=== PATIENT | male | born 1950 | race Caucasian/White ===

== ENCOUNTER 2020-01-09 09:39 | Outpatient (CLI) | payer MEDICARE, SELFPAY ==
[2020-01-09 10:59] LABS: Basophils Absolute Auto 0.1 K/mm3 (0.0-0.1); Basophils Percent Auto 0.9 % (0.2-1.2); Eosinophils Absolute Auto 0.3 K/mm3 (0-0.3); Eosinophils Percent Auto 3.8 % (0-4.4); Hematocrit 38.9 % (42.0-52.0); Hemoglobin 12.8 g/dL (14.0-18.0); Immature Granulocyte Absolute 0.03 K/mm3 (0.00-0.031); Immature Granulocyte Percent A 0.4 % (0-0.5); Lymphocytes Percent Auto 34.1 % (18.3-44.2); Mean Corpuscular HGB Conc 32.9 g/dl (32-36); Mean Corpuscular Hemoglobin 27.1 pg (26-34); Mean Corpuscular Volume 82.4 fl (80-100); Mean Platelet Volume 11.4 fl (7.4-10.4); Monocytes Absolute Auto 0.7 K/mm3 (0.1-0.6); Monocytes Percent Auto 7.9 % (2.6-8.5); Neutrophils Absolute Auto 4.4 K/mm3 (1.3-6.7); Neutrophils Percent Auto 52.9 % (45.5-73.1); Platelet Count Result 256 k/mm3 (150-375); Red Blood Count 4.72 M/mm3 (4.6-6.20); Red Cell Distribution Width 15.6 % (11.5-14.5); White Blood Count 8.2 K/mm3 (4.5-10.0)
[2020-01-09 11:16] LABS: Alanine Aminotransferase 24 U/L (4-50); Albumin Level 4.3 g/dL (3.5-5.1); Alkaline Phosphatase 106 U/L (38-126); Aspartate Amino Transferase 31 U/L (17-59); Bilirubin,Total 0.7 mg/dL (0.2-1.3); Blood Urea Nitrogen 24 mg/dL (9-20); Calcium 9.3 mg/dL (8.4-10.2); Carbon Dioxide 28 mmol/L (22-30); Chloride 98 mmol/L (98-107); Estimated Glomerular Filt Rate > 60; Glucose 194 mg/dL (75-110); Potassium 3.4 mmol/L (3.4-5.0); Sodium 138 mmol/L (137-145)
== END 2020-01-09 09:40 | disposition home or self-care (01) ==
LOC: ANHLAB 09:41
PROVIDERS: PCP Family Medicine; Visit Provider Family Medicine
DX: D64.9 Anemia, unspecified (principal); I10 Essential (primary) hypertension
CPT/HCPCS: 36415; 80053; 85025; 85027

== ENCOUNTER 2020-05-08 21:15 | Inpatient (IN) | payer MEDICARE, SELFPAY ==
[2020-05-08] VITALS (22 sets, daily range): BP systolic 100–129; BP diastolic 60–82; PULSE 83–119; RESP 15–45; TEMP 37.1; O2SAT 73–99
--- NOTE | ~2020-05-08 | XR_ITS ---
XR chest 1V portable 05/31/2020 11:38 Indication: Respiratory distress Procedure: AP portable chest Comparison: Comparison to multiple prior studies sequentially, with oldest reviewed study dated 07/2019. Findings: Diffuse bilateral airspace disease. Tracheostomy tube present. Heart size normal. No signif icant pleural effusion or pneumothorax. PICC line tip in the SVC. Impression: 1: Diffuse bilateral airspace disease which may represent pneumonia or edema. Reviewed, dictated and finalized at location B. BER'S HELPER Impression: 1: Diffuse bilateral airspace disease which may represent pneumonia or edema.
--- NOTE | ~2020-05-08 | XR_ITS ---
EXAMINATION: XR chest 1V portable INDICATION: : Pneumonia TECHNIQUE: Portable AP chest at 0823 hours COMPARISON: 05/10/2020 FINDINGS: Diffuse interstitial and airspace opacities persist with slight improvement. There is no pl eural effusion or pneumothorax. The cardiomediastinal silhouette is stable. IMPRESSION: 1. Diffuse lung disease with interval improvement, consistent with pneumonia and/or pulmonary edema a nd/or acute respiratory distress syndrome (ARDS). Reviewed, dictated and finalized at location A. ER OPERATOR IMPRESSION: 1. Diffuse lung disease with interval improvement, consistent with pneumonia an d/or pulmonary edema and/or acute respiratory distress syndrome (ARDS).
--- NOTE | ~2020-05-08 | XR_ITS ---
EXAMINATION: XR chest 1V portable DATE: 06/03/2020 05:42 INDICATION: Acute respiratory failure TECHNIQUE: frontal view of the chest was obtained. COMPARISON: Chest radiograph dated 06/02/2020 FINDINGS: Tracheostomy tube in expected position at the thoracic inlet. Left upper extremity peripherally inser domenico central venous catheter (PICC) tip at the cephalad superior vena cava. Diffuse bilateral increased indistinct interstitial and patchy airspace opacities throughout both gina gs. No pneumothorax or definitive pleural effusion. Heart size is normal. IMPRESSION: 1. No significant change in diffuse bilateral interstitial and airspace opacities which could represe nt moderate pulmonary edema, pneumonia, ARDS or some combination thereof. Reviewed, dictated and finalized at location A. RS IMPRESSION: 1. No significant change in diffuse bilateral interstitial and airspace opaciti es which could represent moderate pulmonary edema, pneumonia, ARDS or some comb ination thereof.
--- NOTE | ~2020-05-08 | XR_ITS ---
EXAMINATION: XR chest ET placement INDICATION: Respiratory failure, endotracheal tube insertion TECHNIQUE: Portable AP chest at 0852 hours COMPARISON: 0459 hours FINDINGS: An endotracheal tube has been inserted which ends 5.8 cm above the chely. The nasogastric tube is followed as far as the stomach. Its tip is beyond the inferior margin of the radiograph. Diff use interstitial and airspace opacities persist with slight worsening in the left lung base. There is no pleural effusion or pneumothorax. The cardiomediastinal silhouette is normal. IMPRESSION: 1. Endotracheal tube inserted and ending approximately 5.8 cm above the chely. 2. Nasogastric tube insertion. 3. Diffuse lung disease with interval worsening in the left lung base, consistent with pneumonia and/ or pulmonary edema and/or acute respiratory distress syndrome (ARDS). Reviewed, dictated and finalized at location A. HER EXAMINER IMPRESSION: 1. Endotracheal tube inserted and ending approximately 5.8 cm above the chely. 2. Nasogastric tube insertion. 3. Diffuse lung disease with interval worsening in the left lung base, consiste nt with pneumonia and/or pulmonary edema and/or acute respiratory distress synd davian (ARDS).
--- NOTE | ~2020-05-08 | XR_ITS ---
XR chest 1V portable DATE: 05/25/2020 06:18 INDICATION: Covid pneumonia TECHNIQUE: Portable AP chest views on 05/25/2020 at 0525 and 0526 hours COMPARISON: 05/24/2020 portable AP chest at 0527 hours FINDINGS: ET tube is approximately 6.5 cm above chely; ideal range is 2-5 cm. NG tube is noted in the stomach. Left upper extremity PIC catheter tip overlies superior vena cava. Normal heart size. Aortic arch calcification. There are extensive interstitial infiltrates of both lungs involving primarily the mid and lower lung zones, stable since 05/24/2020 IMPRESSION: Persistent relatively stable bilateral pulmonary infiltrates since 05/24/2020 Reviewed, dictated and finalized at location A. NOLOGY SUPPORT ANALYST
--- NOTE | ~2020-05-08 | US_ITS ---
EXAMINATION: US venous doppler UE DATE: 05/21/2020 11:02 INDICATION: Bilateral arm swelling TECHNIQUE: Schwarz scale images with and without compression and Doppler images of the right and left up per extremity veins were obtained. COMPARISON: None. FINDINGS: There is superficial venous thrombosis of the right basilic and cephalic veins in the left basilic ve in. Remainder of the upper extremity veins are patent. IMPRESSION: 1. Bilateral upper extremity superficial venous thrombosis. Dr. Juares discussed with the patient's nurse Radha, at 05/21/2020 11:21 GEOSPATIAL TECHNICIAN. Reviewed, dictated and finalized at location A. PATIAL TECHNICIAN
--- NOTE | ~2020-05-08 | XR_ITS ---
XR chest 1V portable 05/20/2020 06:15 Indication: CovidPneumonia Procedure: AP portable chest Comparison: Comparison to multiple prior studies sequentially, with oldest reviewed study dated 04/28. Findings: Endotracheal tube tip 7.3 cm above the chely. Extensive bilateral airspace disease. No pne umothorax. No acute osseous abnormality. NG tube in the stomach. Central line tip in the SVC. No acut e osseous abnormality. Impression: 1: Stable bilateral airspace disease, consistent with pneumonia. Reviewed, dictated and finalized at location A. M SERVICE REPRESENTATIVE Impression: 1: Stable bilateral airspace disease, consistent with pneumonia.
--- NOTE | ~2020-05-08 | US_ITS ---
EXAMINATION: US venous doppler [facility] DATE: 05/16/2020 12:41 INDICATION: Fever. TECHNIQUE: Grayscale ultrasound images without and with compression and Doppler ultrasound images of the bilateral lower extremity veins were obtained. COMPARISON: None. FINDINGS: The visualized portions of right common femoral vein, profunda (deep) femoral vein, femoral vein, pop liteal vein, peroneal veins, posterior tibial veins, and greater saphenous vein outflow are patent. The visualized portions of left common femoral vein, profunda femoral vein, femoral vein, popliteal v ein, peroneal veins, posterior tibial veins, and greater saphenous vein outflow are patent. IMPRESSION: 1. No deep venous thrombosis. Reviewed, dictated and finalized at location A. HALMIC TECHNOLOGIST
--- NOTE | ~2020-05-08 | XR_ITS ---
XR chest 1V portable 06/02/2020 06:10 Indication: Acute respiratory failure Procedure: AP portable chest Comparison: Comparison to multiple prior studies sequentially, with oldest reviewed study dated 08/2019. Findings: Tracheostomy tube present. PICC line tip in the SVC. Stable diffuse bilateral airspace dise ase. No significant pleural effusion or pneumothorax. No acute osseous abnormality. Impression: 1: Stable diffuse bilateral airspace disease which may represent pneumonia and/or edema. Reviewed, dictated and finalized at location A. R STRIPPER Impression: 1: Stable diffuse bilateral airspace disease which may represent pneumonia and/ or edema.
--- NOTE | ~2020-05-08 | XR_ITS ---
XR chest 1V portable DATE: 05/08/2020 22:12 INDICATION: Shortness of breath. Covid-positive. History of hypertension. TECHNIQUE: Portable AP chest on 05/08/2020 at 2209 hours COMPARISON: 11/24/2012 PA and lateral chest FINDINGS: Normal heart size. There is aortic calcification and unfolding. No hilar or mediastinal enl argement. There are patchy infiltrates in the mid and lower lung zones, left greater than right. No pleural effusion or pulmonary vascular congestion or pneumothorax. IMPRESSION: Patchy bilateral mid and lower lung infiltrates, left greater than right Reviewed, dictated and finalized at location A. ICULTURAL SPECIALTY GROWER FIELD
--- NOTE | ~2020-05-08 | XR_ITS ---
EXAMINATION: XR chest 1V portable EXAM DATE: 05/29/2020 05:47 INDICATION: COVID-19 pneumonia. Respiratory failure. TECHNIQUE: Portable AP frontal chest x-ray was obtained. Comparison is made to prior examination from 05/28. FINDINGS: Endotracheal tube tip is 7 centimeters above the chely. This could be safely advanced 2 c m. There is a nasogastric tube seen with tip collimated off the study, but below the left hemidiaphra gm. There is a left-sided PICC line with tip projecting over the SVC. There is extensive bilateral ill-defined acute airspace disease. There are no sizable pleural effusi ons. There is no pneumothorax suspected. Cardiomediastinal silhouette is normal. The bones and s oft tissues are unremarkable. Difficult appreciate any significant interval change compared to yesterday. IMPRESSION: 1. Endotracheal tube could be safely advanced 2 cm. 2. Rather extensive edema or infection unchanged. Reviewed, dictated and finalized at location A. E MAKER
--- NOTE | ~2020-05-08 | XR_ITS ---
EXAMINATION: XR chest PICC line INDICATION: PICC insertion TECHNIQUE: Portable AP chest at 1251 hours COMPARISON: 0852 hours FINDINGS: A left upper extremity PICC has been inserted which ends with its tip in the distal superio r vena cava. An endotracheal tube ends 5.5 cm above the chely. The nasogastric tube is followed as f ar as the stomach. Its tip is beyond the inferior margin of the radiograph. The lateral margin of the left hemithorax is excluded from the examination. No pleural effusion or pneumothorax is identified. Diffuse interstitial and airspace opacities persist without significant change. IMPRESSION: 1. Left upper extremity PICC ending with its tip in the distal superior vena cava. 2. Stable diffuse lung disease, consistent with pneumonia and/or pulmonary edema and/or acute respira tory distress syndrome (ARDS). Reviewed, dictated and finalized at location A. SIERE CUP MOLD CUTTER IMPRESSION: 1. Left upper extremity PICC ending with its tip in the distal superior vena ca va. 2. Stable diffuse lung disease, consistent with pneumonia and/or pulmonary ju a and/or acute respiratory distress syndrome (ARDS).
--- NOTE | ~2020-05-08 | XR_ITS ---
EXAMINATION: XR chest 1V portable DATE: 05/14/2020 05:37 INDICATION: COVID-19 pneumonia. Respiratory failure. TECHNIQUE: A single frontal view of the chest was obtained. COMPARISON: Chest single view 05/13/2020 FINDINGS: The patient is rotated to his right. There are interstitial and airspace opacities througho ut the lungs bilaterally. No pleural effusion or pneumothorax. The heart size is normal. The endotrac heal tube tip is 6.8 cm above the chely. A left upper extremity peripherally inserted central venous catheter (PICC) is seen with tip in the superior vena cava. The nasogastric tube tip is in the stoma ch. IMPRESSION: 1. Stable diffuse lung disease, consistent with pneumonia versus pulmonary edema versus acute respira tory distress syndrome (ARDS). Reviewed, dictated and finalized at location A. HOME CARE IMPRESSION: 1. Stable diffuse lung disease, consistent with pneumonia versus pulmonary ju a versus acute respiratory distress syndrome (ARDS).
--- NOTE | ~2020-05-08 | XR_ITS ---
EXAMINATION: XR chest 1V portable INDICATION: Shortness of breath, COVID 19 TECHNIQUE: Portable AP chest at 0459 hours COMPARISON: 05/11/2020 FINDINGS: Diffuse interstitial and airspace opacities persist without significant change. There is no pleural effusion or pneumothorax. The cardiomediastinal silhouette is normal. IMPRESSION: 1. Stable diffuse lung disease, consistent with pneumonia and/or pulmonary edema and/or acute respira tory distress syndrome (ARDS). Reviewed, dictated and finalized at location A. ID FERTILIZER SERVICER IMPRESSION: 1. Stable diffuse lung disease, consistent with pneumonia and/or pulmonary ju a and/or acute respiratory distress syndrome (ARDS).
--- NOTE | ~2020-05-08 | XR_ITS ---
EXAMINATION: XR chest 1V portable EXAM DATE: 05/31/2020 06:17 INDICATION: COVID-19 pneumonia. Respiratory failure. TECHNIQUE: Portable AP frontal chest x-ray was obtained. Comparison is made to prior examination from 05/30. FINDINGS: Tracheostomy tube is in position. There is a left-sided PICC line with tip projecting over the SVC. There is extensive bilateral ill-defined acute airspace disease. There are no sizable pleural effusi ons. There is no pneumothorax suspected. Cardiomediastinal silhouette is normal. The bones and s oft tissues are unremarkable. There is no significant interval change. IMPRESSION: 1. Tracheostomy, left PICC line in position. 2. Extensive edema or infection unchanged. Reviewed, dictated and finalized at location A. ATE PILOT
--- NOTE | ~2020-05-08 | XR_ITS ---
EXAMINATION: XR chest 1V portable DATE: 05/16/2020 06:08 INDICATION: COVID-19 pneumonia. Respiratory failure. TECHNIQUE: A single frontal view of the chest was obtained. COMPARISON: Chest single view 05/15/2020 FINDINGS: There are interstitial opacities and hazy airspace opacities in the mid and lower lung zone s. No pleural effusion or pneumothorax. The heart size is normal. The endotracheal tube tip is 6.5 cm above the chely. The nasogastric tube tip is beyond the inferior margin of the radiograph, but at l east to the stomach. A left upper extremity peripherally inserted central venous catheter (PICC) is s een with tip in the superior vena cava. IMPRESSION: 1. Stable interstitial and airspace opacities in the mid and lower lung zones, consistent with pneumo emery versus pulmonary edema versus acute respiratory distress syndrome (ARDS). Reviewed, dictated and finalized at location A. AGE WORKER IMPRESSION: 1. Stable interstitial and airspace opacities in the mid and lower lung zones, consistent with pneumonia versus pulmonary edema versus acute respiratory distr ess syndrome (ARDS).
--- NOTE | ~2020-05-08 | XR_ITS ---
EXAMINATION: XR chest 1V portable DATE: 05/17/2020 06:14 INDICATION: COVID-19 pneumonia. Respiratory failure. TECHNIQUE: A single frontal view of the chest was obtained. COMPARISON: Chest single view 05/16/2020 FINDINGS: There is a diffuse interstitial pattern in the lungs. There are hazy airspace opacities in the mid and lower lung zones. No pleural effusion or pneumothorax. The heart size is normal. The endo tracheal tube tip is 5.9 cm above the chely. A left upper extremity peripherally inserted central ve nous catheter (PICC) is seen with tip in the superior vena cava. The nasogastric tube tip is beyond t he inferior margin of the radiograph, but at least to the stomach. IMPRESSION: 1. Stable diffuse lung disease, consistent with pneumonia versus pulmonary edema versus acute respira tory distress syndrome (ARDS). Reviewed, dictated and finalized at location A. EGE HIRE IMPRESSION: 1. Stable diffuse lung disease, consistent with pneumonia versus pulmonary ju a versus acute respiratory distress syndrome (ARDS).
--- NOTE | ~2020-05-08 | XR_ITS ---
EXAMINATION: XR abdomen NG/feed tube insert INDICATION: OG placement TECHNIQUE: Portable AP KUB-NG at 0853 hours COMPARISON: None available FINDINGS: The nasogastric tube ends in the stomach. Surgical clips in the right upper quadrant are li shona from prior cholecystectomy. There are diffuse opacities of the visualized lung bases. IMPRESSION: 1. Nasogastric tube in the stomach. Reviewed, dictated and finalized at location A. R POOL DRIVER
--- NOTE | ~2020-05-08 | XR_ITS ---
XR chest 1V portable DATE: 05/23/2020 06:50 INDICATION: Covid 19 pneumonia TECHNIQUE: Portable AP chest on 05/23/2020 at 0611 hours COMPARISON: 05/22/2020 portable AP chest at 0535 hours FINDINGS: ET tube tip approximately 6.5 cm above chely. Kelliher range is 2-5 cm. NG tube is noted passing into stomach, distal tip not definitively localized. Left upper extremity PIC catheter tip overlies the superior vena cava. There are bilateral primarily central and to a greater extent lower lung zone infiltrates, which may be due to pneumonia, atelectasis and/or pulmonary edema. There is mild prominence of the minor fissur e suggesting subpleural edema. Heart size appears within normal limits. Is aortic calcification. IMPRESSION: Bilateral primarily central and to a greater extent lower lung zone infiltrates, mildly i ncreased since 05/22/2020; differential diagnosis includes pneumonia, pulmonary edema and/or atelecta sis. ET tube 6.5 cm above chely; ideal range is 2-5 cm Reviewed, dictated and finalized at location A. MARKETING SERVICES AND SKIN IMPRESSION: Bilateral primarily central and to a greater extent lower lung zone infiltrates, mildly increased since 05/22/2020; differential diagnosis include s pneumonia, pulmonary edema and/or atelectasis. ET tube 6.5 cm above chely; ideal range is 2-5 cm
--- NOTE | ~2020-05-08 | XR_ITS ---
XR chest 1V portable 05/21/2020 06:04 Indication: CovidPneumonia Procedure: AP portable chest Comparison: Comparison to multiple prior studies sequentially, with oldest reviewed study dated 04/29. Findings: Stable diffuse bilateral airspace disease without significant change. Endotracheal tube tip 7 cm above the chely. NG tube in the stomach. No significant pleural effusion or pneumothorax. Impression: 1: Stable diffuse bilateral airspace disease, consistent with pneumonia. Reviewed, dictated and finalized at location A. ATORY GAME BIRD BIOLOGIST Impression: 1: Stable diffuse bilateral airspace disease, consistent with pneumonia.
--- NOTE | ~2020-05-08 | XR_ITS ---
EXAMINATION: XR chest 1V portable EXAM DATE: 05/30/2020 06:14 INDICATION: COVID-19 pneumonia. Respiratory failure. TECHNIQUE: Portable AP frontal chest x-ray was obtained. Comparison is made to prior examination from 05/29, 05/28. FINDINGS: Endotracheal tube tip is 7 centimeters above the chely. This could be safely advanced 2 c m. There is a left-sided PICC line with tip projecting over the SVC. There is extensive bilateral ill-defined acute airspace disease. There are no sizable pleural effusi ons. There is no pneumothorax suspected. Cardiomediastinal silhouette is normal. The bones and s oft tissues are unremarkable. Feeding tube is no longer identified. The airspace disease appears unchanged compared to yesterday. IMPRESSION: 1. Endotracheal tube could be safely advanced 2 cm. 2. Rather extensive edema or infection unchanged. Reviewed, dictated and finalized at location A. ESSING CLERK
--- NOTE | ~2020-05-08 | XR_ITS ---
EXAMINATION: XR chest 1V portable EXAM DATE: 05/19/2020 06:31 INDICATION: COVID-19 pneumonia . TECHNIQUE: Portable AP frontal chest x-ray was obtained. Comparison is made to prior examination fro 05/18, 05/17/2020. FINDINGS: Endotracheal tube tip is 5 centimeters above the chely. There is a nasogastric tube seen w ith tip collimated off the study, but below the left hemidiaphragm. There is a left-sided PICC line w ith tip projecting over the cavoatrial junction. Moderate amount of bilateral ill-defined acute airspace disease, could be COVID-19 pneumonia. Edema f rom other etiology has similar appearance. There are no sizable pleural effusions. There is no pne umothorax suspected. Cardiomediastinal silhouette is normal. The bones and soft tissues are unrema rkable. There is no significant interval change compared to prior exam. IMPRESSION: 1. Line(s) and tube(s) in position. 2. Stable airspace disease and other findings as above. Reviewed, dictated and finalized at location A. HANDLE ASSEMBLER
--- NOTE | ~2020-05-08 | XR_ITS ---
XR chest 1V portable 05/22/2020 06:06 Indication: CovidPneumonia Procedure: AP portable chest Comparison: Comparison to multiple prior studies sequentially, with oldest reviewed study dated 04/29. Findings: Persistent diffuse bilateral airspace disease. No significant pleural effusion or pneumotho rax. Endotracheal tube tip 9.6 cm above the chely. NG tube passes into the stomach. No pleural effus ion or pneumothorax. Impression: 1: Persistent diffuse bilateral airspace disease, consistent with pneumonia. Reviewed, dictated and finalized at location A. ITUDINAL FLOAT OPERATOR Impression: 1: Persistent diffuse bilateral airspace disease, consistent with pneumonia.
--- NOTE | ~2020-05-08 | CT_ITS ---
EXAMINATION: CT brain wo con EXAM DATE: 05/19/2020 11:48 INDICATION: Encephalopathy. COVID-19. TECHNIQUE: Spiral CT of the head was performed without contrast. Axial, coronal and sagittal images were reviewed. The dose-length product (DLP) for this examination was 681.00 mGy-cm. The exposure w as tailored according to patient size, and iterative reconstruction (ASIR) was used as additional dos e reduction technique. There is no prior study for comparison. FINDINGS: There is no acute intraparenchymal hemorrhage. No evidence of intraparenchymal brain mass lesion. No evidence of acute infarction. There is no mass effect or midline shift. The ventricles are normal in size. There are no extra-axial collections. There are no acute calvarial fractures. T he orbits are unremarkable. Soft tissue is unremarkable. The visualized sinuses and mastoid air fortino ls are well aerated. IMPRESSION: 1. No acute intracranial findings. Reviewed, dictated and finalized at location A. MANAGEMENT PROFESSOR
--- NOTE | ~2020-05-08 | XR_ITS ---
XR chest 1V portable DATE: 05/26/2020 06:01 INDICATION: Covid pneumonia TECHNIQUE: Portable AP chest on 05/26/2020 at 0530 hours COMPARISON: 05/25/2020 portable AP chest at 0525 hours FINDINGS: ET tube approximately 7 cm above chely; ideal range is 2-5 cm. NG tube in stomach. Left upper extremity PIC catheter tip overlies superior vena cava. Heart size appears normal. Is aortic calcification. There are diffuse bilateral pulmonary interstitial infiltrates with some patchy consolidation in the mid and particularly lower lung zones, mildly increased since 05/25/2020. No pleural effusion or pneumothorax. IMPRESSION: Mildly increased bilateral infiltrates since 05/25/2020 Reviewed, dictated and finalized at location A. WASHER
--- NOTE | ~2020-05-08 | XR_ITS ---
EXAMINATION: XR chest 1V portable EXAM DATE: 05/18/2020 05:59 INDICATION: COVID-19 pneumonia . TECHNIQUE: Portable AP frontal chest x-ray was obtained. Comparison is made to prior examination from 05/17/2020. FINDINGS: Endotracheal tube tip is 5 centimeters above the chely (ideal range is between 2 to 5 cm). There is a nasogastric tube seen with tip collimated off the study, but below the left hemidiaphrag m. There is a left-sided PICC line with tip projecting over the cavoatrial junction. Moderate amount of bilateral ill-defined acute airspace disease, could be COVID-19 pneumonia. Edema f rom other etiology has similar appearance. There are no sizable pleural effusions. There is no pne umothorax suspected. Cardiomediastinal silhouette is normal. The bones and soft tissues are unrema rkable. There is no significant interval change compared to prior exam. IMPRESSION: 1. Line(s) and tube(s) in position. 2. Stable airspace disease and other findings as above. Reviewed, dictated and finalized at location A. EEPER
--- NOTE | ~2020-05-08 | XR_ITS ---
EXAMINATION: XR chest 1V portable EXAM DATE: 05/28/2020 06:16 INDICATION: COVID-19 pneumonia. Respiratory failure. TECHNIQUE: Portable AP frontal chest x-ray was obtained. Comparison is made to prior examination from 05/27. FINDINGS: Endotracheal tube tip is 7 centimeters above the chely. This could be safely advanced 2 c m. There is a nasogastric tube seen with tip collimated off the study, but below the left hemidiaphra gm. There is a left-sided PICC line with tip projecting over the SVC. There is extensive bilateral ill-defined acute airspace disease. There are no sizable pleural effusi ons. There is no pneumothorax suspected. Cardiomediastinal silhouette is normal. The bones and s oft tissues are unremarkable. Difficult appreciate any significant interval change compared to yesterday. IMPRESSION: 1. Endotracheal tube could be safely advanced 2 cm. 2. Rather extensive edema or infection. Reviewed, dictated and finalized at location A. EL CREW MEMBER
--- NOTE | ~2020-05-08 | XR_ITS ---
EXAMINATION: XR chest 1V portable DATE: 05/15/2020 06:08 INDICATION: Respiratory failure. COVID-19 pneumonia. TECHNIQUE: A single frontal view of the chest was obtained. COMPARISON: Chest single view 05/14/2020 FINDINGS: There are interstitial opacities and hazy airspace opacities throughout the lungs bilateral ly. No pleural effusion or pneumothorax. The heart size is normal. The endotracheal tube tip is 7.3 c m above the chely. A left upper extremity peripherally inserted central venous catheter (PICC) is se en with tip in the superior vena cava. The nasogastric tube tip is beyond the inferior margin of the radiograph, but at least to the stomach. IMPRESSION: 1. Stable diffuse lung disease, consistent with pneumonia versus pulmonary edema versus acute respira tory distress syndrome (ARDS). Reviewed, dictated and finalized at location A. RVISOR DOG LICENSE OFFICER IMPRESSION: 1. Stable diffuse lung disease, consistent with pneumonia versus pulmonary ju a versus acute respiratory distress syndrome (ARDS).
--- NOTE | ~2020-05-08 | XR_ITS ---
EXAMINATION: XR chest 1V portable DATE: 05/13/2020 05:47 INDICATION: Respiratory failure. COVID-19 pneumonia. TECHNIQUE: A single frontal view of the chest was obtained. COMPARISON: Chest single view 05/12/2020, CT abdomen and pelvis 11/23/2012 FINDINGS: There are airspace and interstitial opacities in all lung zones bilaterally with relative s paring of the periphery. A calcified right lung nodule is consistent with old granulomatous disease. No pleural effusion or pneumothorax. The heart size is normal. The endotracheal tube tip is 6.8 cm ab ove the chely. The nasogastric tube tip is in the stomach. A left upper extremity peripherally inser domenico central venous catheter (PICC) is seen with tip at the superior cavoatrial junction. IMPRESSION: 1. Stable diffuse lung disease, consistent with pneumonia versus pulmonary edema versus acute respira tory distress syndrome (ARDS). Reviewed, dictated and finalized at location A. OW GRAPH WEIGHT OPERATOR IMPRESSION: 1. Stable diffuse lung disease, consistent with pneumonia versus pulmonary ju a versus acute respiratory distress syndrome (ARDS).
--- NOTE | ~2020-05-08 | XR_ITS ---
XR chest 1V portable 06/01/2020 05:45 Indication: Acute respiratory failure Procedure: AP portable chest Comparison: Comparison to multiple prior studies sequentially, with oldest reviewed study dated 08/2019. Findings: Tracheostomy tube present. Unchanged diffuse bilateral airspace disease. PICC line tip in t he SVC. No pneumothorax. Impression: 1: Unchanged diffuse bilateral airspace disease which may represent edema and/or pneumonia. Reviewed, dictated and finalized at location A. HMAKER Impression: 1: Unchanged diffuse bilateral airspace disease which may represent edema and/o r pneumonia.
--- NOTE | ~2020-05-08 | XR_ITS ---
EXAMINATION: XR chest 1V portable EXAM DATE: 05/10/2020 06:35 INDICATION: COVID-19. Respiratory distress. Hypertension. TECHNIQUE: Portable AP frontal chest x-ray was obtained. Comparison is made to prior examination from 05/08/2020. FINDINGS: There is moderate amount of ill-defined bilateral airspace disease likely edema or pneumonia. There are no sizable pleural effusions. There is no pneumothorax suspected. The cardiomediastinal silho uette is prominent but magnified on this AP technique. The bones and soft tissues are unremarkable. Suspect interval progression in the airspace disease. IMPRESSION: 1. Progression of ill-defined acute airspace disease. Reviewed, dictated and finalized at location A. HOUSE WORKER
--- NOTE | ~2020-05-08 | US_ITS ---
EXAMINATION: US venous doppler [facility] DATE: 06/03/2020 14:28 INDICATION: Lower limb swelling TECHNIQUE: Grayscale ultrasound images without and with compression and Doppler ultrasound images of the bilateral lower extremity veins were obtained. COMPARISON: None. FINDINGS: The visualized portions of right common femoral vein, profunda (deep) femoral vein, femoral vein, pop liteal vein, posterior tibial veins, peroneal veins, gastrocnemius vein and greater saphenous vein ou tflow are patent. The visualized portions of left common femoral vein, profunda femoral vein, femoral vein, popliteal v ein, posterior tibial veins, peroneal veins, gastrocnemius vein and greater saphenous vein outflow ar e patent. IMPRESSION: 1. No deep venous thrombosis in either lower limb. Reviewed, dictated and finalized at location A. BALL TRIMMER
--- NOTE | ~2020-05-08 | XR_ITS ---
EXAMINATION: XR chest 1V portable EXAM DATE: 05/27/2020 05:39 INDICATION: COVID-19 pneumonia. TECHNIQUE: Portable AP frontal chest x-ray was obtained. Comparison is made to prior examination from 05/26, 05/25. FINDINGS: Endotracheal tube tip is 8 centimeters above the chely. This could be safely advanced 2-3 cm. There is a nasogastric tube seen with tip collimated off the study, but below the left hemidiaph ragm. There is a left-sided PICC line with tip projecting over the SVC. There is extensive bilateral ill-defined acute airspace disease. There are no sizable pleural effusi ons. There is no pneumothorax suspected. Cardiomediastinal silhouette is normal. The bones and s oft tissues are unremarkable. Slight interval progression in the airspace disease compared to the 05/24 film. IMPRESSION: 1. Endotracheal tube could be safely advanced 2-3 cm. 2. Rather extensive edema or infection. Reviewed, dictated and finalized at location A. ITAL MANAGER
--- NOTE | ~2020-05-08 | XR_ITS ---
XR chest 1V portable DATE: 05/24/2020 05:48 INDICATION: Covid 19 pneumonia TECHNIQUE: Portable AP chest on 05/24/2020 at 0526 hours COMPARISON: 05/23/2020 portable AP chest at 0611 hours FINDINGS: ET tube tip is approximately 7.5 cm above chely; ideal range is 205 cm. NG tube is noted passing toward the stomach. Left upper extremity PIC catheter tip overlies the cepha lad aspect of the superior vena cava. Normal heart size. Is aortic arch calcification. There are bilateral interstitial reticular infiltrates involving primarily the mid and particularly l ower lung zones, some patchy atelectasis and/or consolidation at the lung bases. No pleural effusion or pneumothorax is evident. IMPRESSION: ET tube tip 7.5 cm above chely; ideal range is 205 cm Persistent bilateral pulmonary infiltrates and/atelectasis, relatively stable since 05/23/2020 Reviewed, dictated and finalized at location A. MATION SPECIALIST IMPRESSION: ET tube tip 7.5 cm above chely; ideal range is 205 cm Persistent bilateral pulmonary infiltrates and/atelectasis, relatively stable s roxanna 05/23/2020
--- NOTE | ~2020-05-08 | XR_ITS ---
EXAMINATION: XR chest 1V portable DATE: 05/30/2020 18:57 INDICATION: Increased oxygen needs post tracheostomy TECHNIQUE: frontal view of the chest was obtained. COMPARISON: Chest radiograph dated 05/30/2020 at 5:26 AM FINDINGS: Interval tracheostomy tube placement which is in expected position at the thoracic inlet. Left upper extremity peripherally inserted central venous catheter (PICC) tip at the cephalad superior vena cav a. Minimal change in extensive bilateral groundglass and patchy airspace opacities throughout both lungs with lower lung predominance. No pneumothorax or definitive pleural effusion. The cardiomediastinal silhouette is normal. IMPRESSION: 1. No significant interval change in extensive bilateral lung disease which could represent pneumonia , pulmonary edema, ARDS or some combination thereof. 2. Tracheostomy tube in expected position at the thoracic inlet. Reviewed, dictated and finalized at location A. SS SPEC IMPRESSION: 1. No significant interval change in extensive bilateral lung disease which cou ld represent pneumonia, pulmonary edema, ARDS or some combination thereof. 2. Tracheostomy tube in expected position at the thoracic inlet.
[2020-05-08 21:53] LABS: Alveolar/Arterial O2 Gradient 624.5 mmHg; Base Excess ABG -0.5 mEq/l (+/-2.0); Carboxyhemoglobin 0.8 % THb (0-2.0); Fractional Inspired Oxygen 100 %; HCO3 ABG 20.7 mEq/l (22.0-26.0); Methemoglobin ABG 0.2 %THb (0-1.5); Oxygen Content ABG 18.2 %vol (16.0-22.0); Oxygen Saturation ABG 94.7 % (95.0-100.0); Oxyhemoglobin 91.9 % THb (90.0-100.0); PCO2 ABG 25.4 mmHg (35.0-45.0); PO2 ABG 63.1 mmHg (80.0-100.0); PO2 FiO2 Ratio Arterial Blood 0.63 %; Reduced Hemoglobin 7.1 %THb (0-5.0); Total Hemoglobin 14.1 g/dL (12.0-18.0)
[2020-05-08 21:54] LABS: Device NON-INVASIVE VENT; Modified Allen's Test Pass; Non-Invasive Expiratory Pressure 8 CMH2O; Non-Invasive Inspiratory Pressure 14 CMH2O; Non-Invasive Vent Rate 14 /MIN; Site Drawn RIGHT RADIAL; pH ABG 7.528 (7.350-7.450)
[2020-05-08] MEDS: DEXAMETHASONE SOD PHOS INJ 4 MG/ML VIAL 6 MG IV PUSH (22:05)
[2020-05-08 22:09] LABS: Basophils Percent Auto 0.2 % (0.2-1.2); Hematocrit 41.2 % (42.0-52.0); Immature Granulocyte Absolute 0.05 K/mm3 (0.00-0.031); Immature Granulocyte Percent A 0.6 % (0-0.5); Lymphocytes Absolute Auto 1.08 K/mm3 (0.9-3.2); Lymphocytes Percent Auto 12.3 % (18.3-44.2); Mean Corpuscular Hemoglobin 27.7 pg (26-34); Mean Corpuscular Volume 81.6 fl (80-100); Mean Platelet Volume 10.6 fl (7.4-10.4); Monocytes Absolute Auto 0.6 K/mm3 (0.1-0.6); Monocytes Percent Auto 6.7 % (2.6-8.5); Neutrophils Percent Auto 80.2 % (45.5-73.1); Platelet Count Result 264 k/mm3 (150-375); Red Blood Count 5.05 M/mm3 (4.6-6.20); Red Cell Distribution Width 15.9 % (11.5-14.5); White Blood Count 8.8 K/mm3 (4.5-10.0)
[2020-05-08 22:19] LABS: Lactic Acid Reflex 3.2 mmol/L (0.7-2.1); Partial Thromboplastin Time 26.3 SECONDS (22.3-36.8); Prothrombin Time 14.1 Seconds (11.1-14.7)
--- NOTE | 2020-05-08 22:22 | ECG_ITS ---
Measurements Intervals Duncan Rate: 107 P: 22 GA: 150 QRS: -46 QRSD: 135 T: 50 QT: 357 QTc: 477 Interpretive Statements SINUS TACHYCARDIA RIGHT BUNDLE BRANCH BLOCK LEFT ANTERIOR FASCICULAR BLOCK LEFT VENTRICULAR HYPERTROPHY AND ST-T CHANGE BASELINE ARTIFACT- I, II, III, AVR, AVL, AVF, V3 ABNORMAL ECG Electronically Signed On 05-09-2020 8:07:32 BATTERY PLATE ASSEMBLER by Rivera Butt D.O.
[2020-05-08 22:23] LABS: Alanine Aminotransferase 60 U/L (4-50); Albumin Level 3.7 g/dL (3.5-5.1); Alkaline Phosphatase 85 U/L (38-126); Anion Gap 10 mmol/L (8-16); Aspartate Amino Transferase 118 U/L (17-59); Bilirubin,Total 1.1 mg/dL (0.2-1.3); Blood Urea Nitrogen 40 mg/dL (9-20); CRP 4.3 mg/dL (<1.0); Calcium 8.7 mg/dL (8.4-10.2); Carbon Dioxide 29 mmol/L (22-30); Chloride 95 mmol/L (98-107); Estimated Glomerular Filt Rate 46; Glucose 292 mg/dL (75-110); Potassium 3.2 mmol/L (3.4-5.0); Sodium 134 mmol/L (137-145)
--- NOTE | 2020-05-08 22:47 | ED.SOB ---
HPI - SOB/Dyspnea General Chief Complaint: Shortness of Breath/Dyspnea Stated Complaint: SOB Time Seen by Provider: 05/08/20 21:34 History of Present Illness HPI Narrative: Patient is a 70-year-old male who presents the ER with shortness of breath. Patient began displaying symptoms of COVID-19 1 week ago and was tested on 05/02/2020. Since being diagnoses developed increased shortness of breath with each passing day. Patient has been using albuterol and benzonatate. His main symptom onset of shortness of breath is cough. No chest pain or chest pressure. Not having abdominal issues. Patient found to be hypoxic for EMS who placed him on nonrebreather. Related Data Allergies Allergy/AdvReac Type Severity Reaction Status Date / Time No Known Allergies Allergy Verified 01/09/20 09:10 Review of Systems Review of Systems: All systems reviewed & are unremarkable except as noted in HPI and below Constitutional: Constitutional: Denies chills, Reports fever(s) and Reports weakness ENT: Denies nasal congestion and Denies sore throat Cardiovascular: Cardiovascular: Denies chest pain and Denies radiating jaw, neck or arm pain Respiratory: Respiratory: Reports cough, Reports dyspnea and Denies wheezing PMFSH Past Medical History Medical History (Updated 05/09/20 @ 05:04 by Tito Zhneg MD) Chronic GERD Diverticulosis GERD (gastroesophageal reflux disease) Gout HTN (hypertension), benign Surgical History Surgical History (Updated 05/08/20 @ 23:49 by Lianna Camarillo NP) H/O eye surgery Bilateral keratotomy H/O rectal polypectomy History of bilateral knee replacement Patient had bilateral knees replaced and then had both of them redone each knee was done twice History of cholecystectomy 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 He retired from [employer]. He has 2 daughters. 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 He desires to be a full code. He denies any alcohol or illicit drugs. Lifelong nonsmoker. Smoking status: Never smoker Second hand tobacco smoke exposure: No Alcohol intake: never Substance use: never Substance use type: does not use Gender identity (if verbalized by the patient): Male Spiritual care concerns: No Exam Narrative: Exam Narrative: GENERAL: ill-appearing, well-nourished, and in moderate distress. HEAD: Normocephalic, atraumatic. ENT: Mucous membranes moist. CHEST: Diffuse crackles. Tachypnea. HEART: Tachycardic and regular. Normal peripheral pulses. ABDOMEN: Soft, nontender, nondistended. EXTREMITIES: Normal range of motion. Normal strength. SKIN: Warm, dry, no rash. NEURO: Alert and oriented x3. PSYCH: Normal mood and affect. Course Course Emergency Course: Admit to hospitalist service. Patient tolerating BiPAP very well. Received Decadron IV antibiotics. Vital Signs Vital signs: Vital Signs Temperature 98.7 F 05/08/20 21:17 Pulse Rate 118 H 05/08/20 21:17 Respiratory Rate 21 H 05/08/20 21:17 Blood Pressure 129/69 05/08/20 21:17 Pulse Oximetry 87 L 05/08/20 21:17 Temperature 98.5 F 05/09/20 02:15 Pulse Rate 85 05/09/20 02:15 Respiratory Rate 20 05/09/20 02:15 Blood Pressure 115/62 05/09/20 02:15 Pulse Oximetry 92 05/09/20 02:15 MDM - SOB/Dyspnea Lab Data Result diagrams: 05/08/20 22:00 05/08/20 22:00 Labs: Lab Results 05/08/20 05/08/20 05/08/20 Range/Units 21:50 22:00 22:00 WBC 8.8 (4.5-10.0) K/mm3 RBC 5.05 (4.6-6.20) M/mm3 Hgb 14.0 (14.0-18.0) g/dL Hct 41.2 L (42.0-52.0) % MCV 8
[2020-05-08] MEDS: SODIUM CHLORIDE 0.9% 999 ML IV CONT ×2 (22:50→22:51)
--- NOTE | 2020-05-08 22:53 | PC.NURSE ---
Per ERP hang 2L NS for pt. Fluid bolus at this time.
--- NOTE | 2020-05-08 23:38 | PM.IMHP ---
H&P: HPI History of Present Illness Date/Time: 05/08/20 23:38 Chief complaint: acute respiratory failure, COVID +, pneumonia Narrative: Odell Rod is a 70 year old male who was found to be COVID positive this past Wednesday he had his results. The patient stated he has been sick for approximately 1 week. His was found to be COVID positive prior to him and it was suggested that he get tested as well. The patient has been having a cough and shortness of breath. The patient has been taking albuterol and benzonatate from his primary care doctor. The patient stated that he has not been able to sleep very well the last couple nights because he has been coughing. He has had a sleep with his head up he has been short of breath. The patient's O2 saturations were in the 70s when he 1st arrived. Were 33 did 27 his heart rate was in the lower 100s. 05/04/2020 was his positive results in the computer blood gas 7.528. CO2 25.4 patient was placed on BiPAP 06/02. He was given Decadron IV fluids and Rocephin patient's chest x-ray was read as patchy bilateral mid and lower lung infiltrates left greater than right. Patient is afebrile. Blood pressure is on the low side 119/68. Patient fits sepsis criteria. Patient is being admitted to inpatient on the date of service 05/08/2020. Review of Systems Review of Systems: All systems reviewed & are unremarkable except as noted in HPI and below Constitutional: Constitutional: Reports as per HPI and Reports no additional constitutional complaints Eyes: Eyes: Reports as per HPI and Reports no additional eye complaints ENT: Reports system reviewed and no additional complaints, except as documented and Reports Normal hearing present Cardiovascular: Cardiovascular: Reports no additional cardiovascular complaints Respiratory: Respiratory: Reports no additional respiratory complaints and Reports no additional respiratory complaints Gastrointestinal: Gastrointestinal: Reports as per HPI and Reports no additional gastrointestinal complaints Musculoskeletal: Musculoskeletal: Reports no additional musculoskeletal complaints Integumentary/Breasts: Skin/Breast: Reports system reviewed and no additional complaints, except as docu and Reports as per HPI Neurologic: Reports system reviewed and no additional complaints, except as documented, Reports as per HPI and Reports Normal hearing present Psychiatric: Psychiatric: Reports no additional psychiatric complaints and Reports as per HPI Endocrine: Endocrine: Reports no additional endocrine complaints Hematologic/Lymphatic: Hematologic/Lymphatic: Reports no additional hematologic/lymphatic complaints Allergic/Immunologic: Allergic/Immunologic: Reports no additional allergic/immunologic complaints [facility] Past Medical History Medical History (Updated 05/09/20 @ 00:04 by Lianna Camarillo NP) Chronic GERD Diverticulosis GERD (gastroesophageal reflux disease) Gout HTN (hypertension), benign Surgical History Surgical History (Updated 05/08/20 @ 23:49 by Lianna Camarillo NP) H/O eye surgery Bilateral keratotomy H/O rectal polypectomy History of bilateral knee replacement Patient had bilateral knees replaced and then had both of them redone each knee was done twice History of cholecystectomy 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 He retired from [employer]. He has 2 daughters. 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 He desires to be a full code. He denies any alcohol or illicit drugs. Lifelong nonsmoker. Smoking status: Never smoker Second hand tobacco smoke exposure: N
[2020-05-09] VITALS (23 sets, daily range): BP systolic 98–138; BP diastolic 48–74; PULSE 73–93; RESP 15–42; TEMP 36.4–37; O2SAT 90–98; BMI 35.9
--- NOTE | 2020-05-09 00:18 | PC.NURSE ---
Pt. gave verbal consent for RN to communicate w/ pt. about his care.
[2020-05-09] MEDS: REMDESIVIR 200 MG/NS 250 ML 200 MG/250 ML BAG 250 MG IVPB (00:34)
[2020-05-09] MEDS: POTASSIUM CHLORIDE 20 MEQ PACKET (FOR LIQUID) PO (00:34)
[2020-05-09 01:06] LABS: Reflex Lactic Acid Yes or No Add Lactic
--- NOTE | 2020-05-09 02:22 | ADMGEN ---
This patient, Odell Rod, was admitted to IMU Room 209-01. Patient/family oriented to hospital policies and general routines including ID bracelet, bed and alarms, visiting hours, pain management, procedures, bathroom and other care routines, personal items, smoking policy, room service/diet, and visiting hours. Information on how to activate the Rapid Response Team has been discussed. Patient/Family are encouraged to report perceived risks to care and to ask questions if they do not understand what they are told or what they should do. REPORT FROM ARACLEI MEYER APPROX [id number]
[2020-05-09 04:20] LABS: Hemoglobin A1C 8.6 % (<5.7)
[2020-05-09 04:24] LABS: Lactic Acid 1.6 mmol/L (0.7-2.1)
[2020-05-09 04:26] LABS: Alanine Aminotransferase 52 U/L (4-50)
[2020-05-09] MEDS: PANTOPRAZOLE SODIUM IV 40 MG VIAL IV PUSH ×2 (07:55→22:06)
[2020-05-09] MEDS: ENOXAPARIN 40 MG/0.4 ML SYRINGE SUB-Q ×2 (07:55→22:06)
[2020-05-09] MEDS: INSULIN ASPART (*BKC) 100 UNITS/ML SUB-Q ×3 (07:55→18:54)
[2020-05-09 08:59] LABS: Glucose Point of Care 353 (65-105)
[2020-05-09] MEDS: ALBUTEROL SULFATE (*SP) INHALER 1 PUFF (10:12)
--- NOTE | 2020-05-09 12:10 | PM.IMPN ---
Progress Note: A&P Assessment and Plan (1) Acute respiratory failure: Code(s): J96.00 - Acute respiratory failure, unspecified whether with hypoxia or hypercapnia Status: Acute Assessment and Plan: ABG on admisison showing 7.53/ on BiPAP. ABG repeated showing 4.58/. He is on 95% FiO2. Continue Albuterol inhalers. Continue Remdesivir and Dexamethasone. He has been started on Rocephin as well for possible bacterial PNA but no cough, fever or elevated WBC. (2) Pneumonia due to COVID-19 virus: Code(s): U07.1 - COVID-19; J12.89 - Other viral pneumonia Status: Acute Assessment and Plan: Patient COVID Positive on 05/04. He was started on Decadron Day 2 and Remdesivir Day 2. He is currently on BiPAP. CRP is 4.3. Repeat CXR in the morning. Follow inflammatory markers. (3) HTN (hypertension), benign: Code(s): I10 - Essential (primary) hypertension Status: Chronic Assessment and Plan: Patient's blood pressure was reviewed on 05/09 Blood pressure remains well controlled even soft at times. Continue to hold his amlodipine, enalapril and hydrochlorothiazide. (4) Acute renal failure: Code(s): N17.9 - Acute kidney failure, unspecified Status: Acute Assessment and Plan: Patient's creatinine is 1.5. Yoni inhibitors and diuretics on hold. Repeat labs in the morning. (5) Elevated blood sugar: Code(s): R73.9 - Hyperglycemia, unspecified Status: Acute Assessment and Plan: A1c 8.6 consistent with new diagnosis of DM. Glucose reviewed on 05/09 Glucose poorly controlled related to steroids and uncontrolled prior to admission. Continue AccuCheks covering with sliding scale. Hypoglycemia protocol available as needed. Continue current medications. Add Levemir (6) Chronic GERD: Code(s): K21.9 - Gastro-esophageal reflux disease without esophagitis Status: Chronic Assessment and Plan: Stable. Continue IV Protonix (7) Gout: Code(s): M10.9 - Gout, unspecified Status: Chronic Assessment and Plan: Patient is on a BiPAP at this time of his medicines are held. Allopurinol is on hold. (8) DVT prophylaxis: Code(s): Z29.9 - Encounter for prophylactic measures, unspecified Status: Acute Assessment and Plan: Lovenox Subjective Date/time seen: 05/09/20 12:10 Interval history: Date of service 05/09 70yo male known to have COVID here for SOB and found to be in acute respiratory failure. Patient denies CP. Feeling SOB. no cough. has not been eating for a few days prior to admission due to lack of appetitie. He denies n/v/d. not sure if he has dysgeusia or anosmia. Exam Narrative: Exam Narrative: AF 97.5 123/66 85 30 91% Gen - BiPAP in place, tachypneic but appears comfortable Chest - bibasilar inspiratory rhonchi CV - RRR S1/S2; Tele showing no significant dysrhythmias Abd - Soft, NT/ND, Positive BS Ext - No pedal edema, 2+ DP bilatera Psych - Nml mood and affect Skin - feet and hands are cool to touch Objective Data Vital Signs Vital Signs: Vital Signs - 24 hr 05/08/20 21:17 05/08/20 21:19 05/08/20 21:24 Temperature 98.7 F Pulse Rate 118 H 116 H 119 H Respiratory Rate 21 H 45 H 25 H Blood Pressure 129/69 129/69 Pulse Oximetry 87 L 73 L 05/08/20 21:33 05/08/20 21:40 05/08/20 21:46 Temperature Pulse Rate 114 H 113 H 115 H Respiratory Rate 44 H 34 H 31 H Blood Pressure 100/66 Pulse Oximetry 79 L 94 96 05/08/20 21:47 05/08/20 22:00 05/08/20 22:06 Temperature Pulse Rate 113 H 108 H 108 H Respiratory Rate 36 H 36 H Blood Pressure Pulse Oximetry 95 97 95 05/08/20 22:15 05/08/20 22:16 05/08/20 22:30 Temperature Pulse Rate 109 H 108 H 109 H Respiratory Rate 36 H 30 H 33 H Blood Pressure 108/60 Pulse Oximetry 94 94 97 05/08/20 22:31 05/08/20 22:46 05/08/20 22:48 Temperature Pulse Rate
[2020-05-09] MEDS: ALBUTEROL SULFATE (*SP) AEROSOL 1 PUFF 2 PUFF INHALATION ×3 (13:10→20:20)
[2020-05-09 13:13] LABS: Alveolar/Arterial O2 Gradient 573.4 mmHg; Base Excess ABG -1.2 mEq/l (+/-2.0); Fractional Inspired Oxygen 95 %; Modified Allen's Test Pass; Oxygen Content ABG 26.7 %vol (16.0-22.0); Oxygen Saturation ABG 95.6 % (95.0-100.0); Oxyhemoglobin 94.1 % THb (90.0-100.0); PCO2 ABG 30.3 mmHg (35.0-45.0); PO2 ABG 73.3 mmHg (80.0-100.0); PO2 FiO2 Ratio Arterial Blood 0.77 %; Site Drawn RIGHT RADIAL; Total Hemoglobin 20.2 g/dL (12.0-18.0); pH ABG 7.458 (7.350-7.450)
[2020-05-09 13:14] LABS: Device NON-INVASIVE VENT; Non-Invasive Expiratory Pressure 8 CMH2O; Non-Invasive Inspiratory Pressure 12 CMH2O; Non-Invasive Vent Rate 4 /MIN
[2020-05-09 13:33] LABS: Glucose Point of Care 314 (65-105)
[2020-05-09] MEDS: DEXAMETHASONE SOD PHOS INJ 4 MG/ML VIAL 6 MG IV PUSH (16:10)
[2020-05-09 16:18] LABS: Glucose Point of Care 320 (65-105)
[2020-05-09 20:03] LABS: Anion Gap 7 mmol/L (8-16); Blood Urea Nitrogen 37 mg/dL (9-20); Calcium 8.1 mg/dL (8.4-10.2); Carbon Dioxide 27 mmol/L (22-30); Chloride 104 mmol/L (98-107); Estimated CRCL calculation 92 ml/min; Estimated Glomerular Filt Rate > 60; Glucose 328 mg/dL (75-110); Potassium 3.8 mmol/L (3.4-5.0); Sodium 138 mmol/L (137-145)
[2020-05-09 21:53] LABS: Glucose Point of Care 322 (65-105)
[2020-05-09] MEDS: REMDESIVIR 100 MG/NS 250 ML 100 MG/250 ML BAG 250 MG IVPB (22:06)
[2020-05-09] MEDS: INSULIN DETEMIR 100 UNITS/ML 10 UNITS SUB-Q (22:06)
[2020-05-10] VITALS (15 sets, daily range): BP systolic 117–135; BP diastolic 60–78; PULSE 60–99; RESP 20–26; TEMP 36.1–36.9; O2SAT 91–96
[2020-05-10 05:13] LABS: Base Excess ABG -0.5 mEq/l (+/-2.0); Fractional Inspired Oxygen 95 %; HCO3 ABG 22.2 mEq/l (22.0-26.0); Oxygen Content ABG 18.1 %vol (16.0-22.0); Oxygen Saturation ABG 94.7 % (95.0-100.0); Oxyhemoglobin 93.2 % THb (90.0-100.0); PCO2 ABG 30.8 mmHg (35.0-45.0); PO2 ABG 67.2 mmHg (80.0-100.0); PO2 FiO2 Ratio Arterial Blood 0.71 %; Total Hemoglobin 13.8 g/dL (12.0-18.0); pH ABG 7.475 (7.350-7.450)
[2020-05-10 05:14] LABS: Device NON-INVASIVE VENT; Modified Allen's Test Pass; Site Drawn RIGHT RADIAL
[2020-05-10 05:15] LABS: Non-Invasive Expiratory Pressure 8 CMH2O; Non-Invasive Inspiratory Pressure 12 CMH2O; Non-Invasive Vent Rate 12 /MIN
[2020-05-10 05:54] LABS: Basophils Percent Auto 0.2 % (0.2-1.2); Hematocrit 41.4 % (42.0-52.0); Hemoglobin 13.6 g/dL (14.0-18.0); Immature Granulocyte Absolute 0.09 K/mm3 (0.00-0.031); Lymphocytes Absolute Auto 0.89 K/mm3 (0.9-3.2); Lymphocytes Percent Auto 10.1 % (18.3-44.2); Mean Corpuscular HGB Conc 32.9 g/dl (32-36); Mean Corpuscular Hemoglobin 26.8 pg (26-34); Mean Corpuscular Volume 81.7 fl (80-100); Mean Platelet Volume 10.8 fl (7.4-10.4); Monocytes Absolute Auto 0.4 K/mm3 (0.1-0.6); Monocytes Percent Auto 4.2 % (2.6-8.5); Neutrophils Absolute Auto 7.5 K/mm3 (1.3-6.7); Neutrophils Percent Auto 84.5 % (45.5-73.1); Platelet Count Result 249 k/mm3 (150-375); Red Blood Count 5.07 M/mm3 (4.6-6.20); Red Cell Distribution Width 15.9 % (11.5-14.5); White Blood Count 8.8 K/mm3 (4.5-10.0)
[2020-05-10 07:12] LABS: Alanine Aminotransferase 52 U/L (4-50); Albumin Level 3.4 g/dL (3.5-5.1); Alkaline Phosphatase 79 U/L (38-126); Anion Gap 9 mmol/L (8-16); Aspartate Amino Transferase 79 U/L (17-59); Bilirubin,Total 0.7 mg/dL (0.2-1.3); Blood Urea Nitrogen 40 mg/dL (9-20); CRP 5.4 mg/dL (<1.0); Calcium 8.1 mg/dL (8.4-10.2); Carbon Dioxide 29 mmol/L (22-30); Chloride 104 mmol/L (98-107); Estimated CRCL calculation 102 ml/min; Estimated Glomerular Filt Rate > 60; Glucose 319 mg/dL (75-110); Lactate Dehydrogenase 1537 U/L (313-618); Magnesium 2.7 mg/dL (1.6-2.3); Potassium 3.4 mmol/L (3.4-5.0); Sodium 142 mmol/L (137-145)
[2020-05-10] MEDS: DEXAMETHASONE SOD PHOS INJ 4 MG/ML VIAL 6 MG IV PUSH (08:58)
[2020-05-10] MEDS: PANTOPRAZOLE SODIUM IV 40 MG VIAL IV PUSH ×2 (08:58→21:33)
[2020-05-10] MEDS: INSULIN DETEMIR 100 UNITS/ML 10 UNITS SUB-Q (09:25)
[2020-05-10] MEDS: ENOXAPARIN 40 MG/0.4 ML SYRINGE SUB-Q ×2 (09:25→21:33)
[2020-05-10] MEDS: INSULIN ASPART (*BKC) 100 UNITS/ML SUB-Q ×3 (09:25→18:13)
[2020-05-10] MEDS: ALBUTEROL SULFATE (*SP) AEROSOL 1 PUFF 2 PUFF INHALATION ×2 (09:30→14:39)
[2020-05-10] MEDS: POTASSIUM CHLORIDE 20 MEQ TABLET PO (09:38)
[2020-05-10 09:41] LABS: Glucose Point of Care 287 (65-105)
--- NOTE | 2020-05-10 10:03 | PM.IMPN ---
Progress Note: A&P Assessment and Plan (1) Acute respiratory failure: Code(s): J96.00 - Acute respiratory failure, unspecified whether with hypoxia or hypercapnia Status: Acute Assessment and Plan: ABG on admisison showing 7.53/ on BiPAP. Wore the BiPAP overnight and toelrated it well. ABG repeated this morning showing 4.47/. He is on 95% FiO2. Continue Albuterol inhalers. Continue Remdesivir and Dexamethasone. He has been started on Rocephin as well for possible bacterial PNA but no cough, fever or elevated WBC. Discussed with respiratory. plan to change to HFNC. Start diet. Wean FiO2 as he toelrtes. (2) Pneumonia due to COVID-19 virus: Code(s): U07.1 - COVID-19; J12.89 - Other viral pneumonia Status: Acute Assessment and Plan: Patient COVID Positive on 05/04. He was started on Decadron Day 3 and Remdesivir Day 3. He is currently on BiPAP. CRP is up to 5.4, LDH 1537. Repeat CXR this morning showing progression. Follow inflammatory markers. (3) HTN (hypertension), benign: Code(s): I10 - Essential (primary) hypertension Status: Chronic Assessment and Plan: Patient's blood pressure was reviewed on 05/10 Blood pressure remains well controlled. Continue to hold his amlodipine, enalapril and hydrochlorothiazide. (4) Acute renal failure: Code(s): N17.9 - Acute kidney failure, unspecified Status: Acute Assessment and Plan: Patient's creatinine is 1.5. Yoni inhibitors and diuretics on hold. Creatine normal now. Continue to monitor. (5) Elevated blood sugar: Code(s): R73.9 - Hyperglycemia, unspecified Status: Acute Assessment and Plan: A1c 8.6 consistent with new diagnosis of DM. Glucose reviewed on 05/10 Glucose poorly controlled related to steroids and uncontrolled prior to admission. Continue AccuCheks covering with sliding scale. Hypoglycemia protocol available as needed. Continue current medications. Advance Levemir (6) Chronic GERD: Code(s): K21.9 - Gastro-esophageal reflux disease without esophagitis Status: Chronic Assessment and Plan: Stable. Continue IV Protonix. (7) Gout: Code(s): M10.9 - Gout, unspecified Status: Chronic Assessment and Plan: Stable. Allopurinol remains on hold. (8) DVT prophylaxis: Code(s): Z29.9 - Encounter for prophylactic measures, unspecified Status: Acute Assessment and Plan: Lovenox Q12h Subjective Date/time seen: 05/10/20 10:03 Interval history: Date of service 05/10 70yo male known to have COVID here for SOB and found to be in acute respiratory failure. No CP. SOB better. Complains of dry mouth. Hungry. Exam Narrative: Exam Narrative: AF 97.8 119/64 95 26 96% HFNC Gen - BiPAP in place currently and appears comfortable (changed to HFNC after my visit) Chest - diffuse inspiratory dry crackles, nml RR CV - RRR S1/S2; Tele showing no significant dysrhythmias Abd - Soft, NT/ND, Positive BS Ext - No pedal edema Psych - Nml mood and affect Skin - feet are cool to touch Objective Data Vital Signs Vital Signs: Vital Signs - 24 hr 05/09/20 11:45 05/09/20 12:00 05/09/20 14:00 Temperature 97.5 F L Pulse Rate 82 84 80 Respiratory Rate 33 H 30 H Blood Pressure 123/66 Pulse Oximetry 93 95 05/09/20 14:25 05/09/20 16:00 05/09/20 16:10 Temperature 97.6 F Pulse Rate 80 84 83 Respiratory Rate 31 H 28 H 31 H Blood Pressure 120/65 Pulse Oximetry 93 95 93 05/09/20 18:00 05/09/20 20:00 05/09/20 20:22 Temperature 98.1 F Pulse Rate 78 73 77 Respiratory Rate 22 H 32 H Blood Pressure 130/74 Pulse Oximetry 95 93 05/09/20 22:00 05/10/20 00:00 05/10/20 02:00 Temperature 97.9 F Pulse Rate 80 89 81 Respiratory Rate 22 H Blood Pressure 124/78 Pulse Oximetry 95 05/10/20 04:00 05/10/20 06:00 05/10/20 08:00 Temperature 98.1 F 97.8 F
[2020-05-10 12:43] LABS: Glucose Point of Care 351 (65-105)
--- NOTE | 2020-05-10 14:39 | PCRCNOTE ---
Window of time for administration has passed. See next scheduled administration.
[2020-05-10 17:02] LABS: Glucose Point of Care 258 (65-105)
[2020-05-10 21:10] LABS: Glucose Point of Care 348 (65-105)
[2020-05-10] MEDS: REMDESIVIR 100 MG/NS 250 ML 100 MG/250 ML BAG 250 MG IVPB (22:24)
[2020-05-10] MEDS: INSULIN DETEMIR 100 UNITS/ML 16 UNITS SUB-Q (22:36)
[2020-05-11] VITALS (16 sets, daily range): BP systolic 138–154; BP diastolic 68–81; PULSE 20–107; RESP 17–105; TEMP 36.1–37.1; O2SAT 89–100
[2020-05-11 05:54] LABS: Hematocrit 41.5 % (42.0-52.0); Hemoglobin 13.7 g/dL (14.0-18.0); Mean Corpuscular Hemoglobin 26.9 pg (26-34); Mean Corpuscular Volume 81.5 fl (80-100); Mean Platelet Volume 10.3 fl (7.4-10.4); Platelet Count Result 318 k/mm3 (150-375); Red Blood Count 5.09 M/mm3 (4.6-6.20); Red Cell Distribution Width 15.9 % (11.5-14.5); White Blood Count 11.5 K/mm3 (4.5-10.0)
[2020-05-11 06:11] LABS: Alanine Aminotransferase 51 U/L (4-50); Albumin Level 3.2 g/dL (3.5-5.1); Alkaline Phosphatase 83 U/L (38-126); Anion Gap 7 mmol/L (8-16); Aspartate Amino Transferase 71 U/L (17-59); Bilirubin,Total 0.8 mg/dL (0.2-1.3); Blood Urea Nitrogen 37 mg/dL (9-20); CRP 2.8 mg/dL (<1.0); Calcium 8.5 mg/dL (8.4-10.2); Carbon Dioxide 30 mmol/L (22-30); Chloride 108 mmol/L (98-107); Estimated CRCL calculation 100 ml/min; Estimated Glomerular Filt Rate > 60; Glucose 207 mg/dL (75-110); Lactate Dehydrogenase 1489 U/L (313-618); Potassium 3.4 mmol/L (3.4-5.0); Sodium 145 mmol/L (137-145)
[2020-05-11 08:39] LABS: Glucose Point of Care 190 (65-105)
[2020-05-11] MEDS: ALBUTEROL SULFATE (*SP) AEROSOL 1 PUFF 2 PUFF INHALATION ×4 (09:19→21:21)
[2020-05-11] MEDS: DEXAMETHASONE SOD PHOS INJ 4 MG/ML VIAL 6 MG IV PUSH (10:18)
[2020-05-11] MEDS: PANTOPRAZOLE SODIUM IV 40 MG VIAL IV PUSH ×2 (10:18→21:35)
[2020-05-11] MEDS: INSULIN DETEMIR 100 UNITS/ML 16 UNITS SUB-Q (10:18)
[2020-05-11] MEDS: ENOXAPARIN 40 MG/0.4 ML SYRINGE SUB-Q ×2 (10:19→21:34)
[2020-05-11] MEDS: INSULIN ASPART (*BKC) 100 UNITS/ML SUB-Q ×2 (12:32→16:49)
[2020-05-11 12:37] LABS: Glucose Point of Care 257 (65-105)
--- NOTE | 2020-05-11 12:43 | PM.IMPN ---
Progress Note: A&P Assessment and Plan (1) Acute respiratory failure: Code(s): J96.00 - Acute respiratory failure, unspecified whether with hypoxia or hypercapnia Status: Acute Assessment and Plan: ABG on admisison showing 7.53 on BiPAP. Wore the BiPAP overnight and toelrated it well. ABG repeated yesterday morning showing 4.47/. He was moved to HFNC and NRB. ABG pending today. CXR looks better. Will have the patient up as he toelrates. Continue Albuterol inhalers. Continue Remdesivir and Dexamethasone. He has been started on Rocephin as well for possible bacterial PNA but no cough, fever or elevated WBC. BCx negative. Will stop abx. (2) Pneumonia due to COVID-19 virus: Code(s): U07.1 - COVID-19; J12.89 - Other viral pneumonia Status: Acute Assessment and Plan: Patient COVID positive on 05/04/20. He was admitted on 05/08/20 and started on Decadron Day 4 and Remdesivir Day 4. CRP better at 2.8 and LDH sown to 1489. Repeat CXR 05/11 reviewed and shows improvement. Currently on NRB and HFNC. Wean FiO2 to keep sats>92%. Follow inflammatory markers. (3) HTN (hypertension), benign: Code(s): I10 - Essential (primary) hypertension Status: Chronic Assessment and Plan: Patient's blood pressure was reviewed on 05/11 Blood pressure slightly elevated but overall remains well controlled. Continue to hold his amlodipine, enalapril and hydrochlorothiazide. (4) Acute renal failure: Code(s): N17.9 - Acute kidney failure, unspecified Status: Acute Assessment and Plan: Patient's creatinine is 1.5 on admission. Yoni inhibitors and diuretics on hold. Creatine normal now. Continue to monitor. (5) Diabetes mellitus: Code(s): E11.9 - Type 2 diabetes mellitus without complications Status: Acute Assessment and Plan: A1c 8.6 consistent with new diagnosis of DM. Glucose reviewed on 05/11 Glucose still poorly controlled related to steroids and uncontrolled prior to admission. Continue AccuCheks covering with sliding scale. Hypoglycemia protocol available as needed. Continue current medications. Advance Levemir agaundrea (6) Chronic GERD: Code(s): K21.9 - Gastro-esophageal reflux disease without esophagitis Status: Chronic Assessment and Plan: Stable. Continue IV Protonix. (7) Gout: Code(s): M10.9 - Gout, unspecified Status: Chronic Assessment and Plan: Stable. Allopurinol remains on hold. (8) DVT prophylaxis: Code(s): Z29.9 - Encounter for prophylactic measures, unspecified Status: Acute Assessment and Plan: Lovenox Q12h Subjective Date/time seen: 05/11/20 12:43 Interval history: Date of service 05/11 70yo male known to have COVID here for SOB and found to be in acute respiratory failure. SOB better. Wants to try to get up. No CP. Toelrating oral intake. RN states overnight patient was up to 100% FiO2 but able to stabilize. +flatus but no BMs Exam Narrative: Exam Narrative: AF 98.3 144/71 106 20 100% HFNC Gen - NARD with HFNC and NRB in place Chest - mid and lower lung field inspiratory crackles, nml RR CV - RRR S1/S2; Tele showing no significant dysrhythmias Abd - Soft, NT/ND, hypoactive BS Ext - No pedal edema Psych - Nml mood and affect Skin - warm and dry Objective Data Vital Signs Vital Signs: Vital Signs - 24 hr 05/10/20 14:00 05/10/20 14:36 05/10/20 16:00 Temperature 98.4 F Pulse Rate 85 89 89 Respiratory Rate 22 H Blood Pressure 132/72 Pulse Oximetry 96 92 05/10/20 18:00 05/10/20 20:00 05/10/20 21:14 Temperature 97 F L Pulse Rate 87 89 Respiratory Rate 22 H Blood Pressure 124/69 Pulse Oximetry 92 92 05/10/20 23:07 05/11/20 00:00 05/11/20 03:26 Temperature 97.3 F L Pulse Rate 79 Respiratory Rate 22 H Blood Pressure 148/72 H Pulse Oximetry 92 93 98 05/11/20 03:39
[2020-05-11 13:37] LABS: Alveolar/Arterial O2 Gradient 612.9 mmHg; Base Excess ABG 0.9 mEq/l (+/-2.0); Fractional Inspired Oxygen 100 %; HCO3 ABG 22.4 mEq/l (22.0-26.0); Oxygen Content ABG 19.8 %vol (16.0-22.0); Oxygen Saturation ABG 96.1 % (95.0-100.0); PCO2 ABG 28.1 mmHg (35.0-45.0); PO2 FiO2 Ratio Arterial Blood 0.72 %
[2020-05-11 13:39] LABS: Modified Allen's Test Pass; Site Drawn LEFT RADIAL
[2020-05-11 13:41] LABS: Device HIGH FLOW THERAPY
[2020-05-11] MEDS: POTASSIUM CHLORIDE 20 MEQ TABLET 40 MEQ PO (16:48)
[2020-05-11 17:00] LABS: Glucose Point of Care 229 (65-105)
[2020-05-11 20:45] LABS: Glucose Point of Care 216 (65-105)
[2020-05-11] MEDS: INSULIN DETEMIR 100 UNITS/ML 20 UNITS SUB-Q (21:35)
[2020-05-11] MEDS: REMDESIVIR 100 MG/NS 250 ML 100 MG/250 ML BAG 250 MG IVPB (23:10)
[2020-05-12] VITALS (44 sets, daily range): BP systolic 86–180; BP diastolic 56–108; PULSE 76–138; RESP 16–30; TEMP 36.1–38.8; O2SAT 91–100
[2020-05-12 04:42] LABS: Alveolar/Arterial O2 Gradient 631.9 mmHg; Base Excess ABG 2.5 mEq/l (+/-2.0); Fractional Inspired Oxygen 100 %; HCO3 ABG 24.3 mEq/l (22.0-26.0); Oxygen Saturation ABG 90.5 % (95.0-100.0); Oxyhemoglobin 88.1 % THb (90.0-100.0); PCO2 ABG 29.8 mmHg (35.0-45.0); PO2 ABG 51.3 mmHg (80.0-100.0); PO2 FiO2 Ratio Arterial Blood 0.51 %; Total Hemoglobin 14.6 g/dL (12.0-18.0)
[2020-05-12 04:44] LABS: Site Drawn RIGHT BRACHIAL; pH ABG 7.529 (7.350-7.450)
[2020-05-12 04:45] LABS: Device HIGH FLOW THERAPY
[2020-05-12 05:28] LABS: Basophils Percent Auto 0.2 % (0.2-1.2); Hematocrit 41.8 % (42.0-52.0); Hemoglobin 13.7 g/dL (14.0-18.0); Immature Granulocyte Percent A 0.9 % (0-0.5); Lymphocytes Absolute Auto 1.13 K/mm3 (0.9-3.2); Lymphocytes Percent Auto 9.9 % (18.3-44.2); Mean Corpuscular HGB Conc 32.8 g/dl (32-36); Mean Corpuscular Hemoglobin 27.1 pg (26-34); Mean Corpuscular Volume 82.8 fl (80-100); Mean Platelet Volume 10.4 fl (7.4-10.4); Monocytes Absolute Auto 0.5 K/mm3 (0.1-0.6); Neutrophils Absolute Auto 9.7 K/mm3 (1.3-6.7); Platelet Count Result 339 k/mm3 (150-375); Red Blood Count 5.05 M/mm3 (4.6-6.20); Red Cell Distribution Width 16.3 % (11.5-14.5); White Blood Count 11.4 K/mm3 (4.5-10.0)
[2020-05-12 05:52] LABS: Alanine Aminotransferase 58 U/L (4-50); Albumin Level 3.3 g/dL (3.5-5.1); Alkaline Phosphatase 92 U/L (38-126); Anion Gap 5 mmol/L (8-16); Aspartate Amino Transferase 92 U/L (17-59); Bilirubin,Total 1.1 mg/dL (0.2-1.3); Blood Urea Nitrogen 31 mg/dL (9-20); CRP 4.5 mg/dL (<1.0); Calcium 8.6 mg/dL (8.4-10.2); Carbon Dioxide 31 mmol/L (22-30); Chloride 114 mmol/L (98-107); Estimated CRCL calculation 100 ml/min; Estimated Glomerular Filt Rate > 60; Glucose 174 mg/dL (75-110); Lactate Dehydrogenase 1780 U/L (313-618); Potassium 3.9 mmol/L (3.4-5.0); Sodium 150 mmol/L (137-145)
[2020-05-12] MEDS: LORazepam INJ (*CRX) 2 MG/ML VIAL 1 MG IV PUSH (07:13)
[2020-05-12 07:27] LABS: Ovalocytes 1+ (NORMAL); Platelet Estimate Adequate (Adequate)
--- NOTE | 2020-05-12 07:43 | PM.IMPN ---
Progress Note: A&P Assessment and Plan (1) Acute respiratory failure: Code(s): J96.00 - Acute respiratory failure, unspecified whether with hypoxia or hypercapnia Status: Acute Assessment and Plan: ABG on admisison showing 7. on BiPAP. Wore the BiPAP overnight 05/09- and did well. He was changed to HFNC and NRB 05/10 but still was requiring 100% FiO2 with A-a grad in the 600's. Able to be weaned to 80% FiO2 yesterday but worsened overnight requiring BiPAP. CXR unchanged today. ABG . on 100% FiO2 with A-a 632. H is now obtunded and most likely will need intubation. BiPAP settings adjusted. Move to ICU. Monitor closely but he is pending resp collapse. Having fevers now since stopping the abx but may be unrelated. CHF felt less likely but will add BNP and check Echo. Critical care time spent 40 minutes (2) Pneumonia due to COVID-19 virus: Code(s): U07.1 - COVID-19; J12.89 - Other viral pneumonia Status: Acute Assessment and Plan: Patient COVID positive on 05/04/20. He was admitted on 05/08/20 and started on Decadron Day 5 and Remdesivir Day 5. CRP worse at 4.5 and LDH higher at 1780. AST/ALT up and down felt related to COVID +/- Remdesivir. Repeat CXR 05/12 reviewed and showing no change. Currently on BiPAP. Follow inflammatory markers and LFTs. As above. (3) HTN (hypertension), benign: Code(s): I10 - Essential (primary) hypertension Status: Chronic Assessment and Plan: Patient's blood pressure was reviewed on 05/12 Blood pressure more elevated past 24 hours felt related to the pending respiratory collapse. Will continue to hold his amlodipine, enalapril and hydrochlorothiazide. Add IV hydralazine prn. (4) Acute renal failure: Code(s): N17.9 - Acute kidney failure, unspecified Status: Acute Assessment and Plan: Patient's creatinine is 1.5 on admission. Yoni inhibitors and diuretics on hold. Creatine normal now. Continue to monitor. (5) Hyponatremia: Code(s): E87.1 - Hypo-osmolality and hyponatremia Status: Acute Assessment and Plan: Na 150 today felt related to fluid loss from insensible losses. IV fluids on hold due to COVID. Cautious if Lasix given. (6) Diabetes mellitus: Code(s): E11.9 - Type 2 diabetes mellitus without complications Status: Acute Assessment and Plan: A1c 8.6 consistent with new diagnosis of DM. Glucose reviewed on 05/12 Glucose has been poorly controlled related to steroids and uncontrolled prior to admission but improved today. GLucose 174 this morning. Continue AccuCheks covering with sliding scale. Hypoglycemia protocol available as needed. Continue current medications with Levemir (7) Chronic GERD: Code(s): K21.9 - Gastro-esophageal reflux disease without esophagitis Status: Chronic Assessment and Plan: Stable. Continue IV Protonix. (8) Gout: Code(s): M10.9 - Gout, unspecified Status: Chronic Assessment and Plan: Stable. Allopurinol remains on hold. (9) DVT prophylaxis: Code(s): Z29.9 - Encounter for prophylactic measures, unspecified Status: Acute Assessment and Plan: Lovenox Q12h Subjective Date/time seen: 05/12/20 07:43 Interval history: Date of service 05/12 70yo male known to have COVID here for SOB and found to be in acute respiratory failure. SOB worsened overnight so BiPAP resumed. He is more obtunded today. Discussed with referral nurse and BiPAP setting adjusted. Plan to move to ICU for potential intubation. Patietn unable to provide hx. Patient febrile currrently. Review of Systems Review of Systems: ROS unobtainable: Yes unobtainable due to mental status Exam Narrative: Exam Narrative: Tc 102 151/74 97 26 93% BiPAP Gen - tachypneic, mildly agitated Chest - mild coarse BS anteriroly with crackles appreciated in the right>left
[2020-05-12] MEDS: SODIUM CHLORIDE 0.9% IV 1,000 ML 999 ML IV CONT (08:00)
[2020-05-12 08:32] LABS: NT Pro B Type Natriuretic Pept 480 PG/ML (5-100)
[2020-05-12] MEDS: PROPOFOL IV EMULSION 100 ML 2.51 MG IV CONT (08:50)
[2020-05-12] MEDS: FENTANYL 2,500MCG/NS250ML(*CRX 2,500 MCG/250 ML BAG IV CONT (08:50)
[2020-05-12] MEDS: MORPHINE SULFATE INJ (*CRX) 10 MG/ML AMP (08:56)
[2020-05-12] MEDS: RAPID SEQUENCE INTUBATION KIT 1 EACH (09:05)
--- NOTE | 2020-05-12 09:07 | WPDPROCEDUR ---
Procedures Intubation Intubation Date: 05/12/20 Intubation Time: 08:34 Consent: Yes. Patient was awake And alert. He was on BiPAP. He was hypoxic but not confused. He was asked about whether he would want himself to be intubated and he did say yes to it. A pre-procedural Time-Out was completed immediately before starting the procedure and confirmed: Patient Identification, Site, Procedure, Patient Position and the Availability of Requisite Equipment: Yes Sedative: etomidate Mg given: 20 Paralytic: rocuronium Mg given: 50 Laryngoscope: fiber optic video scope ET tube size: 7.5 Tube secured depth (cm): 25 Tube secured location: lips Tube placement confirmation: visualized tube passing through cords, equal breath sounds bilaterally, no breath sounds over epigastrium and confirmation by capnometry Patient tolerated procedure: well Intubation complications: none Additional comments: He was very hypoxic before intubation. He was provided ventilation with ambo bag for a 15-20 minutes but his saturation was not improving above 75%. He was very agitated and trying to take the mask of. He was very restless. It was decided to proceed with intubation though his pre oxygenation level was not optimum. He had hypoxia develop during intubation process But it quickly improved after tube was placed and he was provided ventilation through bag through
[2020-05-12] MEDS: FAMOTIDINE 20 MG/2 ML VIAL IV PUSH (09:12)
[2020-05-12] MEDS: DEXAMETHASONE SOD PHOS INJ 4 MG/ML VIAL 6 MG IV PUSH (09:15)
[2020-05-12] MEDS: ENOXAPARIN 40 MG/0.4 ML SYRINGE SUB-Q ×2 (09:15→20:04)
[2020-05-12] MEDS: INSULIN DETEMIR 100 UNITS/ML 10 UNITS SUB-Q ×2 (09:17→23:46)
[2020-05-12] MEDS: hydrALAZINE HCL 20 MG/ML VIAL 10 MG IV PUSH (09:20)
--- NOTE | 2020-05-12 10:39 | PC.NURSE ---
05/12/20-699: Pt pulling off BIPAP and attempting to remove gown and heart monitor. O2 sats decreased to the 50's. BIPAP placed back on patient with O2 sats increasing into the 70's. 0713-Ativan prn given as ordered. Ann-Marie Benjamin RN at bedside taking over care for this patient. RN updated on Pt's condition and Dr. Sage notified of Pt's condition. Dr. Sage to come to bedside to assess patient. Pt continues to pull off BIPAP mask with O2 sats decreasing into the 50-70's. Orders obtained to TX patient to ICU pending intubation. Ann-Marie Benjamin RN updated Pt's family on Pt's condition and orders received. Family is agreeable to plan and intubation.
--- NOTE | 2020-05-12 10:49 | PC.NURSE ---
This patient, Odell Rod, was transferred to ICU-7 on 05/12/20 at 0825 pending intubation. Personal belongings sent with patient. Report given to Minoo Salazar RN per Ann-Marie Benjamin RN. Appropriate documentation sent with patient.
--- NOTE | 2020-05-12 10:57 | PC.NURSE ---
Patient was extremely anxious this morning and continuously was pulling off his BiPap mask. His oxygenation saturation would drop down to 26% within 60-90 seconds of his mask being off. Once BIPAP was back on his o2 Saturation would still fluctuate between 76-83%. notified of patient's change in condition. Received orders to transfer patient to ICU-7 for intubation.
[2020-05-12 11:30] LABS: Alveolar/Arterial O2 Gradient 602.4 mmHg; Base Excess ABG -2.4 mEq/l (+/-2.0); Carboxyhemoglobin 0.3 % THb (0-2.0); Fractional Inspired Oxygen 100 %; HCO3 ABG 22.8 mEq/l (22.0-26.0); Methemoglobin ABG 0.4 %THb (0-1.5); Oxygen Content ABG 17.6 %vol (16.0-22.0); Oxygen Saturation ABG 93.6 % (95.0-100.0); Oxyhemoglobin 91.5 % THb (90.0-100.0); PCO2 ABG 40.7 mmHg (35.0-45.0); PO2 ABG 69.9 mmHg (80.0-100.0); Reduced Hemoglobin 7.8 %THb (0-5.0); Total Hemoglobin 13.7 g/dL (12.0-18.0); pH ABG 7.366 (7.350-7.450)
[2020-05-12 11:31] LABS: Device VENTILATOR; Modified Allen's Test Pass; Site Drawn LEFT RADIAL
[2020-05-12 11:32] LABS: Arterial Blood Gas PEEP 12 cmH2O; Arterial Blood Gas Tidal Volume 450 ml; Arterial Blood Gas Vent Mode CMV; Arterial Blood Gas Ventilator rate 16 /MIN
--- NOTE | 2020-05-12 12:34 | WPDCNINT ---
Assessment and Plan Assessment and plan (1) Acute respiratory failure with hypoxemia: Code(s): J96.01 - Acute respiratory failure with hypoxia Status: Acute Assessment and Plan: .He was on BiPAP alternating with high-flow oxygen since 05/08. He was intubated today 05/12 for worsening hypoxia and respiratory distress and impending respiratory failure. Continue mechanical ventilation with current settings. Low tidal volume strategies. Wean FiO2 and PEEP if tolerated. Continue to monitor ABG and chest x-ray. Usual bedside nursing care for mechanical ventilated patient. Sedated with fentanyl and propofol. Maintain RASS score of -1. Daily sedation vacation trial. (2) Pneumonia due to COVID-19 virus: Code(s): U07.1 - COVID-19; J12.89 - Other viral pneumonia Status: Acute Assessment and Plan: He is currently on dexamethasone for 10 days. He will complete IV remdisivir today after 5 day course. Infectious disease service will be consulted. Considering time frame of symptom onset with a week of symptoms before coming into the hospital, he is not a candidate for convalescent plasma. Continue to follow chest x-ray. I will check procalcitonin level. Continue to monitor inflammatory markers. CRP in LDH has increased a little bit today. (3) GERD (gastroesophageal reflux disease): Code(s): K21.9 - Gastro-esophageal reflux disease without esophagitis Status: Acute Assessment and Plan: Continue IV pantoprazole once a day. (4) HTN (hypertension), benign: Code(s): I10 - Essential (primary) hypertension Status: Chronic Assessment and Plan: Continue to hold amlodipine, hydrochlorothiazide and enalapril. Continue to monitor hemodynamics closely. Hydralazine on p.r.n. basis if blood pressure is elevated. (5) Elevated blood sugar: Code(s): R73.9 - Hyperglycemia, unspecified Status: Acute Assessment and Plan: He seems to have a new diagnosis of diabetes mellitus. Hemoglobin A1c was 8.6. continue insulin sliding scale. (6) Acute renal failure: Code(s): N17.9 - Acute kidney failure, unspecified Status: Acute Assessment and Plan: Acute kidney injury at the time of presentation with creatinine of 1.5. It has resolved now with some IV fluids. (7) Hypernatremia: Code(s): E87.0 - Hyperosmolality and hypernatremia Status: Acute Assessment and Plan: Continue to monitor. If he continued to get worse he can be started on some free water flushes through OG tube. Additional Plan DVT prophylaxis with subcu Lovenox GI prophylaxis with IV pantoprazole full code critical care time spent for more than 45 minute Due to a high probability of clinically significant, life threatening deterioration, the patient required my highest level of preparedness to intervene emergently and I personally spent this critical care time directly and personally managing the patient. This critical care time included obtaining a history; examining the patient; pulse oximetry; ordering and review of studies; arranging urgent treatment with development of a management plan; evaluation of patient's response to treatment; frequent reassessment; and discussions with other providers. It was exclusive of separately billable procedures and treating other patients and teaching time. Please see Assessment and Plan section and the rest of the note for further information on patient assessment and treatment. 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 He was not feeling well for about a week before coming into the hospital. His was diagnosed to hav
[2020-05-12 12:57] LABS: Glucose Point of Care 332 (65-105)
[2020-05-12] MEDS: PROPOFOL IV EMULSION 100 ML 22.55 MG IV CONT (13:34)
[2020-05-12] MEDS: INSULIN ASPART (*BKC) 100 UNITS/ML SUB-Q ×2 (13:43→18:10)
[2020-05-12] MEDS: CENTRAL LINE FLUSH 10 ML IV PUSH ×2 (13:46→20:05)
[2020-05-12] MEDS: PROPOFOL IV EMULSION 100 ML 25.05 MG IV CONT (16:45)
[2020-05-12 18:47] LABS: Glucose Point of Care 288 (65-105)
[2020-05-12] MEDS: ALBUTEROL SULFATE NEB 2.5 MG/0.5 ML INH INHALATION (19:46)
[2020-05-12] MEDS: FENTANYL 2,500MCG/NS250ML(*CRX 2,500 MCG/250 ML BAG 17.5 MCG IV CONT (22:20)
[2020-05-12] MEDS: PROPOFOL IV EMULSION 100 ML 10.02 MG IV CONT (22:20)
[2020-05-13] VITALS (35 sets, daily range): BP systolic 94–122; BP diastolic 55–88; PULSE 79–101; RESP 16–22; TEMP 36.9–38.1; O2SAT 92–100; BMI 35.2
--- NOTE | 2020-05-13 | ECHO_ITS ---
Patient Info Name: Odell Rod Age: 70 years : 1950 Gender: Male Ht: 69 in Wt: 184 lbs BSA: 2.03 m2 HR: 95 bpm BP: 96 / 55 mmHg Heart Rhythm: Sinus Rhythm Technical Quality: Good Exam Date: 05/13/2020 10:13 AM Exam Location: [facility] Pulmonary Patient Status: Inpatient Admit Date: 05/08/2020 Staff Ordering Physician: Montana Sage MD Reproduction Production Manager: Ray Wahl, [place], RT Attending Provider: Montana Sage MD Exam Type: CA echo doppler color flow Study Info Indications R06.02 - Shortness of breath Complete two-dimensional, color flow and Doppler transthoracic echocardiogram is performed. Summary 1. Complete two-dimensional, color flow and Doppler transthoracic echocardiogram is performed. 2. Left ventricular systolic function is normal, estimated at 60-65%. 3. Left ventricular chamber dimension is normal. 4. Right ventricular chamber dimension is normal. 5. There is mild aortic valve sclerosis. Left Ventricle Left ventricular chamber dimension is normal. Left ventricular systolic function is normal, estimated at 60-65%. The left ventricular diastolic function is grade I diastolic dysfunction. Right Ventricle Right ventricular chamber dimension is normal. Left Atria Left atrial chamber dimension is normal. Right Atria Right atrial chamber dimension is normal. Aortic Valve The aortic valve is trileaflet. There is mild aortic valve sclerosis. Pulmonic Valve The pulmonic valve is not well visualized. Mitral Valve The mitral valve has normal leaflets. Tricuspid Valve The tricuspid valve leaflets are normal. Pericardium/Pleural The pericardium appears normal. Aorta The aortic root size at the sinus of Valsalva is normal. Left Ventricular Outflow Tract Name Value Normal LVOT 2D LVOT Diameter 2.0 cm LVOT Doppler LVOT Peak Gradient 4 mmHg LVOT Mean Gradient 2 mmHg LVOT VTI 17 cm LVOT VTI/AV VTI Ratio 0.7 LVOT Stroke Volume 50 ml LVOT CO 4.9 l/min LVOT CI 2.4 l/min/m2 Mitral Valve Name Value Normal MV Doppler MV Decel [place] 388 cm/s2 MV PHT 46 ms MV Area (PHT) 4.7 cm2 4.0-5.0 MV Diastolic Function MV E Peak Velocity 62 cm/s MV A Peak Velocity 81 cm/s MV E/A 0.8 MV Decel Time 160 ms MV Annular TDI MV E/e' (Septal)
[2020-05-13] MEDS: REMDESIVIR 100 MG/NS 250 ML 100 MG/250 ML BAG 250 MG IVPB (00:07)
[2020-05-13 00:26] LABS: Glucose Point of Care 208 (65-105)
[2020-05-13] MEDS: INSULIN ASPART (*BKC) 100 UNITS/ML SUB-Q ×2 (00:49→18:23)
[2020-05-13] MEDS: ALBUTEROL SULFATE NEB 2.5 MG/0.5 ML INH INHALATION ×4 (02:15→21:45)
[2020-05-13 03:25] LABS: Alveolar/Arterial O2 Gradient 413.8 mmHg; Base Excess ABG -0.2 mEq/l (+/-2.0); Carboxyhemoglobin 0.1 % THb (0-2.0); Fractional Inspired Oxygen 70 %; Methemoglobin ABG 0.1 %THb (0-1.5); Oxygen Content ABG 16.8 %vol (16.0-22.0); Oxygen Saturation ABG 87.6 % (95.0-100.0); Oxyhemoglobin 85.9 % THb (90.0-100.0); PCO2 ABG 33.1 mmHg (35.0-45.0); PO2 FiO2 Ratio Arterial Blood 0.71 %; Reduced Hemoglobin 13.9 %THb (0-5.0); Total Hemoglobin 13.9 g/dL (12.0-18.0); pH ABG 7.459 (7.350-7.450)
[2020-05-13 03:27] LABS: Device VENTILATOR; Modified Allen's Test Pass; PO2 ABG 49.7 mmHg (80.0-100.0); Site Drawn RIGHT RADIAL
[2020-05-13 03:28] LABS: Arterial Blood Gas PEEP 12 cmH2O; Arterial Blood Gas Tidal Volume 450 ml; Arterial Blood Gas Vent Mode CMV; Arterial Blood Gas Ventilator rate 16 /MIN
[2020-05-13 04:17] LABS: Hematocrit 37.2 % (42.0-52.0); Hemoglobin 12.1 g/dL (14.0-18.0); Mean Corpuscular HGB Conc 32.5 g/dl (32-36); Mean Corpuscular Hemoglobin 27.9 pg (26-34); Mean Corpuscular Volume 85.7 fl (80-100); Mean Platelet Volume 10.1 fl (7.4-10.4); Platelet Count Result 261 k/mm3 (150-375); Red Blood Count 4.34 M/mm3 (4.6-6.20); Red Cell Distribution Width 16.9 % (11.5-14.5); White Blood Count 8.7 K/mm3 (4.5-10.0)
[2020-05-13 04:29] LABS: Alanine Aminotransferase 49 U/L (4-50); Albumin Level 2.8 g/dL (3.5-5.1); Alkaline Phosphatase 73 U/L (38-126); Anion Gap 5 mmol/L (8-16); Aspartate Amino Transferase 59 U/L (17-59); Bilirubin,Total 0.6 mg/dL (0.2-1.3); Blood Urea Nitrogen 35 mg/dL (9-20); Calcium 7.9 mg/dL (8.4-10.2); Carbon Dioxide 29 mmol/L (22-30); Chloride 119 mmol/L (98-107); Estimated CRCL calculation 66 ml/min; Estimated Glomerular Filt Rate > 60; Glucose 124 mg/dL (75-110); Magnesium 2.8 mg/dL (1.6-2.3); Phosphorus 2.3 mg/dL (2.5-4.5); Potassium 3.6 mmol/L (3.4-5.0); Sodium 153 mmol/L (137-145)
[2020-05-13] MEDS: CENTRAL LINE FLUSH 10 ML IV PUSH ×3 (05:07→20:34)
[2020-05-13 05:39] LABS: Glucose Point of Care 120 (65-105)
--- NOTE | 2020-05-13 05:45 | PM.EVENT ---
Event Note Event Note Event Note: Called by nursing as the patient appeared to be having a prolonged seizure this morning. On my arrival to bedside the patient has stopped seizing. Nursing told me that when the patient was positioned after having his morning CXR he started to seize. His blood glucose was normal this morning. On review of the chart his electrolytes are WNL other than an elevated serum sodium. His morning ABG demonstrates significant hypoxemia which may be the cause of his seizure. We will load the patient with IV keppra as his renal function is normal and increase his FiO2. Obtain a repeat ABG. Consider CT brain when the patient is more stable. Neurology consultation today.
[2020-05-13] MEDS: levETIRAcetam 1000MG/NACL100ML 1,000 MG/100 ML BAG 400 MG IVPB (06:43)
[2020-05-13] MEDS: PROPOFOL IV EMULSION 100 ML 10.02 MG IV CONT ×3 (06:44→16:44)
[2020-05-13 07:47] LABS: Alveolar/Arterial O2 Gradient 598.9 mmHg; Base Excess ABG -0.3 mEq/l (+/-2.0); Fractional Inspired Oxygen 100 %; HCO3 ABG 23.3 mEq/l (22.0-26.0); Oxygen Content ABG 17.7 %vol (16.0-22.0); Oxygen Saturation ABG 96.2 % (95.0-100.0); Oxyhemoglobin 94.4 % THb (90.0-100.0); PO2 ABG 79.1 mmHg (80.0-100.0); PO2 FiO2 Ratio Arterial Blood 0.79 %; Total Hemoglobin 13.3 g/dL (12.0-18.0); pH ABG 7.441 (7.350-7.450)
[2020-05-13 07:48] LABS: Arterial Blood Gas Ventilator rate 16 /MIN; Device VENTILATOR; Modified Allen's Test Pass; Site Drawn LEFT RADIAL
[2020-05-13 07:49] LABS: Arterial Blood Gas PEEP 12 cmH2O; Arterial Blood Gas Tidal Volume 450 ml; Arterial Blood Gas Vent Mode CMV
[2020-05-13] MEDS: ENOXAPARIN 40 MG/0.4 ML SYRINGE SUB-Q ×2 (09:38→20:34)
[2020-05-13] MEDS: DEXAMETHASONE SOD PHOS INJ 4 MG/ML VIAL 6 MG IV PUSH (09:38)
[2020-05-13] MEDS: PANTOPRAZOLE SODIUM IV 40 MG VIAL IV PUSH (09:39)
[2020-05-13] MEDS: INSULIN DETEMIR 100 UNITS/ML 10 UNITS SUB-Q ×2 (09:49→20:33)
--- NOTE | 2020-05-13 10:00 | WPDNEURCNPN ---
Consult date: 05/13/20 Time Seen: 10:10 HPI: Odell Rod is a 70 year old male Admitted to the hospital with the diagnosis of COVID and pneumonia cause of the acute respiratory failure. As per the information available he was found to be COVID positive on the Wednesday before admission though he was sick for almost a week his was also found to be COVID positive patient has ongoing cough and shortness of breath for which she was taking the respiratory care including albuterol and benzonatate from his primary care physician he was having difficulties in falling asleep his saturations were dropping down to 70s when he 1st arrived and heart rate was in lower 100s he was placed on BiPAP given Decadron IV fluids and Rocephin with positive chest x-ray for the patchy bilateral mid and lower lung . He has ongoing history of bilateral carotid artery me bilateral knee replacement cholecystectomy infiltrations left greater than the right he has ongoing history of bilateral knee replacement bilateral catatonic to me and cholecystectomy. He is not a smoker or drinker. 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 He retired from [employer]. He has 2 daughters. 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 He desires to be a full code. He denies any alcohol or illicit drugs. Lifelong nonsmoker. Smoking status: Never smoker Second hand tobacco smoke exposure: No Alcohol intake: never Substance use: never Substance use type: does not use Gender identity (if verbalized by the patient): Male Spiritual care concerns: No Meds Home Medications and Allergies Home Medications Medication Instructions Recorded Confirmed Type allopurinol 300 mg tablet 300 mg PO DAILY #90 tablet 02/12/20 05/09/20 Rx amlodipine 10 mg tablet 10 mg PO DAILY #90 tablet 02/12/20 05/09/20 Rx enalapril maleate 20 mg tablet 20 mg PO DAILY #90 tablet 02/12/20 05/09/20 Rx hydrochlorothiazide 50 mg tablet 50 mg PO DAILY #90 tablet 02/12/20 05/09/20 Rx pantoprazole 40 mg tablet,delayed 40 mg PO QAM #90 tablet 02/12/20 05/09/20 Rx release benzonatate 100 mg capsule 100 mg PO TID PRN #30 cap 05/06/20 05/09/20 Rx Allergies Allergy/AdvReac Type Severity Reaction Status Date / Time No Known Allergies Allergy Verified 01/09/20 09:10 Vital Signs Vital Signs - 24 hr 05/12/20 10:26 05/12/20 10:27 05/12/20 10:40 Temperature Pulse Rate 121 H 122 H 123 H Respiratory Rate 24 H 24 H 30 H Blood Pressure Pulse Oximetry 05/12/20 10:41 05/12/20 10:45 05/12/20 11:00 Temperature Pulse Rate 120 H 120 H 118 H Respiratory Rate 26 H 26 H 25 H Blood Pressure Pulse Oximetry 97 05/12/20 11:34 05/12/20 12:00 05/12/20 13:34 Temperature Pulse Rate 101 H 104 H Respiratory Rate 22 H 29 H Blood Pressure 104/60 Pulse Oximetry 97 92 05/12/20 13:41 05/12/20 13:53 05/12/20 14:00 Temperature 36.2 C L Pulse Rate 100 96 90 Respiratory Rate 23 H 18 16 Blood Pressure 86/60 L Pulse Oximetry 100 05/12/20 16:00 05/12/20 16:45 05/12/20 16:47 Temperature 36.
--- NOTE | 2020-05-13 10:10 | WPDNEURCNPN ---
Assessment and Plan Assessment and plan (1) Acute respiratory failure with hypoxemia: Code(s): J96.01 - Acute respiratory failure with hypoxia Status: Acute (2) Diabetes mellitus: Code(s): E11.9 - Type 2 diabetes mellitus without complications Status: Acute (3) GERD (gastroesophageal reflux disease): Code(s): K21.9 - Gastro-esophageal reflux disease without esophagitis Status: Acute (4) Seizure: Code(s): R56.9 - Unspecified convulsions Status: Acute Additional Plan generalized seizure with underlying multiple medical problems including the COVID I will continue the treatment as such and if the renal status is stable and if necessary we going to restart him on Keppra Consult date: 05/13/20 Time Seen: 10:10 HPI: Odell Rod is a 70 year old maleAdmitted to the hospital with the diagnosis of COVID pneumonia and respiratory failure. As per the information available he was found to be COVID positive on the Wednesday before admission so he was sick for almost a week and his was also found to be COVID positive. Patient has ongoing history of cough and shortness of breath for which he was taking the respiratory care including albuterol and benzonatate from his primary care physician. He was having difficulties in falling asleep his saturations were dropping down to 70s when he 1st arrived and heart rate was in lower 100s. He was placed on BiPAP, given Decadron intravenously along with the Rocephin his chest x-ray was positive for the patchy bilateral mid and lower lung infiltration versus edema in the past she had history of bilateral knee replacement, cholecystectomy and he is not a smoker or drinker last evening he was noted to have prolonged seizure when the hospitalist saw the patient and loaded him with the Keppra as his renal status was stable Review of Systems Review of Systems: All systems reviewed & are unremarkable except as noted in HPI and below PMFSH Past Medical History Medical History Chronic GERD Diabetes mellitus Diverticulosis GERD (gastroesophageal reflux disease) Gout HTN (hypertension), benign Surgical History Surgical History H/O eye surgery Bilateral keratotomy H/O rectal polypectomy History of bilateral knee replacement Patient had bilateral knees replaced and then had both of them redone each knee was done twice History of cholecystectomy 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 He retired from [employer]. He has 2 daughters. 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 He desires to be a full code. He denies any alcohol or illicit drugs. Lifelong nonsmoker. Smoking status: Never smoker Second hand tobacco smoke exposure: No Alcohol intake: never Substance use: never Substance use type: does not use Gender identity (if verbalized by the patient): Male Spiritual care concerns: No Meds Home Medications and Allergies Home Medications Medication Instructions Recorded Confirmed Type allopurinol 300 mg tablet 300 mg PO DAILY #90 tablet 02/12/20 05/09/20 Rx amlodipine 10 mg tablet 10 mg PO DAILY #90 tablet 02/12/20 05/09/20 Rx enalapril maleate 20 mg tablet 20 mg PO DAILY #90 tablet 02/12/20 05/09/20 Rx hydrochlorothiazide 50 mg tablet 50 mg PO DAILY #90 tablet 02/12/20 05/09/20 Rx pantoprazole 40 mg tablet,delayed 40 mg PO QAM #90 tablet 02/12/20 05/09/20 Rx release benzonatate 100 mg capsule 100 mg PO TID PRN #30 cap 05/06/20 05/09/20 Rx Allergies Allergy/A
[2020-05-13] MEDS: FENTANYL 2,500MCG/NS250ML(*CRX 2,500 MCG/250 ML BAG 17.5 MCG IV CONT (12:06)
[2020-05-13 12:42] LABS: Glucose Point of Care 158 (65-105)
--- NOTE | 2020-05-13 13:05 | WPDINFPN2 ---
Progress Note: A&P Assessment and Plan (1) Pneumonia due to COVID-19 virus: Code(s): U07.1 - COVID-19; J12.89 - Other viral pneumonia Status: Acute Assessment and Plan: Viral pneumonia due to CoVid 19 REC Dexamethasone # 6 / 10. Unfortunately no other proven nor promising therapies at this point. Subjective Date/time seen: 05/13/20 13:05 Objective Data Vital Signs Vital Signs: Vital Signs - 24 hr 05/12/20 13:34 05/12/20 13:41 05/12/20 13:53 Temperature Pulse Rate 104 H 100 96 Respiratory Rate 29 H 23 H 18 Blood Pressure Pulse Oximetry 05/12/20 14:00 05/12/20 16:00 05/12/20 16:45 Temperature 36.2 C L 36.1 C L Pulse Rate 90 84 84 Respiratory Rate 16 22 H 17 Blood Pressure 86/60 L 114/66 Pulse Oximetry 100 100 05/12/20 16:47 05/12/20 16:51 05/12/20 16:54 Temperature Pulse Rate 96 87 87 Respiratory Rate 26 H 17 18 Blood Pressure Pulse Oximetry 05/12/20 17:01 05/12/20 17:10 05/12/20 17:21 Temperature Pulse Rate 81 84 85 Respiratory Rate 17 19 Blood Pressure Pulse Oximetry 100 05/12/20 18:00 05/12/20 18:04 05/12/20 18:16 Temperature 36.2 C L Pulse Rate 83 86 84 Respiratory Rate 19 17 18 Blood Pressure 97/56 L Pulse Oximetry 100 05/12/20 19:46 05/12/20 19:51 05/12/20 20:00 Temperature 36.3 C L Pulse Rate 76 88 89 Respiratory Rate 20 Blood Pressure 99/58 L Pulse Oximetry 100 100 05/12/20 22:00 05/12/20 22:20 05/12/20 23:31 Temperature Pulse Rate 87 86 87 Respiratory Rate 22 H 16 Blood Pressure 96/59 L Pulse Oximetry 100 100 05/13/20 00:00 05/13/20 02:00 05/13/20 02:17 Temperature 36.9 C Pulse Rate 89 95 93 Respiratory Rate 22 H 22 H Blood Pressure 94/57 L 96/55 L Pulse Oximetry 100 95 92 05/13/20 02:19 05/13/20 04:00 05/13/20 05:15 Temperature 37.7 C H Pulse Rate 90 95 95 Respiratory Rate 22 H Blood Pressure 97/55 L Pulse Oximetry 94 93 05/13/20 05:30 05/13/20 06:00 05/13/20 06:44 Temperature 37.7 C H 37.9 C H Pulse Rate 101 H 101 H Respiratory Rate 22 H 19 Blood Pressure 105/59 L Pulse Oximetry 95 05/13/20 07:50 05/13/20 08:00 05/13/20 09:20 Temperature 38.0 C H Pulse Rate 93 94 90 Respiratory Rate 18 16 Blood Pressure 106/61 Pulse Oximetry 93 92 94 05/13/20 09:30 05/13/20 10:00 05/13/20 11:18 Temperature 38.1 C H Pulse Rate 90 92 92 Respiratory Rate 16 18 18 Blood Pressure 107/67 Pulse Oximetry 97 05/13/20 11:19 05/13/20 12:06 05/13/20 12:52 Temperature Pulse Rate 92 94 96 Respiratory Rate 18 18 Blood Pressure Pulse Oximetry 93 Intake/Output Intake/Output: Intake & Output 05/10/20 05/11/20 05/12/20 05/13/20 23:59 23:59 23:59 23:59 Intake Total 810 1190 1344 450 Output Total 775 1425 2140 450 Balance 35 -807 -796 0 Meds/Results Medications: Active Medications Generic Name Dose Route Start Last Admin Trade Name Freq PRN Reason Stop Dose Admin Albuterol 2.5 mg 05/12/20 14:00 05/13/20 09:30 Albuterol Sulfate Neb 2.5 Mg/0.5 Ml Inh INHALATION 2.5 mg Q6HRT JENNA Administration Dexamethasone Sodium Phosphate 6 mg 05/09/20 12:00 05/13/20 09:38 Dexamethasone Sod Phos Inj 4 Mg/Ml Vial IV PUSH 05/17/20 09:01 6 mg DAILY JENNA Administration Dextrose 12.5 gm 05/09/20 00:00 Dextrose 50% 25 Gm/50 Ml Syringe IV PUSH PRN PRN Hypoglycemia Protocol Enoxaparin Sodium 40 mg 05/09/20 21:00 05/13/20 09:38 Enoxaparin 40 Mg/0.4 Ml Syringe SUB-Q 40 mg Q12HR JENNA Administration Glucagon 1 mg 05/09/20 00:00 Glucagon For Inj 1 Mg Vial IM PRN PRN Hypoglycemia Protocol Glucose 15 gm 05/09/20 00:00 Glucose Oral Gel 15 Gm Of Glucse In 37.5 Gm Tube PO PRN PRN Hypoglycemia Protocol Guaifenesin/Dextromethorphan 10 ml 05/09/20 00:02 Guaifenesin/Dextromethorphan 10 Ml Udc PO Q4H PRN Cough Hydralazine HCl 10 mg 05/12/20 07:5
--- NOTE | 2020-05-13 13:06 | PCDIET ---
ICU Rounding Note: Patient now intubated and NPO. Recommend Glucerna 1.2 at goal of 65mL/hr x 22 hours/day with Pro-Stat flush BID for 1916kcal and 115g protein. Last recorded weight is 131kg which is decreased from last review. -I/O. Bowel Motility: No documented BM as of yet. Bowel sounds hypoactive. Labs Reviewed: Hgb (12.1), Hct (37.2), Glu (124), BUN (35), Na (153), Alb (2.8), Pavel Ca (8.86) Meds Noted: Albuterol, Decadron, Fentanyl, Novolog, Levemir, Versed, Protonix, Remdesivir, Propofol (rate of 10.02mL/hr provides 264kcal per day) Additional Notes: No documented skin breakdown. Following daily in ICU rounds. Assessing/reassessing every 5 days.
--- NOTE | 2020-05-13 15:33 | WPDINTPN ---
Progress Note: A&P Assessment and Plan (1) Acute respiratory failure with hypoxemia: Code(s): J96.01 - Acute respiratory failure with hypoxia Status: Acute Assessment and Plan: Acute respiratory failure hypoxemia secondary to COVID-19 pneumonia - patient has been alternating with BiPAP and high-flow therapy since 05/08/2020. - on 05/12/2020 patient had worsening hypoxia, respiratory distress and impending failure, was INTUBATED - continue CMV mode of ventilation, low tidal volume strategy, peep of 12. Wean FiO2 as tolerated did O2 sats greater than 92% - chest X and ABGs reviewed - Sedated with fentanyl and propofol. Maintain RASS score of -1. Daily sedation vacation trial. (2) Pneumonia due to COVID-19 virus: Code(s): U07.1 - COVID-19; J12.89 - Other viral pneumonia Status: Acute Assessment and Plan: continue dexamethasone for 10 days, IV Remdesivir for 5 days - Infectious disease service will be consulted. Considering time frame of symptom onset with a week of symptoms before coming into the hospital, he is not a candidate for convalescent plasma. - continue droplet, airborne, contact isolation /precautions - continue monitor inflammatory markers (3) GERD (gastroesophageal reflux disease): Code(s): K21.9 - Gastro-esophageal reflux disease without esophagitis Status: Acute Assessment and Plan: Continue IV pantoprazole once a day. (4) HTN (hypertension), benign: Code(s): I10 - Essential (primary) hypertension Status: Chronic Assessment and Plan: Continue to hold amlodipine, hydrochlorothiazide and enalapril. Continue to monitor hemodynamics closely. Hydralazine on p.r.n. basis if blood pressure is elevated. (5) Elevated blood sugar: Code(s): R73.9 - Hyperglycemia, unspecified Status: Acute Assessment and Plan: He seems to have a new diagnosis of diabetes mellitus. Hemoglobin A1c was 8.6. continue insulin sliding scale. (6) Acute renal failure: Code(s): N17.9 - Acute kidney failure, unspecified Status: Acute Assessment and Plan: Acute kidney injury at the time of presentation with creatinine of 1.5. It has resolved now with some IV fluids. (7) Hypernatremia: Code(s): E87.0 - Hyperosmolality and hypernatremia Status: Acute Assessment and Plan: will increase tube feedings flushes 200 mL q.6 hours - monitor sodium levels closely (8) Seizure: Code(s): R56.9 - Unspecified convulsions Status: Acute Assessment and Plan: patient with seizure activity on 05/12/2020, patient was loaded with Keppra - neurology evaluated the patient - continue Keppra 500 mg Q 12 hour (9) Dietary counseling and surveillance: Code(s): Z71.3 - Dietary counseling and surveillance Status: Acute Assessment and Plan: will start tube feeds, Glucerna stress ulcer prophylaxis: Protonix IV (10) DVT prophylaxis: Code(s): Z29.9 - Encounter for prophylactic measures, unspecified Status: Acute Assessment and Plan: Lovenox 40 mg subcu q.12 hours Additional Plan will discuss with family full code critical care time spent: 36 minutes Due to a high probability of clinically significant, life threatening deterioration, the patient required my highest level of preparedness to intervene emergently and I personally spent this critical care time directly and personally managing the patient. This critical care time included obtaining a history; examining the patient; pulse oximetry; ordering and review of studies; arranging urgent treatment with development of a management plan; evaluation of patient's response to treatment; frequent reassessment; and discussions with other providers. It was exclusive of separately billable procedures and treating other patients and teaching time. Please see Assessment and Plan section and the re
[2020-05-13 18:20] LABS: Glucose Point of Care 230 (65-105)
[2020-05-13] MEDS: levETIRAcetam 500MG/NACL 100ML 500 MG/100 ML BAG 400 MG IVPB (20:33)
[2020-05-14] VITALS (47 sets, daily range): BP systolic 94–138; BP diastolic 53–74; PULSE 99–143; RESP 1–33; TEMP 37.3–38.5; O2SAT 90–100
[2020-05-14] MEDS: REMDESIVIR 100 MG/NS 250 ML 100 MG/250 ML BAG 250 MG IVPB (00:28)
[2020-05-14] MEDS: FENTANYL 2,500MCG/NS250ML(*CRX 2,500 MCG/250 ML BAG 17.5 MCG IV CONT ×2 (00:40→14:56)
[2020-05-14 01:42] LABS: Glucose Point of Care 158 (65-105)
[2020-05-14] MEDS: ALBUTEROL SULFATE NEB 2.5 MG/0.5 ML INH INHALATION ×4 (03:00→22:19)
[2020-05-14] MEDS: PROPOFOL IV EMULSION 100 ML 15.03 MG IV CONT ×2 (03:39→08:58)
[2020-05-14 05:15] LABS: Hematocrit 39.5 % (42.0-52.0); Hemoglobin 12.5 g/dL (14.0-18.0); Mean Corpuscular HGB Conc 31.6 g/dl (32-36); Mean Corpuscular Hemoglobin 27.6 pg (26-34); Mean Corpuscular Volume 87.2 fl (80-100); Mean Platelet Volume 10.6 fl (7.4-10.4); Platelet Count Result 254 k/mm3 (150-375); Red Blood Count 4.53 M/mm3 (4.6-6.20); Red Cell Distribution Width 17.2 % (11.5-14.5); White Blood Count 9.1 K/mm3 (4.5-10.0)
[2020-05-14 05:34] LABS: Alanine Aminotransferase 41 U/L (4-50); Albumin Level 2.7 g/dL (3.5-5.1); Alkaline Phosphatase 80 U/L (38-126); Anion Gap 6 mmol/L (8-16); Aspartate Amino Transferase 43 U/L (17-59); Bilirubin,Total 0.6 mg/dL (0.2-1.3); Blood Urea Nitrogen 38 mg/dL (9-20); Calcium 7.9 mg/dL (8.4-10.2); Carbon Dioxide 28 mmol/L (22-30); Chloride 118 mmol/L (98-107); Estimated CRCL calculation 83 ml/min; Estimated Glomerular Filt Rate > 60; Glucose 183 mg/dL (75-110); Magnesium 2.7 mg/dL (1.6-2.3); Potassium 3.7 mmol/L (3.4-5.0); Sodium 152 mmol/L (137-145)
[2020-05-14] MEDS: CENTRAL LINE FLUSH 10 ML IV PUSH ×3 (05:52→19:59)
[2020-05-14 06:00] LABS: Alveolar/Arterial O2 Gradient 327.3 mmHg; Fractional Inspired Oxygen 60 %; Methemoglobin ABG 0.3 %THb (0-1.5); Oxygen Content ABG 17.4 %vol (16.0-22.0); Oxygen Saturation ABG 88.6 % (95.0-100.0); Oxyhemoglobin 87.5 % THb (90.0-100.0); PCO2 ABG 40.3 mmHg (35.0-45.0); PO2 ABG 56.2 mmHg (80.0-100.0); PO2 FiO2 Ratio Arterial Blood 0.94 %; Reduced Hemoglobin 12.2 %THb (0-5.0); Total Hemoglobin 14.2 g/dL (12.0-18.0); pH ABG 7.374 (7.350-7.450)
[2020-05-14 06:02] LABS: Glucose Point of Care 196 (65-105)
[2020-05-14 06:03] LABS: Modified Allen's Test Pass; Site Drawn RIGHT RADIAL
[2020-05-14 06:04] LABS: Arterial Blood Gas PEEP 12 cmH2O; Arterial Blood Gas Vent Mode CMV; Arterial Blood Gas Ventilator rate 16 /MIN; Device VENTILATOR
[2020-05-14 06:05] LABS: Arterial Blood Gas Tidal Volume 450 ml
--- NOTE | 2020-05-14 06:11 | CONS_ITS ---
DATE OF CONSULTATION: 05/13/2020 REASON FOR CONSULTATION: Coronavirus infection. HISTORY OF PRESENT ILLNESS: The patient is a 70-year-old male, who cannot provide any history to me due to intubated and sedated status. He was admitted through the emergency room on May 08, 4 days after being tested positive for coronavirus. He had been ill for about 5 days at that point with shortness of breath, cough and dyspnea on exertion. He was given a single dose of ceftriaxone for unknown reasons and is now on dexamethasone, day 6. No other directed therapies. He remains on the ventilator, having been intubated initially. He is on no immunosuppressants prior to admission. He had been exposed to his , who is positive. ALLERGIES: NONE KNOWN. PRESENT MEDICATIONS: No other immunosuppressants. HABITS: No tobacco. No alcohol to excess. PAST MEDICAL HISTORY: Bilateral knee replacements, cholecystectomy, rectal polyp removal, hypertension, gout, GERD, diverticulosis. REVIEW OF SYSTEMS: 14-point review not obtainable from the patient due to intubated status, attempted. FAMILY HISTORY: Not pertinent to his present illness. SOCIAL HISTORY: He is retired. Lives locally. Two daughters. No family at the bedside. PHYSICAL EXAMINATION: GENERAL: This is a fairly male, who appears actual age, sedated. VITAL SIGNS: Temperature 38.1, T-max on hospital day #4 was 38.8, 96, 93%, 122/78. Good urine output. SKIN: No rashes, warm and dry. No ulcerations. NODES: No axillary or cervical adenopathy. EENT: Conjunctivae are normal. Pupils are equal, round, and reactive. Oral exam is compromised by nasogastric tube and ET tube, but inspection otherwise normal. NECK: No meningismus. No masses. No abnormal contour. LUNGS: Clear to auscultation and percussion. CHEST: Equal expansion. Normal AP diameter. No crepitus. CARDIAC: Regular rate and rhythm. No murmur, gallop, or rub. Pulses are 2+ equal. ABDOMEN: Nondistended. No masses, organomegaly, tenderness. : Greenberg catheter draining clear yellow urine. He has no femoral lines. EXTREMITIES: No clubbing, cyanosis, or edema. Well perfused. LABORATORY DATA: On 05/04, PCR was positive. Chemistries with a BUN of 35, creatinine 1.1. Accu-Cheks variable 120 up to 332. Transaminases normal. Albumin 2.8, sodium 153, chloride 119, blood gases 7.44, 35, 79, 23, 96% on the noted ventilator settings at 100% FiO2. White count 8.7 down from 11.5, 2 days ago was normal on admission. Blood cultures, no growth after 5 days incubation. I personally reviewed his chest x-ray. He has diffuse interstitial infiltrates, more prominent at both bases. I also reviewed the radiologist's readings. ASSESSMENT: 1. Fever, hypoxemia, leukocytosis all due to acute viral pneumonia from coronavirus. Other causes of his pneumonia are unlikely. Other causes of his fever are unlikely. 2. Gout. 3. Respiratory failure. 4. Seizure disorder, new onset. RECOMMENDATIONS: 1. Continue Decadron. I do not think it is responsible for his seizure. 2. No other beneficial therapies directed against the coronavirus are possible at this time. 3. No antibacterials. 4. Guarded prognosis. Thank you very much for asking me to see him. JOSE JEFFRIES M.D. CARD HANGER CARD HANGER D I MT: [place]
[2020-05-14] MEDS: INSULIN DETEMIR 100 UNITS/ML 10 UNITS SUB-Q ×2 (08:42→20:32)
[2020-05-14] MEDS: ENOXAPARIN 40 MG/0.4 ML SYRINGE SUB-Q ×2 (08:43→19:59)
[2020-05-14] MEDS: DEXAMETHASONE SOD PHOS INJ 4 MG/ML VIAL 6 MG IV PUSH (08:44)
[2020-05-14] MEDS: PANTOPRAZOLE SODIUM IV 40 MG VIAL IV PUSH (08:44)
[2020-05-14] MEDS: levETIRAcetam 500MG/NACL 100ML 500 MG/100 ML BAG 400 MG IVPB (08:54)
[2020-05-14] MEDS: DORNASE ALFA INH SOLN 1 MG/ML 2.5 ML AMP 2.5 MG INHALATION ×2 (09:40→22:19)
[2020-05-14] MEDS: PROPOFOL IV EMULSION 100 ML 25.05 MG IV CONT ×4 (11:37→20:00)
--- NOTE | 2020-05-14 12:10 | PCDIET ---
Nutrition Follow-Up Complete: Nutrition Diagnosis: Altered laboratory values related to steroid use as evidenced by A1c of 8.6%. Nutrition Goal: Intake of 50% or greater on an appropriate diet. Goal not applicable due to mechanical ventilation. New goal - patient to meet estimated needs. Patient tolerating Glucerna 1.2 at goal of 50mL/hr goal rate, per nursing. Clarified order for Pro-Stat flush BID. MD ordered 100mL water flush every 4 hours with slight improvement in sodium level since initiated. I/O noted. Last recorded weight is 130.3 kg which is decreased from last review. Bowel Motility: Last documented BM on 05/10/20 x 2. MD ordered Miralax today. Labs Reviewed: Hgb (12.5), Hct (39.5), Glu (183), BUN (38), Na (152), Cl (118), Alb (2.7) Meds Noted: Albuterol, Decadron, Fentanyl, Hydralazine, Levemir, Versed, Protonix, Miralax, Propofol (rate of 15.03mL/hr provides 396kcal per 24 hour period) Additional Notes: No documented skin breakdown. Nutrition Monitoring and Evaluation: Follow up every Wednesday/Wednesday. Follow daily in ICU rounds.
[2020-05-14] MEDS: INSULIN ASPART (*BKC) 100 UNITS/ML SUB-Q ×2 (12:21→18:14)
--- NOTE | 2020-05-14 12:52 | WPDINFPN2 ---
Progress Note: A&P Assessment and Plan (1) Pneumonia due to COVID-19 virus: Code(s): U07.1 - COVID-19; J12.89 - Other viral pneumonia Status: Acute Assessment and Plan: 1. Viral pneumonia due to CoVid 19 2. Respiratory failure, with modest improvement in gas exchange. REC Dexamethasone # 7 / 10, continue. The temperature curve with low grade fever is due to the viral pneumonia, and he does not need antibacterials empirically. Subjective Date/time seen: 05/14/20 12:52 Interval history: no pressors, on vent Exam Narrative: Exam Narrative: t max 38.5 core Const: General: no acute distress Resp: Effort & Inspection: normal respiratory effort Auscultation: clear to auscultation bilaterally Cardio: Rate: regular rate Rhythm: regular rhythm Heart sounds: no murmurs GI: Inspection: non-distended GI Palp: Yes Soft to palpation, No Tenderness to palpation present (GI) and No Guarding due to palpation present (GI) Urinary Catheter: Urinary Catheter: patent and draining and urine clear Skin: General skin exam: no rashes or lesions noted Objective Data Vital Signs Vital Signs: Vital Signs - 24 hr 05/13/20 14:00 05/13/20 15:00 05/13/20 15:10 Temperature Pulse Rate 89 88 93 Respiratory Rate 16 16 16 Blood Pressure 113/74 Pulse Oximetry 100 05/13/20 16:00 05/13/20 16:17 05/13/20 16:44 Temperature 37.6 C Pulse Rate 86 79 79 Respiratory Rate 17 20 20 Blood Pressure 102/66 Pulse Oximetry 100 05/13/20 16:45 05/13/20 17:30 05/13/20 18:00 Temperature 37.4 C Pulse Rate 79 88 84 Respiratory Rate 20 17 Blood Pressure 108/70 Pulse Oximetry 100 100 05/13/20 20:00 05/13/20 20:30 05/13/20 21:45 Temperature 37.3 C Pulse Rate 92 95 90 Respiratory Rate 22 H 18 Blood Pressure 110/68 Pulse Oximetry 100 100 05/13/20 21:53 05/13/20 22:00 05/13/20 23:46 Temperature Pulse Rate 98 100 99 Respiratory Rate 17 22 H Blood Pressure 120/88 Pulse Oximetry 99 100 05/14/20 00:00 05/14/20 00:40 05/14/20 02:00 Temperature 37.8 C H Pulse Rate 101 H 113 H 101 H Respiratory Rate 24 H 30 H 24 H Blood Pressure 121/73 111/73 Pulse Oximetry 99 100 05/14/20 02:40 05/14/20 02:43 05/14/20 02:47 Temperature Pulse Rate 107 H 115 H 110 H Respiratory Rate 33 H 30 H Blood Pressure Pulse Oximetry 100 05/14/20 03:00 05/14/20 03:07 05/14/20 03:12 Temperature 38.3 C H Pulse Rate 105 H 107 H Respiratory Rate 19 18 Blood Pressure Pulse Oximetry 05/14/20 03:39 05/14/20 03:40 05/14/20 04:00 Temperature 38.3 C H 38.2 C H Pulse Rate 115 H 101 H Respiratory Rate 33 H 30 H Blood Pressure 119/70 Pulse Oximetry 98 05/14/20 05:10 05/14/20 06:00 05/14/20 08:00 Temperature 37.8 C H 38.5 C H Pulse Rate 143 H 141 H 134 H Respiratory Rate 28 H 19 Blood Pressure 131/66 120/64 Pulse Oximetry 94 90 95 05/14/20 08:40 05/14/20 08:41 05/14/20 08:58 Temperature Pulse Rate 132 H 133 H 131 H Respiratory Rate 20 20 18 Blood Pressure Pulse Oximetry 05/14/20 09:12 05/14/20 09:22 05/14/20 09:32 Temperature Pulse Rate 118 H 129 H 112 H Respiratory Rate 24 H 18 23 H Blood Pressure Pulse Oximetry 98 05/14/20 10:00 05/14/20 10:29 05/14/20 10:31 Temperature 38.3 C H 38.3 C H Pulse Rate 119 H 121 H Respiratory Rate 1 L 16 Blood Pressure 95/53 L Pulse Oximetry 97 05/14/20 10:36 05/14/20 10:37 05/14/20 11:53 Temperature Pulse Rate 120 H 121 H 113 H Respiratory Rate 16 16 Blood Pressure Pulse Oximetry 99 05/14/20 12:26 Temperature 38.0 C H Pulse Rate Respiratory Rate Blood Pressure Pulse Oximetry Intake/Output Intake/Output: Intake & Output 05/11/20 05/12/20 05/13/20 05/14/20 23:59 23:59 23:59 23:59 Intake Total 1190 1344 1087 1680 Output Total 1384 4059 812 342 Balance -815 -624 654 1300 Meds/Results Medications: Active Medications Generic Name Dose Rou
[2020-05-14 13:38] LABS: Glucose Point of Care 333 (65-105)
--- NOTE | 2020-05-14 13:58 | WPDINTPN ---
Progress Note: A&P Assessment and Plan (1) Acute respiratory failure with hypoxemia: Code(s): J96.01 - Acute respiratory failure with hypoxia Status: Acute Assessment and Plan: Acute respiratory failure hypoxemia secondary to COVID-19 pneumonia - patient has been alternating with BiPAP and high-flow therapy since 05/08/2020. - on 05/12/2020 patient had worsening hypoxia, respiratory distress and impending failure, was INTUBATED - continue CMV mode of ventilation, low tidal volume strategy, peep of 12. Wean FiO2 as tolerated did O2 sats greater than 92% - chest X and ABGs reviewed - Sedated with fentanyl and propofol. Maintain RASS score of -1. Daily sedation vacation trial. (2) Pneumonia due to COVID-19 virus: Code(s): U07.1 - COVID-19; J12.89 - Other viral pneumonia Status: Acute Assessment and Plan: continue dexamethasone for 10 days, - status post 5 days of Remdesivir - appreciate infectious disease evaluation recommendation. he is not a candidate for convalescent plasma. - continue droplet, airborne, contact isolation /precautions - continue monitor inflammatory markers (3) GERD (gastroesophageal reflux disease): Code(s): K21.9 - Gastro-esophageal reflux disease without esophagitis Status: Acute Assessment and Plan: Continue IV pantoprazole once a day. (4) HTN (hypertension), benign: Code(s): I10 - Essential (primary) hypertension Status: Chronic Assessment and Plan: Continue to hold amlodipine, hydrochlorothiazide and enalapril. Continue to monitor hemodynamics closely. Hydralazine on p.r.n. basis if blood pressure is elevated. (5) Elevated blood sugar: Code(s): R73.9 - Hyperglycemia, unspecified Status: Acute Assessment and Plan: He seems to have a new diagnosis of diabetes mellitus. Hemoglobin A1c was 8.6. continue insulin sliding scale. - Continue Levemir (6) Acute renal failure: Code(s): N17.9 - Acute kidney failure, unspecified Status: Acute Assessment and Plan: Acute kidney injury with creatinine of 1.5 on admission, It has resolved now with some IV fluids. (7) Hypernatremia: Code(s): E87.0 - Hyperosmolality and hypernatremia Status: Acute Assessment and Plan: continue tube flushes at 100 mL q.6 hours - monitor sodium levels closely (8) Seizure: Code(s): R56.9 - Unspecified convulsions Status: Acute Assessment and Plan: patient with seizure activity on 05/12/2020, patient was loaded with Keppra - neurology evaluated the patient - will hold Keppra since patient has not had any seizure activityr (9) Dietary counseling and surveillance: Code(s): Z71.3 - Dietary counseling and surveillance Status: Acute Assessment and Plan: tolerating tube feeds, Glucerna stress ulcer prophylaxis: Protonix IV (10) DVT prophylaxis: Code(s): Z29.9 - Encounter for prophylactic measures, unspecified Status: Acute Assessment and Plan: Lovenox 40 mg subcu q.12 hours (11) Rash: Code(s): R21 - Rash and other nonspecific skin eruption Status: Acute Assessment and Plan: new rash on the face and upper chest, blanchable. Questionable medication related. The only new medication that was started was Keppra which has been held. Will continue to monitor Additional Plan will discuss with family condition: Guarded/critical EL code status: full code critical care time spent: 32 minutes Due to a high probability of clinically significant, life threatening deterioration, the patient required my highest level of preparedness to intervene emergently and I personally spent this critical care time directly and personally managing the patient. This critical care time included obtaining a history; examining the patient; pulse oximetry; ordering and review of studies; xiang
--- NOTE | 2020-05-14 15:47 | PM.IMPN ---
Progress Note: A&P Assessment and Plan (1) Acute respiratory failure: Code(s): J96.00 - Acute respiratory failure, unspecified whether with hypoxia or hypercapnia Status: Acute Assessment and Plan: ABG on admisison showing 7.53 on BiPAP. Wore the BiPAP overnight 05/09- and did well. He was changed to HFNC and NRB 05/10 but still was requiring 100% FiO2 with A-a grad in the 600's. Moved to ICU and intubated 05/12. Still low grade fevers. Echo normal EF with grade 1 DD. (2) Pneumonia due to COVID-19 virus: Code(s): U07.1 - COVID-19; J12.89 - Other viral pneumonia Status: Acute Assessment and Plan: Patient COVID positive on 05/04/20. He was admitted on 05/08/20 and still on Decadron Day 6 and finished Remdesivir . AST/ALT up and down felt related to COVID +/- Remdesivir. Repeat CXR 05/12 reviewed and showing no change. Currently on BiPAP. Follow inflammatory markers and LFTs. As above. (3) HTN (hypertension), benign: Code(s): I10 - Essential (primary) hypertension Status: Chronic Assessment and Plan: Patient's blood pressure was reviewed on 04/28 Will continue to hold his amlodipine, enalapril and hydrochlorothiazide. Add IV hydralazine prn. (4) Acute renal failure: Code(s): N17.9 - Acute kidney failure, unspecified Status: Acute Assessment and Plan: Patient's creatinine is 1.5 on admission. Yoni inhibitors and diuretics on hold. Creatine normal now.1.1 Continue to monitor. (5) Hyponatremia: Code(s): E87.1 - Hypo-osmolality and hyponatremia Status: Acute Assessment and Plan: Na 152 today felt related to fluid loss from insensible losses. IV fluids on hold due to COVID. Cautious if Lasix given. (6) Diabetes mellitus: Code(s): E11.9 - Type 2 diabetes mellitus without complications Status: Acute Assessment and Plan: A1c 8.6 consistent with new diagnosis of DM. Glucose reviewed on 05/14 Glucose has been poorly controlled related to steroids and uncontrolled prior to admission but improved today. GLucose 183 this morning. Continue AccuCheks covering with sliding scale. Hypoglycemia protocol available as needed. Continue current medications with Levemir 10 q12H (7) Chronic GERD: Code(s): K21.9 - Gastro-esophageal reflux disease without esophagitis Status: Chronic Assessment and Plan: Stable. Continue IV Protonix. (8) Gout: Code(s): M10.9 - Gout, unspecified Status: Chronic Assessment and Plan: Stable. Allopurinol remains on hold. (9) DVT prophylaxis: Code(s): Z29.9 - Encounter for prophylactic measures, unspecified Status: Acute Assessment and Plan: Lovenox Q12h Subjective Date/time seen: 05/14/20 15:47 Interval history: Date of service 05/14 70yo male known to have COVID here for SOB and found to be in acute respiratory failure. Respiratory status continued to worsen until had to be intubated and mechanically ventilated 05/12. Exam Narrative: Exam Narrative: Tc 38 106/64 110 26 90% FIO2 80 10 peep Gen - tachypneic, Lungs with crackles appreciated in the right>left flank; inc RR CV - tachycardic, regular with distant S1/S2; Tele showing no dysrhythmias Abd - Soft, ND Ext - No pitting pedal edema Neuro - obtunded, confused. Skin - flushed in the face and chest, warm to touch Objective Data Vital Signs Vital Signs: Vital Signs - 24 hr 05/13/20 16:00 05/13/20 16:17 05/13/20 16:44 Temperature 37.6 C Pulse Rate 86 79 79 Respiratory Rate 17 20 20 Blood Pressure 102/66 Pulse Oximetry 100 05/13/20 16:45 05/13/20 17:30 05/13/20 18:00 Temperature 37.4 C Pulse Rate 79 88 84 Respiratory Rate 20 17 Blood Pressure 108/70 Pulse Oximetry 100 100 05/13/20 20:00 05/13/20 20:30 05/13/20 21:45 Temperature 37.3 C Pulse Rate 92 95 90 Respiratory Rate
[2020-05-14 23:17] LABS: Glucose Point of Care 340 (65-105)
[2020-05-15] VITALS (42 sets, daily range): BP systolic 104–127; BP diastolic 54–82; PULSE 100–121; RESP 14–27; TEMP 37.6–38.8; O2SAT 88–100
[2020-05-15] MEDS: PROPOFOL IV EMULSION 100 ML 25.05 MG IV CONT ×3 (00:15→05:53)
[2020-05-15 00:49] LABS: Glucose Point of Care 234 (65-105)
[2020-05-15] MEDS: INSULIN ASPART (*BKC) 100 UNITS/ML SUB-Q ×4 (00:50→18:17)
[2020-05-15] MEDS: FENTANYL 2,500MCG/NS250ML(*CRX 2,500 MCG/250 ML BAG 17.5 MCG IV CONT ×2 (01:01→17:24)
[2020-05-15] MEDS: ALBUTEROL SULFATE NEB 2.5 MG/0.5 ML INH INHALATION ×4 (02:01→21:40)
[2020-05-15 04:37] LABS: Hematocrit 40.6 % (42.0-52.0); Hemoglobin 12.4 g/dL (14.0-18.0); Mean Corpuscular HGB Conc 30.5 g/dl (32-36); Mean Corpuscular Hemoglobin 27.7 pg (26-34); Mean Corpuscular Volume 90.8 fl (80-100); Mean Platelet Volume 10.6 fl (7.4-10.4); Platelet Count Result 217 k/mm3 (150-375); Red Blood Count 4.47 M/mm3 (4.6-6.20); Red Cell Distribution Width 17.4 % (11.5-14.5); White Blood Count 8.8 K/mm3 (4.5-10.0)
[2020-05-15] MEDS: CENTRAL LINE FLUSH 10 ML IV PUSH ×3 (04:37→21:45)
[2020-05-15 04:56] LABS: D Dimer 3.54 ug/mL (<0.48)
[2020-05-15 04:59] LABS: Alanine Aminotransferase 42 U/L (4-50); Albumin Level 2.6 g/dL (3.5-5.1); Alkaline Phosphatase 87 U/L (38-126); Anion Gap 2 mmol/L (8-16); Aspartate Amino Transferase 51 U/L (17-59); Bilirubin,Total 0.6 mg/dL (0.2-1.3); Blood Urea Nitrogen 40 mg/dL (9-20); Calcium 8.3 mg/dL (8.4-10.2); Carbon Dioxide 35 mmol/L (22-30); Chloride 115 mmol/L (98-107); Estimated CRCL calculation 90 ml/min; Estimated Glomerular Filt Rate > 60; Glucose 218 mg/dL (75-110); Lactate Dehydrogenase 952 U/L (313-618); Magnesium 3.1 mg/dL (1.6-2.3); Phosphorus 3.9 mg/dL (2.5-4.5); Potassium 4.5 mmol/L (3.4-5.0); Sodium 152 mmol/L (137-145)
[2020-05-15 05:11] LABS: CRP 12.8 mg/dL (<1.0)
[2020-05-15 05:30] LABS: Glucose Point of Care 202 (65-105)
[2020-05-15 08:05] LABS: Alveolar/Arterial O2 Gradient 397.5 mmHg; Base Excess ABG -2.7 mEq/l (+/-2.0); Carboxyhemoglobin 0.3 % THb (0-2.0); Fractional Inspired Oxygen 80 %; HCO3 ABG 27.2 mEq/l (22.0-26.0); Methemoglobin ABG 0.5 %THb (0-1.5); Oxygen Content ABG 19.6 %vol (16.0-22.0); Oxygen Saturation ABG 95.7 % (95.0-100.0); Oxyhemoglobin 95.7 % THb (90.0-100.0); PO2 FiO2 Ratio Arterial Blood 1.23 %; Reduced Hemoglobin 3.5 %THb (0-5.0); Total Hemoglobin 14.5 g/dL (12.0-18.0)
[2020-05-15 08:06] LABS: Device VENTILATOR; Modified Allen's Test Pass; PCO2 ABG 71.3 mmHg (35.0-45.0); Site Drawn RIGHT RADIAL; pH ABG 7.199 (7.350-7.450)
[2020-05-15 08:07] LABS: Arterial Blood Gas PEEP 12 cmH2O; Arterial Blood Gas Tidal Volume 450 ml; Arterial Blood Gas Vent Mode CMV; Arterial Blood Gas Ventilator rate 16 /MIN
[2020-05-15] MEDS: DEXAMETHASONE SOD PHOS INJ 4 MG/ML VIAL 6 MG IV PUSH (08:38)
[2020-05-15] MEDS: TOLNAFTATE 1% POWDER 45 GM BTL 1 APPLIC TOPICAL ×2 (08:39→21:17)
[2020-05-15] MEDS: ENOXAPARIN 40 MG/0.4 ML SYRINGE SUB-Q ×2 (08:39→21:16)
[2020-05-15] MEDS: PANTOPRAZOLE SODIUM IV 40 MG VIAL IV PUSH (08:39)
[2020-05-15] MEDS: INSULIN DETEMIR 100 UNITS/ML 10 UNITS SUB-Q (08:40)
[2020-05-15] MEDS: ACETAMINOPHEN ELIXIR 325 MG/10.15 ML UDC 650 MG PO ×2 (08:43→18:17)
[2020-05-15] MEDS: PROPOFOL IV EMULSION 100 ML 20.04 MG IV CONT (08:46)
[2020-05-15] MEDS: DORNASE ALFA INH SOLN 1 MG/ML 2.5 ML AMP 2.5 MG INHALATION ×2 (10:26→21:40)
--- NOTE | 2020-05-15 11:37 | PCDIET ---
ICU Rounding Note: Patient tolerating Glucerna 1.2 at 50mL/hr goal rate with Pro-Stat flush BID. Water flush increased to 200mL every 4 hours. Last recorded weight is 129kg which is decreased from last review, despite +I/O. Will monitor. Bowel Motility: No documented BM. Miralax started on 05/14/20. Labs Reviewed: Glu (218), BUN (40), Na (152), Alb (2.6), Cl (115) Meds Noted: Albuterol, Decadron, Fentanyl, Miralax, Novolog, Levemir, Versed, Protonix, Propofol (rate of 20.04mL/hr provides 529kcal per day) Additional Notes: No documented skin breakdown. Following daily in ICU rounds. Assessing/reassessing every Wednesday/Wednesday.
[2020-05-15 11:57] LABS: Glucose Point of Care 303 (65-105)
[2020-05-15] MEDS: PROPOFOL IV EMULSION 100 ML 15.03 MG IV CONT ×3 (12:05→21:15)
[2020-05-15 12:19] LABS: Procalcitonin 0.28 ng/mL (<0.10)
--- NOTE | 2020-05-15 14:01 | WPDINFPN2 ---
Progress Note: A&P Assessment and Plan (1) Pneumonia due to COVID-19 virus: Code(s): U07.1 - COVID-19; J12.89 - Other viral pneumonia Status: Acute Assessment and Plan: 1. Viral pneumonia due to CoVid 19, stable 2. Respiratory failure, with respiratory acidosis and hypoxia requiring 80% FiO2. 3. Hypernatremia, being corrected. REC Dexamethasone # 8 / 10, continue. The temperature curve with low grade fever is due to the viral pneumonia, and he does not need antibacterials empirically. Subjective Date/time seen: 05/15/20 14:01 Interval history: no pressors. OG and ETT. No femoral lines. Exam Narrative: Exam Narrative: t max 38.6 core. Const: General: no acute distress HENMT: Mouth: Yes dry mucous membranes Resp: Effort & Inspection: normal respiratory effort Auscultation: clear to auscultation bilaterally and diminished lung sounds Cardio: Rate: regular rate Rhythm: regular rhythm Heart sounds: no murmurs GI: Inspection: non-distended GI Palp: Yes Soft to palpation and No Tenderness to palpation present (GI) Urinary Catheter: Urinary Catheter: patent and draining and urine clear Skin: General skin exam: normal color and no rashes or lesions noted Objective Data Vital Signs Vital Signs: Vital Signs - 24 hr 05/14/20 14:45 05/14/20 14:46 05/14/20 14:54 Temperature Pulse Rate 112 H 111 H 112 H Respiratory Rate 19 20 Blood Pressure Pulse Oximetry 100 05/14/20 14:56 05/14/20 14:58 05/14/20 16:00 Temperature 37.3 C Pulse Rate 111 H 110 H 103 H Respiratory Rate 18 20 14 Blood Pressure Pulse Oximetry 100 05/14/20 16:23 05/14/20 16:24 05/14/20 17:18 Temperature Pulse Rate 103 H 103 H 103 H Respiratory Rate 18 16 Blood Pressure Pulse Oximetry 100 05/14/20 17:40 05/14/20 17:41 05/14/20 18:00 Temperature 37.7 C H Pulse Rate 107 H 103 H 104 H Respiratory Rate 16 16 16 Blood Pressure 101/64 Pulse Oximetry 100 05/14/20 19:23 05/14/20 19:24 05/14/20 20:00 Temperature 37.5 C Pulse Rate 101 H 101 H 100 Respiratory Rate 16 16 24 H Blood Pressure 126/66 Pulse Oximetry 100 05/14/20 22:00 05/14/20 22:26 05/15/20 00:00 Temperature 37.6 C Pulse Rate 101 H 99 103 H Respiratory Rate 20 17 22 H Blood Pressure 138/74 118/72 Pulse Oximetry 100 99 100 05/15/20 00:15 05/15/20 00:16 05/15/20 00:46 Temperature 38.2 C H 37.6 C Pulse Rate 103 H Respiratory Rate 18 Blood Pressure Pulse Oximetry 05/15/20 00:58 05/15/20 01:01 05/15/20 02:00 Temperature Pulse Rate 101 H 101 H 100 Respiratory Rate 16 16 20 Blood Pressure 118/70 Pulse Oximetry 100 05/15/20 02:01 05/15/20 02:08 05/15/20 04:00 Temperature 37.8 C H Pulse Rate 103 H 105 H 100 Respiratory Rate 16 17 24 H Blood Pressure 114/65 Pulse Oximetry 99 98 05/15/20 04:15 05/15/20 04:43 05/15/20 05:53 Temperature Pulse Rate 112 H 112 H 115 H Respiratory Rate 18 18 17 Blood Pressure Pulse Oximetry 05/15/20 06:00 05/15/20 08:00 05/15/20 08:43 Temperature 38.6 C H 38.6 C H Pulse Rate 117 H 120 H Respiratory Rate 20 18 Blood Pressure 113/82 107/67 Pulse Oximetry 99 100 05/15/20 08:46 05/15/20 10:00 05/15/20 10:16 Temperature 38.3 C H 38.3 C H Pulse Rate 120 H 115 H Respiratory Rate 24 H 24 H Blood Pressure 115/69 Pulse Oximetry 96 05/15/20 10:25 05/15/20 10:26 05/15/20 10:42 Temperature Pulse Rate 114 H 115 H 114 H Respiratory Rate 24 H 25 H Blood Pressure Pulse Oximetry 98 05/15/20 12:00 05/15/20 12:05 Temperature 38.1 C H Pulse Rate 111 H 109 H Respiratory Rate 24 H 24 H Blood Pressure 107/54 L Pulse Oximetry 93 Intake/Output Intake/Output: Intake & Output 05/12/20 05/13/20 05/14/20 05/15/20 23:59 23:59 23:59 23:59 Intake Total 1344 1087 2952 1680 Output Total 2140 850 1600 1100 Balance -022 781 5147 580 Meds/Results Medications: Active Medications Generi
--- NOTE | 2020-05-15 14:25 | WPDINTPN ---
Progress Note: A&P Assessment and Plan (1) Acute respiratory failure with hypoxemia: Code(s): J96.01 - Acute respiratory failure with hypoxia Status: Acute Assessment and Plan: Acute respiratory failure hypoxemia secondary to COVID-19 pneumonia - patient has been alternating with BiPAP and high-flow therapy since 05/08/2020. - on 05/12/2020 patient had worsening hypoxia, respiratory distress and impending failure, was INTUBATED - continue CMV mode of ventilation, low tidal volume strategy, peep of 12. Wean FiO2 as tolerated did O2 sats greater than 92% currently on 60% - respiratory rate increased to 24 - repeat ABG - chest X and ABGs reviewed - Sedated with fentanyl and propofol. Maintain RASS score of -1. Daily sedation vacation trial. (2) Pneumonia due to COVID-19 virus: Code(s): U07.1 - COVID-19; J12.89 - Other viral pneumonia Status: Acute Assessment and Plan: continue dexamethasone for 10 days, - status post 5 days of Remdesivir - appreciate infectious disease evaluation recommendation. he is not a candidate for convalescent plasma. - continue droplet, airborne, contact isolation /precautions - continue monitor inflammatory markers (3) GERD (gastroesophageal reflux disease): Code(s): K21.9 - Gastro-esophageal reflux disease without esophagitis Status: Acute Assessment and Plan: Continue IV pantoprazole once a day. (4) HTN (hypertension), benign: Code(s): I10 - Essential (primary) hypertension Status: Chronic Assessment and Plan: Continue to hold amlodipine, hydrochlorothiazide and enalapril. Continue to monitor hemodynamics closely. Hydralazine on p.r.n. basis if blood pressure is elevated. (5) Elevated blood sugar: Code(s): R73.9 - Hyperglycemia, unspecified Status: Acute Assessment and Plan: He seems to have a new diagnosis of diabetes mellitus. Hemoglobin A1c was 8.6. continue insulin sliding scale. - Continue Levemir (6) Acute renal failure: Code(s): N17.9 - Acute kidney failure, unspecified Status: Acute Assessment and Plan: Acute kidney injury with creatinine of 1.5 on admission, It has resolved now with some IV fluids. (7) Hypernatremia: Code(s): E87.0 - Hyperosmolality and hypernatremia Status: Acute Assessment and Plan: increase tube flushes at 200 mL q.6 hours - monitor sodium levels (8) Seizure: Code(s): R56.9 - Unspecified convulsions Status: Acute Assessment and Plan: patient with seizure activity on 05/12/2020, patient was loaded with Keppra - neurology evaluated the patient - will hold Keppra since patient has not had any seizure activity - currently sedated with propofol and Versed (9) Dietary counseling and surveillance: Code(s): Z71.3 - Dietary counseling and surveillance Status: Acute Assessment and Plan: tolerating tube feeds, Glucerna stress ulcer prophylaxis: Protonix IV (10) DVT prophylaxis: Code(s): Z29.9 - Encounter for prophylactic measures, unspecified Status: Acute Assessment and Plan: Lovenox 40 mg subcu q.12 hours (11) Rash: Code(s): R21 - Rash and other nonspecific skin eruption Status: Acute Assessment and Plan: new rash on the face and upper chest, blanchable. Questionable medication related. The only new medication that was started was Keppra which has been held. Will continue to monitor Additional Plan condition: Guarded/critical EL code status: full code critical care time spent: 33 minutes Due to a high probability of clinically significant, life threatening deterioration, the patient required my highest level of preparedness to intervene emergently and I personally spent this critical care time directly and personally managing the patient. This critical care time included obtaining a histor
--- NOTE | 2020-05-15 15:02 | PM.IMPN ---
Progress Note: A&P Assessment and Plan (1) Acute respiratory failure: Code(s): J96.00 - Acute respiratory failure, unspecified whether with hypoxia or hypercapnia Status: Acute Assessment and Plan: ABG on admisison showing 7.53 on BiPAP. Wore the BiPAP overnight 05/09- and did well. He was changed to HFNC and NRB 05/10 but still was requiring 100% FiO2 with A-a grad in the 600's. Moved to ICU and intubated 05/12. Still low grade fevers. Echo normal EF with grade 1 DD. (2) Pneumonia due to COVID-19 virus: Code(s): U07.1 - COVID-19; J12.89 - Other viral pneumonia Status: Acute Assessment and Plan: Patient COVID positive on 05/04/20. He was admitted on 05/08/20 and still on Decadron Day 7 and finished Remdesivir . AST/ALT up and down felt related to COVID +/- Remdesivir. Repeat CXR 05/12 reviewed and showing no change. Currently on BiPAP. Follow inflammatory markers and LFTs. As above. (3) HTN (hypertension), benign: Code(s): I10 - Essential (primary) hypertension Status: Chronic Assessment and Plan: Patient's blood pressure was reviewed on 04/28 Will continue to hold his amlodipine, enalapril and hydrochlorothiazide. Add IV hydralazine prn. (4) Acute renal failure: Code(s): N17.9 - Acute kidney failure, unspecified Status: Acute Assessment and Plan: Patient's creatinine is 1.5 on admission. Yoni inhibitors and diuretics on hold. Creatine normal now.1.1 Continue to monitor. (5) Hyponatremia: Code(s): E87.1 - Hypo-osmolality and hyponatremia Status: Acute Assessment and Plan: Na 152 today felt related to fluid loss from insensible losses. IV fluids on hold due to COVID. Cautious if Lasix given. (6) Diabetes mellitus: Code(s): E11.9 - Type 2 diabetes mellitus without complications Status: Acute Assessment and Plan: A1c 8.6 consistent with new diagnosis of DM. Glucose reviewed on 05/15 Glucose has been poorly controlled related to steroids and uncontrolled prior to admission but improved today. GLucose 183 this morning. Continue AccuCheks covering with sliding scale. Hypoglycemia protocol available as needed. Continue current medications with Levemir 10 q12H (7) Chronic GERD: Code(s): K21.9 - Gastro-esophageal reflux disease without esophagitis Status: Chronic Assessment and Plan: Stable. Continue IV Protonix. (8) Gout: Code(s): M10.9 - Gout, unspecified Status: Chronic Assessment and Plan: Stable. Allopurinol remains on hold. (9) DVT prophylaxis: Code(s): Z29.9 - Encounter for prophylactic measures, unspecified Status: Acute Assessment and Plan: Lovenox Q12h Subjective Date/time seen: 05/15/20 15:02 Interval history: Date of service 05/15 70yo male known to have COVID here for SOB and found to be in acute respiratory failure. Respiratory status continued to worsen until had to be intubated and mechanically ventilated 05/12. Exam Narrative: Exam Narrative: Tc 38 106/64 110 26 90% FIO2 80 10 peep Gen - tachypneic, Lungs with crackles appreciated in the right>left flank; inc RR CV - tachycardic, regular with distant S1/S2; Tele showing no dysrhythmias Abd - Soft, ND Ext - No pitting pedal edema Neuro - obtunded, confused. Skin - flushed in the face and chest, warm to touch Objective Data Vital Signs Vital Signs: Vital Signs - 24 hr 05/14/20 16:00 05/14/20 16:23 05/14/20 16:24 Temperature 37.3 C Pulse Rate 103 H 103 H 103 H Respiratory Rate 14 18 16 Blood Pressure Pulse Oximetry 100 05/14/20 17:18 05/14/20 17:40 05/14/20 17:41 Temperature Pulse Rate 103 H 107 H 103 H Respiratory Rate 16 16 Blood Pressure Pulse Oximetry 100 05/14/20 18:00 05/14/20 19:23 05/14/20 19:24 Temperature 37.7 C H Pulse Rate 104 H 101 H 101 H Respirat
[2020-05-15 18:44] LABS: Alveolar/Arterial O2 Gradient 312.8 mmHg; Base Excess ABG 0.3 mEq/l (+/-2.0); Carboxyhemoglobin 0.3 % THb (0-2.0); Fractional Inspired Oxygen 60 %; HCO3 ABG 26.8 mEq/l (22.0-26.0); Methemoglobin ABG 0.4 %THb (0-1.5); Oxygen Content ABG 16.1 %vol (16.0-22.0); Oxygen Saturation ABG 88.4 % (95.0-100.0); Oxyhemoglobin 89.7 % THb (90.0-100.0); PCO2 ABG 51.3 mmHg (35.0-45.0); PO2 ABG 58.6 mmHg (80.0-100.0); PO2 FiO2 Ratio Arterial Blood 0.98 %; Reduced Hemoglobin 9.6 %THb (0-5.0); Total Hemoglobin 12.8 g/dL (12.0-18.0); pH ABG 7.336 (7.350-7.450)
[2020-05-15 18:45] LABS: Device VENTILATOR; Modified Allen's Test Pass; Site Drawn LEFT RADIAL
[2020-05-15 18:46] LABS: Arterial Blood Gas PEEP 12 cmH2O; Arterial Blood Gas Pressure Support 0 cmH2O; Arterial Blood Gas Tidal Volume 450 ml; Arterial Blood Gas Vent Mode CMV; Arterial Blood Gas Ventilator rate 24 /MIN
[2020-05-15 19:00] LABS: Glucose Point of Care 304 (65-105)
[2020-05-15] MEDS: INSULIN DETEMIR 100 UNITS/ML 30 UNITS SUB-Q (21:17)
[2020-05-16] VITALS (37 sets, daily range): BP systolic 107–166; BP diastolic 62–101; PULSE 106–120; RESP 19–29; TEMP 37.6–38.6; O2SAT 89–95
[2020-05-16] MEDS: INSULIN ASPART (*BKC) 100 UNITS/ML SUB-Q ×4 (00:23→18:07)
[2020-05-16 00:50] LABS: Glucose Point of Care 244 (65-105)
[2020-05-16] MEDS: PROPOFOL IV EMULSION 100 ML 15.03 MG IV CONT ×2 (02:29→07:03)
[2020-05-16] MEDS: ALBUTEROL SULFATE NEB 2.5 MG/0.5 ML INH INHALATION ×4 (02:40→21:02)
[2020-05-16 03:59] LABS: Hematocrit 38.3 % (42.0-52.0); Hemoglobin 11.7 g/dL (14.0-18.0); Mean Corpuscular HGB Conc 30.5 g/dl (32-36); Mean Corpuscular Hemoglobin 27.3 pg (26-34); Mean Corpuscular Volume 89.5 fl (80-100); Mean Platelet Volume 11.4 fl (7.4-10.4); Platelet Count Result 182 k/mm3 (150-375); Red Blood Count 4.28 M/mm3 (4.6-6.20); Red Cell Distribution Width 17.1 % (11.5-14.5); White Blood Count 7.8 K/mm3 (4.5-10.0)
[2020-05-16 04:16] LABS: Alanine Aminotransferase 42 U/L (4-50); Albumin Level 2.5 g/dL (3.5-5.1); Alkaline Phosphatase 87 U/L (38-126); Anion Gap 2 mmol/L (8-16); Aspartate Amino Transferase 49 U/L (17-59); Bilirubin,Total 0.5 mg/dL (0.2-1.3); Blood Urea Nitrogen 42 mg/dL (9-20); Calcium 8.6 mg/dL (8.4-10.2); Carbon Dioxide 34 mmol/L (22-30); Chloride 113 mmol/L (98-107); Estimated CRCL calculation 70 ml/min; Estimated Glomerular Filt Rate 55; Glucose 251 mg/dL (75-110); Magnesium 3.1 mg/dL (1.6-2.3); Phosphorus 2.7 mg/dL (2.5-4.5); Potassium 4.8 mmol/L (3.4-5.0); Sodium 149 mmol/L (137-145)
[2020-05-16] MEDS: ACETAMINOPHEN ELIXIR 325 MG/10.15 ML UDC 650 MG PO ×2 (05:32→11:56)
[2020-05-16] MEDS: CENTRAL LINE FLUSH 10 ML IV PUSH ×3 (05:36→22:10)
[2020-05-16 06:41] LABS: Alveolar/Arterial O2 Gradient 372.5 mmHg; Carboxyhemoglobin 0.3 % THb (0-2.0); Fractional Inspired Oxygen 70 %; HCO3 ABG 28.5 mEq/l (22.0-26.0); Methemoglobin ABG 0.4 %THb (0-1.5); Oxygen Content ABG 16.9 %vol (16.0-22.0); Oxygen Saturation ABG 89.9 % (95.0-100.0); Oxyhemoglobin 90.8 % THb (90.0-100.0); PCO2 ABG 58.4 mmHg (35.0-45.0); PO2 ABG 63.8 mmHg (80.0-100.0); PO2 FiO2 Ratio Arterial Blood 0.91 %; Reduced Hemoglobin 8.5 %THb (0-5.0); Total Hemoglobin 13.2 g/dL (12.0-18.0); pH ABG 7.306 (7.350-7.450)
[2020-05-16 06:42] LABS: Arterial Blood Gas PEEP 12 cmH2O; Arterial Blood Gas Tidal Volume 450 ml; Arterial Blood Gas Vent Mode CMV; Arterial Blood Gas Ventilator rate 24 /MIN; Device VENTILATOR; Modified Allen's Test Pass; Site Drawn RIGHT RADIAL
[2020-05-16] MEDS: FENTANYL 2,500MCG/NS250ML(*CRX 2,500 MCG/250 ML BAG 17.5 MCG IV CONT (07:27)
[2020-05-16] MEDS: PANTOPRAZOLE SODIUM IV 40 MG VIAL IV PUSH (08:36)
[2020-05-16] MEDS: DEXAMETHASONE SOD PHOS INJ 4 MG/ML VIAL 6 MG IV PUSH (08:36)
[2020-05-16] MEDS: TOLNAFTATE 1% POWDER 45 GM BTL 1 APPLIC TOPICAL ×2 (08:36→20:02)
[2020-05-16] MEDS: ENOXAPARIN 40 MG/0.4 ML SYRINGE SUB-Q ×2 (08:36→20:01)
[2020-05-16] MEDS: DORNASE ALFA INH SOLN 1 MG/ML 2.5 ML AMP 2.5 MG INHALATION ×2 (08:50→21:02)
--- NOTE | 2020-05-16 11:32 | WPDINTPN ---
Progress Note: A&P Assessment and Plan (1) Acute respiratory failure with hypoxemia: Code(s): J96.01 - Acute respiratory failure with hypoxia Status: Acute Assessment and Plan: Acute respiratory failure hypoxemia secondary to COVID-19 pneumonia - patient has been alternating with BiPAP and high-flow therapy since 05/08/2020. - on 05/12/2020 patient had worsening hypoxia, respiratory distress and impending failure, was INTUBATED - continue CMV mode of ventilation, low tidal volume strategy, peep of 12 in FiO2 60% Wean FiO2 as tolerated did O2 sats greater than 92% currently on 60% - respiratory rate increased to 24 - repeat ABG - chest X and ABGs reviewed - Sedated with fentanyl and propofol. Maintain RASS score of -1. Daily sedation vacation trial. (2) Pneumonia due to COVID-19 virus: Code(s): U07.1 - COVID-19; J12.89 - Other viral pneumonia Status: Acute Assessment and Plan: continue dexamethasone for 10 days, - status post 5 days of Remdesivir - appreciate infectious disease evaluation recommendation. he is not a candidate for convalescent plasma. - continue droplet, airborne, contact isolation /precautions - continue monitor inflammatory markers (3) Fever: Code(s): R50.9 - Fever, unspecified Status: Acute Assessment and Plan: patient febrile overnight and this could be secondary to COVID-19 pneumonia. his WBC count is normal will resend blood cultures and sputum cultures check lower extremity Dopplers hold antibiotics (4) GERD (gastroesophageal reflux disease): Code(s): K21.9 - Gastro-esophageal reflux disease without esophagitis Status: Acute Assessment and Plan: Continue IV pantoprazole once a day. (5) HTN (hypertension), benign: Code(s): I10 - Essential (primary) hypertension Status: Chronic Assessment and Plan: Continue to hold amlodipine, hydrochlorothiazide and enalapril. Continue to monitor hemodynamics closely. Hydralazine on p.r.n. basis if blood pressure is elevated. (6) Elevated blood sugar: Code(s): R73.9 - Hyperglycemia, unspecified Status: Acute Assessment and Plan: He seems to have a new diagnosis of diabetes mellitus. Hemoglobin A1c was 8.6. continue insulin sliding scale. - Continue Levemir and I will increase the dose (7) Acute renal failure: Code(s): N17.9 - Acute kidney failure, unspecified Status: Acute Assessment and Plan: Acute kidney injury with creatinine of 1.5 on admission, It has resolved now with some IV fluids. (8) Hypernatremia: Code(s): E87.0 - Hyperosmolality and hypernatremia Status: Acute Assessment and Plan: continue tube flushes at 200 mL q.6 hours - monitor sodium levels which are improving (9) Seizure: Code(s): R56.9 - Unspecified convulsions Status: Acute Assessment and Plan: patient with seizure activity on 05/12/2020, patient was loaded with Keppra - neurology evaluated the patient - will hold Keppra since patient has not had any seizure activity - currently sedated with propofol and Versed (10) Dietary counseling and surveillance: Code(s): Z71.3 - Dietary counseling and surveillance Status: Acute Assessment and Plan: tolerating tube feeds, Glucerna added Dulcolax a and MiraLax stress ulcer prophylaxis: Protonix IV (11) DVT prophylaxis: Code(s): Z29.9 - Encounter for prophylactic measures, unspecified Status: Acute Assessment and Plan: Lovenox 40 mg subcu q.12 hours (12) Rash: Code(s): R21 - Rash and other nonspecific skin eruption Status: Acute Assessment and Plan: new rash on the face and upper chest, blanchable. Questionable medication related. The only new medication that was started was Keppra which has been held. Will continue to monitor improved Additional Plan con
--- NOTE | 2020-05-16 12:07 | PCDIET ---
ICU Rounding Note: Patient has been tolerating Glucerna 1.2 at 50mL/hr with Pro-Stat BID and 200mL water flush every 4 hours. Residuals 200mL and below. Last recorded weight is 131.4kg which is increased from last review. +I/O. Bowel Motility: No documented BM. MD adding Miralax and Dulcolax. Labs Reviewed: Hgb (11.7), Hct (38.3), Glu (251), BUN (42), Na (149), Alb (2.5) Meds Noted: Albuterol, Fentanyl, Novolog, Versed, Decadron, Hydralazine, Propofol (rate of 15.03mL/hr provides 396kcal per day), Novolog, Levemir, Protonix Additional Notes: No documented skin breakdown. Following daily in ICU rounds. Assessing/reassessing every Wednesday/Wednesday.
[2020-05-16 12:08] LABS: Glucose Point of Care 290 (65-105)
[2020-05-16] MEDS: BISACODYL 10 MG SUPPOSITORY RECTAL (13:01)
--- NOTE | 2020-05-16 17:10 | PM.IMPN ---
Progress Note: A&P Assessment and Plan (1) Acute respiratory failure: Code(s): J96.00 - Acute respiratory failure, unspecified whether with hypoxia or hypercapnia Status: Acute Assessment and Plan: ABG on admisison showing 7.53 on BiPAP. Wore the BiPAP overnight 05/09- and did well. He was changed to HFNC and NRB 05/10 but still was requiring 100% FiO2 with A-a grad in the 600's. Moved to ICU and intubated 05/12. Still low grade fevers. Echo normal EF with grade 1 DD. (2) Pneumonia due to COVID-19 virus: Code(s): U07.1 - COVID-19; J12.89 - Other viral pneumonia Status: Acute Assessment and Plan: Patient COVID positive on 05/04/20. He was admitted on 05/08/20 and still on Decadron Day 8 and finished Remdesivir . AST/ALT up and down felt related to COVID +/- Remdesivir. Repeat CXR 05/12 reviewed and showing no change. Currently on BiPAP. Follow inflammatory markers and LFTs. As above. (3) HTN (hypertension), benign: Code(s): I10 - Essential (primary) hypertension Status: Chronic Assessment and Plan: Patient's blood pressure was reviewed on 04/28 Will continue to hold his amlodipine, enalapril and hydrochlorothiazide. Add IV hydralazine prn. (4) Acute renal failure: Code(s): N17.9 - Acute kidney failure, unspecified Status: Acute Assessment and Plan: Patient's creatinine is 1.5 on admission. Yoni inhibitors and diuretics on hold. Creatine now.1.3 Continue to monitor. (5) Hyponatremia: Code(s): E87.1 - Hypo-osmolality and hyponatremia Status: Acute Assessment and Plan: Na 149 today felt related to fluid loss from insensible losses. IV fluids on hold due to COVID. Cautious if Lasix given. (6) Diabetes mellitus: Code(s): E11.9 - Type 2 diabetes mellitus without complications Status: Acute Assessment and Plan: A1c 8.6 consistent with new diagnosis of DM. Glucose reviewed on 05/15 Glucose has been poorly controlled related to steroids and uncontrolled prior to admission but improved today. GLucose >200 this morning. Continue AccuCheks covering with sliding scale. Hypoglycemia protocol available as needed. Continue current medications and increase Levemir 40 hs (7) Chronic GERD: Code(s): K21.9 - Gastro-esophageal reflux disease without esophagitis Status: Chronic Assessment and Plan: Stable. Continue IV Protonix. (8) Gout: Code(s): M10.9 - Gout, unspecified Status: Chronic Assessment and Plan: Stable. Allopurinol remains on hold. (9) DVT prophylaxis: Code(s): Z29.9 - Encounter for prophylactic measures, unspecified Status: Acute Assessment and Plan: Lovenox Q12h Subjective Date/time seen: 05/16/20 17:10 Interval history: Date of service 05/16 70yo male known to have COVID here for SOB and found to be in acute respiratory failure. Respiratory status continued to worsen until had to be intubated and mechanically ventilated 05/12. Exam Narrative: Exam Narrative: Tc 37.6 with Tmax 38.6 158/90 110 24 90% FIO2 80 10 peep Gen - tachypneic, Lungs with crackles appreciated in the right>left flank; inc RR CV - tachycardic, regular with distant S1/S2; Abd - Soft, ND Ext - No pitting pedal edema Neuro - obtunded, confused. Skin - flushed in the face and chest, warm to touch Objective Data Vital Signs Vital Signs: Vital Signs - 24 hr 05/15/20 17:19 05/15/20 17:24 05/15/20 17:25 Temperature Pulse Rate 114 H 114 H 117 H Respiratory Rate 24 H 24 H Blood Pressure Pulse Oximetry 91 05/15/20 18:00 05/15/20 18:17 05/15/20 19:53 Temperature 38.8 C H 38.8 C H 38.8 C H Pulse Rate 112 H Respiratory Rate 24 H Blood Pressure 111/65 Pulse Oximetry 92 05/15/20 20:00 05/15/20 20:45 05/15/20 21:15 Temperature 38.6 C H Pulse Rate 111 H 113 H 115 H Res
[2020-05-16 18:19] LABS: Glucose Point of Care 301 (65-105)
[2020-05-16] MEDS: INSULIN DETEMIR 100 UNITS/ML 40 UNITS SUB-Q (20:02)
[2020-05-17] VITALS (36 sets, daily range): BP systolic 127–179; BP diastolic 57–104; PULSE 111–123; RESP 22–27; TEMP 37.6–38.4; O2SAT 91–95
[2020-05-17] MEDS: INSULIN ASPART (*BKC) 100 UNITS/ML SUB-Q ×5 (00:13→23:52)
[2020-05-17 00:49] LABS: Glucose Point of Care 256 (65-105)
[2020-05-17] MEDS: ALBUTEROL SULFATE NEB 2.5 MG/0.5 ML INH INHALATION ×4 (02:00→20:53)
[2020-05-17 04:40] LABS: Hemoglobin 12.6 g/dL (14.0-18.0); Mean Corpuscular HGB Conc 31.5 g/dl (32-36); Mean Corpuscular Hemoglobin 27.4 pg (26-34); Platelet Count Result 228 k/mm3 (150-375); White Blood Count 12.5 K/mm3 (4.5-10.0)
[2020-05-17 04:54] LABS: D Dimer 3.26 ug/mL (<0.48)
[2020-05-17 05:03] LABS: Alanine Aminotransferase 39 U/L (4-50); Albumin Level 2.6 g/dL (3.5-5.1); Alkaline Phosphatase 105 U/L (38-126); Anion Gap 4 mmol/L (8-16); Aspartate Amino Transferase 46 U/L (17-59); Bilirubin,Total 0.8 mg/dL (0.2-1.3); Blood Urea Nitrogen 43 mg/dL (9-20); Calcium 8.8 mg/dL (8.4-10.2); Carbon Dioxide 35 mmol/L (22-30); Chloride 112 mmol/L (98-107); Estimated CRCL calculation 83 ml/min; Estimated Glomerular Filt Rate > 60; Glucose 284 mg/dL (75-110); Lactate Dehydrogenase 739 U/L (313-618); Magnesium 2.8 mg/dL (1.6-2.3); Phosphorus 3.4 mg/dL (2.5-4.5); Potassium 5.1 mmol/L (3.4-5.0); Sodium 151 mmol/L (137-145)
[2020-05-17 05:12] LABS: CRP 21.3 mg/dL (<1.0)
[2020-05-17] MEDS: CENTRAL LINE FLUSH 10 ML IV PUSH ×3 (05:33→20:42)
[2020-05-17 05:43] LABS: Base Excess ABG 2.1 mEq/l (+/-2.0); HCO3 ABG 29.1 mEq/l (22.0-26.0); Oxygen Saturation ABG 93.8 % (95.0-100.0); PCO2 ABG 55.1 mmHg (35.0-45.0); PO2 ABG 73.9 mmHg (80.0-100.0); Total Hemoglobin 13.7 g/dL (12.0-18.0)
[2020-05-17 05:44] LABS: Alveolar/Arterial O2 Gradient 438.7 mmHg; Carboxyhemoglobin 0.3 % THb (0-2.0); Device VENTILATOR; Fractional Inspired Oxygen 80 %; Methemoglobin ABG 0.3 %THb (0-1.5); Modified Allen's Test Unable to perform; Oxygen Content ABG 17.9 %vol (16.0-22.0); Oxyhemoglobin 92.7 % THb (90.0-100.0); PO2 FiO2 Ratio Arterial Blood 0.92 %; Reduced Hemoglobin 6.7 %THb (0-5.0); Site Drawn RIGHT RADIAL
[2020-05-17 05:45] LABS: Arterial Blood Gas PEEP 12 cmH2O; Arterial Blood Gas Tidal Volume 450 ml; Arterial Blood Gas Vent Mode CMV; Arterial Blood Gas Ventilator rate 24 /MIN
[2020-05-17] MEDS: SODIUM POLYSTYRENE SULFONONATE 15 GM/60 ML BTL FEED TUBE (08:45)
[2020-05-17] MEDS: DEXAMETHASONE SOD PHOS INJ 4 MG/ML VIAL 6 MG IV PUSH (08:45)
[2020-05-17] MEDS: DEXTROSE 50% 25 GM/50 ML SYRINGE IV PUSH (08:45)
[2020-05-17] MEDS: ENOXAPARIN 40 MG/0.4 ML SYRINGE SUB-Q ×2 (08:46→20:41)
[2020-05-17] MEDS: PANTOPRAZOLE SODIUM IV 40 MG VIAL IV PUSH (08:46)
[2020-05-17] MEDS: polyethylene glycoL 3350 17 GM POWD.PACK PO (08:47)
[2020-05-17] MEDS: TOLNAFTATE 1% POWDER 45 GM BTL 1 APPLIC TOPICAL ×2 (08:47→20:23)
[2020-05-17] MEDS: INSULIN DETEMIR 100 UNITS/ML 30 UNITS SUB-Q ×2 (08:47→20:21)
[2020-05-17] MEDS: INSULIN HUMAN REGULAR (*BKC) 100 UNITS/ML 10 UNITS IV PUSH (08:48)
[2020-05-17] MEDS: ALBUTEROL SULFATE NEB 2.5 MG/0.5 ML INH 15 MG INHALATION (08:53)
[2020-05-17] MEDS: DORNASE ALFA INH SOLN 1 MG/ML 2.5 ML AMP 2.5 MG INHALATION (08:53)
--- NOTE | 2020-05-17 12:03 | PCDIET ---
Nutrition Follow-Up Complete: Nutrition Diagnosis: Altered laboratory values related to steroid use as evidenced by A1c of 8.6 Nutrition Goal: Patient to meet estimated nutritional needs. Goal met. Patient tolerating Glucerna 1.2 at 50mL/hr goal rate with Pro-Stat BID and 200mL water flush every 4 hours. Last recorded weight is 125.2 kg which is decreased from last review, despite +I/O. Will monitor. Bowel Motility: BM x 2 overnight, per RN. Labs Reviewed: Hgb (12.6), Hct (40.0), Glu (284), K (5.1), Na (151), Alb (2.6) Meds Noted: Albuterol, Dulcolax, Fentanyl, Novolog, Levemir, Versed, Protonix, Miralax, SPS Additional Notes: Left head scab. No documented pressure sores. Will continue to monitor with same goal. Nutrition Monitoring and Evaluation: Follow up every Wednesday/Wednesday.
[2020-05-17 12:13] LABS: Glucose Point of Care 286 (65-105)
--- NOTE | 2020-05-17 12:20 | PM.IMPN ---
Progress Note: A&P Assessment and Plan (1) Acute respiratory failure: Code(s): J96.00 - Acute respiratory failure, unspecified whether with hypoxia or hypercapnia Status: Acute Assessment and Plan: ABG on admisison showing 7.53 on BiPAP. Wore the BiPAP overnight 05/09- and did well. He was changed to HFNC and NRB 05/10 but still was requiring 100% FiO2 with A-a grad in the 600's. Moved to ICU and intubated 05/12. Still low grade fevers. Echo normal EF with grade 1 DD. (2) Pneumonia due to COVID-19 virus: Code(s): U07.1 - COVID-19; J12.89 - Other viral pneumonia Status: Acute Assessment and Plan: Patient COVID positive on 05/04/20. He was admitted on 05/08/20 and still on Decadron Day 9 and finished Remdesivir . AST/ALT up and down felt related to COVID +/- Remdesivir. Repeat CXR 05/17 reviewed and showing no change. . Follow inflammatory markers and LFTs. As above. (3) HTN (hypertension), benign: Code(s): I10 - Essential (primary) hypertension Status: Chronic Assessment and Plan: Patient's blood pressure was reviewed on 05/17 Will continue to hold his amlodipine, enalapril and hydrochlorothiazide. Add IV hydralazine prn. (4) Acute renal failure: Code(s): N17.9 - Acute kidney failure, unspecified Status: Acute Assessment and Plan: Patient's creatinine is 1.5 on admission. Yoni inhibitors and diuretics on hold. Creatine now.1.1 Continue to monitor. (5) Hyponatremia: Code(s): E87.1 - Hypo-osmolality and hyponatremia Status: Acute Assessment and Plan: Na 151 today felt related to fluid loss from insensible losses. IV fluids on hold due to COVID. Cautious if Lasix given. (6) Diabetes mellitus: Code(s): E11.9 - Type 2 diabetes mellitus without complications Status: Acute Assessment and Plan: A1c 8.6 consistent with new diagnosis of DM. Glucose reviewed on 05/17 Glucose has been poorly controlled related to steroids and uncontrolled prior to admission but improved today. GLucose >200 this morning. Continue AccuCheks covering with sliding scale. Hypoglycemia protocol available as needed. Continue current medications and increase Levemir to 30 U q 12H (7) Chronic GERD: Code(s): K21.9 - Gastro-esophageal reflux disease without esophagitis Status: Chronic Assessment and Plan: Stable. Continue IV Protonix. (8) Gout: Code(s): M10.9 - Gout, unspecified Status: Chronic Assessment and Plan: Stable. Allopurinol remains on hold. (9) DVT prophylaxis: Code(s): Z29.9 - Encounter for prophylactic measures, unspecified Status: Acute Assessment and Plan: Lovenox Q12h Subjective Date/time seen: 05/17/20 12:20 Interval history: Date of service 05/17 70yo male known to have COVID here for SOB and found to be in acute respiratory failure. Respiratory status continued to worsen until had to be intubated and mechanically ventilated 05/12. Exam Narrative: Exam Narrative: Tc 37.6 with Tmax 38.6 138/70 116 24 92% MV FIO2 80 10 peep Gen - tachypneic, Lungs with crackles appreciated in the right>left flank; inc RR CV - tachycardic, regular with distant S1/S2; Abd - Soft, ND Ext - No pitting pedal edema Neuro - obtunded, confused. Objective Data Vital Signs Vital Signs: Vital Signs - 24 hr 05/16/20 13:00 05/16/20 14:00 05/16/20 14:50 Temperature 38.2 C H 37.6 C H Pulse Rate 117 H 108 H Respiratory Rate 24 H 29 H Blood Pressure 158/90 H Pulse Oximetry 94 91 05/16/20 15:00 05/16/20 16:00 05/16/20 17:01 Temperature 37.6 C H Pulse Rate 106 H 117 H 115 H Respiratory Rate 29 H 24 H Blood Pressure 158/90 H Pulse Oximetry 94 94 05/16/20 18:00 05/16/20 19:46 05/16/20 20:00 Temperature 37.6 C H 37.8 C H Pulse Rate 112 H 116 H Respiratory Rate 28 H 27 H Bloo
[2020-05-17] MEDS: ACETAMINOPHEN ELIXIR 325 MG/10.15 ML UDC 650 MG PO ×2 (13:39→20:22)
--- NOTE | 2020-05-17 14:12 | WPDINTPN ---
Progress Note: A&P Assessment and Plan (1) Acute respiratory failure with hypoxemia: Code(s): J96.01 - Acute respiratory failure with hypoxia Status: Acute Assessment and Plan: Acute respiratory failure hypoxemia secondary to COVID-19 pneumonia - patient has been alternating with BiPAP and high-flow therapy since 05/08/2020. - on 05/12/2020 patient had worsening hypoxia, respiratory distress and impending failure, was INTUBATED - continue CMV mode of ventilation, low tidal volume strategy, peep of 12 in FiO2 80% Wean FiO2 as tolerated did O2 sats greater than 92% currently on 60% - respiratory rate increased to 24 - repeat ABG - chest X and ABGs reviewed - Sedated with fentanyl and propofol. Maintain RASS score of -1. Daily sedation vacation trial. (2) Pneumonia due to COVID-19 virus: Code(s): U07.1 - COVID-19; J12.89 - Other viral pneumonia Status: Acute Assessment and Plan: continue dexamethasone for 10 days, - status post 5 days of Remdesivir - appreciate infectious disease evaluation recommendation. he is not a candidate for convalescent plasma. - continue droplet, airborne, contact isolation /precautions - continue monitor inflammatory markers (3) Fever: Code(s): R50.9 - Fever, unspecified Status: Acute Assessment and Plan: patient febrile overnight and this could be secondary to COVID-19 pneumonia. his WBC count is normal Venous Dopplers 05/16/2020: No DVT bilateral lower extremity blood cultures pending from 05/16/2020 (4) GERD (gastroesophageal reflux disease): Code(s): K21.9 - Gastro-esophageal reflux disease without esophagitis Status: Acute Assessment and Plan: Continue IV pantoprazole once a day. (5) HTN (hypertension), benign: Code(s): I10 - Essential (primary) hypertension Status: Chronic Assessment and Plan: Continue to hold amlodipine, hydrochlorothiazide and enalapril. Continue to monitor hemodynamics closely. Hydralazine on p.r.n. basis if blood pressure is elevated. (6) Elevated blood sugar: Code(s): R73.9 - Hyperglycemia, unspecified Status: Acute Assessment and Plan: He seems to have a new diagnosis of diabetes mellitus. Hemoglobin A1c was 8.6. continue insulin sliding scale. - increase Levemir (7) Acute renal failure: Code(s): N17.9 - Acute kidney failure, unspecified Status: Acute Assessment and Plan: Acute kidney injury with creatinine of 1.5 on admission, It has resolved now with some IV fluids. (8) Hypernatremia: Code(s): E87.0 - Hyperosmolality and hypernatremia Status: Acute Assessment and Plan: continue tube flushes at 200 mL q.6 hours - monitor sodium levels which are improving (9) Seizure: Code(s): R56.9 - Unspecified convulsions Status: Acute Assessment and Plan: patient with seizure activity on 05/12/2020, patient was loaded with Keppra - neurology evaluated the patient - will hold Keppra since patient has not had any seizure activity - currently sedated with propofol and Versed (10) Dietary counseling and surveillance: Code(s): Z71.3 - Dietary counseling and surveillance Status: Acute Assessment and Plan: tolerating tube feeds, Glucerna, - continue MiraLax stress ulcer prophylaxis: Protonix IV (11) DVT prophylaxis: Code(s): Z29.9 - Encounter for prophylactic measures, unspecified Status: Acute Assessment and Plan: Lovenox 40 mg subcu q.12 hours (12) Rash: Code(s): R21 - Rash and other nonspecific skin eruption Status: Acute Assessment and Plan: new rash on the face and upper chest, blanchable. Questionable medication related. The only new medication that was started was Keppra which has been held. - improved, continue monitor Additional Plan condition: Guarded/critical
[2020-05-17] MEDS: FENTANYL 2,500MCG/NS250ML(*CRX 2,500 MCG/250 ML BAG 17.5 MCG IV CONT (14:37)
[2020-05-17 18:40] LABS: Glucose Point of Care 323 (65-105)
--- NOTE | 2020-05-17 19:20 | PHAR ---
Patient's Midazolam drip found to be running at 6 mg/hr.
[2020-05-18] VITALS (44 sets, daily range): BP systolic 124–158; BP diastolic 68–89; PULSE 110–122; RESP 18–25; TEMP 37.7–38.6; O2SAT 92–96
[2020-05-18 00:08] LABS: Glucose Point of Care 232 (65-105)
[2020-05-18] MEDS: ALBUTEROL SULFATE NEB 2.5 MG/0.5 ML INH INHALATION ×3 (02:34→20:31)
[2020-05-18 04:18] LABS: Hematocrit 40.5 % (42.0-52.0); Hemoglobin 12.2 g/dL (14.0-18.0); Mean Corpuscular HGB Conc 30.1 g/dl (32-36); Mean Corpuscular Hemoglobin 27.2 pg (26-34); Mean Corpuscular Volume 90.4 fl (80-100); Mean Platelet Volume 11.1 fl (7.4-10.4); Platelet Count Result 203 k/mm3 (150-375); Red Blood Count 4.48 M/mm3 (4.6-6.20); Red Cell Distribution Width 16.9 % (11.5-14.5); White Blood Count 13.7 K/mm3 (4.5-10.0)
[2020-05-18 04:37] LABS: Alanine Aminotransferase 32 U/L (4-50); Albumin Level 2.7 g/dL (3.5-5.1); Alkaline Phosphatase 101 U/L (38-126); Anion Gap 1 mmol/L (8-16); Aspartate Amino Transferase 33 U/L (17-59); Bilirubin,Total 0.4 mg/dL (0.2-1.3); Blood Urea Nitrogen 48 mg/dL (9-20); Calcium 8.8 mg/dL (8.4-10.2); Carbon Dioxide 39 mmol/L (22-30); Chloride 112 mmol/L (98-107); Estimated CRCL calculation 69 ml/min; Estimated Glomerular Filt Rate 55; Glucose 176 mg/dL (75-110); Magnesium 2.9 mg/dL (1.6-2.3); Sodium 152 mmol/L (137-145)
[2020-05-18 05:01] LABS: Potassium 5.4 mmol/L (3.4-5.0)
[2020-05-18 05:33] LABS: Alveolar/Arterial O2 Gradient 420.4 mmHg; Base Excess ABG 3.4 mEq/l (+/-2.0); Carboxyhemoglobin 0.8 % THb (0-2.0); Fractional Inspired Oxygen 80 %; HCO3 ABG 30.2 mEq/l (22.0-26.0); Methemoglobin ABG 0.3 %THb (0-1.5); Oxygen Content ABG 17.6 %vol (16.0-22.0); Oxygen Saturation ABG 96.5 % (95.0-100.0); Oxyhemoglobin 95.2 % THb (90.0-100.0); PCO2 ABG 55.6 mmHg (35.0-45.0); PO2 ABG 91.6 mmHg (80.0-100.0); PO2 FiO2 Ratio Arterial Blood 1.14 %; Reduced Hemoglobin 3.7 %THb (0-5.0); Total Hemoglobin 13.1 g/dL (12.0-18.0); pH ABG 7.353 (7.350-7.450)
[2020-05-18 05:35] LABS: Arterial Blood Gas Vent Mode CMV; Arterial Blood Gas Ventilator rate 22 /MIN; Device VENTILATOR; Modified Allen's Test Pass; Site Drawn RIGHT RADIAL
[2020-05-18 05:36] LABS: Arterial Blood Gas PEEP 12 cmH2O; Arterial Blood Gas Tidal Volume 450 ml
[2020-05-18] MEDS: FENTANYL 2,500MCG/NS250ML(*CRX 2,500 MCG/250 ML BAG 17.5 MCG IV CONT (06:27)
[2020-05-18] MEDS: CENTRAL LINE FLUSH 10 ML IV PUSH ×3 (06:30→21:41)
[2020-05-18] MEDS: INSULIN DETEMIR 100 UNITS/ML 30 UNITS SUB-Q ×2 (09:11→21:39)
[2020-05-18] MEDS: PANTOPRAZOLE SODIUM IV 40 MG VIAL IV PUSH (09:12)
[2020-05-18] MEDS: ENOXAPARIN 40 MG/0.4 ML SYRINGE SUB-Q ×2 (09:12→21:39)
[2020-05-18] MEDS: TOLNAFTATE 1% POWDER 45 GM BTL 1 APPLIC TOPICAL ×2 (09:12→21:46)
[2020-05-18] MEDS: SODIUM POLYSTYRENE SULFONONATE 15 GM/60 ML BTL PO (11:08)
[2020-05-18] MEDS: SODIUM BICARBONATE 8.4% 50 MEQ/50 ML VIAL IV PUSH (11:08)
[2020-05-18] MEDS: INSULIN HUMAN REGULAR (*BKC) 100 UNITS/ML 10 UNITS IV PUSH (11:11)
[2020-05-18] MEDS: DEXTROSE 50% 25 GM/50 ML SYRINGE IV PUSH (11:11)
[2020-05-18] MEDS: ALBUTEROL SULFATE NEB 2.5 MG/0.5 ML INH 15 MG INHALATION (11:12)
[2020-05-18 12:33] LABS: Glucose Point of Care 180 (65-105)
--- NOTE | 2020-05-18 12:38 | PM.IMPN ---
Progress Note: A&P Assessment and Plan (1) Acute respiratory failure: Code(s): J96.00 - Acute respiratory failure, unspecified whether with hypoxia or hypercapnia Status: Acute Assessment and Plan: ABG on admisison showing 7.53 on BiPAP. Wore the BiPAP overnight 05/09- and did well. He was changed to HFNC and NRB 05/10 but still was requiring 100% FiO2 with A-a grad in the 600's. Moved to ICU and intubated 05/12. Still low grade fevers. Echo normal EF with grade 1 DD. (2) Pneumonia due to COVID-19 virus: Code(s): U07.1 - COVID-19; J12.89 - Other viral pneumonia Status: Acute Assessment and Plan: Patient COVID positive on 05/04/20. He was admitted on 05/08/20 and still on Decadron Day 10 and finished Remdesivir . AST/ALT up and down felt related to COVID +/- Remdesivir. Repeat CXR 05/18 reviewed and showing no change. . Follow inflammatory markers and LFTs. As above. (3) HTN (hypertension), benign: Code(s): I10 - Essential (primary) hypertension Status: Chronic Assessment and Plan: Patient's blood pressure was reviewed on 05/18 Will continue to hold his amlodipine, enalapril and hydrochlorothiazide. Add IV hydralazine prn. (4) Acute renal failure: Code(s): N17.9 - Acute kidney failure, unspecified Status: Acute Assessment and Plan: Patient's creatinine is 1.5 on admission. Yoni inhibitors and diuretics on hold. Creatine now.1.3 Continue to monitor. (5) Hyponatremia: Code(s): E87.1 - Hypo-osmolality and hyponatremia Status: Acute Assessment and Plan: Na 151 today felt related to fluid loss from insensible losses. IV fluids on hold due to COVID. Cautious if Lasix given. (6) Diabetes mellitus: Code(s): E11.9 - Type 2 diabetes mellitus without complications Status: Acute Assessment and Plan: A1c 8.6 consistent with new diagnosis of DM. Glucose reviewed on 05/17 Glucose has been poorly controlled related to steroids and uncontrolled prior to admission but improved today. GLucose 176 this am Continue AccuCheks covering with sliding scale. Continue current medications and increased Levemir to 30 U q 12H 05/17 (7) Chronic GERD: Code(s): K21.9 - Gastro-esophageal reflux disease without esophagitis Status: Chronic Assessment and Plan: Stable. Continue IV Protonix. (8) Gout: Code(s): M10.9 - Gout, unspecified Status: Chronic Assessment and Plan: Stable. Allopurinol remains on hold. (9) DVT prophylaxis: Code(s): Z29.9 - Encounter for prophylactic measures, unspecified Status: Acute Assessment and Plan: Lovenox Q12h Subjective Date/time seen: 05/18/20 12:38 Interval history: Date of service 05/18 70yo male known to have COVID here for SOB and found to be in acute respiratory failure. Respiratory status continued to worsen until had to be intubated and mechanically ventilated 05/12. Exam Narrative: Exam Narrative: Tc steady at just above 38 134/74 110 24 94% MV FIO2 80 10 peep Gen - tachypneic, Lungs with crackles appreciated in the right>left flank; inc RR CV - tachycardic, regular with distant S1/S2; Abd - Soft, ND Ext - No pitting pedal edema Neuro - sedated now Objective Data Vital Signs Vital Signs: Vital Signs - 24 hr 05/17/20 13:39 05/17/20 14:00 05/17/20 14:10 Temperature 38.4 C H 38.4 C H Pulse Rate 118 H 115 H Respiratory Rate 24 H 27 H Blood Pressure 135/74 Pulse Oximetry 94 94 05/17/20 14:20 05/17/20 14:29 05/17/20 14:37 Temperature Pulse Rate 116 H 114 H 114 H Respiratory Rate 27 H 24 H 24 H Blood Pressure Pulse Oximetry 05/17/20 14:40 05/17/20 14:52 05/17/20 16:00 Temperature 38.3 C H 38.3 C H Pulse Rate 113 H 113 H Respiratory Rate 24 H 22 H Blood Pressure 133/65 Pulse Oximetry 95 05/17/20 17:00
--- NOTE | 2020-05-18 14:09 | WPDINTPN ---
Progress Note: A&P Assessment and Plan (1) Acute respiratory failure with hypoxemia: Code(s): J96.01 - Acute respiratory failure with hypoxia Status: Acute Assessment and Plan: Acute respiratory failure hypoxemia secondary to COVID-19 pneumonia - patient has been alternating with BiPAP and high-flow therapy since 05/08/2020. - on 05/12/2020 patient had worsening hypoxia, respiratory distress and impending failure, was INTUBATED - continue CMV mode of ventilation, patient has been double stacking his breaths likely due to low tidal volumes, will increase tidal volumes to 6 mL/kilogram. Will wean FiO2 to 70%, continue PEEP at 12. -after increasing the tidal volume patient is more synchronous with the ventilator - chest X and ABGs reviewed - Sedated with fentanyl, Versed and propofol. Maintain RASS score of -1. Daily sedation vacation trial. (2) Pneumonia due to COVID-19 virus: Code(s): U07.1 - COVID-19; J12.89 - Other viral pneumonia Status: Acute Assessment and Plan: Completed a course of dexamethasone and Remdesivir. - appreciate infectious disease evaluation recommendation. he is not a candidate for convalescent plasma. - continue droplet, airborne, contact isolation /precautions - continue monitor inflammatory markers (3) Fever: Code(s): R50.9 - Fever, unspecified Status: Acute Assessment and Plan: Patient continues to be febrile and this could be secondary to COVID-19 pneumonia. his WBC count is elevated Venous Dopplers 05/16/2020: No DVT bilateral lower extremity blood cultures from 05/16/2020: Negative x2 -will check sputum cultures (4) GERD (gastroesophageal reflux disease): Code(s): K21.9 - Gastro-esophageal reflux disease without esophagitis Status: Acute Assessment and Plan: Continue IV pantoprazole once a day. (5) HTN (hypertension), benign: Code(s): I10 - Essential (primary) hypertension Status: Chronic Assessment and Plan: Continue to hold amlodipine, hydrochlorothiazide and enalapril. Continue to monitor hemodynamics closely. Hydralazine on p.r.n. basis if blood pressure is elevated. (6) Elevated blood sugar: Code(s): R73.9 - Hyperglycemia, unspecified Status: Acute Assessment and Plan: He seems to have a new diagnosis of diabetes mellitus. Hemoglobin A1c was 8.6. continue insulin sliding scale. -continue Levemir (7) Acute renal failure: Code(s): N17.9 - Acute kidney failure, unspecified Status: Acute Assessment and Plan: Acute kidney injury with creatinine of 1.5 on admission, It has resolved now with some IV fluids. -hyperkalemia, will treat with insulin/D50, bicarb, Kayexalate (8) Hypernatremia: Code(s): E87.0 - Hyperosmolality and hypernatremia Status: Acute Assessment and Plan: continue tube flushes at 200 mL q.6 hours - (9) Seizure: Code(s): R56.9 - Unspecified convulsions Status: Acute Assessment and Plan: patient with seizure activity on 05/12/2020, patient was loaded with Keppra - neurology evaluated the patient - will hold Keppra since patient has not had any seizure activity - currently sedated with propofol and Versed (10) Dietary counseling and surveillance: Code(s): Z71.3 - Dietary counseling and surveillance Status: Acute Assessment and Plan: tolerating tube feeds, Glucerna, - continue MiraLax stress ulcer prophylaxis: Protonix IV (11) DVT prophylaxis: Code(s): Z29.9 - Encounter for prophylactic measures, unspecified Status: Acute Assessment and Plan: Lovenox 40 mg subcu q.12 hours (12) Rash: Code(s): R21 - Rash and other nonspecific skin eruption Status: Acute Assessment and Plan: new rash on the face and upper chest, blanchable. Questionable medication related. The only new medication that w
[2020-05-18] MEDS: INSULIN ASPART (*BKC) 100 UNITS/ML SUB-Q (17:34)
[2020-05-18 18:14] LABS: Glucose Point of Care 211 (65-105)
[2020-05-18] MEDS: DORNASE ALFA INH SOLN 1 MG/ML 2.5 ML AMP 2.5 MG INHALATION (20:31)
[2020-05-18] MEDS: FENTANYL 2,500MCG/NS250ML(*CRX 2,500 MCG/250 ML BAG 12.5 MCG IV CONT (23:44)
[2020-05-18 23:57] LABS: Glucose Point of Care 196 (65-105)
[2020-05-19] VITALS (30 sets, daily range): BP systolic 111–159; BP diastolic 63–92; PULSE 104–119; RESP 22–25; TEMP 37.7–38.3; O2SAT 90–93
[2020-05-19 00:21] LABS: Glucose Point of Care 201 (65-105)
[2020-05-19] MEDS: ALBUTEROL SULFATE NEB 2.5 MG/0.5 ML INH INHALATION ×4 (03:21→22:14)
[2020-05-19 04:38] LABS: Alveolar/Arterial O2 Gradient 354.1 mmHg; Base Excess ABG 8.5 mEq/l (+/-2.0); Carboxyhemoglobin 0.1 % THb (0-2.0); Fractional Inspired Oxygen 70 %; HCO3 ABG 37.1 mEq/l (22.0-26.0); Methemoglobin ABG 0.3 %THb (0-1.5); Oxygen Content ABG 16.3 %vol (16.0-22.0); Oxygen Saturation ABG 90.8 % (95.0-100.0); Oxyhemoglobin 91.4 % THb (90.0-100.0); PO2 ABG 66.3 mmHg (80.0-100.0); PO2 FiO2 Ratio Arterial Blood 0.95 %; Reduced Hemoglobin 8.2 %THb (0-5.0); Total Hemoglobin 12.7 g/dL (12.0-18.0); pH ABG 7.323 (7.350-7.450)
[2020-05-19 04:40] LABS: Device VENTILATOR; Modified Allen's Test Unable to perform; PCO2 ABG 73.2 mmHg (35.0-45.0); Site Drawn RIGHT RADIAL
[2020-05-19 04:41] LABS: Arterial Blood Gas PEEP 12 cmH2O; Arterial Blood Gas Tidal Volume 500 ml; Arterial Blood Gas Vent Mode CMV; Arterial Blood Gas Ventilator rate 22 /MIN
[2020-05-19 06:01] LABS: Glucose Point of Care 187 (65-105)
[2020-05-19 06:12] LABS: Hematocrit 39.7 % (42.0-52.0); Mean Corpuscular HGB Conc 30.2 g/dl (32-36); Mean Corpuscular Hemoglobin 27.2 pg (26-34); Mean Platelet Volume 11.4 fl (7.4-10.4); Platelet Count Result 223 k/mm3 (150-375); Red Blood Count 4.41 M/mm3 (4.6-6.20); Red Cell Distribution Width 16.6 % (11.5-14.5); White Blood Count 16.7 K/mm3 (4.5-10.0)
[2020-05-19 06:22] LABS: D Dimer 3.18 ug/mL (<0.48)
[2020-05-19 06:56] LABS: Alanine Aminotransferase 29 U/L (4-50); Albumin Level 2.6 g/dL (3.5-5.1); Alkaline Phosphatase 113 U/L (38-126); Anion Gap 2.99999 mmol/L (8-16); Aspartate Amino Transferase 34 U/L (17-59); Bilirubin,Total 0.5 mg/dL (0.2-1.3); Blood Urea Nitrogen 50 mg/dL (9-20); CRP > 9.0 mg/dL (<1.0); Calcium 8.7 mg/dL (8.4-10.2); Carbon Dioxide > 40 mmol/L (22-30); Chloride 107 mmol/L (98-107); Estimated CRCL calculation 83 ml/min; Estimated Glomerular Filt Rate > 60; Glucose 190 mg/dL (75-110); Lactate Dehydrogenase 589 U/L (313-618); Magnesium 2.6 mg/dL (1.6-2.3); Potassium 4.6 mmol/L (3.4-5.0); Sodium 150 mmol/L (137-145)
[2020-05-19] MEDS: DORNASE ALFA INH SOLN 1 MG/ML 2.5 ML AMP 2.5 MG INHALATION ×2 (09:11→22:13)
[2020-05-19] MEDS: TOLNAFTATE 1% POWDER 45 GM BTL 1 APPLIC TOPICAL ×2 (09:22→20:36)
[2020-05-19] MEDS: ENOXAPARIN 40 MG/0.4 ML SYRINGE SUB-Q ×2 (09:22→20:35)
[2020-05-19] MEDS: INSULIN DETEMIR 100 UNITS/ML 30 UNITS SUB-Q ×2 (09:22→20:33)
[2020-05-19] MEDS: PANTOPRAZOLE SODIUM IV 40 MG VIAL IV PUSH (09:23)
[2020-05-19] MEDS: acetaZOLAMIDE TAB 250 MG TABLET PO ×2 (09:23→20:35)
[2020-05-19] MEDS: polyethylene glycoL 3350 17 GM POWD.PACK PO (09:46)
[2020-05-19] MEDS: CENTRAL LINE FLUSH 10 ML IV PUSH ×2 (13:01→23:13)
--- NOTE | 2020-05-19 13:07 | WPDINTPN ---
Progress Note: A&P Assessment and Plan (1) Acute respiratory failure with hypoxemia: Code(s): J96.01 - Acute respiratory failure with hypoxia Status: Acute Assessment and Plan: Acute respiratory failure hypoxemia secondary to COVID-19 pneumonia - patient has been alternating with BiPAP and high-flow therapy since 05/08/2020. - intubated on 05/12/2020 - continue CMV mode of ventilation, tidal volumes will be increased to 520 mL which is 6 mL/kilogram. Will increase respiratory rate due to respiratory acidosis on ABGs. - Wean FiO2 and PEEP as tolerated. - chest X ray and ABGs reviewed - Sedated with fentanyl, Versed and propofol. Maintain RASS score of -1. Daily sedation vacation trial. (2) Pneumonia due to COVID-19 virus: Code(s): U07.1 - COVID-19; J12.89 - Other viral pneumonia Status: Acute Assessment and Plan: Completed a course of dexamethasone and Remdesivir. - appreciate infectious disease evaluation recommendation. he is not a candidate for convalescent plasma. - continue droplet, airborne, contact isolation /precautions -LDH and ferritin are normal, D-dimer and CRP are trending down (3) Fever: Code(s): R50.9 - Fever, unspecified Status: Acute Assessment and Plan: Patient continues to be febrile and this could be secondary to COVID-19 pneumonia. his WBC count is elevated Venous Dopplers 05/16/2020: No DVT bilateral lower extremity blood cultures from 05/16/2020: Negative x2 from 05/18/2020 negative x1 -sputum cultures from 05/19 pending (4) GERD (gastroesophageal reflux disease): Code(s): K21.9 - Gastro-esophageal reflux disease without esophagitis Status: Acute Assessment and Plan: Continue IV pantoprazole once a day. (5) HTN (hypertension), benign: Code(s): I10 - Essential (primary) hypertension Status: Chronic Assessment and Plan: Continue to hold amlodipine, hydrochlorothiazide and enalapril. Continue to monitor hemodynamics closely. Hydralazine on p.r.n. basis if blood pressure is elevated. (6) Elevated blood sugar: Code(s): R73.9 - Hyperglycemia, unspecified Status: Acute Assessment and Plan: He seems to have a new diagnosis of diabetes mellitus. Hemoglobin A1c was 8.6. continue insulin sliding scale. -continue Levemir (7) Acute renal failure: Code(s): N17.9 - Acute kidney failure, unspecified Status: Acute Assessment and Plan: Acute kidney injury with creatinine of 1.5 on admission, It has resolved now with some IV fluids. -hyperkalemia, improved (8) Hypernatremia: Code(s): E87.0 - Hyperosmolality and hypernatremia Status: Acute Assessment and Plan: continue tube flushes at 200 mL q.6 hours -sodium levels gradually improving (9) Seizure: Code(s): R56.9 - Unspecified convulsions Status: Acute Assessment and Plan: patient with seizure activity on 05/12/2020, patient was loaded with Keppra - neurology evaluated the patient - will hold Keppra since patient has not had any seizure activity - currently sedated with propofol and Versed (10) Dietary counseling and surveillance: Code(s): Z71.3 - Dietary counseling and surveillance Status: Acute Assessment and Plan: tolerating tube feeds, Glucerna, - continue MiraLax stress ulcer prophylaxis: Protonix IV (11) DVT prophylaxis: Code(s): Z29.9 - Encounter for prophylactic measures, unspecified Status: Acute Assessment and Plan: Lovenox 40 mg subcu q.12 hours (12) Rash: Code(s): R21 - Rash and other nonspecific skin eruption Status: Acute Assessment and Plan: new rash on the face and upper chest, blanchable. Questionable medication related. The only new medication that was started was Keppra which has been held. -RESOLVED continue to monitor (13) Encephalopathy:
[2020-05-19 13:32] LABS: Glucose Point of Care 181 (65-105)
--- NOTE | 2020-05-19 16:52 | PM.IMPN ---
Progress Note: A&P Assessment and Plan (1) Acute respiratory failure: Code(s): J96.00 - Acute respiratory failure, unspecified whether with hypoxia or hypercapnia Status: Acute Assessment and Plan: ABG on admisison showing 7.53 on BiPAP. Wore the BiPAP overnight 05/09- and did well. He was changed to HFNC and NRB 05/10 but still was requiring 100% FiO2 with A-a grad in the 600's. Moved to ICU and intubated 05/12. Still low grade fevers. Echo normal EF with grade 1 DD. (2) Pneumonia due to COVID-19 virus: Code(s): U07.1 - COVID-19; J12.89 - Other viral pneumonia Status: Acute Assessment and Plan: Patient COVID positive on 05/04/20. He was admitted on 05/08/20 finishes 10 d of Decadron and finished Remdesivir . AST/ALT up and down felt related to COVID +/- Remdesivir. Repeat CXR 05/19 reviewed and showing no change. . Follow inflammatory markers and LFTs. As above. Repeat sputum cultures pending with repeat blood cultures negative. Id still feels all secondary to COVID viral pneumonia (3) HTN (hypertension), benign: Code(s): I10 - Essential (primary) hypertension Status: Chronic Assessment and Plan: Patient's blood pressure was reviewed on 05/19 Will continue to hold his amlodipine, enalapril and hydrochlorothiazide. Add IV hydralazine prn. (4) Acute renal failure: Code(s): N17.9 - Acute kidney failure, unspecified Status: Acute Assessment and Plan: Patient's creatinine is 1.5 on admission. Yoni inhibitors and diuretics on hold. Creatine now.1.1 Continue to monitor. (5) Hyponatremia: Code(s): E87.1 - Hypo-osmolality and hyponatremia Status: Acute Assessment and Plan: Na 150 today felt related to fluid loss from insensible losses. . Cautious if Lasix given. (6) Diabetes mellitus: Code(s): E11.9 - Type 2 diabetes mellitus without complications Status: Acute Assessment and Plan: A1c 8.6 consistent with new diagnosis of DM. Glucose reviewed on 05/19 Glucose has been poorly controlled related to steroids and uncontrolled prior to admission but improved today. GLucose 176 this am Continue AccuCheks covering with sliding scale. Continue current medications and increased Levemir to 30 U q 12H 05/17 (7) Chronic GERD: Code(s): K21.9 - Gastro-esophageal reflux disease without esophagitis Status: Chronic Assessment and Plan: Stable. Continue IV Protonix. (8) Gout: Code(s): M10.9 - Gout, unspecified Status: Chronic Assessment and Plan: Stable. Allopurinol remains on hold. (9) DVT prophylaxis: Code(s): Z29.9 - Encounter for prophylactic measures, unspecified Status: Acute Assessment and Plan: Lovenox Q12h (10) Encephalopathy: Code(s): G93.40 - Encephalopathy, unspecified Status: Acute Assessment and Plan: Patient does not open eyes are following simple commands when sedation is off. CT brain no change today. If no improvement possibly proceed with EEG Subjective Date/time seen: 05/19/20 16:52 Interval history: Date of service 05/19 70yo male known to have COVID here for SOB and found to be in acute respiratory failure. Respiratory status continued to worsen until had to be intubated and mechanically ventilated 05/12. Exam Narrative: Exam Narrative: Tc steady at just above 38 110/70 110 24 92% MV FIO2 70 10 peep Gen - tachypneic, Lungs with crackles appreciated in the right>left CV - tachycardic, regular with distant S1/S2; Abd - Soft, ND Ext - No pitting pedal edema Neuro - sedated now Objective Data Vital Signs Vital Signs: Vital Signs - 24 hr 05/18/20 17:33 05/18/20 17:37 05/18/20 20:00 Temperature 38.1 C H Pulse Rate 113 H 117 H 117 H Respiratory Rate 21 H Blood Pressure 132/68 Pulse Oximetry 93 05/18/20 20:33
[2020-05-19 17:43] LABS: Glucose Point of Care 178 (65-105)
[2020-05-19 21:02] LABS: Glucose Point of Care 187 (65-105)
[2020-05-19] MEDS: FENTANYL 2,500MCG/NS250ML(*CRX 2,500 MCG/250 ML BAG 10 MCG IV CONT (23:11)
[2020-05-20] VITALS (30 sets, daily range): BP systolic 132–169; BP diastolic 63–83; PULSE 96–117; RESP 14–25; TEMP 37.4–38.2; O2SAT 90–93
[2020-05-20 01:16] LABS: Glucose Point of Care 162 (65-105)
[2020-05-20] MEDS: ALBUTEROL SULFATE NEB 2.5 MG/0.5 ML INH INHALATION ×4 (02:47→23:02)
[2020-05-20 04:21] LABS: Alveolar/Arterial O2 Gradient 367.1 mmHg; Base Excess ABG 7.8 mEq/l (+/-2.0); Carboxyhemoglobin 0.3 % THb (0-2.0); Fractional Inspired Oxygen 70 %; Methemoglobin ABG 0.3 %THb (0-1.5); Oxygen Content ABG 15.7 %vol (16.0-22.0); Oxygen Saturation ABG 91.6 % (95.0-100.0); Oxyhemoglobin 91.3 % THb (90.0-100.0); PO2 ABG 65.1 mmHg (80.0-100.0); PO2 FiO2 Ratio Arterial Blood 0.93 %; Reduced Hemoglobin 8.1 %THb (0-5.0); Total Hemoglobin 12.2 g/dL (12.0-18.0); pH ABG 7.368 (7.350-7.450)
[2020-05-20 04:24] LABS: Device VENTILATOR; Modified Allen's Test Pass; PCO2 ABG 62.2 mmHg (35.0-45.0); Site Drawn RIGHT RADIAL
[2020-05-20 04:25] LABS: Arterial Blood Gas PEEP 12 cmH2O; Arterial Blood Gas Tidal Volume 520 ml; Arterial Blood Gas Vent Mode CMV; Arterial Blood Gas Ventilator rate 24 /MIN
[2020-05-20 06:14] LABS: Hematocrit 38.2 % (42.0-52.0); Hemoglobin 11.4 g/dL (14.0-18.0); Mean Corpuscular HGB Conc 29.8 g/dl (32-36); Mean Corpuscular Hemoglobin 27.2 pg (26-34); Mean Corpuscular Volume 91.2 fl (80-100); Mean Platelet Volume 12.2 fl (7.4-10.4); Platelet Count Result 200 k/mm3 (150-375); Red Blood Count 4.19 M/mm3 (4.6-6.20); Red Cell Distribution Width 16.5 % (11.5-14.5); White Blood Count 14.4 K/mm3 (4.5-10.0)
[2020-05-20 06:30] LABS: Alanine Aminotransferase 24 U/L (4-50); Albumin Level 2.4 g/dL (3.5-5.1); Alkaline Phosphatase 107 U/L (38-126); Anion Gap 3 mmol/L (8-16); Aspartate Amino Transferase 32 U/L (17-59); Bilirubin,Total 0.5 mg/dL (0.2-1.3); Blood Urea Nitrogen 52 mg/dL (9-20); Calcium 8.7 mg/dL (8.4-10.2); Carbon Dioxide 39 mmol/L (22-30); Chloride 107 mmol/L (98-107); Estimated CRCL calculation 71 ml/min; Estimated Glomerular Filt Rate 55; Glucose 167 mg/dL (75-110); Magnesium 2.7 mg/dL (1.6-2.3); Sodium 149 mmol/L (137-145)
[2020-05-20] MEDS: BISACODYL 10 MG SUPPOSITORY RECTAL (07:47)
[2020-05-20] MEDS: CENTRAL LINE FLUSH 10 ML IV PUSH ×4 (07:47→20:12)
[2020-05-20] MEDS: DORNASE ALFA INH SOLN 1 MG/ML 2.5 ML AMP 2.5 MG INHALATION ×2 (08:09→23:03)
[2020-05-20] MEDS: ENOXAPARIN 40 MG/0.4 ML SYRINGE SUB-Q ×2 (08:41→20:11)
[2020-05-20] MEDS: PANTOPRAZOLE SODIUM IV 40 MG VIAL IV PUSH (08:41)
[2020-05-20] MEDS: TOLNAFTATE 1% POWDER 45 GM BTL 1 APPLIC TOPICAL ×2 (08:41→20:11)
[2020-05-20] MEDS: INSULIN DETEMIR 100 UNITS/ML 30 UNITS SUB-Q ×2 (08:42→20:10)
[2020-05-20] MEDS: polyethylene glycoL 3350 17 GM POWD.PACK PO (08:42)
[2020-05-20 11:59] LABS: Glucose Point of Care 150 (65-105)
--- NOTE | 2020-05-20 13:51 | PCDIET ---
ICU Rounding Note: Patient tolerating Glucerna 1.2 at 50mL/hr with Pro-Stat BID and 200mL water flush every 4 hours. Last recorded weight is 127.4kg which is increased from last review. +I/O. Bowel Motility: Last documented BM on 05/16/20. Dulcolax given today. Labs Reviewed: Hgb (11.4), Hct (38.2), Glu (167), Na (149), Alb (2.4) Meds Noted: Albuterol, Dulcolax, Fentanyl, Hydralazine, Levemir, Versed, Protonix, Zosyn, Vancomycin Additional Notes: Left frontal head abrasion. No other skin issues documented. Following daily in ICU rounds. Assessing/reassessing every Wednesday/Wednesday.
--- NOTE | 2020-05-20 15:26 | PM.IMPN ---
Progress Note: A&P Assessment and Plan (1) Acute respiratory failure: Code(s): J96.00 - Acute respiratory failure, unspecified whether with hypoxia or hypercapnia Status: Acute Assessment and Plan: ABG on admisison showing 7.53 on BiPAP. Wore the BiPAP overnight 05/09- and did well. He was changed to HFNC and NRB 05/10 but still was requiring 100% FiO2 with A-a grad in the 600's. Moved to ICU and intubated 05/12. Still low grade fevers. Echo normal EF with grade 1 DD. (2) Pneumonia due to COVID-19 virus: Code(s): U07.1 - COVID-19; J12.89 - Other viral pneumonia Status: Acute Assessment and Plan: Patient COVID positive on 05/04/20. He was admitted on 05/08/20 finished 10 d of Decadron and finished Remdesivir . AST/ALT up and down felt related to COVID +/- Remdesivir. Repeat CXR 05/20 reviewed and showing no change. . Follow inflammatory markers and LFTs. As above. Repeat sputum cultures growing pseudomonas and staph so zosyn and vanc started today 05/20 (3) HTN (hypertension), benign: Code(s): I10 - Essential (primary) hypertension Status: Chronic Assessment and Plan: Patient's blood pressure was reviewed on 05/20 Will continue to hold his amlodipine, enalapril and hydrochlorothiazide. Add IV hydralazine prn. (4) Acute renal failure: Code(s): N17.9 - Acute kidney failure, unspecified Status: Acute Assessment and Plan: Patient's creatinine is 1.5 on admission. Yoni inhibitors and diuretics on hold. Creatine now.1.1 Continue to monitor. (5) Hyponatremia: Code(s): E87.1 - Hypo-osmolality and hyponatremia Status: Acute Assessment and Plan: Na 149 today felt related to fluid loss from insensible losses. . Cautious if Lasix given. (6) Diabetes mellitus: Code(s): E11.9 - Type 2 diabetes mellitus without complications Status: Acute Assessment and Plan: A1c 8.6 consistent with new diagnosis of DM. Glucose reviewed on 05/20 Glucose has been poorly controlled related to steroids and uncontrolled prior to admission but improved today. GLucose 167 this am Continue AccuCheks covering with sliding scale. Continue current medications and increased Levemir to 30 U q 12H 05/17 (7) Chronic GERD: Code(s): K21.9 - Gastro-esophageal reflux disease without esophagitis Status: Chronic Assessment and Plan: Stable. Continue IV Protonix. (8) Gout: Code(s): M10.9 - Gout, unspecified Status: Chronic Assessment and Plan: Stable. Allopurinol remains on hold. (9) DVT prophylaxis: Code(s): Z29.9 - Encounter for prophylactic measures, unspecified Status: Acute Assessment and Plan: Lovenox Q12h (10) Encephalopathy: Code(s): G93.40 - Encephalopathy, unspecified Status: Acute Assessment and Plan: Patient does not open eyes are following simple commands when sedation is off. CT brain no change 05/19 EEG today 05/20 Subjective Date/time seen: 05/20/20 15:26 Interval history: Date of service 05/20 70yo male known to have COVID here for SOB and found to be in acute respiratory failure. Respiratory status continued to worsen until had to be intubated and mechanically ventilated 05/12. Exam Narrative: Exam Narrative: Tc steady at just above 38 150/70 110 24 92% MV FIO2 65 10 peep Gen - tachypneic, Lungs with crackles appreciated in the right>left CV - tachycardic, regular with distant S1/S2; Abd - Soft, ND Ext - No pitting pedal edema Neuro - sedated now (but no response when sedation off) Objective Data Vital Signs Vital Signs: Vital Signs - 24 hr 05/19/20 16:00 05/19/20 17:30 05/19/20 18:10 Temperature 38.2 C H 38.2 C H 38.2 C H Pulse Rate 112 H 116 H Respiratory Rate 24 H 24 H Blood Pressure 111/71 143/79 H Pulse Oximetry 92 91 05/19/20 18:39 11
--- NOTE | 2020-05-20 15:34 | WPDINTPN ---
Progress Note: A&P Assessment and Plan (1) Acute respiratory failure with hypoxemia: Code(s): J96.01 - Acute respiratory failure with hypoxia Status: Acute Assessment and Plan: Acute respiratory failure hypoxemia secondary to COVID-19 pneumonia - patient has been alternating with BiPAP and high-flow therapy since 05/08/2020. - intubated on 05/12/2020 - continue CMV mode of ventilation, tidal volumes will be increased to 520 mL which is 6 mL/kilogram. Wean FiO2 and PEEP as tolerated - chest X ray and ABGs reviewed - Sedated with fentanyl, Versed and propofol. Maintain RASS score of -1. Daily sedation vacation trial. (2) Pneumonia due to COVID-19 virus: Code(s): U07.1 - COVID-19; J12.89 - Other viral pneumonia Status: Acute Assessment and Plan: Completed a course of dexamethasone and Remdesivir. - appreciate infectious disease evaluation recommendation. he is not a candidate for convalescent plasma. - continue droplet, airborne, contact isolation /precautions -LDH and ferritin are normal, D-dimer and CRP are trending down (3) Fever: Code(s): R50.9 - Fever, unspecified Status: Acute Assessment and Plan: Patient continues to be febrile and this could be secondary to COVID-19 pneumonia. his WBC count is elevated Venous Dopplers 05/16/2020: No DVT bilateral lower extremity blood cultures from 05/16/2020: Negative x2 from 05/18/2020 negative x1 -sputum cultures from 05/19 bring Pseudomonas and Staph aureus, patient with leukocytosis, fevers and infiltrates on chest x-ray. Started patient on vancomycin and Zosyn 4.5 g IV q.6 hours for possible ventilator associated pneumonia (4) GERD (gastroesophageal reflux disease): Code(s): K21.9 - Gastro-esophageal reflux disease without esophagitis Status: Acute Assessment and Plan: Continue IV pantoprazole once a day. (5) HTN (hypertension), benign: Code(s): I10 - Essential (primary) hypertension Status: Chronic Assessment and Plan: Continue to hold amlodipine, hydrochlorothiazide and enalapril. Continue to monitor hemodynamics closely. Hydralazine on p.r.n. basis if blood pressure is elevated. (6) Elevated blood sugar: Code(s): R73.9 - Hyperglycemia, unspecified Status: Acute Assessment and Plan: He seems to have a new diagnosis of diabetes mellitus. Hemoglobin A1c was 8.6. continue insulin sliding scale. -continue Levemir (7) Acute renal failure: Code(s): N17.9 - Acute kidney failure, unspecified Status: Acute Assessment and Plan: Acute kidney injury with creatinine of 1.5 on admission, It has resolved now with some IV fluids. -hyperkalemia, improved (8) Hypernatremia: Code(s): E87.0 - Hyperosmolality and hypernatremia Status: Acute Assessment and Plan: continue tube flushes at 200 mL q.6 hours -sodium levels gradually improving (9) Seizure: Code(s): R56.9 - Unspecified convulsions Status: Acute Assessment and Plan: patient with seizure activity on 05/12/2020, patient was loaded with Keppra - neurology evaluated the patient - will hold Keppra since patient has not had any seizure activity - currently sedated with propofol and Versed (10) Dietary counseling and surveillance: Code(s): Z71.3 - Dietary counseling and surveillance Status: Acute Assessment and Plan: tolerating tube feeds, Glucerna, - continue MiraLax stress ulcer prophylaxis: Protonix IV (11) DVT prophylaxis: Code(s): Z29.9 - Encounter for prophylactic measures, unspecified Status: Acute Assessment and Plan: Lovenox 40 mg subcu q.12 hours (12) Rash: Code(s): R21 - Rash and other nonspecific skin eruption Status: Acute Assessment and Plan: new rash on the face and upper chest, blanchable. Questionable medication related. The only new m
[2020-05-20] MEDS: INSULIN ASPART (*BKC) 100 UNITS/ML SUB-Q ×2 (16:53→23:55)
[2020-05-20] MEDS: ALTEPLASE 2 MG VIAL (CATHFLO) IV PUSH (17:54)
[2020-05-20 19:02] LABS: Glucose Point of Care 217 (65-105)
[2020-05-21] VITALS (34 sets, daily range): BP systolic 127–168; BP diastolic 52–80; PULSE 93–126; RESP 20–25; TEMP 37.5–38.3; O2SAT 89–100
[2020-05-21 00:03] LABS: Glucose Point of Care 266 (65-105)
[2020-05-21] MEDS: ALBUTEROL SULFATE NEB 2.5 MG/0.5 ML INH INHALATION ×4 (03:07→20:42)
[2020-05-21 05:01] LABS: Hematocrit 36.4 % (42.0-52.0); Hemoglobin 11.2 g/dL (14.0-18.0); Mean Corpuscular HGB Conc 30.8 g/dl (32-36); Mean Corpuscular Hemoglobin 27.2 pg (26-34); Mean Corpuscular Volume 88.3 fl (80-100); Mean Platelet Volume 12.1 fl (7.4-10.4); Platelet Count Result 237 k/mm3 (150-375); Red Blood Count 4.12 M/mm3 (4.6-6.20); Red Cell Distribution Width 16.2 % (11.5-14.5); White Blood Count 13.6 K/mm3 (4.5-10.0)
[2020-05-21 05:24] LABS: D Dimer 3.54 ug/mL (<0.48)
[2020-05-21 05:47] LABS: Alanine Aminotransferase 25 U/L (4-50); Albumin Level 2.4 g/dL (3.5-5.1); Alkaline Phosphatase 118 U/L (38-126); Anion Gap 4 mmol/L (8-16); Aspartate Amino Transferase 36 U/L (17-59); Bilirubin,Total 0.6 mg/dL (0.2-1.3); Blood Urea Nitrogen 44 mg/dL (9-20); CRP 17.1 mg/dL (<1.0); Calcium 8.5 mg/dL (8.4-10.2); Carbon Dioxide 38 mmol/L (22-30); Chloride 106 mmol/L (98-107); Estimated CRCL calculation 82 ml/min; Estimated Glomerular Filt Rate > 60; Glucose 174 mg/dL (75-110); Lactate Dehydrogenase 554 U/L (313-618); Magnesium 2.5 mg/dL (1.6-2.3); Potassium 3.6 mmol/L (3.4-5.0); Sodium 148 mmol/L (137-145)
[2020-05-21] MEDS: CENTRAL LINE FLUSH 10 ML IV PUSH ×3 (05:59→20:32)
[2020-05-21] MEDS: FENTANYL 2,500MCG/NS250ML(*CRX 2,500 MCG/250 ML BAG IV CONT (06:44)
[2020-05-21 07:04] LABS: Alveolar/Arterial O2 Gradient 352.3 mmHg; Base Excess ABG 3.5 mEq/l (+/-2.0); Carboxyhemoglobin 0.2 % THb (0-2.0); Fractional Inspired Oxygen 65 %; HCO3 ABG 29.9 mEq/l (22.0-26.0); Methemoglobin ABG 0.2 %THb (0-1.5); Oxygen Content ABG 15.6 %vol (16.0-22.0); Oxyhemoglobin 85.3 % THb (90.0-100.0); PCO2 ABG 52.9 mmHg (35.0-45.0); PO2 ABG 53.6 mmHg (80.0-100.0); PO2 FiO2 Ratio Arterial Blood 0.82 %; Reduced Hemoglobin 14.3 %THb (0-5.0)
[2020-05-21 07:05] LABS: Device VENTILATOR; Modified Allen's Test Pass; Oxygen Saturation ABG 86.4 % (95.0-100.0); Site Drawn RIGHT RADIAL
[2020-05-21 07:06] LABS: Arterial Blood Gas PEEP 12 cmH2O; Arterial Blood Gas Tidal Volume 520 ml; Arterial Blood Gas Vent Mode CMV; Arterial Blood Gas Ventilator rate 24 /MIN
[2020-05-21] MEDS: polyethylene glycoL 3350 17 GM POWD.PACK PO (08:02)
[2020-05-21] MEDS: ENOXAPARIN 40 MG/0.4 ML SYRINGE SUB-Q ×2 (08:02→20:25)
[2020-05-21] MEDS: PANTOPRAZOLE SODIUM IV 40 MG VIAL IV PUSH (08:02)
[2020-05-21] MEDS: INSULIN DETEMIR 100 UNITS/ML 30 UNITS SUB-Q ×2 (08:02→20:32)
[2020-05-21] MEDS: TOLNAFTATE 1% POWDER 45 GM BTL 1 APPLIC TOPICAL ×2 (08:03→20:32)
[2020-05-21 08:20] LABS: Glucose Point of Care 188 (65-105)
[2020-05-21] MEDS: DORNASE ALFA INH SOLN 1 MG/ML 2.5 ML AMP 2.5 MG INHALATION ×2 (09:15→20:42)
[2020-05-21 11:37] LABS: Glucose Point of Care 222 (65-105)
[2020-05-21] MEDS: INSULIN ASPART (*BKC) 100 UNITS/ML SUB-Q ×2 (11:41→23:21)
--- NOTE | 2020-05-21 12:43 | PCDIET ---
Nutrition Follow-Up Complete: Nutrition Diagnosis: Altered laboratory values related to steroid use as evidenced by A1c of 8.6%. Nutrition Goal: Patient to meet estimated nutritional needs. Goal in progress. Recommended increase in tube feeding rate with discontinuation of Propofol. MD ordered Nepro at 50mL/hr for lower sodium content. This will provide 1980kcal and 89g protein over 22 hours/day. Water flush of 200mL every 4 hours continues. Last recorded weight is 129.3 kg which is up from last review. +I/O. Bowel Motility: +BM today. Labs Reviewed: Hgb (11.2), Hct (36.4), Glu (174), BUN (44), Na (148), Alb (2.4) Meds Noted: Albuterol, Dulcolax, Levemir, Vancomycin, Fentanyl, Hydralazine, Zosyn, Versed, Protonix, Miralax Additional Notes: Frontal head abrasion. No documented pressure ulcers. Will continue to monitor with same goal. Nutrition Monitoring and Evaluation: Follow up every Wednesday/Wednesday.
[2020-05-21] MEDS: acetaZOLAMIDE TAB 250 MG TABLET PO ×2 (13:27→20:28)
--- NOTE | 2020-05-21 14:20 | WPDINTPN ---
Progress Note: A&P Assessment and Plan (1) Acute respiratory failure with hypoxemia: Code(s): J96.01 - Acute respiratory failure with hypoxia Status: Acute Assessment and Plan: Acute respiratory failure hypoxemia secondary to COVID-19 pneumonia - patient has been alternating with BiPAP and high-flow therapy since 05/08/2020. - intubated on 05/12/2020 - continue CMV mode of ventilation, tidal volumes will be increased to 520 mL which is 6 mL/kilogram. Wean FiO2 and PEEP as tolerated - chest X ray and ABGs reviewed - Sedated with fentanyl, Versed and propofol. Maintain RASS score of -1. Daily sedation vacation trial. Bilateral upper extremity swelling, venous Dopplers of bilateral upper extremities done on 05/21, showed bilateral upper extremity superficial venous thrombosis (2) Pneumonia due to COVID-19 virus: Code(s): U07.1 - COVID-19; J12.89 - Other viral pneumonia Status: Acute Assessment and Plan: Completed a course of dexamethasone and Remdesivir. - appreciate infectious disease evaluation recommendation. he is not a candidate for convalescent plasma. - continue droplet, airborne, contact isolation /precautions -LDH and ferritin are normal, D-dimer and CRP are trending down (3) Fever: Code(s): R50.9 - Fever, unspecified Status: Acute Assessment and Plan: Patient continues to be febrile and this could be secondary to COVID-19 pneumonia. his WBC count is elevated Venous Dopplers 05/16/2020: No DVT bilateral lower extremity blood cultures from 05/16/2020: Negative x2 from 05/18/2020 negative x1 -sputum cultures from 05/19 bring Pseudomonas and Staph aureus, patient with leukocytosis, fevers and infiltrates on chest x-ray. -continue vancomycin and Zosyn 4.5 g IV q.6 hours for possible ventilator associated pneumonia (antibiotics initiated on 05/20/2020) (4) GERD (gastroesophageal reflux disease): Code(s): K21.9 - Gastro-esophageal reflux disease without esophagitis Status: Acute Assessment and Plan: Continue IV pantoprazole once a day. (5) HTN (hypertension), benign: Code(s): I10 - Essential (primary) hypertension Status: Chronic Assessment and Plan: Continue to hold amlodipine, hydrochlorothiazide and enalapril. Continue to monitor hemodynamics closely. Hydralazine on p.r.n. basis if blood pressure is elevated. (6) Elevated blood sugar: Code(s): R73.9 - Hyperglycemia, unspecified Status: Acute Assessment and Plan: He seems to have a new diagnosis of diabetes mellitus. Hemoglobin A1c was 8.6. continue insulin sliding scale. -continue Levemir (7) Acute renal failure: Code(s): N17.9 - Acute kidney failure, unspecified Status: Acute Assessment and Plan: Acute kidney injury with creatinine of 1.5 on admission, It has resolved now with some IV fluids. -hyperkalemia, improved (8) Hypernatremia: Code(s): E87.0 - Hyperosmolality and hypernatremia Status: Acute Assessment and Plan: continue tube flushes at 200 mL q.6 hours -sodium levels gradually improving (9) Seizure: Code(s): R56.9 - Unspecified convulsions Status: Acute Assessment and Plan: patient with seizure activity on 05/12/2020, patient was loaded with Keppra - neurology evaluated the patient - will hold Keppra since patient has not had any seizure activity - currently sedated with propofol and Versed (10) Dietary counseling and surveillance: Code(s): Z71.3 - Dietary counseling and surveillance Status: Acute Assessment and Plan: tolerating tube feeds, Glucerna, - continue MiraLax stress ulcer prophylaxis: Protonix IV (11) DVT prophylaxis: Code(s): Z29.9 - Encounter for prophylactic measures, unspecified Status: Acute Assessment and Plan: Lovenox 40 mg subcu q.12 hours (12) Rash: Code(s): R21
[2020-05-21 17:51] LABS: Glucose Point of Care 199 (65-105)
[2020-05-21] MEDS: guaiFENesin/DEXTROMETHORPHAN 10 ML UDC PO (20:29)
--- NOTE | 2020-05-21 20:42 | PM.IMPN ---
Progress Note: A&P Assessment and Plan (1) Acute respiratory failure: Code(s): J96.00 - Acute respiratory failure, unspecified whether with hypoxia or hypercapnia Status: Acute Assessment and Plan: ABG on admission showing 7.53 on BiPAP. Wore the BiPAP overnight 05/09- and did well. He was changed to HFNC and NRB 05/10 but still was requiring 100% FiO2 with A-a grad in the 600's. Moved to ICU and intubated 05/12. Still low grade fevers. Echo normal EF with grade 1 DD. Vent management per finishing and shipping supervisor. Appreciate finishing and shipping supervisor input. (2) Pneumonia due to COVID-19 virus: Code(s): U07.1 - COVID-19; J12.89 - Other viral pneumonia Status: Acute Assessment and Plan: Patient COVID positive on 05/04/20. He was admitted on 05/08/20 and finished 10d of Decadron and finished Remdesivir. AST/ALT up and down felt related to COVID +/- Remdesivir. Repeat CXR 05/21 reviewed and showing no change. Follow inflammatory markers and LFTs. As above. Repeat sputum cultures growing pseudomonas and staph so zosyn and vanc started 05/20. (3) HTN (hypertension), benign: Code(s): I10 - Essential (primary) hypertension Status: Chronic Assessment and Plan: Patient's blood pressure was reviewed on 05/21. Will continue to hold his amlodipine, enalapril and hydrochlorothiazide. IV hydralazine prn available. (4) Acute renal failure: Code(s): N17.9 - Acute kidney failure, unspecified Status: Acute Assessment and Plan: Patient's creatinine is 1.5 on admission. Yoni inhibitors and diuretics on hold. Creatine now 1.1 and stable. Continue to monitor. (5) Hyponatremia: Code(s): E87.1 - Hypo-osmolality and hyponatremia Status: Acute Assessment and Plan: Na 148 today felt related to fluid loss from insensible losses. Cautious if Lasix given. (6) Diabetes mellitus: Code(s): E11.9 - Type 2 diabetes mellitus without complications Status: Acute Assessment and Plan: A1c 8.6 consistent with new diagnosis of DM. Glucose reviewed on 11/24 Glucose has been poorly controlled related to steroids and uncontrolled prior to admission but improved today. Continue AccuCheks covering with sliding scale. Continue current medications with Levemir to 30 U q 12H (7) Chronic GERD: Code(s): K21.9 - Gastro-esophageal reflux disease without esophagitis Status: Chronic Assessment and Plan: Stable. Continue IV Protonix. (8) Gout: Code(s): M10.9 - Gout, unspecified Status: Chronic Assessment and Plan: Stable. Allopurinol remains on hold. (9) DVT prophylaxis: Code(s): Z29.9 - Encounter for prophylactic measures, unspecified Status: Acute Assessment and Plan: Lovenox Q12h (10) Encephalopathy: Code(s): G93.40 - Encephalopathy, unspecified Status: Acute Assessment and Plan: Patient remains unresponsive off sedation. CT brain no change 05/19. EEG results pending. (11) Seizure: Code(s): R56.9 - Unspecified convulsions Status: Acute Assessment and Plan: Patient had a seizure on 05/13 possibly related to hypoxia. He was on Keppra but stopped after a few days. CT brain showing no acute process 05/19. EEG pending. Monitor off sedation Subjective Date/time seen: 05/21/20 20:42 Interval history: Date of service 05/21 70yo male known to have COVID here for SOB and found to be in acute respiratory failure. Respiratory status continued to worsen until had to be intubated and mechanically ventilated 05/12. Resuming care. Chart reviewed. Patient intubated sedated. He is off sedation but not waking up yet. Toelrating TF. Exam Narrative: Exam Narrative: Tm 101.0 Tc 100.8 144/75 114 22 95% MV FIO2 65%, 10 peep Gen - sedated, intubated HEENT - ETT and OG tube secured Chest - Clear anteriorly CV - tachy
[2020-05-21 23:20] LABS: Glucose Point of Care 235 (65-105)
[2020-05-22] VITALS (21 sets, daily range): BP systolic 120–154; BP diastolic 61–79; PULSE 95–123; RESP 18–36; TEMP 37.5–38.6; O2SAT 92–98
[2020-05-22 01:10] LABS: Vancomycin Trough 21.1 ug/mL (10.0-20.0)
[2020-05-22] MEDS: ALBUTEROL SULFATE NEB 2.5 MG/0.5 ML INH INHALATION ×3 (02:26→22:20)
[2020-05-22] MEDS: CENTRAL LINE FLUSH 10 ML IV PUSH (05:02)
[2020-05-22 05:17] LABS: Hematocrit 37.1 % (42.0-52.0); Hemoglobin 11.3 g/dL (14.0-18.0); Mean Corpuscular HGB Conc 30.5 g/dl (32-36); Mean Corpuscular Hemoglobin 27.5 pg (26-34); Mean Corpuscular Volume 90.3 fl (80-100); Mean Platelet Volume 11.9 fl (7.4-10.4); Platelet Count Result 290 k/mm3 (150-375); Red Blood Count 4.11 M/mm3 (4.6-6.20); Red Cell Distribution Width 16.3 % (11.5-14.5)
[2020-05-22 05:29] LABS: Alanine Aminotransferase 35 U/L (4-50); Albumin Level 2.5 g/dL (3.5-5.1); Alkaline Phosphatase 145 U/L (38-126); Anion Gap 4 mmol/L (8-16); Aspartate Amino Transferase 45 U/L (17-59); Bilirubin,Total 0.5 mg/dL (0.2-1.3); Blood Urea Nitrogen 45 mg/dL (9-20); Calcium 8.8 mg/dL (8.4-10.2); Carbon Dioxide 38 mmol/L (22-30); Chloride 104 mmol/L (98-107); Estimated CRCL calculation 78 ml/min; Estimated Glomerular Filt Rate 60; Glucose 240 mg/dL (75-110); Magnesium 2.6 mg/dL (1.6-2.3); Potassium 3.4 mmol/L (3.4-5.0); Sodium 146 mmol/L (137-145)
[2020-05-22] MEDS: INSULIN ASPART (*BKC) 100 UNITS/ML SUB-Q ×3 (05:31→17:56)
[2020-05-22 05:37] LABS: Alveolar/Arterial O2 Gradient 391.9 mmHg; Base Excess ABG 5.2 mEq/l (+/-2.0); Carboxyhemoglobin 0.4 % THb (0-2.0); Device VENTILATOR; Fractional Inspired Oxygen 75 %; HCO3 ABG 32.3 mEq/l (22.0-26.0); Methemoglobin ABG 0.2 %THb (0-1.5); Modified Allen's Test Unable to perform; Oxygen Content ABG 16.4 %vol (16.0-22.0); Oxygen Saturation ABG 94.9 % (95.0-100.0); Oxyhemoglobin 94.5 % THb (90.0-100.0); PCO2 ABG 59.6 mmHg (35.0-45.0); PO2 ABG 79.5 mmHg (80.0-100.0); PO2 FiO2 Ratio Arterial Blood 1.06 %; Reduced Hemoglobin 4.9 %THb (0-5.0); Site Drawn RIGHT RADIAL; Total Hemoglobin 12.3 g/dL (12.0-18.0); pH ABG 7.352 (7.350-7.450)
[2020-05-22 05:38] LABS: Arterial Blood Gas PEEP 12 cmH2O; Arterial Blood Gas Tidal Volume 520 ml; Arterial Blood Gas Vent Mode CMV; Arterial Blood Gas Ventilator rate 24 /MIN
[2020-05-22] MEDS: DORNASE ALFA INH SOLN 1 MG/ML 2.5 ML AMP 2.5 MG INHALATION ×2 (08:37→22:21)
[2020-05-22] MEDS: ENOXAPARIN 40 MG/0.4 ML SYRINGE SUB-Q ×2 (09:00→21:22)
[2020-05-22] MEDS: TOLNAFTATE 1% POWDER 45 GM BTL 1 APPLIC TOPICAL ×2 (09:01→21:23)
[2020-05-22] MEDS: PANTOPRAZOLE SODIUM IV 40 MG VIAL IV PUSH (09:01)
[2020-05-22] MEDS: INSULIN DETEMIR 100 UNITS/ML 32 UNITS SUB-Q ×2 (09:01→21:23)
--- NOTE | 2020-05-22 09:29 | P.NEURO_ITS ---
Neurology EEG Report General Information Date of Study: 05/20/20 TEST eeg DIAGNOSIS seizures on admission with encephalopathy CONDITION OF RECORDING at the time of recording patient is comatose with no specific history available EEG NUMBER [id number] CLINICAL HISTORY at the time of admission patient had the seizures at this particular time no other history is available patient is on the vent and comatose. EEG DESCRIPTION Old record consists of low to medium voltage 2 to 3 hertz per 2nd delta activity with no posterior alpha rhythm and no evidence of any paroxysmal discharge. Mental arousal procedure made no significant change in the b ackground rhythm. Hyper ventilation not done. Photic stimulation not done. Non paroxysmal nonfocal. Nonlateralizing. IMPRESSION Abnormal record due to the presence of bihemispheric delta activity and with absence of the normal background rhythm particularly posteriorly. Throughout the tracing there is no evidence of any paroxysmal discharge these abnormalities are suggestive of organic or metabolic encephalopathy or postictal state. Clinical correlation recommended
[2020-05-22] MEDS: guaiFENesin/DEXTROMETHORPHAN 10 ML UDC PO (09:37)
[2020-05-22] MEDS: polyethylene glycoL 3350 17 GM POWD.PACK PO (09:37)
--- NOTE | 2020-05-22 14:27 | WPDINTPN ---
Progress Note: A&P Assessment and Plan (1) Encephalopathy: Code(s): G93.40 - Encephalopathy, unspecified Status: Acute Assessment and Plan: Patient does not open his eyes or follow commands even after sedation is being weaned -CT scan of the brain on 05/19/2020 did not show any acute intracranial abnormalities -neurology evaluated him on admission -EEG from 05/20/2020 or metabolic encephalopathy or postictal state Patient all sedation ends 05/21/2020 (2) Acute respiratory failure with hypoxemia: Code(s): J96.01 - Acute respiratory failure with hypoxia Status: Acute Assessment and Plan: Acute respiratory failure hypoxemia secondary to COVID-19 pneumonia - patient has been alternating with BiPAP and high-flow therapy since 05/08/2020. - intubated on 05/12/2020 - continue CMV mode of ventilation, tidal volumes will be increased to 520 mL which is 6 mL/kilogram. Wean FiO2 and PEEP as tolerated - chest X ray and ABGs reviewed -off all sedation since 05/21/2020 Bilateral upper extremity swelling, venous Dopplers of bilateral upper extremities done on 05/21, showed bilateral upper extremity superficial venous thrombosis (3) Pneumonia due to COVID-19 virus: Code(s): U07.1 - COVID-19; J12.89 - Other viral pneumonia Status: Acute Assessment and Plan: Completed a course of dexamethasone and Remdesivir. - appreciate infectious disease evaluation recommendation. he is not a candidate for convalescent plasma. - continue droplet, airborne, contact isolation /precautions -LDH and ferritin are normal, D-dimer and CRP are trending down (4) Fever: Code(s): R50.9 - Fever, unspecified Status: Acute Assessment and Plan: Patient continues to be febrile and this could be secondary to COVID-19 pneumonia. his WBC count is elevated Venous Dopplers 05/16/2020: No DVT bilateral lower extremity blood cultures from 05/16/2020: Negative x2 from 05/18/2020 negative x1 -sputum cultures from 05/19 bring Pseudomonas and Staph aureus, patient with leukocytosis, fevers and infiltrates on chest x-ray. -continue vancomycin and Zosyn 4.5 g IV q.6 hours for possible ventilator associated pneumonia (antibiotics initiated on 05/20/2020) (5) GERD (gastroesophageal reflux disease): Code(s): K21.9 - Gastro-esophageal reflux disease without esophagitis Status: Acute Assessment and Plan: Continue IV pantoprazole once a day. (6) HTN (hypertension), benign: Code(s): I10 - Essential (primary) hypertension Status: Chronic Assessment and Plan: Continue to hold amlodipine, hydrochlorothiazide and enalapril. Continue to monitor hemodynamics closely. Hydralazine on p.r.n. basis if blood pressure is elevated. (7) Elevated blood sugar: Code(s): R73.9 - Hyperglycemia, unspecified Status: Acute Assessment and Plan: He seems to have a new diagnosis of diabetes mellitus. Hemoglobin A1c was 8.6. continue insulin sliding scale. -continue Levemir (8) Acute renal failure: Code(s): N17.9 - Acute kidney failure, unspecified Status: Acute Assessment and Plan: Acute kidney injury with creatinine of 1.5 on admission, It has resolved now with some IV fluids. -hyperkalemia, improved (9) Hypernatremia: Code(s): E87.0 - Hyperosmolality and hypernatremia Status: Acute Assessment and Plan: continue tube flushes at 200 mL q.6 hours -sodium levels gradually improving (10) Seizure: Code(s): R56.9 - Unspecified convulsions Status: Acute Assessment and Plan: patient with seizure activity on 05/12/2020, patient was loaded with Keppra - neurology evaluated the patient - will hold Keppra since patient has not had any seizure activity - currently sedated with propofol and Versed (11) Dietary counseling and surveillance: Code(s): Z71.3 - Dietary counseling and pritchett
[2020-05-22 15:48] LABS: Glucose Point of Care 240 (65-105)
[2020-05-22 18:23] LABS: Glucose Point of Care 229 (65-105)
--- NOTE | 2020-05-22 20:29 | PM.IMPN ---
Progress Note: A&P Assessment and Plan (1) Acute respiratory failure: Code(s): J96.00 - Acute respiratory failure, unspecified whether with hypoxia or hypercapnia Status: Acute Assessment and Plan: ABG on admission showing 7.53 on BiPAP. Wore the BiPAP overnight 05/09- and did well. He was changed to HFNC and NRB 05/10 but still was requiring 100% FiO2 with A-a grad in the 600's. Moved to ICU and intubated 05/12. Still low grade fevers felt related to the probable VAP. Echo normal EF with grade 1 DD. Vent management per transmission design engineer. Appreciate transmission design engineer input. (2) Pneumonia due to COVID-19 virus: Code(s): U07.1 - COVID-19; J12.89 - Other viral pneumonia Status: Acute Assessment and Plan: Patient COVID positive on 05/04/20. He was admitted on 05/08/20 and finished 10d of Decadron and finished Remdesivir. AST/ALT up and down felt related to COVID +/- Remdesivir. Repeat CXR 05/22 reviewed and showing no change. Follow inflammatory markers and LFTs. As above. Repeat sputum cultures growing pseudomonas and staph so zosyn and vanc started 05/20. (3) Encephalopathy: Code(s): G93.40 - Encephalopathy, unspecified Status: Acute Assessment and Plan: Patient remains unresponsive off sedation. CT brain no change 05/19. EEG results abnormal record due to the presence of bihemispheric delta activity and with absence of the normal background rhythm particularly posteriorly. No evidence of any paroxysmal discharge to suggest organic or metabolic encephalopathy or postictal state. He did have a prolonged seizure on 05/13 and was on Keppra but now off. Follow off sedation (4) Seizure: Code(s): R56.9 - Unspecified convulsions Status: Acute Assessment and Plan: Patient had a seizure on 05/13 possibly related to hypoxia. He was on Keppra but stopped after a few days. CT brain showing no acute process 05/19. EEG as mentioned above. Monitor off sedation (5) HTN (hypertension), benign: Code(s): I10 - Essential (primary) hypertension Status: Chronic Assessment and Plan: Patient's blood pressure was reviewed on 05/22 Will continue to hold his amlodipine, enalapril and hydrochlorothiazide. IV hydralazine prn available. (6) Acute renal failure: Code(s): N17.9 - Acute kidney failure, unspecified Status: Acute Assessment and Plan: Patient's creatinine is 1.5 on admission. Yoni inhibitors and diuretics on hold. Creatine now 1.2 and stable. Continue to monitor. (7) Hyponatremia: Code(s): E87.1 - Hypo-osmolality and hyponatremia Status: Acute Assessment and Plan: Na 146 today felt related to fluid loss from insensible losses. Cautious if Lasix given. (8) Diabetes mellitus: Code(s): E11.9 - Type 2 diabetes mellitus without complications Status: Acute Assessment and Plan: A1c 8.6 consistent with new diagnosis of DM. Glucose reviewed on 05/22 Glucose still poorly controlled. Continue AccuCheks covering with sliding scale. Levemir increased (9) Gout: Code(s): M10.9 - Gout, unspecified Status: Chronic Assessment and Plan: Stable. Allopurinol remains on hold. (10) Chronic GERD: Code(s): K21.9 - Gastro-esophageal reflux disease without esophagitis Status: Chronic Assessment and Plan: Stable. Continue IV Protonix. (11) DVT prophylaxis: Code(s): Z29.9 - Encounter for prophylactic measures, unspecified Status: Acute Assessment and Plan: Lovenox Q12h Subjective Date/time seen: 05/22/20 20:29 Interval history: Date of service 05/22 70yo male known to have COVID here for SOB and found to be in acute respiratory failure. Respiratory status continued to worsen until had to be intubated and mechanically ventilated 05/12. Patient intubated and sedated but off sedation. He is no
[2020-05-23] VITALS (24 sets, daily range): BP systolic 119–149; BP diastolic 60–77; PULSE 76–111; RESP 18–32; TEMP 37.3–38.3; O2SAT 91–99
[2020-05-23 00:10] LABS: Glucose Point of Care 171 (65-105)
[2020-05-23 05:00] LABS: Basophils Absolute Auto 0.1 K/mm3 (0.0-0.1); Basophils Percent Auto 0.6 % (0.2-1.2); Eosinophils Absolute Auto 0.1 K/mm3 (0-0.3); Eosinophils Percent Auto 0.7 % (0-4.4); Hematocrit 34.7 % (42.0-52.0); Hemoglobin 10.5 g/dL (14.0-18.0); Immature Granulocyte Absolute 0.24 K/mm3 (0.00-0.031); Immature Granulocyte Percent A 2.4 % (0-0.5); Lymphocytes Absolute Auto 0.98 K/mm3 (0.9-3.2); Lymphocytes Percent Auto 9.9 % (18.3-44.2); Mean Corpuscular HGB Conc 30.3 g/dl (32-36); Mean Corpuscular Hemoglobin 26.9 pg (26-34); Mean Corpuscular Volume 88.7 fl (80-100); Mean Platelet Volume 11.9 fl (7.4-10.4); Monocytes Absolute Auto 0.6 K/mm3 (0.1-0.6); Monocytes Percent Auto 5.9 % (2.6-8.5); Neutrophils Percent Auto 80.5 % (45.5-73.1); Platelet Count Result 292 k/mm3 (150-375); Red Blood Count 3.91 M/mm3 (4.6-6.20); Red Cell Distribution Width 16.1 % (11.5-14.5); White Blood Count 9.9 K/mm3 (4.5-10.0)
[2020-05-23 05:18] LABS: D Dimer 3.21 ug/mL (<0.48)
[2020-05-23 05:25] LABS: Alanine Aminotransferase 46 U/L (4-50); Albumin Level 2.4 g/dL (3.5-5.1); Alkaline Phosphatase 150 U/L (38-126); Anion Gap 1 mmol/L (8-16); Aspartate Amino Transferase 66 U/L (17-59); Bilirubin,Total 0.6 mg/dL (0.2-1.3); Blood Urea Nitrogen 42 mg/dL (9-20); CRP 6.7 mg/dL (<1.0); Calcium 8.6 mg/dL (8.4-10.2); Carbon Dioxide 39 mmol/L (22-30); Chloride 101 mmol/L (98-107); Estimated CRCL calculation 85 ml/min; Estimated Glomerular Filt Rate > 60; Glucose 237 mg/dL (75-110); Lactate Dehydrogenase 614 U/L (313-618); Magnesium 2.5 mg/dL (1.6-2.3); Phosphorus 3.3 mg/dL (2.5-4.5); Potassium 3.1 mmol/L (3.4-5.0); Sodium 141 mmol/L (137-145)
[2020-05-23 05:27] LABS: Lactic Acid Reflex 2.5 mmol/L (0.7-2.1)
[2020-05-23 05:34] LABS: Alveolar/Arterial O2 Gradient 373.7 mmHg; Base Excess ABG 5.9 mEq/l (+/-2.0); Carboxyhemoglobin 0.1 % THb (0-2.0); Device VENTILATOR; Fractional Inspired Oxygen 70 %; HCO3 ABG 32.1 mEq/l (22.0-26.0); Methemoglobin ABG 0.2 %THb (0-1.5); Modified Allen's Test Unable to perform; Oxygen Content ABG 15.1 %vol (16.0-22.0); Oxygen Saturation ABG 92.8 % (95.0-100.0); Oxyhemoglobin 92.9 % THb (90.0-100.0); PCO2 ABG 54.3 mmHg (35.0-45.0); PO2 FiO2 Ratio Arterial Blood 0.96 %; Reduced Hemoglobin 6.8 %THb (0-5.0); Site Drawn RIGHT RADIAL; Total Hemoglobin 11.5 g/dL (12.0-18.0); pH ABG 7.389 (7.350-7.450)
[2020-05-23 05:35] LABS: Arterial Blood Gas PEEP 10 cmH2O; Arterial Blood Gas Tidal Volume 520 ml; Arterial Blood Gas Vent Mode CMV; Arterial Blood Gas Ventilator rate 24 /MIN
[2020-05-23 07:57] LABS: Reflex Lactic Acid Yes or No Add Lactic
[2020-05-23] MEDS: DORNASE ALFA INH SOLN 1 MG/ML 2.5 ML AMP 2.5 MG INHALATION ×2 (08:30→20:48)
[2020-05-23] MEDS: ALBUTEROL SULFATE NEB 2.5 MG/0.5 ML INH INHALATION ×3 (08:30→20:48)
[2020-05-23] MEDS: FUROSEMIDE INJ 40 MG/4 ML VIAL IV PUSH (09:00)
[2020-05-23] MEDS: POTASSIUM CHLORIDE 20 MEQ PACKET (FOR LIQUID) 40 MEQ FEED TUBE (09:01)
[2020-05-23] MEDS: ENOXAPARIN 40 MG/0.4 ML SYRINGE SUB-Q ×2 (09:01→20:30)
[2020-05-23] MEDS: polyethylene glycoL 3350 17 GM POWD.PACK PO (09:02)
[2020-05-23] MEDS: INSULIN DETEMIR 100 UNITS/ML 32 UNITS SUB-Q ×2 (09:02→20:30)
[2020-05-23] MEDS: PANTOPRAZOLE SODIUM IV 40 MG VIAL IV PUSH (09:02)
[2020-05-23] MEDS: TOLNAFTATE 1% POWDER 45 GM BTL 1 APPLIC TOPICAL ×2 (09:03→20:29)
[2020-05-23 09:23] LABS: Lactic Acid 2.6 mmol/L (0.7-2.1)
--- NOTE | 2020-05-23 11:46 | PM.IMPN ---
Progress Note: A&P Assessment and Plan (1) Acute respiratory failure: Code(s): J96.00 - Acute respiratory failure, unspecified whether with hypoxia or hypercapnia Status: Acute Assessment and Plan: ABG on admission showing 7.53/ on BiPAP. Wore the BiPAP overnight 05/09- and did well. He was changed to HFNC and NRB 05/10 but still was requiring 100% FiO2 with A-a grad in the 600's. Moved to ICU and intubated 05/12. Echo normal EF with grade 1 DD. Still low grade fevers felt related to the probable VAP but consider related to OPERATIONS RESEARCH SCIENTIST pathology. Vent management per body man. Appreciate body man input. (2) Pneumonia due to COVID-19 virus: Code(s): U07.1 - COVID-19; J12.89 - Other viral pneumonia Status: Acute Assessment and Plan: Patient COVID positive on 05/04/20. He was admitted on 05/08/20 and finished 10d of Decadron and finished Remdesivir. AST/ALT up and down felt related to COVID; LFTs better overall. Repeat sputum cultures growing pseudomonas and BREANNA so Zosyn and Vanco started 05/20. Repeat CXR 05/23 reviewed and showing slight worsening of airspace disease. Inflammatory markers better. Contineu to follow inflammatory markers and LFTs. Otherwise as above. (3) Encephalopathy: Code(s): G93.40 - Encephalopathy, unspecified Status: Acute Assessment and Plan: Patient remains unresponsive off sedation. CT brain no change 05/19. EEG results abnormal record due to the presence of bihemispheric delta activity and with absence of the normal background rhythm particularly posteriorly. No evidence of any paroxysmal discharge to suggest organic or metabolic encephalopathy or postictal state. He did have a prolonged seizure on 05/13 and was on Keppra but now off. HIE? Continue to follow off sedation (4) Seizure: Code(s): R56.9 - Unspecified convulsions Status: Acute Assessment and Plan: Patient had a seizure on 05/13 possibly related to hypoxia. He was on Keppra but stopped after a few days. CT brain showing no acute process 05/19. EEG as mentioned above. Monitor off sedation (5) HTN (hypertension), benign: Code(s): I10 - Essential (primary) hypertension Status: Chronic Assessment and Plan: Patient's blood pressure was reviewed on 05/23. BP well controlled. Will continue to hold his amlodipine, enalapril and hydrochlorothiazide. IV hydralazine prn available. (6) Acute renal failure: Code(s): N17.9 - Acute kidney failure, unspecified Status: Acute Assessment and Plan: Patient's creatinine is 1.5 on admission. Yoni inhibitors and diuretics on hold. Creatine now 1.1 and stable. Continue to monitor. (7) Diabetes mellitus: Code(s): E11.9 - Type 2 diabetes mellitus without complications Status: Acute Assessment and Plan: A1c 8.6 consistent with new diagnosis of DM. Glucose reviewed on 05/23 Glucose still poorly controlled. Continue AccuCheks covering with sliding scale. Increase Levemir again (8) Gout: Code(s): M10.9 - Gout, unspecified Status: Chronic Assessment and Plan: Stable. Allopurinol remains on hold. (9) Chronic GERD: Code(s): K21.9 - Gastro-esophageal reflux disease without esophagitis Status: Chronic Assessment and Plan: Stable. Continue IV Protonix. (10) DVT prophylaxis: Code(s): Z29.9 - Encounter for prophylactic measures, unspecified Status: Acute Assessment and Plan: Lovenox Q12h Subjective Date/time seen: 05/23/20 11:46 Interval history: Date of service 05/23 70yo male known to have COVID here for SOB and found to be in acute respiratory failure. Respiratory status continued to worsen until had to be intubated and mechanically ventilated 05/12. Patient intubated and sedated but off sedation. He is not waking up yet. Still having fevers requiring ice packs and
[2020-05-23 12:07] LABS: Glucose Point of Care 181 (65-105)
--- NOTE | 2020-05-23 14:22 | WPDINTPN ---
Progress Note: A&P Assessment and Plan (1) Encephalopathy: Code(s): G93.40 - Encephalopathy, unspecified Status: Acute Assessment and Plan: Bedside RN stated that he open his eyes for her and but does not squeeze her fingers or wiggle his toes. -CT scan of the brain on 05/19/2020 did not show any acute intracranial abnormalities -neurology evaluated him on admission -EEG from 05/20/2020 or metabolic encephalopathy or postictal state Patient off all sedation since 05/20/2020 (2) Acute respiratory failure with hypoxemia: Code(s): J96.01 - Acute respiratory failure with hypoxia Status: Acute Assessment and Plan: Acute respiratory failure hypoxemia secondary to COVID-19 pneumonia - patient has been alternating with BiPAP and high-flow therapy since 05/08/2020. - intubated on 05/12/2020 - continue CMV mode of ventilation, tidal volumes will be increased to 520 mL which is 6 mL/kilogram. Wean FiO2 and PEEP as tolerated - chest X ray and ABGs reviewed -off all sedation since 05/21/2020 Bilateral upper extremity swelling, venous Dopplers of bilateral upper extremities done on 05/21, showed bilateral upper extremity superficial venous thrombosis (3) Pneumonia due to COVID-19 virus: Code(s): U07.1 - COVID-19; J12.89 - Other viral pneumonia Status: Acute Assessment and Plan: Completed a course of dexamethasone and Remdesivir. - appreciate infectious disease evaluation recommendation. he is not a candidate for convalescent plasma. - continue droplet, airborne, contact isolation /precautions -LDH and ferritin are normal, D-dimer and CRP are trending down (4) Fever: Code(s): R50.9 - Fever, unspecified Status: Acute Assessment and Plan: Patient continues to be febrile and this could be secondary to COVID-19 pneumonia. his WBC count is elevated Venous Dopplers 05/16/2020: No DVT bilateral lower extremity blood cultures from 05/16/2020: Negative x2 from 05/18/2020 negative x1 -sputum cultures from 05/19 bring Pseudomonas and Staph aureus, patient with leukocytosis, fevers and infiltrates on chest x-ray. -continue vancomycin and Zosyn 4.5 g IV q.6 hours for possible ventilator associated pneumonia (antibiotics initiated on 05/20/2020) (5) GERD (gastroesophageal reflux disease): Code(s): K21.9 - Gastro-esophageal reflux disease without esophagitis Status: Acute Assessment and Plan: Continue IV pantoprazole once a day. (6) HTN (hypertension), benign: Code(s): I10 - Essential (primary) hypertension Status: Chronic Assessment and Plan: Continue to hold amlodipine, hydrochlorothiazide and enalapril. Continue to monitor hemodynamics closely. Hydralazine on p.r.n.if blood pressure is elevated. (7) Elevated blood sugar: Code(s): R73.9 - Hyperglycemia, unspecified Status: Acute Assessment and Plan: He seems to have a new diagnosis of diabetes mellitus. Hemoglobin A1c was 8.6. continue insulin sliding scale. -continue Levemir (8) Acute renal failure: Code(s): N17.9 - Acute kidney failure, unspecified Status: Acute Assessment and Plan: Acute kidney injury with creatinine of 1.5 on admission, It has resolved now with some IV fluids. -hyperkalemia, improved (9) Hypernatremia: Code(s): E87.0 - Hyperosmolality and hypernatremia Status: Acute Assessment and Plan: continue tube flushes at 200 mL q.6 hours -sodium levels gradually improving (10) Seizure: Code(s): R56.9 - Unspecified convulsions Status: Acute Assessment and Plan: patient with seizure activity on 05/12/2020, patient was loaded with Keppra - neurology evaluated the patient - will hold Keppra since patient has not had any seizure activity - currently sedated with propofol and Versed (11) Dietary counseling and surveillance: Code(s): Z71.3 - Dietary
[2020-05-23] MEDS: ALTEPLASE 2 MG VIAL (CATHFLO) IV PUSH ×2 (15:56→20:28)
[2020-05-23] MEDS: CENTRAL LINE FLUSH 10 ML IV PUSH ×5 (21:32→21:33)
[2020-05-23] MEDS: INSULIN ASPART (*BKC) 100 UNITS/ML SUB-Q (23:55)
[2020-05-24] VITALS (24 sets, daily range): BP systolic 93–160; BP diastolic 51–93; PULSE 74–117; RESP 23–41; TEMP 37.4–37.7; O2SAT 89–99
[2020-05-24 00:05] LABS: Glucose Point of Care 261 (65-105)
[2020-05-24] MEDS: MIDAZOLAM HCL (*CRX) 2 MG/2 ML VIAL 3 MG IV PUSH (00:06)
[2020-05-24] MEDS: ALBUTEROL SULFATE NEB 2.5 MG/0.5 ML INH INHALATION ×3 (02:17→23:43)
[2020-05-24] MEDS: fentaNYL CITRATE INJ (*CRX) 100 MCG/2 ML VIAL 25 MCG IV PUSH (03:05)
[2020-05-24 03:44] LABS: Basophils Absolute Auto 0.1 K/mm3 (0.0-0.1); Basophils Percent Auto 0.5 % (0.2-1.2); Eosinophils Absolute Auto 0.1 K/mm3 (0-0.3); Eosinophils Percent Auto 1.2 % (0-4.4); Hematocrit 34.5 % (42.0-52.0); Hemoglobin 10.7 g/dL (14.0-18.0); Immature Granulocyte Absolute 0.29 K/mm3 (0.00-0.031); Immature Granulocyte Percent A 2.6 % (0-0.5); Lymphocytes Percent Auto 10.7 % (18.3-44.2); Mean Corpuscular Hemoglobin 26.9 pg (26-34); Mean Corpuscular Volume 86.7 fl (80-100); Mean Platelet Volume 11.3 fl (7.4-10.4); Monocytes Absolute Auto 0.6 K/mm3 (0.1-0.6); Monocytes Percent Auto 4.9 % (2.6-8.5); Neutrophils Percent Auto 80.1 % (45.5-73.1); Platelet Count Result 320 k/mm3 (150-375); Red Blood Count 3.98 M/mm3 (4.6-6.20); Red Cell Distribution Width 15.9 % (11.5-14.5); White Blood Count 11.2 K/mm3 (4.5-10.0)
[2020-05-24 04:08] LABS: Alanine Aminotransferase 66 U/L (4-50); Albumin Level 2.4 g/dL (3.5-5.1); Alkaline Phosphatase 157 U/L (38-126); Anion Gap 2 mmol/L (8-16); Aspartate Amino Transferase 83 U/L (17-59); Bilirubin,Total 0.6 mg/dL (0.2-1.3); Blood Urea Nitrogen 40 mg/dL (9-20); Calcium 8.5 mg/dL (8.4-10.2); Carbon Dioxide 38 mmol/L (22-30); Chloride 99 mmol/L (98-107); Estimated CRCL calculation 93 ml/min; Estimated Glomerular Filt Rate > 60; Glucose 186 mg/dL (75-110); Magnesium 2.4 mg/dL (1.6-2.3); Phosphorus 3.1 mg/dL (2.5-4.5); Potassium 2.7 mmol/L (3.4-5.0); Sodium 139 mmol/L (137-145)
[2020-05-24 05:43] LABS: Alveolar/Arterial O2 Gradient 380.5 mmHg; Base Excess ABG 6.2 mEq/l (+/-2.0); Carboxyhemoglobin 0.4 % THb (0-2.0); Fractional Inspired Oxygen 70 %; HCO3 ABG 32.7 mEq/l (22.0-26.0); Methemoglobin ABG 0.1 %THb (0-1.5); Oxygen Content ABG 15.3 %vol (16.0-22.0); Oxygen Saturation ABG 89.2 % (95.0-100.0); Oxyhemoglobin 88.7 % THb (90.0-100.0); PCO2 ABG 56.3 mmHg (35.0-45.0); PO2 ABG 58.1 mmHg (80.0-100.0); PO2 FiO2 Ratio Arterial Blood 0.83 %; Reduced Hemoglobin 10.8 %THb (0-5.0); Total Hemoglobin 12.3 g/dL (12.0-18.0); pH ABG 7.382 (7.350-7.450)
[2020-05-24 05:44] LABS: Device VENTILATOR; Modified Allen's Test Pass; Site Drawn RIGHT RADIAL
[2020-05-24 05:45] LABS: Arterial Blood Gas PEEP 10 cmH2O; Arterial Blood Gas Tidal Volume 520 ml; Arterial Blood Gas Vent Mode CMV; Arterial Blood Gas Ventilator rate 24 /MIN
[2020-05-24] MEDS: CENTRAL LINE FLUSH 10 ML IV PUSH ×3 (06:14→21:14)
[2020-05-24] MEDS: DORNASE ALFA INH SOLN 1 MG/ML 2.5 ML AMP 2.5 MG INHALATION ×2 (08:25→21:45)
[2020-05-24] MEDS: ENOXAPARIN 40 MG/0.4 ML SYRINGE SUB-Q ×2 (08:49→21:09)
[2020-05-24] MEDS: FUROSEMIDE INJ 40 MG/4 ML VIAL IV PUSH ×2 (08:50→21:09)
[2020-05-24] MEDS: POTASSIUM CHLORIDE 20 MEQ PACKET (FOR LIQUID) 40 MEQ PO ×2 (08:51→21:14)
[2020-05-24] MEDS: INSULIN DETEMIR 100 UNITS/ML 32 UNITS SUB-Q ×2 (08:51→21:09)
[2020-05-24] MEDS: PANTOPRAZOLE SODIUM IV 40 MG VIAL IV PUSH (08:52)
[2020-05-24] MEDS: TOLNAFTATE 1% POWDER 45 GM BTL 1 APPLIC TOPICAL ×2 (08:52→21:15)
--- NOTE | 2020-05-24 11:03 | PM.IMPN ---
Progress Note: A&P Assessment and Plan (1) Acute respiratory failure: Code(s): J96.00 - Acute respiratory failure, unspecified whether with hypoxia or hypercapnia Status: Acute Assessment and Plan: ABG on admission showing 7.53 on BiPAP. Wore the BiPAP overnight 05/09- and did well. He was changed to HFNC and NRB 05/10 but still was requiring 100% FiO2 with A-a grad in the 600's. Condition worsened and moved to ICU and intubated 05/12. Echo normal EF with grade 1 DD. Still low grade fevers felt related to the probable VAP; continue IV abx. Vent management per office support. Appreciate office support input. (2) Pneumonia due to COVID-19 virus: Code(s): U07.1 - COVID-19; J12.89 - Other viral pneumonia Status: Acute Assessment and Plan: Patient COVID positive on 05/04/20. He was admitted on 05/08/20 and finished 10d of Decadron and finished Remdesivir. AST/ALT up and down felt related to COVID; LFTs better overall. Repeat sputum cultures growing pseudomonas and BREANNA so Zosyn and Vanco started 05/20. Repeat CXR 05/24 reviewed and showing no change. Continue to follow inflammatory markers and LFTs. Otherwise as above. (3) Encephalopathy: Code(s): G93.40 - Encephalopathy, unspecified Status: Acute Assessment and Plan: Patient has become more responsive now. CT brain no change 05/19. EEG results abnormal record due to the presence of bihemispheric delta activity and with absence of the normal background rhythm particularly posteriorly. No evidence of any paroxysmal discharge to suggest organic or metabolic encephalopathy or postictal state. He did have a prolonged seizure on 05/13 and was on Keppra but now off. Continue to follow off sedation to assess recovery. (4) Seizure: Code(s): R56.9 - Unspecified convulsions Status: Acute Assessment and Plan: Patient had a seizure on 05/13 possibly related to hypoxia. He was on Keppra but stopped after a few days. CT brain showing no acute process 05/19. EEG as mentioned above. Monitor off sedation (5) HTN (hypertension), benign: Code(s): I10 - Essential (primary) hypertension Status: Chronic Assessment and Plan: Patient's blood pressure was reviewed on 05/24. BP well controlled but higher this morning probably related to come off sedation. Will continue to hold his amlodipine, enalapril and hydrochlorothiazide. IV hydralazine prn available. Resume meds if BP persistently high (6) Acute renal failure: Code(s): N17.9 - Acute kidney failure, unspecified Status: Acute Assessment and Plan: Patient's creatinine is 1.5 on admission. Yoni inhibitors and diuretics on hold. Creatine now 1.0 and stable. Continue to monitor. Lasix to be given so monitor closely. (7) Diabetes mellitus: Code(s): E11.9 - Type 2 diabetes mellitus without complications Status: Acute Assessment and Plan: A1c 8.6 consistent with new diagnosis of DM. Glucose reviewed on 05/24 Glucose better controlled. Continue AccuCheks covering with sliding scale. Continue Levemir (8) Gout: Code(s): M10.9 - Gout, unspecified Status: Chronic Assessment and Plan: Stable. Allopurinol remains on hold. (9) Chronic GERD: Code(s): K21.9 - Gastro-esophageal reflux disease without esophagitis Status: Chronic Assessment and Plan: Stable. Continue IV Protonix. (10) DVT prophylaxis: Code(s): Z29.9 - Encounter for prophylactic measures, unspecified Status: Acute Assessment and Plan: Lovenox Q12h Subjective Date/time seen: 05/24/20 11:03 Interval history: Date of service 05/24 70yo male known to have COVID here for SOB and found to be in acute respiratory failure. Respiratory status continued to worsen until had to be intubated and mechanically ventilated 05/12. Patient intubated but off sedation. He
[2020-05-24] MEDS: dexmedeTOMIDine 400 MCG/100 ML 400 MCG/100 ML BAG 6.85 MCG IV CONT ×2 (11:54→21:15)
--- NOTE | 2020-05-24 11:54 | PCDIET ---
Nutrition Follow-Up Complete: Nutrition Diagnosis: Altered laboratory values related to steroid use as evidenced by A1c of 8.6%. Nutrition Goal: Patient to meet estimated nutritional needs. Goal met. Continue goal. Last recorded weight is 136.9kg, up from 129.3 kg +I/O at 525, question accuracy of new wt . Bowel Motility: +BM today, recommend considering Osmolite formula if bowel movements become copious. Plans to d/c miralax Labs Reviewed: Hgb (10.7), Hct (24.5), Glu (186), BUN (44), Mg 2.4 Meds Noted: K+, Vancomycin, Zofran, Precedex, Dulcolax, Lasix, Fentanyl, Insulin Additional Notes: Pt was at goal of 50ml/hr on Nepro. Na now normal, and K+ low so plans to switch back to previous formula at Glucerna 1.2. Will increase to goal of 65ml/hr which will provide 1716 kcals over 22hrs. sedation off. Possible trach and peg in the coming day. No skin issues. Nutrition Monitoring and Evaluation: Follow up every Wednesday/Wednesday.
[2020-05-24] MEDS: INSULIN ASPART (*BKC) 100 UNITS/ML SUB-Q ×3 (12:00→23:24)
[2020-05-24 12:14] LABS: Glucose Point of Care 203 (65-105)
[2020-05-24 12:41] LABS: Vancomycin Trough 13.4 ug/mL (10.0-20.0)
--- NOTE | 2020-05-24 14:10 | WPDINTPN ---
Progress Note: A&P Assessment and Plan (1) Encephalopathy: Code(s): G93.40 - Encephalopathy, unspecified Status: Acute Assessment and Plan: Gradually improving, patient is off sedation since 05/20/2020 -CT scan of the brain on 05/19/2020 did not show any acute intracranial abnormalities -neurology evaluated him on admission -EEG from 05/20/2020 or metabolic encephalopathy or postictal state (2) Acute respiratory failure with hypoxemia: Code(s): J96.01 - Acute respiratory failure with hypoxia Status: Acute Assessment and Plan: Acute respiratory failure hypoxemia secondary to COVID-19 pneumonia - patient has been alternating with BiPAP and high-flow therapy since 05/08/2020. - intubated on 05/12/2020 - continue CMV mode of ventilation, tidal volumes will be increased to 520 mL which is 6 mL/kilogram. Wean FiO2 and PEEP as tolerated - chest X ray and ABGs reviewed -off all sedation since 05/21/2020 Bilateral upper extremity swelling, venous Dopplers of bilateral upper extremities done on 05/21, showed bilateral upper extremity superficial venous thrombosis (3) Pneumonia due to COVID-19 virus: Code(s): U07.1 - COVID-19; J12.89 - Other viral pneumonia Status: Acute Assessment and Plan: Completed a course of dexamethasone and Remdesivir. - appreciate infectious disease evaluation recommendation. he is not a candidate for convalescent plasma. - continue droplet, airborne, contact isolation /precautions -LDH and ferritin are normal, D-dimer and CRP are trending down (4) Fever: Code(s): R50.9 - Fever, unspecified Status: Acute Assessment and Plan: Fever curve improving Venous Dopplers 05/16/2020: No DVT bilateral lower extremity blood cultures from 05/16/2020: Negative x2 from 05/18/2020 negative x1 -sputum cultures from 05/19 bring Pseudomonas and Staph aureus, patient with leukocytosis, fevers and infiltrates on chest x-ray. -continue vancomycin and Zosyn 4.5 g IV q.6 hours for possible ventilator associated pneumonia (antibiotics initiated on 05/20/2020) (5) GERD (gastroesophageal reflux disease): Code(s): K21.9 - Gastro-esophageal reflux disease without esophagitis Status: Acute Assessment and Plan: Continue IV pantoprazole once a day. (6) HTN (hypertension), benign: Code(s): I10 - Essential (primary) hypertension Status: Chronic Assessment and Plan: Continue to hold amlodipine, hydrochlorothiazide and enalapril. Continue to monitor hemodynamics closely. Hydralazine on p.r.n.if blood pressure is elevated. (7) Elevated blood sugar: Code(s): R73.9 - Hyperglycemia, unspecified Status: Acute Assessment and Plan: He seems to have a new diagnosis of diabetes mellitus. Hemoglobin A1c was 8.6. continue insulin sliding scale. -continue Levemir (8) Acute renal failure: Code(s): N17.9 - Acute kidney failure, unspecified Status: Acute Assessment and Plan: Acute kidney injury with creatinine of 1.5 on admission, It has resolved now with some IV fluids. -hyperkalemia, improved (9) Hypernatremia: Code(s): E87.0 - Hyperosmolality and hypernatremia Status: Acute Assessment and Plan: continue tube flushes at 200 mL q.6 hours -sodium levels gradually improving (10) Seizure: Code(s): R56.9 - Unspecified convulsions Status: Acute Assessment and Plan: patient with seizure activity on 05/12/2020, patient was loaded with Keppra - neurology evaluated the patient - will hold Keppra since patient has not had any seizure activity - currently sedated with propofol and Versed (11) Dietary counseling and surveillance: Code(s): Z71.3 - Dietary counseling and surveillance Status: Acute Assessment and Plan: tolerating tube feeds, Glucerna, - continue MiraLax stress ulcer prophylaxis: Jaylan
[2020-05-24 17:38] LABS: Glucose Point of Care 205 (65-105)
[2020-05-24 22:11] LABS: Glucose Point of Care 164 (65-105)
[2020-05-25] VITALS (46 sets, daily range): BP systolic 80–143; BP diastolic 47–76; PULSE 53–112; RESP 22–47; TEMP 37.1–37.6; O2SAT 90–99
[2020-05-25] MEDS: NOREPINEPHRINE 8 MG/D5W 250 ML 8 MG/250 ML BAG 9.38 MG IV CONT (01:25)
[2020-05-25 01:59] LABS: Glucose Point of Care 202 (65-105)
[2020-05-25] MEDS: ALBUTEROL SULFATE NEB 2.5 MG/0.5 ML INH INHALATION ×4 (03:10→20:38)
[2020-05-25] MEDS: dexmedeTOMIDine 400 MCG/100 ML 400 MCG/100 ML BAG 23.96 MCG IV CONT (05:16)
[2020-05-25] MEDS: CENTRAL LINE FLUSH 10 ML IV PUSH ×2 (05:16→21:00)
[2020-05-25 05:18] LABS: Alveolar/Arterial O2 Gradient 446.2 mmHg; Base Excess ABG 4.8 mEq/l (+/-2.0); Carboxyhemoglobin 0.3 % THb (0-2.0); Fractional Inspired Oxygen 80 %; HCO3 ABG 30.2 mEq/l (22.0-26.0); Methemoglobin ABG 0.2 %THb (0-1.5); Oxygen Content ABG 15.4 %vol (16.0-22.0); Oxygen Saturation ABG 94.7 % (95.0-100.0); Oxyhemoglobin 93.1 % THb (90.0-100.0); PCO2 ABG 48.8 mmHg (35.0-45.0); PO2 FiO2 Ratio Arterial Blood 0.91 %; Reduced Hemoglobin 6.4 %THb (0-5.0); Total Hemoglobin 11.7 g/dL (12.0-18.0)
[2020-05-25 05:20] LABS: Modified Allen's Test Pass; Site Drawn RIGHT RADIAL
[2020-05-25 05:21] LABS: Arterial Blood Gas PEEP 10 cmH2O; Arterial Blood Gas Tidal Volume 520 ml; Arterial Blood Gas Vent Mode CMV; Arterial Blood Gas Ventilator rate 24 /MIN; Device VENTILATOR
[2020-05-25 06:10] LABS: Basophils Absolute Auto 0.1 K/mm3 (0.0-0.1); Basophils Percent Auto 0.7 % (0.2-1.2); Eosinophils Absolute Auto 0.2 K/mm3 (0-0.3); Eosinophils Percent Auto 1.7 % (0-4.4); Hematocrit 33.2 % (42.0-52.0); Hemoglobin 10.2 g/dL (14.0-18.0); Immature Granulocyte Percent A 4.5 % (0-0.5); Lymphocytes Absolute Auto 1.95 K/mm3 (0.9-3.2); Lymphocytes Percent Auto 14.6 % (18.3-44.2); Mean Corpuscular HGB Conc 30.7 g/dl (32-36); Mean Corpuscular Hemoglobin 27.1 pg (26-34); Mean Corpuscular Volume 88.1 fl (80-100); Mean Platelet Volume 11.6 fl (7.4-10.4); Monocytes Absolute Auto 0.6 K/mm3 (0.1-0.6); Monocytes Percent Auto 4.4 % (2.6-8.5); Neutrophils Absolute Auto 9.9 K/mm3 (1.3-6.7); Neutrophils Percent Auto 74.1 % (45.5-73.1); Nucleated Red Blood Cells Perc 0.3 % (0.0-0.2); Platelet Count Result 375 k/mm3 (150-375); Red Blood Count 3.77 M/mm3 (4.6-6.20); White Blood Count 13.4 K/mm3 (4.5-10.0)
[2020-05-25 06:22] LABS: D Dimer 3.98 ug/mL (<0.48)
[2020-05-25 06:22] LABS: Glucose Point of Care 177 (65-105)
[2020-05-25 06:28] LABS: Alanine Aminotransferase 57 U/L (4-50); Albumin Level 2.3 g/dL (3.5-5.1); Alkaline Phosphatase 124 U/L (38-126); Anion Gap 2 mmol/L (8-16); Aspartate Amino Transferase 59 U/L (17-59); Bilirubin,Total 0.5 mg/dL (0.2-1.3); Blood Urea Nitrogen 44 mg/dL (9-20); CRP 4.9 mg/dL (<1.0); Calcium 8.3 mg/dL (8.4-10.2); Carbon Dioxide 37 mmol/L (22-30); Chloride 99 mmol/L (98-107); Estimated CRCL calculation 78 ml/min; Estimated Glomerular Filt Rate 60; Glucose 208 mg/dL (75-110); Lactate Dehydrogenase 686 U/L (313-618); Magnesium 2.4 mg/dL (1.6-2.3); Phosphorus 3.3 mg/dL (2.5-4.5); Potassium 3.6 mmol/L (3.4-5.0); Sodium 138 mmol/L (137-145)
[2020-05-25] MEDS: POTASSIUM CHLORIDE 20 MEQ PACKET (FOR LIQUID) 40 MEQ FEED TUBE (09:01)
[2020-05-25] MEDS: ENOXAPARIN 40 MG/0.4 ML SYRINGE SUB-Q ×2 (09:02→20:27)
[2020-05-25] MEDS: INSULIN DETEMIR 100 UNITS/ML 32 UNITS SUB-Q ×2 (09:03→20:24)
[2020-05-25] MEDS: PANTOPRAZOLE SODIUM IV 40 MG VIAL IV PUSH (09:03)
[2020-05-25] MEDS: FUROSEMIDE INJ 40 MG/4 ML VIAL 20 MG IV PUSH (09:03)
[2020-05-25] MEDS: TOLNAFTATE 1% POWDER 45 GM BTL 1 APPLIC TOPICAL ×2 (09:04→20:28)
[2020-05-25] MEDS: DORNASE ALFA INH SOLN 1 MG/ML 2.5 ML AMP 2.5 MG INHALATION (09:09)
--- NOTE | 2020-05-25 10:19 | PM.IMPN ---
Progress Note: A&P Assessment and Plan (1) Shock: Code(s): R57.9 - Shock, unspecified Status: Acute Assessment and Plan: Patient be hypotensive overnight requiring norepinephrine. Blood pressure better controlled. Hypotension could be related to recent Lasix use. Continue to monitor. Wean Levophed as tolerated. (2) Acute respiratory failure: Code(s): J96.00 - Acute respiratory failure, unspecified whether with hypoxia or hypercapnia Status: Acute Assessment and Plan: ABG on admission showing 7.53// on BiPAP. Wore the BiPAP initially and did well. His condition worsened however and moved to ICU and intubated 05/12. Echo normal EF with grade 1 DD. Fevers resolving felt related to the probable bacterial PNA; continue IV abx. Vent management per certified forklift operator. Appreciate certified forklift operator input. (3) Pneumonia due to COVID-19 virus: Code(s): U07.1 - COVID-19; J12.89 - Other viral pneumonia Status: Acute Assessment and Plan: Patient COVID positive on 05/04/20. He was admitted on 05/08/20 and finished 10d of Decadron and finished Remdesivir. AST/ALT up and down felt related to COVID; LFTs better overall. Repeat sputum cultures growing pseudomonas and BREANNA so Zosyn and Vanco started 05/20. Repeat CXR 05/25 reviewed and showing mostly RLL. Continue to follow inflammatory markers and LFTs. Otherwise as above. (4) Pneumonia: Code(s): J18.9 - Pneumonia, unspecified organism Status: Acute Assessment and Plan: Sputum cultures growing pseudomonas and BREANNA and felt patient has superimposed bacterial pneumonia. Treatment as above. (5) Encephalopathy: Code(s): G93.40 - Encephalopathy, unspecified Status: Acute Assessment and Plan: Patient has become more responsive now. CT brain no change 05/19. EEG results abnormal record due to the presence of bihemispheric delta activity and with absence of the normal background rhythm particularly posteriorly. No evidence of any paroxysmal discharge to suggest organic or metabolic encephalopathy or postictal state. He did have a prolonged seizure on 05/13 and was on Keppra but now off. Continue to follow off sedation to assess recovery. (6) Seizure: Code(s): R56.9 - Unspecified convulsions Status: Acute Assessment and Plan: Patient had a seizure on 05/13 possibly related to hypoxia. He was on Keppra but stopped after a few days. CT brain showing no acute process 05/19. EEG as mentioned above. Continue to monitor. (7) HTN (hypertension), benign: Code(s): I10 - Essential (primary) hypertension Status: Chronic Assessment and Plan: Patient's blood pressure was reviewed on 05/25. BP dropped yesterday. Will continue to hold his amlodipine, enalapril and hydrochlorothiazide. IV hydralazine prn available. Resume meds if needed (8) Acute renal failure: Code(s): N17.9 - Acute kidney failure, unspecified Status: Acute Assessment and Plan: Patient's creatinine is 1.5 on admission. Yoni inhibitors and diuretics on hold. Creatine now 1.2 and up slightly from the Lasix. Continue to monitor. (9) Diabetes mellitus: Code(s): E11.9 - Type 2 diabetes mellitus without complications Status: Acute Assessment and Plan: A1c 8.6 consistent with new diagnosis of DM. Glucose reviewed on 05/25 Glucose reasonably well controlled. Continue AccuCheks covering with sliding scale. Continue Levemir. (10) Gout: Code(s): M10.9 - Gout, unspecified Status: Chronic Assessment and Plan: Stable. Allopurinol remains on hold. (11) Chronic GERD: Code(s): K21.9 - Gastro-esophageal reflux disease without esophagitis Status: Chronic Assessment and Plan: Stable. Continue IV Protonix. (12) DVT prophylaxis: Code(s): Z29.9 - Encounter for prophylactic measures, unspecified Stat
[2020-05-25 11:56] LABS: Glucose Point of Care 192 (65-105)
[2020-05-25] MEDS: dexmedeTOMIDine 400 MCG/100 ML 400 MCG/100 ML BAG 51.34 MCG IV CONT ×2 (12:05→16:57)
--- NOTE | 2020-05-25 13:17 | WPDINTPN ---
Progress Note: A&P Assessment and Plan (1) Shock: Code(s): R57.9 - Shock, unspecified Status: Acute Assessment and Plan: Patient hypotensive overnight on 05/24, likely related to diuresis, started on Levophed, will maintain mean arterial pressures > 65 mmHg. -could also be related to pneumonia -will check lactic acid, monitor urine output to evaluate end organ perfusion (2) Acute respiratory failure with hypoxemia: Code(s): J96.01 - Acute respiratory failure with hypoxia Status: Acute Assessment and Plan: Acute respiratory failure hypoxemia secondary to COVID-19 pneumonia - patient has been alternating with BiPAP and high-flow therapy since 05/08/2020. - intubated on 05/12/2020 -chest x-ray shows persistent relative stable bilateral pulmonary infiltrates - continue CMV mode of ventilation, tidal volumes will be increased to 520 mL which is 6 mL/kilogram. Decreased PEEP to 8, and FiO2 70% -patient only on Precedex infusion for vent synchrony -he was on fentanyl and Versed infusion and it took him 4 days to wake up once the infusions were discontinued -responded well to diuresis 05/24, will give a small dose of Lasix today since his blood pressures are borderline -patient on Pulmozyme Bilateral upper extremity swelling, venous Dopplers of bilateral upper extremities done on 05/21, showed bilateral upper extremity superficial venous thrombosis (3) Fever: Code(s): R50.9 - Fever, unspecified Status: Acute Assessment and Plan: Fever curve improving Venous Dopplers 05/16/2020: No DVT bilateral lower extremity blood cultures from 05/16/2020: Negative x2 from 05/18/2020 negative x1 -sputum cultures from 05/19 bring Pseudomonas and Staph aureus (BREANNA), patient with leukocytosis, fevers and infiltrates on chest x-ray. -will discontinue Zosyn and vancomycin and start ciprofloxacin which should cover both Pseudomonas and oxacillin sensitive Staph aureus (4) Pneumonia due to COVID-19 virus: Code(s): U07.1 - COVID-19; J12.89 - Other viral pneumonia Status: Acute Assessment and Plan: Completed a course of dexamethasone and Remdesivir. - appreciate infectious disease evaluation recommendation. he is not a candidate for convalescent plasma. - continue droplet, airborne, contact isolation /precautions -LDH and ferritin are normal, D-dimer and CRP are trending down (5) Encephalopathy: Code(s): G93.40 - Encephalopathy, unspecified Status: Acute Assessment and Plan: Gradually improving, patient is off sedation since 05/20/2020 -CT scan of the brain on 05/19/2020 did not show any acute intracranial abnormalities -neurology evaluated him on admission -EEG from 05/20/2020 or metabolic encephalopathy or postictal state (6) GERD (gastroesophageal reflux disease): Code(s): K21.9 - Gastro-esophageal reflux disease without esophagitis Status: Acute Assessment and Plan: Continue IV pantoprazole once a day. (7) HTN (hypertension), benign: Code(s): I10 - Essential (primary) hypertension Status: Chronic Assessment and Plan: Continue to hold amlodipine, hydrochlorothiazide and enalapril. Continue to monitor hemodynamics closely. Hydralazine on p.r.n.if blood pressure is elevated. (8) Elevated blood sugar: Code(s): R73.9 - Hyperglycemia, unspecified Status: Acute Assessment and Plan: He seems to have a new diagnosis of diabetes mellitus. Hemoglobin A1c was 8.6. continue insulin sliding scale. -continue Levemir (9) Acute renal failure: Code(s): N17.9 - Acute kidney failure, unspecified Status: Acute Assessment and Plan: Acute kidney injury with creatinine of 1.5 on admission, It has resolved now with some IV fluids. -hypokalemia -will replace potassium (10) Hypernatremia: Code(s): E87.0 - Hyperosmolality and hypernatremia Status: Acu
[2020-05-25] MEDS: CIPROFLOXACIN 400 MG/D5W 200ML 200 ML 200 MG IVPB ×2 (15:39→21:00)
[2020-05-25 15:58] LABS: Lactic Acid Reflex 3.2 mmol/L (0.7-2.1)
[2020-05-25 18:45] LABS: Reflex Lactic Acid Yes or No Add Lactic
[2020-05-25] MEDS: dexmedeTOMIDine 400 MCG/100 ML 400 MCG/100 ML BAG 44.49 MCG IV CONT ×3 (18:56→23:09)
[2020-05-25 19:07] LABS: Glucose Point of Care 168 (65-105)
[2020-05-25 21:28] LABS: Lactic Acid 3.2 mmol/L (0.7-2.1)
[2020-05-25 22:12] LABS: Glucose Point of Care 132 (65-105)
[2020-05-26] VITALS (28 sets, daily range): BP systolic 89–170; BP diastolic 46–88; PULSE 63–101; RESP 22–42; TEMP 36.7–37.3; O2SAT 87–100
[2020-05-26] MEDS: dexmedeTOMIDine 400 MCG/100 ML 400 MCG/100 ML BAG 44.49 MCG IV CONT ×3 (01:24→05:41)
[2020-05-26 01:26] LABS: Glucose Point of Care 129 (65-105)
[2020-05-26] MEDS: ALBUTEROL SULFATE NEB 2.5 MG/0.5 ML INH INHALATION ×4 (02:56→20:38)
[2020-05-26] MEDS: CENTRAL LINE FLUSH 10 ML IV PUSH ×2 (05:28→23:34)
[2020-05-26] MEDS: CIPROFLOXACIN 400 MG/D5W 200ML 200 ML 200 MG IVPB ×3 (05:28→23:34)
[2020-05-26 05:31] LABS: Alveolar/Arterial O2 Gradient 421.6 mmHg; Base Excess ABG 3.9 mEq/l (+/-2.0); Carboxyhemoglobin 0.3 % THb (0-2.0); Fractional Inspired Oxygen 80 %; HCO3 ABG 33.2 mEq/l (22.0-26.0); Methemoglobin ABG 0.2 %THb (0-1.5); Oxygen Content ABG 16.2 %vol (16.0-22.0); Oxygen Saturation ABG 90.2 % (95.0-100.0); Oxyhemoglobin 90.7 % THb (90.0-100.0); PO2 ABG 68.7 mmHg (80.0-100.0); PO2 FiO2 Ratio Arterial Blood 0.86 %; Reduced Hemoglobin 8.8 %THb (0-5.0); Total Hemoglobin 12.7 g/dL (12.0-18.0)
[2020-05-26 05:35] LABS: Device VENTILATOR; Modified Allen's Test Unable to perform; PCO2 ABG 76.3 mmHg (35.0-45.0); Site Drawn RIGHT RADIAL; pH ABG 7.257 (7.350-7.450)
[2020-05-26 05:36] LABS: Arterial Blood Gas PEEP 8 cmH2O; Arterial Blood Gas Vent Mode PRESSURE CONTROL; Arterial Blood Gas Ventilator rate 22 /MIN; Peak Inspiratory Pressure 22 cmH2O
[2020-05-26 06:18] LABS: Basophils Absolute Auto 0.1 K/mm3 (0.0-0.1); Basophils Percent Auto 0.9 % (0.2-1.2); Eosinophils Absolute Auto 0.3 K/mm3 (0-0.3); Eosinophils Percent Auto 2.2 % (0-4.4); Immature Granulocyte Absolute 0.65 K/mm3 (0.00-0.031); Immature Granulocyte Percent A 4.8 % (0-0.5); Lymphocytes Absolute Auto 2.19 K/mm3 (0.9-3.2); Lymphocytes Percent Auto 16.3 % (18.3-44.2); Mean Corpuscular HGB Conc 30.3 g/dl (32-36); Mean Corpuscular Hemoglobin 26.9 pg (26-34); Mean Corpuscular Volume 88.7 fl (80-100); Mean Platelet Volume 11.4 fl (7.4-10.4); Monocytes Absolute Auto 0.6 K/mm3 (0.1-0.6); Monocytes Percent Auto 4.4 % (2.6-8.5); Neutrophils Absolute Auto 9.6 K/mm3 (1.3-6.7); Neutrophils Percent Auto 71.4 % (45.5-73.1); Nucleated Red Blood Cells Perc 0.1 % (0.0-0.2); Platelet Count Result 345 k/mm3 (150-375); Red Blood Count 3.72 M/mm3 (4.6-6.20); Red Cell Distribution Width 15.9 % (11.5-14.5); White Blood Count 13.4 K/mm3 (4.5-10.0)
[2020-05-26 06:41] LABS: Alanine Aminotransferase 53 U/L (4-50); Albumin Level 2.4 g/dL (3.5-5.1); Alkaline Phosphatase 123 U/L (38-126); Anion Gap 1 mmol/L (8-16); Aspartate Amino Transferase 51 U/L (17-59); Bilirubin,Total 0.3 mg/dL (0.2-1.3); Blood Urea Nitrogen 42 mg/dL (9-20); Calcium 8.4 mg/dL (8.4-10.2); Carbon Dioxide 38 mmol/L (22-30); Chloride 102 mmol/L (98-107); Estimated CRCL calculation 93 ml/min; Estimated Glomerular Filt Rate > 60; Glucose 111 mg/dL (75-110); Magnesium 2.5 mg/dL (1.6-2.3); Potassium 4.2 mmol/L (3.4-5.0); Sodium 141 mmol/L (137-145)
[2020-05-26 07:29] LABS: Glucose Point of Care 111 (65-105)
[2020-05-26] MEDS: DORNASE ALFA INH SOLN 1 MG/ML 2.5 ML AMP 2.5 MG INHALATION ×2 (08:23→20:38)
--- NOTE | 2020-05-26 10:11 | PM.IMPN ---
Progress Note: A&P Assessment and Plan (1) Shock: Code(s): R57.9 - Shock, unspecified Status: Acute Assessment and Plan: Patient was hypotensive 05/25 requiring norepinephrine but able to come off quickly. Blood pressure better controlled. Hypotension could be related to recent Lasix use. Continue to monitor. (2) Acute respiratory failure: Code(s): J96.00 - Acute respiratory failure, unspecified whether with hypoxia or hypercapnia Status: Acute Assessment and Plan: ABG on admission showing 7.53/25/63 on BiPAP. Wore the BiPAP initially but his condition worsened however and moved to ICU and intubated 05/12. Echo normal EF with grade 1 DD. Fevers resolving felt related to the probable bacterial PNA; continue IV abx. Vent management per seaman. Appreciate seaman input. (3) Pneumonia due to COVID-19 virus: Code(s): U07.1 - COVID-19; J12.89 - Other viral pneumonia Status: Acute Assessment and Plan: Patient COVID positive on 05/04/20. He was admitted on 05/08/20 and finished 10d of Decadron and finished Remdesivir. AST/ALT up and down felt related to COVID; LFTs better overall. Repeat sputum cultures growing pseudomonas and BREANNA so Zosyn and Vanco started 05/20 through 05/25 and now changed to Cipro. Repeat CXR 05/26 reviewed and showing diffuse bilateral infiltrates. BCx 05/25 pending; Sputum Cx 05/26 pending. Continue to follow inflammatory markers and LFTs. Otherwise as above. (4) Pneumonia: Code(s): J18.9 - Pneumonia, unspecified organism Status: Acute Assessment and Plan: Sputum cultures growing pseudomonas and BREANNA and felt patient has superimposed bacterial pneumonia. Treatment as above. (5) Encephalopathy: Code(s): G93.40 - Encephalopathy, unspecified Status: Acute Assessment and Plan: Patient had a a prolonged seizure on 05/13 and was on Keppra but now off. Patient was unresponsive off sedation. CT brain no change 05/19. EEG results abnormal record due to the presence of bihemispheric delta activity and with absence of the normal background rhythm particularly posteriorly. No evidence of any paroxysmal discharge to suggest organic or metabolic encephalopathy or postictal state. He has become more responsive now. Continue to follow off sedation to assess recovery. (6) Seizure: Code(s): R56.9 - Unspecified convulsions Status: Acute Assessment and Plan: Patient had a seizure on 05/13 possibly related to hypoxia. He was on Keppra but stopped after a few days. CT brain showing no acute process 05/19. EEG as mentioned above. Continue to monitor. (7) HTN (hypertension), benign: Code(s): I10 - Essential (primary) hypertension Status: Chronic Assessment and Plan: Patient's blood pressure was reviewed on 05/26. BP dropped yesterday. Will continue to hold his amlodipine, enalapril and hydrochlorothiazide. IV hydralazine prn available. Resume meds if needed (8) Acute renal failure: Code(s): N17.9 - Acute kidney failure, unspecified Status: Acute Assessment and Plan: Patient's creatinine is 1.5 on admission. Yoni inhibitors and diuretics on hold. Creatine now 1.0. Continue to monitor. (9) Diabetes mellitus: Code(s): E11.9 - Type 2 diabetes mellitus without complications Status: Acute Assessment and Plan: A1c 8.6 consistent with new diagnosis of DM. Glucose reviewed on 05/26 Glucose better controlled. Continue AccuCheks covering with sliding scale. Continue Levemir (10) Gout: Code(s): M10.9 - Gout, unspecified Status: Chronic Assessment and Plan: Stable. Allopurinol remains on hold. (11) Chronic GERD: Code(s): K21.9 - Gastro-esophageal reflux disease without esophagitis Status: Chronic Assessment and Plan: Stable. Continue IV Protonix. (12) DVT prophylaxi
[2020-05-26] MEDS: INSULIN DETEMIR 100 UNITS/ML 32 UNITS SUB-Q (11:09)
[2020-05-26] MEDS: PANTOPRAZOLE SODIUM IV 40 MG VIAL IV PUSH (11:09)
[2020-05-26] MEDS: ENOXAPARIN 40 MG/0.4 ML SYRINGE SUB-Q ×2 (11:09→20:11)
[2020-05-26] MEDS: TOLNAFTATE 1% POWDER 45 GM BTL 1 APPLIC TOPICAL ×2 (11:10→20:12)
[2020-05-26 12:25] LABS: Glucose Point of Care 97 (65-105)
--- NOTE | 2020-05-26 13:00 | WPDINTPN ---
Progress Note: A&P Assessment and Plan (1) Shock: Code(s): R57.9 - Shock, unspecified Status: Acute Assessment and Plan: Patient hypotensive overnight on 05/24, likely related to diuresis, -remains on Levophed, will maintain mean arterial pressures > 65 mmHg. -lactic acid 3.2, likely related to pneumonia, will give additional IV fluids and recheck lactic acid (2) Acute respiratory failure with hypoxemia: Code(s): J96.01 - Acute respiratory failure with hypoxia Status: Acute Assessment and Plan: Acute respiratory failure hypoxemia secondary to COVID-19 pneumonia - patient has been alternating with BiPAP and high-flow therapy since 05/08/2020. - intubated on 05/12/2020 -chest x-ray and ABGs reviewed, in switched back to CMV mode of ventilation, wean FiO2 as tolerated -patient on Precedex infusion at 1.3 mcg, patient is uncomfortable and dyssynchronous with the ventilator and tachypneic. Have asked the bedside RN to start propofol and discontinue Precedex -patient was on Versed and fentanyl initially and took him 4 days to wake up after discontinuing Versed and fentanyl. -patient on Pulmozyme Bilateral upper extremity swelling, venous Dopplers of bilateral upper extremities done on 05/21, showed bilateral upper extremity superficial venous thrombosis (3) Fever: Code(s): R50.9 - Fever, unspecified Status: Acute Assessment and Plan: Fever curve improving Venous Dopplers 05/16/2020: No DVT bilateral lower extremity blood cultures from 05/16/2020: Negative x2 from 05/18/2020 negative x1 -sputum cultures from 05/19 bring Pseudomonas and Staph aureus (BREANNA), patient with leukocytosis, fevers and infiltrates on chest x-ray. -continue ciprofloxacin, initiated on 05/25/2020 (4) Pneumonia due to COVID-19 virus: Code(s): U07.1 - COVID-19; J12.89 - Other viral pneumonia Status: Acute Assessment and Plan: Completed a course of dexamethasone and Remdesivir. - appreciate infectious disease evaluation recommendation. he is not a candidate for convalescent plasma. - continue droplet, airborne, contact isolation /precautions -LDH and ferritin are normal, D-dimer and CRP are trending down (5) Encephalopathy: Code(s): G93.40 - Encephalopathy, unspecified Status: Acute Assessment and Plan: Gradually improving, patient is off sedation since 05/20/2020 -CT scan of the brain on 05/19/2020 did not show any acute intracranial abnormalities -neurology evaluated him on admission -EEG from 05/20/2020 or metabolic encephalopathy or postictal state (6) GERD (gastroesophageal reflux disease): Code(s): K21.9 - Gastro-esophageal reflux disease without esophagitis Status: Acute Assessment and Plan: Continue IV pantoprazole once a day. (7) HTN (hypertension), benign: Code(s): I10 - Essential (primary) hypertension Status: Chronic Assessment and Plan: Patient requiring Levophed, continue to hold all antihypertensives (8) Elevated blood sugar: Code(s): R73.9 - Hyperglycemia, unspecified Status: Acute Assessment and Plan: He seems to have a new diagnosis of diabetes mellitus. Hemoglobin A1c was 8.6. continue insulin sliding scale. -continue Levemir (9) Acute renal failure: Code(s): N17.9 - Acute kidney failure, unspecified Status: Acute Assessment and Plan: Acute kidney injury has resolved with creatinine 1.0 this morning -hypokalemia -resolved (10) Hypernatremia: Code(s): E87.0 - Hyperosmolality and hypernatremia Status: Acute Assessment and Plan: RESOLVED (11) Seizure: Code(s): R56.9 - Unspecified convulsions Status: Acute Assessment and Plan: patient with seizure activity on 05/12/2020, patient was loaded with Keppra - neurology evaluated the patient - will hold Keppra since patient has not had any seizure act
[2020-05-26] MEDS: PROPOFOL IV EMULSION 100 ML 41.25 MG IV CONT ×4 (14:21→22:32)
[2020-05-26] MEDS: hetaSTARCH 6%/NACL 500 ML 250 ML IV CONT (14:27)
[2020-05-26 16:03] LABS: Lactic Acid Reflex 2.9 mmol/L (0.7-2.1)
[2020-05-26 17:23] LABS: Glucose Point of Care 90 (65-105)
[2020-05-26] MEDS: DEXTROSE 10% 500 ML 20 ML IV CONT (17:55)
[2020-05-26 18:49] LABS: Reflex Lactic Acid Yes or No Add Lactic
[2020-05-26 21:12] LABS: Glucose Point of Care 82 (65-105)
[2020-05-27] VITALS (26 sets, daily range): BP systolic 113–151; BP diastolic 63–78; PULSE 78–102; RESP 25–34; TEMP 35.9–36.2; O2SAT 91–100
[2020-05-27] MEDS: ALBUTEROL SULFATE NEB 2.5 MG/0.5 ML INH INHALATION ×4 (03:40→20:20)
[2020-05-27 04:16] LABS: Alveolar/Arterial O2 Gradient 578.1 mmHg; Base Excess ABG 8.1 mEq/l (+/-2.0); Carboxyhemoglobin 0.3 % THb (0-2.0); Fractional Inspired Oxygen 100 %; HCO3 ABG 33.8 mEq/l (22.0-26.0); Methemoglobin ABG 0.3 %THb (0-1.5); Oxygen Content ABG 12.8 %vol (16.0-22.0); Oxygen Saturation ABG 95.9 % (95.0-100.0); Oxyhemoglobin 94.9 % THb (90.0-100.0); PCO2 ABG 53.7 mmHg (35.0-45.0); PO2 ABG 81.2 mmHg (80.0-100.0); PO2 FiO2 Ratio Arterial Blood 0.81 %; Reduced Hemoglobin 4.5 %THb (0-5.0); Site Drawn RIGHT BRACHIAL; Total Hemoglobin 9.5 g/dL (12.0-18.0); pH ABG 7.417 (7.350-7.450)
[2020-05-27 04:17] LABS: Device VENTILATOR
[2020-05-27 04:18] LABS: Arterial Blood Gas PEEP 10 cmH2O; Arterial Blood Gas Tidal Volume 520 ml; Arterial Blood Gas Vent Mode CMV; Arterial Blood Gas Ventilator rate 24 /MIN
[2020-05-27] MEDS: PROPOFOL IV EMULSION 100 ML 40.41 MG IV CONT ×3 (05:15→11:34)
[2020-05-27] MEDS: CENTRAL LINE FLUSH 10 ML IV PUSH ×3 (06:20→21:47)
[2020-05-27] MEDS: CIPROFLOXACIN 400 MG/D5W 200ML 200 ML 200 MG IVPB ×3 (06:20→21:53)
[2020-05-27 07:01] LABS: Hematocrit 29.7 % (42.0-52.0); Hemoglobin 9.2 g/dL (14.0-18.0); Mean Corpuscular Hemoglobin 27.1 pg (26-34); Mean Corpuscular Volume 87.6 fl (80-100); Mean Platelet Volume 11.1 fl (7.4-10.4); Platelet Count Result 325 k/mm3 (150-375); Red Blood Count 3.39 M/mm3 (4.6-6.20); Red Cell Distribution Width 16.1 % (11.5-14.5); White Blood Count 12.2 K/mm3 (4.5-10.0)
[2020-05-27 07:05] LABS: Lactic Acid 1.5 mmol/L (0.7-2.1)
[2020-05-27 07:08] LABS: D Dimer 3.39 ug/mL (<0.48)
[2020-05-27 07:26] LABS: Glucose Point of Care 83 (65-105)
[2020-05-27 07:39] LABS: Potassium 3.8 mmol/L (3.4-5.0)
[2020-05-27 07:44] LABS: Band Neutrophils Percent 1 % (0-6); Eosinophils Absolute Manual 0.12 K/mm3 (0.02-0.5); Eosinophils Percent Manual 1 % (0-4); Lymphocytes Absolute Manual 2.44 K/mm3 (1.1-4.5); Monocytes Absolute Manual 0.61 K/mm3 (0.1-0.90); Monocytes Percent Manual 5 % (3-9); Neutrophils Absolute Manual 9.02 K/mm3 (1.3-6.7); Neutrophils Percent Manual 73 % (46-73); Nucleated Red Blood Cells 1 %; Total Cells Counted 100
[2020-05-27 07:45] LABS: Albumin Level 2.1 g/dL (3.5-5.1); Anion Gap -2.00001 mmol/L (8-16); Blood Urea Nitrogen 31 mg/dL (9-20); CRP 5.9 mg/dL (<1.0); Carbon Dioxide > 40 mmol/L (22-30); Chloride 101 mmol/L (98-107); Estimated CRCL calculation 114 ml/min; Estimated Glomerular Filt Rate > 60; Glucose 72 mg/dL (75-110); Lactate Dehydrogenase 621 U/L (313-618); Magnesium 2.4 mg/dL (1.6-2.3); Platelet Estimate Adequate (Adequate); Sodium 139 mmol/L (137-145)
[2020-05-27] MEDS: DORNASE ALFA INH SOLN 1 MG/ML 2.5 ML AMP 2.5 MG INHALATION (08:05)
[2020-05-27] MEDS: ENOXAPARIN 40 MG/0.4 ML SYRINGE SUB-Q ×2 (08:21→20:28)
[2020-05-27] MEDS: TOLNAFTATE 1% POWDER 45 GM BTL 1 APPLIC TOPICAL ×2 (08:22→20:29)
[2020-05-27] MEDS: PANTOPRAZOLE SODIUM IV 40 MG VIAL IV PUSH (08:22)
[2020-05-27 08:37] LABS: Glucose Point of Care 79 (65-105)
--- NOTE | 2020-05-27 10:25 | PM.IMPN ---
Progress Note: A&P Assessment and Plan (1) Shock: Code(s): R57.9 - Shock, unspecified Status: Acute Assessment and Plan: Patient was hypotensive 05/25 requiring norepinephrine but able to come off quickly. Blood pressure better controlled. Hypotension could be related to recent Lasix use or from bacteremia/PNA. Continue to monitor. (2) Acute respiratory failure: Code(s): J96.00 - Acute respiratory failure, unspecified whether with hypoxia or hypercapnia Status: Acute Assessment and Plan: ABG on admission showing 7.53/25/63 on BiPAP. Wore the BiPAP initially but his condition worsened however and moved to ICU and intubated 05/12. Echo normal EF with grade 1 DD. Fevers resolved felt related to COVID and probable bacterial PNA; continue IV abx. Vent management per trauma surgeon. Consider trach given >2 weeks on vent. Appreciate trauma surgeon input. (3) Pneumonia due to COVID-19 virus: Code(s): U07.1 - COVID-19; J12.89 - Other viral pneumonia Status: Acute Assessment and Plan: Patient COVID positive on 05/04/20. He was admitted on 05/08/20 and finished 10d of Decadron and finished Remdesivir. AST/ALT up and down felt related to COVID; LFTs better overall. Repeat sputum cultures growing pseudomonas and BREANNA so Zosyn and Vanco started 05/20 through 05/25 and now changed to Cipro. Repeat CXR 05/27 reviewed and showing no change. BCx 05/25 growing GPC in clusters (2of2); Sputum Cx 05/26 pending. BCx could be contaminate but did have BREANNA in sputum recently. Add Vacno until BCx results known. One BCx growing Coag Negative Staph. (4) Pneumonia: Code(s): J18.9 - Pneumonia, unspecified organism Status: Acute Assessment and Plan: Sputum cultures growing pseudomonas and BREANNA and felt patient has superimposed bacterial pneumonia. Treatment as above. (5) Encephalopathy: Code(s): G93.40 - Encephalopathy, unspecified Status: Acute Assessment and Plan: Patient had a a prolonged seizure on 05/13 and was on Keppra but now off. Patient had been unresponsive off sedation. CT brain no change 05/19. EEG results abnormal record due to the presence of bihemispheric delta activity and with absence of the normal background rhythm particularly posteriorly. No evidence of any paroxysmal discharge to suggest organic or metabolic encephalopathy or postictal state. He had become more responsive but now back on sedation Diprivan. Continue to follow and allow for sedation holiday at times. (6) Seizure: Code(s): R56.9 - Unspecified convulsions Status: Acute Assessment and Plan: Patient had a seizure on 05/13 possibly related to hypoxia. He was on Keppra but stopped after a few days. CT brain showing no acute process 05/19. EEG as mentioned above. Continue to monitor. (7) HTN (hypertension), benign: Code(s): I10 - Essential (primary) hypertension Status: Chronic Assessment and Plan: Patient's blood pressure was reviewed on 05/27. BP stable. Will continue to hold his amlodipine, enalapril and hydrochlorothiazide. IV hydralazine prn available. Resume meds if needed (8) Acute renal failure: Code(s): N17.9 - Acute kidney failure, unspecified Status: Acute Assessment and Plan: Patient's creatinine is 1.5 on admission. Yoni inhibitors and diuretics on hold. Creatine normal now Continue to monitor. (9) Diabetes mellitus: Code(s): E11.9 - Type 2 diabetes mellitus without complications Status: Acute Assessment and Plan: A1c 8.6 consistent with new diagnosis of DM. Glucose reviewed on 05/27 Glucose too well controlled. Continue AccuCheks covering with sliding scale. Decrease Levemir. (10) Gout: Code(s): M10.9 - Gout, unspecified Status: Chronic Assessment and Plan: Stable. Allopurinol remains on hold. (11) Chronic GERD: Co
[2020-05-27 12:35] LABS: Glucose Point of Care 107 (65-105)
--- NOTE | 2020-05-27 13:26 | PCDIET ---
ICU Rounding Note: Tube feedings previously held for proning; order to resume today (Glucerna 1.2 at 65mL/hr). If Propofol continues at high rate, may suggest decreasing tube feeding goal rate to 50mL/hr. Last recorded weight is 134.7kg which is down from last review. +I/O. Bowel Motility: Last documented BM on 05/26/20 x 1. Labs Reviewed: Hgb (9.2), Hct (29.7), Glu (72), BUN (31), Alb (2.1) Meds Noted: Albuterol, Cipro, Pulmozyme, Fentanyl, Hydralazine, Novolog, Levemir, Levophed, Protonix, Vancomycin, Propofol (rate of 40.41mL/hr provides 1066kcal per day) Additional Notes: Right ear abrasion. Frontal head scab. Following daily in ICU rounds. Assessing/reassessing every Wednesday/Wednesday.
--- NOTE | 2020-05-27 13:44 | WPDINFPN2 ---
Progress Note: A&P Assessment and Plan (1) Pneumonia due to COVID-19 virus: Code(s): U07.1 - COVID-19; J12.89 - Other viral pneumonia Status: Acute Assessment and Plan: 1. Viral pneumonia due to CoVid 19, stable 2. Respiratory failure, worsening gas exchange with persistent abn CX. He may have a bacterial superinfection. REC Off dexamethasone. Continue ciprofloxacin and Vanc Subjective Date/time seen: 05/27/20 13:44 Interval history: on vent Exam Narrative: Exam Narrative: afebrile Resp: Effort & Inspection: normal respiratory effort Auscultation: clear to auscultation bilaterally, no crackles, no rales, no rhonchi and no bronchial breath sounds Percussion: percussion normal Cardio: Rate: tachycardic Rhythm: regular rhythm Heart sounds: S1 normal heart sound present and S2 normal heart sound present GI: Inspection: normal to inspection GI Palp: No abdominal tenderness and No Palpable mass present Urinary Catheter: Urinary Catheter: patent and draining and urine clear Objective Data Vital Signs Vital Signs: Vital Signs - 24 hr 05/26/20 14:00 05/26/20 16:00 05/26/20 17:12 Temperature 36.7 C Pulse Rate 91 87 91 Respiratory Rate 22 H 24 H 28 H Blood Pressure 114/88 116/59 L Pulse Oximetry 87 L 96 05/26/20 17:36 05/26/20 18:00 05/26/20 20:00 Temperature 36.8 C Pulse Rate 92 94 93 Respiratory Rate 25 H 25 H Blood Pressure 125/69 170/82 H Pulse Oximetry 96 98 96 05/26/20 20:38 05/26/20 20:48 05/26/20 22:00 Temperature Pulse Rate 95 92 87 Respiratory Rate 25 H 25 H 24 H Blood Pressure 139/68 Pulse Oximetry 99 100 05/26/20 23:40 05/27/20 00:00 05/27/20 02:00 Temperature Pulse Rate 90 87 89 Respiratory Rate 25 H 27 H Blood Pressure 129/68 113/68 Pulse Oximetry 100 100 97 05/27/20 03:40 05/27/20 03:47 05/27/20 04:00 Temperature Pulse Rate 78 81 82 Respiratory Rate 25 H 25 H 26 H Blood Pressure 118/67 Pulse Oximetry 99 99 05/27/20 06:00 05/27/20 07:44 05/27/20 08:00 Temperature 36.2 C L Pulse Rate 87 90 87 Respiratory Rate 30 H 27 H 30 H Blood Pressure 151/75 H 122/71 Pulse Oximetry 96 96 05/27/20 08:07 05/27/20 08:32 05/27/20 10:00 Temperature Pulse Rate 86 90 83 Respiratory Rate 31 H 27 H 27 H Blood Pressure 119/66 Pulse Oximetry 96 97 05/27/20 11:01 05/27/20 11:34 05/27/20 12:00 Temperature 35.9 C L Pulse Rate 90 90 89 Respiratory Rate 27 H 27 H 28 H Blood Pressure 117/63 Pulse Oximetry 93 05/27/20 12:03 Temperature Pulse Rate 88 Respiratory Rate Blood Pressure Pulse Oximetry 91 Intake/Output Intake/Output: Intake & Output 05/24/20 05/25/20 05/26/20 05/27/20 23:59 23:59 23:59 23:59 Intake Total 3422 3904 2692 1200 Output Total 3250 1675 1350 875 Balance 172 2229 1342 325 Meds/Results Medications: Active Medications Generic Name Dose Route Start Last Admin Trade Name Freq PRN Reason Stop Dose Admin Albuterol 2.5 mg 05/12/20 14:00 05/27/20 08:05 Albuterol Sulfate Neb 2.5 Mg/0.5 Ml Inh INHALATION 2.5 mg Q6HRT JENNA Administration Alteplase, Recombinant 2 mg 05/20/20 17:36 05/23/20 15:56 Alteplase 2 Mg Vial (Cathflo) IV PUSH 2 mg ONCE PRN Administration Line Occlusion Bisacodyl 10 mg 05/16/20 10:24 05/20/20 07:47 Bisacodyl 10 Mg Suppository RECTAL 10 mg QAM PRN Administration Constipation Dextrose 12.5 gm 05/09/20 00:00 Dextrose 50% 25 Gm/50 Ml Syringe IV PUSH PRN PRN Hypoglycemia Protocol Dornase Kb 2.5 mg 05/14/20 09:20 05/27/20 08:05 Dornase Kb Inh Soln 1 Mg/Ml 2.5 Ml Amp INHALATION 2.5 mg Q12HRT JENNA Administration Enoxaparin Sodium 40 mg 05/09/20 21:00 05/27/20 08:21 Enoxaparin 40 Mg/0.4 Ml Syringe SUB-Q 40 mg Q12HR JENNA Administration Fentanyl Citrate 25 mcg 05/23/20 23:58 05/24/20 03:05 Fentanyl Citrate Inj (*Crx) 100 Mcg/2 Ml Vial IV PUSH 25 mcg ONCE PRN Administra
--- NOTE | 2020-05-27 17:32 | WPDINTPN ---
Progress Note: A&P Assessment and Plan (1) Acute respiratory failure with hypoxemia: Code(s): J96.01 - Acute respiratory failure with hypoxia Status: Acute Assessment and Plan: Acute respiratory failure hypoxemia secondary to COVID-19 pneumonia - patient has been alternating with BiPAP and high-flow therapy since 05/08/2020. - intubated on 05/12/2020 -chest x-ray and ABGs reviewed, in switched back to CMV mode of ventilation, wean FiO2 as tolerated Started on propofol for sedation Pulmozyme has been discontinued Bilateral upper extremity swelling, venous Dopplers of bilateral upper extremities done on 05/21, showed bilateral upper extremity superficial venous thrombosis (2) Fever: Code(s): R50.9 - Fever, unspecified Status: Acute Assessment and Plan: Fever curve has resolved Venous Dopplers 05/16/2020: No DVT bilateral lower extremity blood cultures from 05/16/2020: Negative x2 from 05/18/2020 negative x1 -sputum cultures from 05/19 bring Pseudomonas and Staph aureus (BREANNA), patient with leukocytosis, fevers and infiltrates on chest x-ray. -continue ciprofloxacin, initiated on 05/25/2020, continue vancomycin -repeat blood cultures 05/25 growing gram-positive cocci in clusters -repeat sputum culture 05/26/2020 growing Pseudomonas and Staph aureus -appreciate infectious disease evaluation recommendation, continue Cipro and vancomycin for now (3) Shock: Code(s): R57.9 - Shock, unspecified Status: Acute Assessment and Plan: Patient hypotensive overnight on 05/24, likely related to diuresis, and or infection Off Levophed, -lactic acid normalized (4) Pneumonia due to COVID-19 virus: Code(s): U07.1 - COVID-19; J12.89 - Other viral pneumonia Status: Acute Assessment and Plan: Completed a course of dexamethasone and Remdesivir. - appreciate infectious disease evaluation recommendation. he is not a candidate for convalescent plasma. - continue droplet, airborne, contact isolation /precautions -LDH and ferritin are normal, D-dimer and CRP are trending down (5) Encephalopathy: Code(s): G93.40 - Encephalopathy, unspecified Status: Acute Assessment and Plan: Gradually improving, patient is off sedation since 05/20/2020 -CT scan of the brain on 05/19/2020 did not show any acute intracranial abnormalities -neurology evaluated him on admission -EEG from 05/20/2020 or metabolic encephalopathy or postictal state (6) GERD (gastroesophageal reflux disease): Code(s): K21.9 - Gastro-esophageal reflux disease without esophagitis Status: Acute Assessment and Plan: Continue IV pantoprazole once a day. (7) HTN (hypertension), benign: Code(s): I10 - Essential (primary) hypertension Status: Chronic Assessment and Plan: Stable blood pressures (8) Elevated blood sugar: Code(s): R73.9 - Hyperglycemia, unspecified Status: Acute Assessment and Plan: He seems to have a new diagnosis of diabetes mellitus. Hemoglobin A1c was 8.6. continue insulin sliding scale. -continue Levemir (9) Acute renal failure: Code(s): N17.9 - Acute kidney failure, unspecified Status: Acute Assessment and Plan: Acute kidney injury has resolved with creatinine 1.0 this morning -hypokalemia -resolved (10) Hypernatremia: Code(s): E87.0 - Hyperosmolality and hypernatremia Status: Acute Assessment and Plan: RESOLVED (11) Seizure: Code(s): R56.9 - Unspecified convulsions Status: Acute Assessment and Plan: patient with seizure activity on 05/12/2020, patient was loaded with Keppra - neurology evaluated the patient - will hold Keppra since patient has not had any seizure activity - currently sedated with propofol and Versed (12) Dietary counseling and surveillance: Code(s): Z71.3 - Dietary counseling and surveillance S
[2020-05-27 18:14] LABS: Glucose Point of Care 143 (65-105)
[2020-05-27] MEDS: FUROSEMIDE INJ 40 MG/4 ML VIAL IV PUSH (20:24)
[2020-05-27] MEDS: PROPOFOL IV EMULSION 100 ML 32.33 MG IV CONT ×2 (20:26→23:32)
[2020-05-27 21:08] LABS: Glucose Point of Care 162 (65-105)
[2020-05-27] MEDS: INSULIN DETEMIR 100 UNITS/ML 25 UNITS SUB-Q (21:47)
[2020-05-28] VITALS (30 sets, daily range): BP systolic 132–153; BP diastolic 63–80; PULSE 94–114; RESP 24–35; TEMP 36–36.6; O2SAT 93–99
[2020-05-28 01:29] LABS: Glucose Point of Care 193 (65-105)
[2020-05-28] MEDS: PROPOFOL IV EMULSION 100 ML 32.33 MG IV CONT ×6 (02:14→17:31)
[2020-05-28] MEDS: ALBUTEROL SULFATE NEB 2.5 MG/0.5 ML INH INHALATION ×4 (03:50→22:51)
[2020-05-28 04:14] LABS: Alveolar/Arterial O2 Gradient 580.5 mmHg; Base Excess ABG 9.6 mEq/l (+/-2.0); Fractional Inspired Oxygen 100 %; Methemoglobin ABG 0.5 %THb (0-1.5); Oxygen Content ABG 14.5 %vol (16.0-22.0); Oxygen Saturation ABG 94.6 % (95.0-100.0); Oxyhemoglobin 93.9 % THb (90.0-100.0); PCO2 ABG 58.5 mmHg (35.0-45.0); PO2 FiO2 Ratio Arterial Blood 0.74 %; Reduced Hemoglobin 5.6 %THb (0-5.0); Total Hemoglobin 10.9 g/dL (12.0-18.0); pH ABG 7.407 (7.350-7.450)
[2020-05-28 04:15] LABS: Device VENTILATOR; Modified Allen's Test Unable to perform; Site Drawn RIGHT RADIAL
[2020-05-28 04:18] LABS: Arterial Blood Gas PEEP 10 cmH2O; Arterial Blood Gas Tidal Volume 520 ml; Arterial Blood Gas Vent Mode CMV; Arterial Blood Gas Ventilator rate 24 /MIN
[2020-05-28] MEDS: CIPROFLOXACIN 400 MG/D5W 200ML 200 ML 200 MG IVPB ×3 (05:24→21:19)
[2020-05-28] MEDS: CENTRAL LINE FLUSH 10 ML IV PUSH ×3 (05:24→21:19)
[2020-05-28 05:59] LABS: Basophils Absolute Auto 0.1 K/mm3 (0.0-0.1); Basophils Percent Auto 0.7 % (0.2-1.2); Eosinophils Absolute Auto 0.3 K/mm3 (0-0.3); Eosinophils Percent Auto 2.6 % (0-4.4); Hematocrit 32.7 % (42.0-52.0); Hemoglobin 9.9 g/dL (14.0-18.0); Immature Granulocyte Absolute 0.82 K/mm3 (0.00-0.031); Immature Granulocyte Percent A 6.8 % (0-0.5); Lymphocytes Absolute Auto 2.08 K/mm3 (0.9-3.2); Lymphocytes Percent Auto 17.2 % (18.3-44.2); Mean Corpuscular HGB Conc 30.3 g/dl (32-36); Mean Corpuscular Volume 89.3 fl (80-100); Mean Platelet Volume 10.8 fl (7.4-10.4); Monocytes Absolute Auto 0.6 K/mm3 (0.1-0.6); Monocytes Percent Auto 4.7 % (2.6-8.5); Neutrophils Absolute Auto 8.3 K/mm3 (1.3-6.7); Nucleated Red Blood Cells Perc 0.2 % (0.0-0.2); Platelet Count Result 358 k/mm3 (150-375); Red Blood Count 3.66 M/mm3 (4.6-6.20); Red Cell Distribution Width 16.9 % (11.5-14.5); White Blood Count 12.1 K/mm3 (4.5-10.0)
[2020-05-28 06:15] LABS: Alanine Aminotransferase 36 U/L (4-50); Albumin Level 2.4 g/dL (3.5-5.1); Alkaline Phosphatase 109 U/L (38-126); Anion Gap 1 mmol/L (8-16); Aspartate Amino Transferase 37 U/L (17-59); Bilirubin,Total 0.4 mg/dL (0.2-1.3); Blood Urea Nitrogen 25 mg/dL (9-20); Calcium 7.9 mg/dL (8.4-10.2); Carbon Dioxide 38 mmol/L (22-30); Chloride 97 mmol/L (98-107); Estimated CRCL calculation 115 ml/min; Estimated Glomerular Filt Rate > 60; Glucose 187 mg/dL (75-110); Magnesium 2.3 mg/dL (1.6-2.3); Phosphorus 3.9 mg/dL (2.5-4.5); Sodium 136 mmol/L (137-145)
[2020-05-28 06:44] LABS: Platelet Estimate Adequate (Adequate); Poikilocytosis 1+ (NORMAL); Polychromasia 1+ (NORMAL)
[2020-05-28] MEDS: ENOXAPARIN 40 MG/0.4 ML SYRINGE SUB-Q ×2 (09:07→21:18)
[2020-05-28] MEDS: PANTOPRAZOLE SODIUM IV 40 MG VIAL IV PUSH (09:08)
[2020-05-28] MEDS: TOLNAFTATE 1% POWDER 45 GM BTL 1 APPLIC TOPICAL ×2 (09:08→21:19)
[2020-05-28 09:25] LABS: Glucose Point of Care 162 (65-105)
--- NOTE | 2020-05-28 12:05 | WPDINFPN2 ---
Progress Note: A&P Assessment and Plan (1) Pneumonia due to COVID-19 virus: Code(s): U07.1 - COVID-19; J12.89 - Other viral pneumonia Status: Acute Assessment and Plan: 1. Viral pneumonia due to CoVid 19, stable 2. Respiratory failure, stable gas exchange with persistent abn CXR. He may have a bacterial superinfection. REC Off dexamethasone. Continue ciprofloxacin and Vanc. Sputum a week ago showed susceptible S aureus, and if same strain is found now then stop vanc Subjective Date/time seen: 05/28/20 12:05 Interval history: no pressors, intubated Exam Narrative: Exam Narrative: afebrile Const: General: no acute distress Eyes: General: appearance normal, both eyes and all related structures Resp: Effort & Inspection: normal respiratory effort Auscultation: clear to auscultation bilaterally and diminished lung sounds Cardio: Rate: regular rate Rhythm: regular rhythm Heart sounds: no murmurs GI: Inspection: non-distended GI Palp: Yes Soft to palpation and No Tenderness to palpation present (GI) Skin: General skin exam: normal color Objective Data Vital Signs Vital Signs: Vital Signs - 24 hr 05/27/20 14:00 05/27/20 14:44 05/27/20 15:35 Temperature Pulse Rate 85 96 100 Respiratory Rate 31 H 32 H 32 H Blood Pressure 126/75 Pulse Oximetry 97 05/27/20 15:36 05/27/20 16:00 05/27/20 17:02 Temperature 36.1 C L Pulse Rate 99 93 93 Respiratory Rate 34 H 32 H Blood Pressure 131/74 Pulse Oximetry 94 96 05/27/20 17:26 05/27/20 18:00 05/27/20 20:00 Temperature 36.1 C L Pulse Rate 96 97 102 H Respiratory Rate 32 H 34 H Blood Pressure 139/78 141/77 H Pulse Oximetry 95 95 94 05/27/20 20:20 05/27/20 22:00 05/28/20 00:00 Temperature Pulse Rate 98 102 H 103 H Respiratory Rate 32 H 32 H 33 H Blood Pressure 146/75 H 137/68 Pulse Oximetry 95 96 98 05/28/20 02:00 05/28/20 03:54 05/28/20 04:00 Temperature 36.2 C L 36.3 C L Pulse Rate 94 101 H 97 Respiratory Rate 33 H 32 H 29 H Blood Pressure 153/77 H 132/63 Pulse Oximetry 98 97 97 05/28/20 06:00 05/28/20 07:48 05/28/20 08:00 Temperature 36.0 C L Pulse Rate 105 H 102 H 102 H Respiratory Rate 33 H 33 H 30 H Blood Pressure 140/70 140/78 Pulse Oximetry 98 98 05/28/20 08:49 05/28/20 10:00 05/28/20 10:53 Temperature Pulse Rate 102 H 106 H 107 H Respiratory Rate 31 H 32 H 30 H Blood Pressure 144/80 H Pulse Oximetry 99 95 Intake/Output Intake/Output: Intake & Output 05/25/20 05/26/20 05/27/20 05/28/20 23:59 23:59 23:59 23:59 Intake Total 3904 2692 3396 1284 Output Total 1675 1350 1775 2050 Balance 2229 1342 1621 -546 Meds/Results Medications: Active Medications Generic Name Dose Route Start Last Admin Trade Name Freq PRN Reason Stop Dose Admin Albuterol 2.5 mg 05/12/20 14:00 05/28/20 08:49 Albuterol Sulfate Neb 2.5 Mg/0.5 Ml Inh INHALATION 2.5 mg Q6HRT JENNA Administration Alteplase, Recombinant 2 mg 05/20/20 17:36 05/23/20 15:56 Alteplase 2 Mg Vial (Cathflo) IV PUSH 2 mg ONCE PRN Administration Line Occlusion Bisacodyl 10 mg 05/16/20 10:24 05/20/20 07:47 Bisacodyl 10 Mg Suppository RECTAL 10 mg QAM PRN Administration Constipation Dextrose 12.5 gm 05/09/20 00:00 Dextrose 50% 25 Gm/50 Ml Syringe IV PUSH PRN PRN Hypoglycemia Protocol Enoxaparin Sodium 40 mg 05/09/20 21:00 05/28/20 09:07 Enoxaparin 40 Mg/0.4 Ml Syringe SUB-Q 40 mg Q12HR JENNA Administration Fentanyl Citrate 25 mcg 05/23/20 23:58 05/24/20 03:05 Fentanyl Citrate Inj (*Crx) 100 Mcg/2 Ml Vial IV PUSH 25 mcg ONCE PRN Administration pain Glucagon 1 mg 05/09/20 00:00 Glucagon For Inj 1 Mg Vial IM PRN PRN Hypoglycemia Protocol Glucose 15 gm 05/09/20 00:00 Glucose Oral Gel 15 Gm Of Glucse In 37.5 Gm Tube PO PRN PRN Hypoglycemia Protocol Guaifenesin/Dextromethorphan 10 ml 05/09
[2020-05-28 12:17] LABS: Glucose Point of Care 199 (65-105)
--- NOTE | 2020-05-28 13:13 | PCDIET ---
Nutrition Follow-Up Complete: Nutrition Diagnosis: Altered laboratory values related to steroid use as evidenced by A1c of 8.6%. Nutrition Goal: Patient to meet estimated nutritional needs. Goal in progress. Glucerna 1.2 advancing toward goal rate of 65mL/hr (currently at 60mL/hr) without reported issues. Plan for tracheostomy and PEG reported. If Propofol is continued, recommend decreasing Glucerna 1.2 to 50mL/hr. Last recorded weight is 136.6 kg which is increased from last review. +I/O. Bowel Motility: Last documented BM on 05/26/20. Discussed during rounds. Labs Reviewed: Hgb (9.9), Hct (32.7), Glu (187), BUN (25), Na (136), Alb (2.4), Pavel Ca (9.18) Meds Noted: Albuterol, Cipro, Fentanyl, Hydralazine, Protonix, Propofol, Vancomycin Additional Notes: Integumentary notes reviewed. Will continue to monitor with same goal. Nutrition Monitoring and Evaluation: Follow up every Wednesday/Wednesday.
--- NOTE | 2020-05-28 13:13 | WPDGICN ---
Assessment and Plan Assessment and plan (1) Encephalopathy: Code(s): G93.40 - Encephalopathy, unspecified Status: Acute (2) Pneumonia: Code(s): J18.9 - Pneumonia, unspecified organism Status: Acute (3) Pneumonia due to COVID-19 virus: Code(s): U07.1 - COVID-19; J12.89 - Other viral pneumonia Status: Acute (4) Acute respiratory failure: Code(s): J96.00 - Acute respiratory failure, unspecified whether with hypoxia or hypercapnia Status: Acute Assessment and Plan: Patient has become ventilator dependent. Unable to eat or swallow while on the ventilator. PEG tube requested to facilitate placement. Will plan this in the morning after preparation today. Anticoagulation should be held in anticipation of this procedure. GI Consult Note Consult date/time: 05/28/20 13:13 HPI: Odell Rod is a 70 year old male I am asked to see at the request of the lotus notes administrator service. Patient admitted the hospital 05/08/2020 with respiratory failure. Ultimately developed COVID pneumonia. Now on the ventilator and unable to be weaned. He has developed encephalopathy unable to respond. At the present time he is felt to be a full code PEG tube for nutrition is requested in order to facilitate placement. 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 He retired from [employer]. He has 2 daughters. His is a durable power contract attorney for healthcare. He desires to be a full code. He denies any alcohol or illicit drugs. Lifelong nonsmoker. Smoking status: Never smoker Second hand tobacco smoke exposure: No Alcohol intake: never Substance use: never Substance use type: does not use Gender identity (if verbalized by the patient): Male Spiritual care concerns: No Meds Home Medications and Allergies Home Medications Medication Instructions Recorded Confirmed Type allopurinol 300 mg tablet 300 mg PO DAILY #90 tablet 02/12/20 05/09/20 Rx amlodipine 10 mg tablet 10 mg PO DAILY #90 tablet 02/12/20 05/09/20 Rx enalapril maleate 20 mg tablet 20 mg PO DAILY #90 tablet 02/12/20 05/09/20 Rx hydrochlorothiazide 50 mg tablet 50 mg PO DAILY #90 tablet 02/12/20 05/09/20 Rx pantoprazole 40 mg tablet,delayed 40 mg PO QAM #90 tablet 02/12/20 05/09/20 Rx release benzonatate 100 mg capsule 100 mg PO TID PRN #30 cap 05/06/20 05/09/20 Rx Allergies Allergy/AdvReac Type Severity Reaction Status Date / Time No Known Allergies Allergy Verified 01/09/20 09:10 Vital Signs Vital Signs - 24 hr 05/27/20 14:00 05/27/20 14:44 05/27/20 15:35 Temperature Pulse Rate 85 96 100 Respiratory Rate 31 H 32 H 32 H Blood Pressure 126/75 Pulse Oximetry 97 05/27/20 15:36 05/27/20 16:00 05/27/20 17:02 Temperature 97 F L Pulse Rate 99 93 93 Respiratory Rate 34 H 32 H Blood Pressure 131/74 Pulse Oximetry 94 96 05/27/20 17:26 05/27/20 18:00 05/27/20 20:00 Temperature 97.0 F L Pulse Rate 96 97 102 H Res
--- NOTE | 2020-05-28 13:29 | WPDINTPN ---
Progress Note: A&P Assessment and Plan (1) Acute respiratory failure with hypoxemia: Code(s): J96.01 - Acute respiratory failure with hypoxia Status: Acute Assessment and Plan: Acute respiratory failure hypoxemia secondary to COVID-19 pneumonia - patient has been alternating with BiPAP and high-flow therapy since 05/08/2020. - intubated on 05/12/2020 -chest x-ray and ABGs reviewed, currently CMV mode of ventilation, 8 of PEEP and 80% FiO2 Continue propofol for sedation -discussed with and daughter, agrees with tracheostomy and PEG tube placement Bilateral upper extremity swelling, venous Dopplers of bilateral upper extremities done on 05/21, showed bilateral upper extremity superficial venous thrombosis (2) Fever: Code(s): R50.9 - Fever, unspecified Status: Acute Assessment and Plan: Fever curve has resolved Venous Dopplers 05/16/2020: No DVT bilateral lower extremity blood cultures from 05/16/2020: Negative x2 from 05/18/2020 negative x1 -sputum cultures from 05/19 bring Pseudomonas and Staph aureus (BREANNA), patient with leukocytosis, fevers and infiltrates on chest x-ray. -continue ciprofloxacin, initiated on 05/25/2020, continue vancomycin -repeat blood cultures 05/25 growing gram-positive cocci in clusters -repeat sputum culture 05/26/2020 growing Pseudomonas and Staph aureus -appreciate infectious disease evaluation recommendation, continue Cipro and vancomycin for now (3) Shock: Code(s): R57.9 - Shock, unspecified Status: Acute Assessment and Plan: Patient hypotensive overnight on 05/24, likely related to diuresis, and or infection Off Levophed, -lactic acid normalized (4) Pneumonia due to COVID-19 virus: Code(s): U07.1 - COVID-19; J12.89 - Other viral pneumonia Status: Acute Assessment and Plan: Completed a course of dexamethasone and Remdesivir. - appreciate infectious disease evaluation recommendation. he is not a candidate for convalescent plasma. - continue droplet, airborne, contact isolation /precautions -LDH and ferritin are normal, D-dimer and CRP are trending down (5) Encephalopathy: Code(s): G93.40 - Encephalopathy, unspecified Status: Acute Assessment and Plan: Gradually improving, patient is off sedation since 05/20/2020 -CT scan of the brain on 05/19/2020 did not show any acute intracranial abnormalities -neurology evaluated him on admission -EEG from 05/20/2020 or metabolic encephalopathy or postictal state (6) GERD (gastroesophageal reflux disease): Code(s): K21.9 - Gastro-esophageal reflux disease without esophagitis Status: Acute Assessment and Plan: Continue IV pantoprazole once a day. (7) HTN (hypertension), benign: Code(s): I10 - Essential (primary) hypertension Status: Chronic Assessment and Plan: Stable blood pressures (8) Elevated blood sugar: Code(s): R73.9 - Hyperglycemia, unspecified Status: Acute Assessment and Plan: He seems to have a new diagnosis of diabetes mellitus. Hemoglobin A1c was 8.6. continue insulin sliding scale. -continue Levemir (9) Acute renal failure: Code(s): N17.9 - Acute kidney failure, unspecified Status: Acute Assessment and Plan: Acute kidney injury has resolved with creatinine 1.0 this morning -hypokalemia -resolved (10) Hypernatremia: Code(s): E87.0 - Hyperosmolality and hypernatremia Status: Acute Assessment and Plan: RESOLVED (11) Seizure: Code(s): R56.9 - Unspecified convulsions Status: Acute Assessment and Plan: patient with seizure activity on 05/12/2020, patient was loaded with Keppra - neurology evaluated the patient - will hold Keppra since patient has not had any seizure activity - currently sedated with propofol and Versed (12) Dietary counseling and surveillance: Code(s): Z71.3 - Dietary
[2020-05-28 14:43] LABS: Basophils Absolute Auto 0.1 K/mm3 (0.0-0.1); Basophils Percent Auto 0.7 % (0.2-1.2); Eosinophils Absolute Auto 0.3 K/mm3 (0-0.3); Eosinophils Percent Auto 2.5 % (0-4.4); Hematocrit 30.1 % (42.0-52.0); Hemoglobin 9.4 g/dL (14.0-18.0); Immature Granulocyte Absolute 0.84 K/mm3 (0.00-0.031); Immature Granulocyte Percent A 6.9 % (0-0.5); Lymphocytes Absolute Auto 2.11 K/mm3 (0.9-3.2); Lymphocytes Percent Auto 17.4 % (18.3-44.2); Mean Corpuscular HGB Conc 31.2 g/dl (32-36); Mean Corpuscular Hemoglobin 27.2 pg (26-34); Monocytes Absolute Auto 0.6 K/mm3 (0.1-0.6); Monocytes Percent Auto 4.9 % (2.6-8.5); Neutrophils Absolute Auto 8.2 K/mm3 (1.3-6.7); Neutrophils Percent Auto 67.6 % (45.5-73.1); Nucleated Red Blood Cells Perc 0.3 % (0.0-0.2); Platelet Count Result 362 k/mm3 (150-375); Red Blood Count 3.46 M/mm3 (4.6-6.20); Red Cell Distribution Width 16.8 % (11.5-14.5); White Blood Count 12.1 K/mm3 (4.5-10.0)
[2020-05-28 14:49] LABS: INR 1.1; Prothrombin Time 14.5 Seconds (11.1-14.7)
[2020-05-28 14:50] LABS: Partial Thromboplastin Time 30.2 SECONDS (22.3-36.8)
[2020-05-28 15:07] LABS: Blood Urea Nitrogen 25 mg/dL (9-20); Calcium 7.9 mg/dL (8.4-10.2); Carbon Dioxide > 40 mmol/L (22-30); Chloride 95 mmol/L (98-107); Estimated CRCL calculation 115 ml/min; Estimated Glomerular Filt Rate > 60; Glucose 211 mg/dL (75-110); Sodium 135 mmol/L (137-145)
[2020-05-28 16:56] LABS: Ovalocytes 1+ (NORMAL); Platelet Estimate Adequate (Adequate)
--- NOTE | 2020-05-28 17:54 | PM.IMPN ---
Progress Note: A&P Assessment and Plan (1) Shock: Code(s): R57.9 - Shock, unspecified Status: Acute Assessment and Plan: Patient was hypotensive 05/25 requiring norepinephrine but able to come off quickly. Blood pressure better controlled. Hypotension could be related to recent Lasix use. Continue to monitor. (2) Acute respiratory failure: Code(s): J96.00 - Acute respiratory failure, unspecified whether with hypoxia or hypercapnia Status: Acute Assessment and Plan: ABG on admission showing 7.53/25/63 on BiPAP. Wore the BiPAP initially but his condition worsened however and moved to ICU and intubated 05/12. Echo normal EF with grade 1 DD. Fevers resolving felt related to the probable bacterial PNA; continue IV abx Vanc and cipro. Vent management per police judge. . (3) Pneumonia due to COVID-19 virus: Code(s): U07.1 - COVID-19; J12.89 - Other viral pneumonia Status: Acute Assessment and Plan: Patient COVID positive on 05/04/20. He was admitted on 05/08/20 and finished 10d of Decadron and finished Remdesivir. AST/ALT up and down felt related to COVID; LFTs better overall. Repeat sputum cultures growing pseudomonas and BREANNA so Zosyn and Vanco started 05/20 through 05/25 and now changed to Cipro. Repeat CXR 05/26 reviewed and showing diffuse bilateral infiltrates. Continue to follow inflammatory markers and LFTs. Otherwise as above. (4) Pneumonia: Code(s): J18.9 - Pneumonia, unspecified organism Status: Acute Assessment and Plan: Sputum cultures growing pseudomonas and BREANNA and felt patient has superimposed bacterial pneumonia. Treatment as above. BC 05/26 staph epi x1 and repeat sputum 05/25 still Psuedomanas and staph aureus (5) Encephalopathy: Code(s): G93.40 - Encephalopathy, unspecified Status: Acute Assessment and Plan: Patient had a a prolonged seizure on 05/13 and was on Keppra but now off. Patient was unresponsive off sedation. CT brain no change 05/19. EEG results abnormal record due to the presence of bihemispheric delta activity and with absence of the normal background rhythm particularly posteriorly. No evidence of any paroxysmal discharge to suggest organic or metabolic encephalopathy or postictal state. He has become more responsive now. Continue to follow off sedation to assess recovery. (6) Seizure: Code(s): R56.9 - Unspecified convulsions Status: Acute Assessment and Plan: Patient had a seizure on 05/13 possibly related to hypoxia. He was on Keppra but stopped after a few days. CT brain showing no acute process 05/19. EEG as mentioned above. Continue to monitor. (7) HTN (hypertension), benign: Code(s): I10 - Essential (primary) hypertension Status: Chronic Assessment and Plan: Patient's blood pressure was reviewed on 05/28. BP dropped yesterday. Will continue to hold his amlodipine, enalapril and hydrochlorothiazide. IV hydralazine prn available. Resume meds if needed (8) Acute renal failure: Code(s): N17.9 - Acute kidney failure, unspecified Status: Acute Assessment and Plan: Patient's creatinine is 1.5 on admission. Yoni inhibitors and diuretics on hold. Creatine now 1.0. Continue to monitor. (9) Diabetes mellitus: Code(s): E11.9 - Type 2 diabetes mellitus without complications Status: Acute Assessment and Plan: A1c 8.6 consistent with new diagnosis of DM. Glucose reviewed on 05/28 Glucose better controlled. Continue AccuCheks covering with sliding scale. Continue Levemir 25 U q12 (10) Gout: Code(s): M10.9 - Gout, unspecified Status: Chronic Assessment and Plan: Stable. Allopurinol remains on hold. (11) Chronic GERD: Code(s): K21.9 - Gastro-esophageal reflux disease without esophagitis Status: Chronic Assessment and Plan: Stable. Continue IV P
[2020-05-28] MEDS: INSULIN ASPART (*BKC) 100 UNITS/ML SUB-Q (18:13)
[2020-05-28 18:28] LABS: Glucose Point of Care 214 (65-105)
[2020-05-28] MEDS: PROPOFOL IV EMULSION 100 ML 40.41 MG IV CONT (21:16)
[2020-05-28] MEDS: INSULIN DETEMIR 100 UNITS/ML 25 UNITS SUB-Q (22:33)
[2020-05-28 23:49] LABS: Vancomycin Trough 16.6 ug/mL (10.0-20.0)
[2020-05-29] VITALS (32 sets, daily range): BP systolic 96–136; BP diastolic 54–68; PULSE 98–118; RESP 24–34; TEMP 36.4–37.2; O2SAT 91–96
[2020-05-29] MEDS: PROPOFOL IV EMULSION 100 ML 40.41 MG IV CONT ×9 (00:20→21:52)
[2020-05-29] MEDS: INSULIN ASPART (*BKC) 100 UNITS/ML SUB-Q (00:25)
[2020-05-29 00:33] LABS: Glucose Point of Care 218 (65-105)
--- NOTE | 2020-05-29 00:36 | PC.NURSE ---
Blood drawn and sent to lab for vancomycin trough at 2030. Lab states it was never received. Redrawn and sent at 2240. Vancomycin started at 0010 after trough of 16.6 received.
--- NOTE | 2020-05-29 04:15 | PCRCNOTE ---
Window of time for administration has passed. See next scheduled administration.
[2020-05-29] MEDS: CIPROFLOXACIN 400 MG/D5W 200ML 200 ML 200 MG IVPB ×3 (05:54→21:53)
[2020-05-29] MEDS: CENTRAL LINE FLUSH 10 ML IV PUSH ×3 (05:55→21:53)
[2020-05-29 06:29] LABS: CRP 5.2 mg/dL (<1.0); Lactate Dehydrogenase 566 U/L (313-618)
[2020-05-29 06:37] LABS: D Dimer 3.29 ug/mL (<0.48)
[2020-05-29 06:46] LABS: Alveolar/Arterial O2 Gradient 532.6 mmHg; Base Excess ABG 4.8 mEq/l (+/-2.0); Fractional Inspired Oxygen 90 %; HCO3 ABG 30.3 mEq/l (22.0-26.0); Oxygen Saturation ABG 90.2 % (95.0-100.0); Oxyhemoglobin 88.6 % THb (90.0-100.0); PCO2 ABG 49.4 mmHg (35.0-45.0); PO2 ABG 58.5 mmHg (80.0-100.0); PO2 FiO2 Ratio Arterial Blood 0.65 %; Total Hemoglobin 10.4 g/dL (12.0-18.0); pH ABG 7.406 (7.350-7.450)
[2020-05-29 06:47] LABS: Device VENTILATOR; Modified Allen's Test Pass; Site Drawn RIGHT RADIAL
[2020-05-29 06:48] LABS: Arterial Blood Gas PEEP 8 cmH2O; Arterial Blood Gas Tidal Volume 520 ml; Arterial Blood Gas Vent Mode CMV; Arterial Blood Gas Ventilator rate 24 /MIN
[2020-05-29 06:59] LABS: Glucose Point of Care 179 (65-105)
--- NOTE | 2020-05-29 07:56 | WPDCNINT ---
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 He retired from [email or web address]. He has 2 daughters. His is a durable power employment law attorney for healthcare. He desires to be a full code. He denies any alcohol or illicit drugs. Lifelong nonsmoker. Smoking status: Never smoker Second hand tobacco smoke exposure: No Alcohol intake: never Substance use: never Substance use type: does not use Gender identity (if verbalized by the patient): Male Spiritual care concerns: No Meds Home Medications and Allergies Home Medications Medication Instructions Recorded Confirmed Type allopurinol 300 mg tablet 300 mg PO DAILY #90 tablet 02/12/20 05/09/20 Rx amlodipine 10 mg tablet 10 mg PO DAILY #90 tablet 02/12/20 05/09/20 Rx enalapril maleate 20 mg tablet 20 mg PO DAILY #90 tablet 02/12/20 05/09/20 Rx hydrochlorothiazide 50 mg tablet 50 mg PO DAILY #90 tablet 02/12/20 05/09/20 Rx pantoprazole 40 mg tablet,delayed 40 mg PO QAM #90 tablet 02/12/20 05/09/20 Rx release benzonatate 100 mg capsule 100 mg PO TID PRN #30 cap 05/06/20 05/09/20 Rx Allergies Allergy/AdvReac Type Severity Reaction Status Date / Time No Known Allergies Allergy Verified 01/09/20 09:10 Vital Signs Vital Signs - 24 hr 05/28/20 08:00 05/28/20 08:49 05/28/20 08:59 Temperature 96.8 F L Pulse Rate 102 H 102 H 105 H Respiratory Rate 30 H 31 H 32 H Blood Pressure 140/78 Pulse Oximetry 98 99 05/28/20 10:00 05/28/20 10:53 05/28/20 11:22 Temperature Pulse Rate 106 H 107 H 107 H Respiratory Rate 32 H 30 H Blood Pressure 144/80 H Pulse Oximetry 95 94 05/28/20 12:00 05/28/20 13:48 05/28/20 14:00 Temperature 96.8 F L Pulse Rate 101 H 102 H 103 H Respiratory Rate 33 H 32 H 33 H Blood Pressure 141/71 H 147/73 H Pulse Oximetry 95 95 05/28/20 14:58 05/28/20 15:08 05/28/20 16:00 Temperature 97 F L Pulse Rate 107 H 108 H 104 H Respiratory Rate 33 H 33 H 30 H Blood Pressure 144/74 H Pulse Oximetry 95 97 05/28/20 16:54 05/28/20 17:04 05/28/20 17:31 Temperature Pulse Rate 103 H 106 H 103 H Respiratory Rate 32 H 32 H Blood Pressure Pulse Oximetry 96 05/28/20 18:00 05/28/20 18:44 05/28/20 20:00 Temperature 97.8 F Pulse Rate 107 H 107 H 108 H Respiratory Rate 24 H 32 H 33 H Blood Pressure 140/72 152/79 H Pulse Oximetry 95 95 05/28/20 20:10 05/28/20 21:16 05/28/20 22:00 Temperature Pulse Rate 107 H 114 H 113 H Respiratory Rate 30 H 35 H Blood Pressure 139/65 Pulse Oximetry 94 93 05/28/20 22:53 05/28/20 22:58 05/28/20 22:59 Temperature Pulse Rate 110 H 110 H 111 H Respiratory Rate 34 H 35 H Blood Pressure Pulse Oximetry 93 05/29/20 00:00 05/29/20 00:20 05/29/20 02:00 Temperature 97.6 F Pulse Rate 113 H 118 H 106 H Respiratory Rate 33 H 32 H 27 H Blood Pressure 117/54 L 118/54 L Pulse Oximetry 91 96 05/29/20 03:13 05/29/20 04:00 05/29/20 05:00 Temperature 99.0 F Pulse Rate 105 H 107 H 102 H R
[2020-05-29] MEDS: ALBUTEROL SULFATE NEB 2.5 MG/0.5 ML INH INHALATION ×3 (09:03→21:05)
[2020-05-29] MEDS: ENOXAPARIN 40 MG/0.4 ML SYRINGE SUB-Q (09:03)
[2020-05-29] MEDS: PANTOPRAZOLE SODIUM IV 40 MG VIAL IV PUSH (09:04)
[2020-05-29] MEDS: TOLNAFTATE 1% POWDER 45 GM BTL 1 APPLIC TOPICAL ×2 (09:04→20:03)
[2020-05-29] MEDS: INSULIN DETEMIR 100 UNITS/ML 25 UNITS SUB-Q ×2 (09:04→20:34)
--- NOTE | 2020-05-29 11:23 | PCDIET ---
ICU Rounding Note: Patient NPO for PEG placement. Previously tolerating tube feedings, per RN. Last recorded weight is 133.6kg which is down from last review. -I/O today. Bowel Motility: Last documented BM on 05/26/20. Labs Reviewed: Glu (179) Meds Noted: Albuterol, Cipro, Hydralazine, Novolog, Levemir, Protonix, Vancomycin, Propofol (rate of 40.41mL/hr provides 1066kcal per day) Additional Notes: Right ear abrasion and left head scab. Left lower arm blister. No pressure ulcers documented. Following daily in ICU rounds. Assessing/reassessing every Wednesday/Wednesday.
--- NOTE | 2020-05-29 11:42 | P.OPB_ITS ---
Procedure Note - Brief Procedure Note - Brief Date of procedure: 05/29/20 Pre-op diagnosis: acute respiratory failure, COVID +, pneumonia Ventilator dependent Nutritional support Procedure performed: EGD with PEG placement Description of procedure: Informed consent is obtained from power of bottom cementer. The risks benefits alternatives indications are discussed agree 2. Risks include but are not limited to adverse reaction to medications including allergies. The risk of bleeding possible need for transfusion. Risk perforation possible need for surgery. The risks for missed pathology. Instrument is the [employer] video endoscope. Fujinon endoscope passed the esophagus. Midesophageal diverticulum noted which is rather small. GE junction located at 40 cm. Stomach his hands entirety including U-turn reveals multiple small fundic gland polyps. Duodenum reveals normal bulb sweep 2nd portion. Area of maximal light in transillumination and finger indentation in the midepigastric area is identified. In this area 1% lidocaine anesthesia is injected. Needle passed through the abdominal wall and visualized within the body of the stomach. Guidewire passed through the needle and withdrawn endoscopically. Over this a 20 [place] gastrostomy tube was placed without difficulty. Surgeon: Deny Mueller MD Findings: 1. Mid esophageal diverticulum. 2. Fundic gland gastric polyps. No clinical consequence. 3. Peg tube placement. Plan is to start tube feedings at a slow rate 3-4 hours. Advance to60cc an hour tomorrow morning. If tolerated.
[2020-05-29 12:18] LABS: Glucose Point of Care 158 (65-105)
--- NOTE | 2020-05-29 12:27 | OP_ITS ---
DATE OF PROCEDURE: 05/29/2020 PROCEDURE: Esophagogastroduodenoscopy and percutaneous endoscopic gastrostomy placement. PREOPERATIVE DIAGNOSIS: Ventilator-dependent nutritional support. POSTOPERATIVE DIAGNOSIS: Midesophageal diverticulum gastric polyps and placement of PEG tube. DESCRIPTION OF PROCEDURE: Informed consent for the procedure is obtained from the power of teradata developer. The risks, benefits, alternatives, and indications are discussed and agreed prior to starting the procedure. The risks include, but are not limited to, adverse reaction to medications including allergies, risk of bleeding and possible need for transfusion, risk of perforation, possible need for surgery. Family voiced clear understanding, agreed to proceed. The patient is already on sedation. No additional sedation given following. FINDINGS: The [employer] video endoscope was passed through the esophagus, in the midesophagus a very small midesophageal diverticulum identified. Stomach is seen in its entirety including U-turn reveals fundic gastric polyps. These were not removed. The duodenum reveals normal bulb and sweep to 2nd portion. After this was accomplished, maximal finger indentation light transillumination is noted in the mid epigastric area of the abdomen. In this area, 1% lidocaine anesthesia is used. Needle was passed through the abdominal wall and visualized within the gastric body. Guidewire was passed through the needle and withdrawn endoscopically. Over this, 20-Azeri gastrostomy tube is placed without difficulty. IMPRESSION: 1. Midesophageal diverticulum. 2. Gastric polyps. 3. Placement of PEG tube. PLAN: Plan is for frequent cleansing of PEG tube site, start tube feedings at a slow rate about 4 hours at about 30 cc in the morning advance to 60 cc an hour in the morning if tolerated. D I MT: Gagan
--- NOTE | 2020-05-29 13:33 | WPDINFPN2 ---
Progress Note: A&P Assessment and Plan (1) Pneumonia due to COVID-19 virus: Code(s): U07.1 - COVID-19; J12.89 - Other viral pneumonia Status: Acute Assessment and Plan: 1. Viral pneumonia due to CoVid 19, stable 2. Respiratory failure, stable gas exchange with persistent abn CXR. He may have a bacterial superinfection. Sputum still in process. 3. CNSS bacteremia, catheter infection source? REC Off dexamethasone. Continue ciprofloxacin and Vanc.c Subjective Date/time seen: 05/29/20 13:33 Interval history: ventilated, PEG placed Exam Narrative: Exam Narrative: afebrile Const: General: no acute distress Resp: Effort & Inspection: normal respiratory effort Auscultation: clear to auscultation bilaterally and diminished lung sounds Cardio: Rate: tachycardic Rhythm: regular rhythm Heart sounds: no murmurs GI: Inspection: distended GI Palp: Yes Soft to palpation and No Tenderness to palpation present (GI) Urinary Catheter: Urinary Catheter: patent and draining and urine clear Objective Data Vital Signs Vital Signs: Vital Signs - 24 hr 05/28/20 13:48 05/28/20 14:00 05/28/20 14:58 Temperature Pulse Rate 102 H 103 H 107 H Respiratory Rate 32 H 33 H 33 H Blood Pressure 147/73 H Pulse Oximetry 95 95 05/28/20 15:08 05/28/20 16:00 05/28/20 16:54 Temperature 36.1 C L Pulse Rate 108 H 104 H 103 H Respiratory Rate 33 H 30 H 32 H Blood Pressure 144/74 H Pulse Oximetry 97 05/28/20 17:04 05/28/20 17:31 05/28/20 18:00 Temperature Pulse Rate 106 H 103 H 107 H Respiratory Rate 32 H 24 H Blood Pressure 140/72 Pulse Oximetry 96 95 05/28/20 18:44 05/28/20 20:00 05/28/20 20:10 Temperature 36.6 C Pulse Rate 107 H 108 H 107 H Respiratory Rate 32 H 33 H Blood Pressure 152/79 H Pulse Oximetry 95 94 05/28/20 21:16 05/28/20 22:00 05/28/20 22:53 Temperature Pulse Rate 114 H 113 H 110 H Respiratory Rate 30 H 35 H 34 H Blood Pressure 139/65 Pulse Oximetry 93 05/28/20 22:58 05/28/20 22:59 05/29/20 00:00 Temperature 36.4 C Pulse Rate 110 H 111 H 113 H Respiratory Rate 35 H 33 H Blood Pressure 117/54 L Pulse Oximetry 93 91 05/29/20 00:20 05/29/20 02:00 05/29/20 03:13 Temperature Pulse Rate 118 H 106 H 105 H Respiratory Rate 32 H 27 H 24 H Blood Pressure 118/54 L Pulse Oximetry 96 05/29/20 04:00 05/29/20 05:00 05/29/20 05:52 Temperature 37.2 C Pulse Rate 107 H 102 H 106 H Respiratory Rate 28 H 30 H Blood Pressure 129/63 Pulse Oximetry 93 94 05/29/20 06:00 05/29/20 08:00 05/29/20 09:04 Temperature 36.8 C Pulse Rate 103 H 106 H 107 H Respiratory Rate 32 H 34 H 30 H Blood Pressure 132/65 123/68 Pulse Oximetry 94 93 05/29/20 09:13 05/29/20 09:14 05/29/20 10:00 Temperature Pulse Rate 107 H 106 H 101 H Respiratory Rate 30 H Blood Pressure Pulse Oximetry 91 05/29/20 11:43 05/29/20 12:06 Temperature Pulse Rate 103 H 105 H Respiratory Rate 28 H Blood Pressure Pulse Oximetry 94 Intake/Output Intake/Output: Intake & Output 05/26/20 05/27/20 05/28/20 05/29/20 23:59 23:59 23:59 23:59 Intake Total 2692 3396 3340 2174 Output Total 1350 1775 2900 2800 Balance 1342 1621 440 626 Meds/Results Medications: Active Medications Generic Name Dose Route Start Last Admin Trade Name Freq PRN Reason Stop Dose Admin Albuterol 2.5 mg 05/12/20 14:00 05/29/20 09:03 Albuterol Sulfate Neb 2.5 Mg/0.5 Ml Inh INHALATION 2.5 mg Q6HRT JENNA Administration Alteplase, Recombinant 2 mg 05/20/20 17:36 05/23/20 15:56 Alteplase 2 Mg Vial (Cathflo) IV PUSH 2 mg ONCE PRN Administration Line Occlusion Bisacodyl 10 mg 05/16/20 10:24 05/20/20 07:47 Bisacodyl 10 Mg Suppository RECTAL 10 mg QAM PRN Administration Constipation Dextrose 12.5 gm 05/09/20 00:00 Dextrose 50% 25 Gm/50 Ml Syringe IV PUSH PRN PRN Hypoglycemia Protocol Enoxaparin S
--- NOTE | 2020-05-29 13:55 | WPDINTPN ---
Progress Note: A&P Assessment and Plan (1) Acute respiratory failure with hypoxemia: Code(s): J96.01 - Acute respiratory failure with hypoxia Status: Acute Assessment and Plan: Acute respiratory failure hypoxemia secondary to COVID-19 pneumonia - patient has been alternating with BiPAP and high-flow therapy since 05/08/2020. - intubated on 05/12/2020 -chest x-ray and ABGs reviewed, currently CMV mode of ventilation, 8 of PEEP and 80% FiO2 Continue propofol for sedation -discussed with and daughter, agrees with tracheostomy, -PEG tube to be placed today on 05/29/2020 Bilateral upper extremity swelling, venous Dopplers of bilateral upper extremities done on 05/21, showed bilateral upper extremity superficial venous thrombosis (2) Fever: Code(s): R50.9 - Fever, unspecified Status: Acute Assessment and Plan: Fever curve has resolved Venous Dopplers 05/16/2020: No DVT bilateral lower extremity blood cultures from 05/16/2020: Negative x2 from 05/18/2020 negative x1 -sputum cultures from 05/19 bring Pseudomonas and Staph aureus (BREANNA), patient with leukocytosis, fevers and infiltrates on chest x-ray. -continue ciprofloxacin, initiated on 05/25/2020, continue vancomycin -repeat blood cultures 05/25 growing gram-positive cocci in clusters -repeat sputum culture 05/26/2020 growing Pseudomonas and Staph aureus -appreciate infectious disease evaluation recommendation, continue Cipro and vancomycin for now (3) Shock: Code(s): R57.9 - Shock, unspecified Status: Acute Assessment and Plan: Patient hypotensive overnight on 05/24, likely related to diuresis, and or infection Off Levophed, -lactic acid normalized (4) Pneumonia due to COVID-19 virus: Code(s): U07.1 - COVID-19; J12.89 - Other viral pneumonia Status: Acute Assessment and Plan: Completed a course of dexamethasone and Remdesivir. - appreciate infectious disease evaluation recommendation. he is not a candidate for convalescent plasma. - continue droplet, airborne, contact isolation /precautions -LDH and ferritin are normal, D-dimer and CRP are trending down (5) Encephalopathy: Code(s): G93.40 - Encephalopathy, unspecified Status: Acute Assessment and Plan: Gradually improving, patient is off sedation since 05/20/2020 -CT scan of the brain on 05/19/2020 did not show any acute intracranial abnormalities -neurology evaluated him on admission -EEG from 05/20/2020 or metabolic encephalopathy or postictal state (6) GERD (gastroesophageal reflux disease): Code(s): K21.9 - Gastro-esophageal reflux disease without esophagitis Status: Acute Assessment and Plan: Continue IV pantoprazole once a day. (7) HTN (hypertension), benign: Code(s): I10 - Essential (primary) hypertension Status: Chronic Assessment and Plan: Stable blood pressures (8) Elevated blood sugar: Code(s): R73.9 - Hyperglycemia, unspecified Status: Acute Assessment and Plan: He seems to have a new diagnosis of diabetes mellitus. Hemoglobin A1c was 8.6. continue insulin sliding scale. -continue Levemir (9) Acute renal failure: Code(s): N17.9 - Acute kidney failure, unspecified Status: Acute Assessment and Plan: Acute kidney injury has resolved with creatinine 1.0 this morning -hypokalemia -resolved (10) Seizure: Code(s): R56.9 - Unspecified convulsions Status: Acute Assessment and Plan: patient with seizure activity on 05/12/2020, patient was loaded with Keppra - neurology evaluated the patient - will hold Keppra since patient has not had any seizure activity - currently sedated with propofol and Versed (11) Dietary counseling and surveillance: Code(s): Z71.3 - Dietary counseling and surveillance Status: Acute Assessment and Plan: Feeds currently on hold for PEG tube place
[2020-05-29 17:28] LABS: Glucose Point of Care 101 (65-105)
[2020-05-29 20:55] LABS: Glucose Point of Care 107 (65-105)
[2020-05-30] VITALS (40 sets, daily range): BP systolic 115–144; BP diastolic 60–79; PULSE 98–116; RESP 23–35; TEMP 36.8–37.2; O2SAT 89–96
[2020-05-30] MEDS: PROPOFOL IV EMULSION 100 ML 40.41 MG IV CONT ×10 (00:09→22:16)
[2020-05-30 00:33] LABS: Glucose Point of Care 133 (65-105)
[2020-05-30] MEDS: ALBUTEROL SULFATE NEB 2.5 MG/0.5 ML INH INHALATION ×4 (03:24→21:14)
[2020-05-30 04:52] LABS: Alveolar/Arterial O2 Gradient 525.6 mmHg; Base Excess ABG 8.4 mEq/l (+/-2.0); Carboxyhemoglobin 0.1 % THb (0-2.0); Device VENTILATOR; Fractional Inspired Oxygen 90 %; HCO3 ABG 34.7 mEq/l (22.0-26.0); Methemoglobin ABG 0.3 %THb (0-1.5); Modified Allen's Test Pass; Oxygen Content ABG 13.7 %vol (16.0-22.0); Oxyhemoglobin 89.1 % THb (90.0-100.0); PCO2 ABG 57.6 mmHg (35.0-45.0); PO2 ABG 57.1 mmHg (80.0-100.0); PO2 FiO2 Ratio Arterial Blood 0.63 %; Reduced Hemoglobin 10.5 %THb (0-5.0); Site Drawn RIGHT RADIAL; Total Hemoglobin 10.9 g/dL (12.0-18.0); pH ABG 7.398 (7.350-7.450)
[2020-05-30 04:53] LABS: Arterial Blood Gas PEEP 8 cmH2O; Arterial Blood Gas Tidal Volume 520 ml; Arterial Blood Gas Vent Mode CMV; Arterial Blood Gas Ventilator rate 24 /MIN
[2020-05-30 05:00] LABS: Hematocrit 30.7 % (42.0-52.0); Hemoglobin 9.3 g/dL (14.0-18.0); Mean Corpuscular HGB Conc 30.3 g/dl (32-36); Mean Corpuscular Hemoglobin 26.8 pg (26-34); Mean Corpuscular Volume 88.5 fl (80-100); Mean Platelet Volume 10.1 fl (7.4-10.4); Platelet Count Result 326 k/mm3 (150-375); Red Blood Count 3.47 M/mm3 (4.6-6.20); Red Cell Distribution Width 17.2 % (11.5-14.5); White Blood Count 12.6 K/mm3 (4.5-10.0)
[2020-05-30] MEDS: CENTRAL LINE FLUSH 10 ML IV PUSH ×3 (05:09→22:04)
[2020-05-30] MEDS: CIPROFLOXACIN 400 MG/D5W 200ML 200 ML 200 MG IVPB ×3 (05:10→22:03)
[2020-05-30 05:20] LABS: Glucose Point of Care 106 (65-105)
[2020-05-30 05:53] LABS: Blood Urea Nitrogen 17 mg/dL (9-20); Calcium 7.9 mg/dL (8.4-10.2); Carbon Dioxide > 40 mmol/L (22-30); Chloride 97 mmol/L (98-107); Estimated CRCL calculation 115 ml/min; Estimated Glomerular Filt Rate > 60; Glucose 113 mg/dL (75-110); Magnesium 2.5 mg/dL (1.6-2.3); Phosphorus 3.4 mg/dL (2.5-4.5); Potassium 4.1 mmol/L (3.4-5.0); Sodium 137 mmol/L (137-145)
--- NOTE | 2020-05-30 08:30 | WPDGIPROGNO ---
Progress Note: A&P Assessment and Plan (1) PEG (percutaneous endoscopic gastrostomy) status: Code(s): Z93.1 - Gastrostomy status Status: Acute Assessment and Plan: Patient status post PEG tube placement yesterday. Tolerated tube feedings at a slow rate last evening. Plan to advance to60cc/hour today. Continue local care to PEG tube site (2) Encephalopathy: Code(s): G93.40 - Encephalopathy, unspecified Status: Acute (3) Pneumonia due to COVID-19 virus: Code(s): U07.1 - COVID-19; J12.89 - Other viral pneumonia Status: Acute (4) Diabetes mellitus: Code(s): E11.9 - Type 2 diabetes mellitus without complications Status: Acute Subjective Date/time seen: 05/30/20 08:30 Patient remains on the ventilator. Tolerated tube feedings last night with no difficulties. Plan to increase tube feedings today. Review of Systems Review of Systems: ROS unobtainable: Yes unobtainable due to endotracheal tube Objective Data Vital Signs Vital Signs: Vital Signs - 24 hr 05/29/20 09:04 05/29/20 09:13 05/29/20 09:14 Temperature Pulse Rate 107 H 107 H 106 H Respiratory Rate 30 H 30 H Blood Pressure Pulse Oximetry 91 05/29/20 10:00 05/29/20 11:43 05/29/20 12:00 Temperature 97.9 F Pulse Rate 101 H 103 H 104 H Respiratory Rate 24 H 28 H 30 H Blood Pressure 96/54 L 118/59 L Pulse Oximetry 95 93 05/29/20 12:06 05/29/20 14:00 05/29/20 14:06 Temperature Pulse Rate 105 H 106 H 108 H Respiratory Rate 30 H 32 H Blood Pressure 113/63 Pulse Oximetry 94 94 05/29/20 15:01 05/29/20 15:04 05/29/20 16:00 Temperature 98.3 F Pulse Rate 109 H 109 H 104 H Respiratory Rate 26 H 25 H Blood Pressure 98/59 L Pulse Oximetry 96 95 05/29/20 16:15 05/29/20 17:05 05/29/20 18:00 Temperature 97.9 F Pulse Rate 101 H 102 H 103 H Respiratory Rate 27 H 24 H Blood Pressure 136/65 Pulse Oximetry 96 96 05/29/20 18:44 05/29/20 19:25 05/29/20 20:00 Temperature 98.4 F Pulse Rate 105 H 105 H 105 H Respiratory Rate 28 H 28 H 27 H Blood Pressure 133/62 Pulse Oximetry 94 05/29/20 21:05 05/29/20 21:15 05/29/20 21:52 Temperature Pulse Rate 102 H 102 H 100 Respiratory Rate 26 H 26 H 25 H Blood Pressure Pulse Oximetry 95 05/29/20 22:00 05/29/20 23:42 05/30/20 00:00 Temperature 98.3 F Pulse Rate 98 101 H 101 H Respiratory Rate 26 H 26 H Blood Pressure 118/58 L 115/62 Pulse Oximetry 95 96 95 05/30/20 00:09 05/30/20 02:00 05/30/20 02:04 Temperature Pulse Rate 99 100 100 Respiratory Rate 25 H 25 H 25 H Blood Pressure 117/60 Pulse Oximetry 95 05/30/20 03:20 05/30/20 03:26 05/30/20 03:36 Temperature Pulse Rate 111 H 106 H 106 H Respiratory Rate 29 H 31 H 31 H Blood Pressure Pulse Oximetry 90 90 05/30/20 04:00 05/30/20 04:33 05/30/20 04:34 Temperature 98.4 F Pulse Rate 109 H 110 H 108 H Respiratory Rate 29 H 35 H Blood Pressure 131/68 Pulse Oximetry 92 92 05/30/20 06:00 05/30/20 06:41 Temperature Pulse Rate 108 H 108 H Respiratory Rate 29 H 29 H Blood Pressure 125/63 Pulse Oximetry 93 Intake/Output Intake/Output: Intake & Output 05/27/20 05/28/20 05/29/20 05/30/20 23:59 23:59 23:59 23:59 Intake Total 3396 3340 3474 1005 Output Total 1775 2900 3675 500 Balance 1621 440 -201 505 Meds/Results Medications: Active Medications Generic Name Dose Route Start Last Admin Trade Name Freq PRN Reason Stop Dose Admin Albuterol 2.5 mg 05/12/20 14:00 05/30/20 03:24 Albuterol Sulfate Neb 2.5 Mg/0.5 Ml Inh INHALATION 2.5 mg Q6HRT JENNA Administration Alteplase, Recombinant 2 mg 05/20/20 17:36 05/23/20 15:56 Alteplase 2 Mg Vial (Cathflo) IV PUSH 2 mg ONCE PRN Administration Line Occlusion Bisacodyl 10 mg 05/16/20 10:24 05/20/20 07:47 Bisacodyl 10 Mg Suppository RECTAL 10 mg QAM PRN Administration Constipation Dextrose 12.5 gm
[2020-05-30] MEDS: PANTOPRAZOLE SODIUM IV 40 MG VIAL IV PUSH (08:31)
[2020-05-30] MEDS: TOLNAFTATE 1% POWDER 45 GM BTL 1 APPLIC TOPICAL ×2 (08:32→20:33)
[2020-05-30] MEDS: INSULIN DETEMIR 100 UNITS/ML 25 UNITS SUB-Q ×2 (08:32→20:30)
--- NOTE | 2020-05-30 09:24 | WPDANESEPP ---
Anes - Eval Pre Procedure Procedure: Operation Date: 05/30/20 16:00 Proposed Procedures p Tracheostomy - Damion Mora MD Date/Time: 05/30/20 09:24 Pre Op Diagnosis: acute respiratory failure, COVID +, pneumonia Patient Data Age: 70 Gender: M Height: 1.93 m Weight: 138.8 kg Last Vital Signs Temp 36.9 C 05/30/20 04:00 Pulse 108 H 05/30/20 06:41 Resp 29 H 05/30/20 06:41 BP 125/63 05/30/20 06:00 Pulse Ox 93 05/30/20 06:00 Allergies Allergy/AdvReac Type Severity Reaction Status Date / Time No Known Allergies Allergy Verified 01/09/20 09:10 Home Medications Medication Instructions Recorded Confirmed Type allopurinol 300 mg tablet 300 mg PO DAILY #90 tablet 02/12/20 05/09/20 Rx amlodipine 10 mg tablet 10 mg PO DAILY #90 tablet 02/12/20 05/09/20 Rx enalapril maleate 20 mg tablet 20 mg PO DAILY #90 tablet 02/12/20 05/09/20 Rx hydrochlorothiazide 50 mg tablet 50 mg PO DAILY #90 tablet 02/12/20 05/09/20 Rx pantoprazole 40 mg tablet,delayed 40 mg PO QAM #90 tablet 02/12/20 05/09/20 Rx release benzonatate 100 mg capsule 100 mg PO TID PRN #30 cap 05/06/20 05/09/20 Rx Laboratory Tests 05/29/20 05/29/20 05/29/20 11:40 17:10 20:09 WBC RBC Hgb Hct MCV MCH MCHC RDW Plt Count MPV Puncture Site ABG pH ABG pCO2 ABG pO2 ABG PO2/FiO2 Ratio ABG HCO3 ABG O2 Saturation ABG O2 Content ABG Base Excess A-a Gradient Oxyhemoglobin Carboxyhemoglobin Methemoglobin Reduced Hemoglobin Total Hemoglobin O2 Delivery Device O2 Liters/Min Minute Volume Vent Rate Vent Mode FiO2 Tidal Volume PEEP Peak Inspir Pressure Pressure Support Sodium Potassium Chloride Carbon Dioxide Anion Gap BUN Creatinine Estim Creat Clear Calc Estimated GFR Glucose POC Capillary Glucose 158 mg/dl H mg/dl 101 mg/dl mg/dl 107 mg/dl mg/dl (65-105) (65-105) (65-105) Calcium Phosphorus Magnesium 1205/30/20 05/30/20 00:02 04:37 04:48 WBC RBC Hgb Hct MCV MCH MCHC RDW Plt Count MPV Puncture Site Right radial ABG pH 7.398 (7.350-7.450) ABG pCO2 57.6 mmHg H mmHg (35.0-45.0) ABG pO2 57.1 mmHg L mmHg (80.0-100.0) ABG PO2/FiO2 Ratio 0.63 % % ABG HCO3 34.7 mEq/l H mEq/l (22.0-26.0) ABG O2 Saturation 89.0 % L % (95.0-100.0) ABG O2 Content 13.7 %vol L %vol (16.0-22.0) ABG Base Excess 8.4 mEq/l mEq/l (+/-2.0) A-a Gradient 525.6 mmHg mmHg Oxyhemoglobin 89.1 % THb L % THb (90.0-100.0) Carboxyhemoglobin 0.1 % THb % THb (0-2.0) Methemoglobin 0.3 %THb %THb (0-1.5) Reduced Hemoglobin 10.5 %THb H %THb (0-5.0) Total Hemoglobin 10.9 g/dL L g/dL (12.0-18.0) O2 Delivery Device Ventilator O2 Liters/Min Not Reportable Minute Volume Not Reportable Vent Rate 24 /MIN /MIN Vent Mode Cmv FiO2 90 % % Tidal Volume 520 ml ml PEEP 8 cmH2O cmH2O Peak Inspir Pressure Not Reportable Pressure Support Not Reportable Sodium 137 mmol/L mmol/L (137-145) Potassium 4.1 mmol/L mmol/L (3.4-5.0) Chloride 97 mmol/L L mmol/L (98-107)
[2020-05-30] MEDS: acetaZOLAMIDE TAB 250 MG TABLET PO ×2 (09:28→20:10)
--- NOTE | 2020-05-30 11:33 | PCDIET ---
Nutrition Note: Tube feedings on hold for procedure. Patient previously tolerating Jevity 1.2 at 30mL/hr with goal of 60mL/hr and 30mL water flush every 4 hours. Glucose well controlled on current regimen. Last recorded weight is 138.8 kg which is increased from last review. I/O noted. Bowel Motility: Last documented BM on 05/26/20. If medically appropriate, would consider medication to promote BM. Labs Reviewed: Hgb (9.3), Hct (30.7), Glu (113), Ca (7.9) Meds Noted: Albuterol, Cipro, Fentanyl, Hydralazine, Novolog, Levemir, Protonix, Vancomycin, Propofol (rate of 40.41mL/hr provides 1066kcal per day) Additional Notes: No albumin available for calcium correction. Abrasions and stasis ulcers documented to lower extremities. Abrasion and scab to right ear and head, respectively. No new recommendations at this time.
[2020-05-30 11:54] LABS: Glucose Point of Care 138 (65-105)
--- NOTE | 2020-05-30 14:28 | WPDINFPN2 ---
Progress Note: A&P Assessment and Plan (1) Pneumonia due to COVID-19 virus: Code(s): U07.1 - COVID-19; J12.89 - Other viral pneumonia Status: Acute Assessment and Plan: 1. Viral pneumonia due to CoVid 19 2. Respiratory failure, stable gas exchange with persistent abn CXR. He may have a bacterial superinfection. Sputum BREANNA. 3. CNSS bacteremia, catheter infection source? No current CVC REC Off dexamethasone. Continue ciprofloxacin and Vanc until AM 12/4 tentatively. Bedside EEG (final report?) = comatose Subjective Date/time seen: 05/30/20 14:28 Interval history: on vent no pressors Exam Narrative: Exam Narrative: afebrile Const: General: no acute distress Resp: Effort & Inspection: normal respiratory effort Auscultation: clear to auscultation bilaterally Cardio: Rate: regular rate Rhythm: regular rhythm Heart sounds: no gallops GI: Inspection: non-distended GI Palp: Yes Soft to palpation and No Tenderness to palpation present (GI) Other: new PEG in use : Male General Exam: Yes normal external exam Urinary Catheter: Urinary Catheter: patent and draining and urine clear Objective Data Vital Signs Vital Signs: Vital Signs - 24 hr 05/29/20 15:01 05/29/20 15:04 05/29/20 16:00 Temperature 36.8 C Pulse Rate 109 H 109 H 104 H Respiratory Rate 26 H 25 H Blood Pressure 98/59 L Pulse Oximetry 96 95 05/29/20 16:15 05/29/20 17:05 05/29/20 18:00 Temperature 36.6 C Pulse Rate 101 H 102 H 103 H Respiratory Rate 27 H 24 H Blood Pressure 136/65 Pulse Oximetry 96 96 05/29/20 18:44 05/29/20 19:25 05/29/20 20:00 Temperature 36.9 C Pulse Rate 105 H 105 H 105 H Respiratory Rate 28 H 28 H 27 H Blood Pressure 133/62 Pulse Oximetry 94 05/29/20 21:05 05/29/20 21:15 05/29/20 21:52 Temperature Pulse Rate 102 H 102 H 100 Respiratory Rate 26 H 26 H 25 H Blood Pressure Pulse Oximetry 95 05/29/20 22:00 05/29/20 23:42 05/30/20 00:00 Temperature 36.8 C Pulse Rate 98 101 H 101 H Respiratory Rate 26 H 26 H Blood Pressure 118/58 L 115/62 Pulse Oximetry 95 96 95 05/30/20 00:09 05/30/20 02:00 05/30/20 02:04 Temperature Pulse Rate 99 100 100 Respiratory Rate 25 H 25 H 25 H Blood Pressure 117/60 Pulse Oximetry 95 05/30/20 03:20 05/30/20 03:26 05/30/20 03:36 Temperature Pulse Rate 111 H 106 H 106 H Respiratory Rate 29 H 31 H 31 H Blood Pressure Pulse Oximetry 90 90 05/30/20 04:00 05/30/20 04:33 05/30/20 04:34 Temperature 36.9 C Pulse Rate 109 H 110 H 108 H Respiratory Rate 29 H 35 H Blood Pressure 131/68 Pulse Oximetry 92 92 05/30/20 06:00 05/30/20 06:41 05/30/20 08:00 Temperature 37.2 C Pulse Rate 108 H 108 H 109 H Respiratory Rate 29 H 29 H 29 H Blood Pressure 125/63 127/63 Pulse Oximetry 93 94 05/30/20 08:50 05/30/20 08:58 05/30/20 09:10 Temperature Pulse Rate 111 H 113 H 113 H Respiratory Rate 30 H 30 H 33 H Blood Pressure Pulse Oximetry 94 05/30/20 09:28 05/30/20 10:00 05/30/20 10:57 Temperature Pulse Rate 113 H 112 H 111 H Respiratory Rate 33 H 34 H Blood Pressure 132/70 Pulse Oximetry 94 94 05/30/20 11:42 05/30/20 12:00 05/30/20 13:58 Temperature 37.2 C Pulse Rate 112 H 111 H 111 H Respiratory Rate 34 H 34 H 33 H Blood Pressure 142/69 H Pulse Oximetry 94 Intake/Output Intake/Output: Intake & Output 05/27/20 05/28/20 05/29/20 05/30/20 23:59 23:59 23:59 23:59 Intake Total 3396 3340 3474 1805 Output Total 1775 2900 3675 500 Balance 1621 440 -201 1305 Meds/Results Medications: Active Medications Generic Name Dose Route Start Last Admin Trade Name Freq PRN Reason Stop Dose Admin Acetazolamide 250 mg 05/30/20 09:00 05/30/20 09:28 Acetazolamide Tab 250 Mg Tablet PO 05/31/20 23:59 250 mg Q12HR JENNA Administration Albuterol 2.5 mg 05/12/20 14:00 05/30/20 13:40 Albuterol Sulfate Neb 2.5 Mg/0.5 Ml Inh INHALATION 2.5 mg Q
--- NOTE | 2020-05-30 14:48 | WPDCN ---
Assessment and Plan Assessment and plan (1) Pneumonia due to COVID-19 virus: Code(s): U07.1 - COVID-19; J12.89 - Other viral pneumonia Status: Acute Assessment and Plan: Plan is for the OR for tracheostomy. The risks and benefits were discussed with the patient's POA who agreed. (2) Acute respiratory failure with hypoxemia: Code(s): J96.01 - Acute respiratory failure with hypoxia Status: Acute HPI Data of Consult Date/Time: 05/30/20 14:48 Requesting Physician: Nir aSge MD Primary Care Provider: Gaudencio Stephenson MD Consult Narrative Narrative: Odell Rod is a 70 year old male with a past medical history significant for respiratory failure. I was consulted for placement of tracheostomy. Review of Systems Review of Systems: ROS unobtainable: Yes unobtainable due to endotracheal tube PMFSH Past Medical History Medical History (Updated 05/30/20 @ 09:28 by Evonne Gould CRNA) Acute renal failure Acute respiratory failure with hypoxemia Chronic GERD Diabetes mellitus Diverticulosis Encephalopathy GERD (gastroesophageal reflux disease) Gout HTN (hypertension), benign Pneumonia due to COVID-19 virus Seizure Surgical History Surgical History (Updated 05/30/20 @ 09:27 by Evonne Gould CRNA) H/O eye surgery Bilateral keratotomy H/O rectal polypectomy History of bilateral knee replacement Patient had bilateral knees replaced and then had both of them redone each knee was done twice History of cholecystectomy PEG (percutaneous endoscopic gastrostomy) status 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 He retired from [employer]. He has 2 daughters. His is a durable power workers compensation defense attorney for healthcare. He desires to be a full code. He denies any alcohol or illicit drugs. Lifelong nonsmoker. Smoking status: Never smoker Second hand tobacco smoke exposure: No Alcohol intake: never Substance use: never Substance use type: does not use Gender identity (if verbalized by the patient): Male Spiritual care concerns: No Meds Home Medications and Allergies Home Medications Medication Instructions Recorded Confirmed Type allopurinol 300 mg tablet 300 mg PO DAILY #90 tablet 02/12/20 05/09/20 Rx amlodipine 10 mg tablet 10 mg PO DAILY #90 tablet 02/12/20 05/09/20 Rx enalapril maleate 20 mg tablet 20 mg PO DAILY #90 tablet 02/12/20 05/09/20 Rx hydrochlorothiazide 50 mg tablet 50 mg PO DAILY #90 tablet 02/12/20 05/09/20 Rx pantoprazole 40 mg tablet,delayed 40 mg PO QAM #90 tablet 02/12/20 05/09/20 Rx release benzonatate 100 mg capsule 100 mg PO TID PRN #30 cap 05/06/20 05/09/20 Rx Allergies Allergy/AdvReac Type Severity Reaction Status Date / Time No Known Allergies Allergy Verified 01/09/20 09:10 Vital Signs Vital Signs - 24 hr 05/29/20 15:01 05/29/20 15:04 05/29/20 16:00 Temperature 36.8 C Pulse Rate 109 H 109 H 104 H Respiratory Rate 26 H 25 H Blood Pressure 98/59 L Pulse Oximetry 96 95 05/29/20 16:15 05/29/20 17:05 05/29/20 18:00 Temperature 36.6 C Pulse Rate 101 H 102 H 103 H Respiratory Rate 27 H 24 H Blood Pressure 136/65 Pulse Oximetry 96 96 05/29/20 18:44 05/29/20 19:25 05/29/20 20:00 Temperature 36.9 C Pulse Rate 105 H 105 H 105 H Respiratory Rate 28 H 28 H 27 H Blood Pressure 133/62 Pulse Oximetry 94 05/29/20 21:05 05/29/20 21:15 05/29/20 21:52 Temperature Pulse Rate 102 H 102 H 100 Respiratory Rate 26 H 26 H 25 H Blood Pressure Pulse Oximetry 95 05/29/20 22:00 05/29/20 23:42 05/30/20 00:00 Temperature 36.8 C P
--- NOTE | 2020-05-30 14:51 | WPDCN ---
Assessment and Plan Assessment and plan (1) Pneumonia due to COVID-19 virus: Code(s): U07.1 - COVID-19; J12.89 - Other viral pneumonia Status: Acute Assessment and Plan: Plan is for the OR for tracheostomy. The risks and benefits were explained in detail to the POA per nursing who voiced understanding and agreement. (2) Acute respiratory failure with hypoxemia: Code(s): J96.01 - Acute respiratory failure with hypoxia Status: Acute HPI Data of Consult Date/Time: 05/30/20 14:51 Requesting Physician: Nir Sage MD Primary Care Provider: Gaduencio Stephenson MD Consult Narrative Narrative: Odell Rod is a 70 year old male with a past medical history of pneumonia as well as respiratory failure. Patient presents for tracheostomy. Review of Systems Review of Systems: ROS unobtainable: Yes unobtainable due to endotracheal tube PMFSH Past Medical History Medical History (Updated 05/30/20 @ 09:28 by Evonne Gould CRNA) Acute renal failure Acute respiratory failure with hypoxemia Chronic GERD Diabetes mellitus Diverticulosis Encephalopathy GERD (gastroesophageal reflux disease) Gout HTN (hypertension), benign Pneumonia due to COVID-19 virus Seizure Surgical History Surgical History (Updated 05/30/20 @ 09:27 by Evonne Gould CRNA) H/O eye surgery Bilateral keratotomy H/O rectal polypectomy History of bilateral knee replacement Patient had bilateral knees replaced and then had both of them redone each knee was done twice History of cholecystectomy PEG (percutaneous endoscopic gastrostomy) status 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 He retired from [employer]. He has 2 daughters. His is a durable power erisa attorney for healthcare. He desires to be a full code. He denies any alcohol or illicit drugs. Lifelong nonsmoker. Smoking status: Never smoker Second hand tobacco smoke exposure: No Alcohol intake: never Substance use: never Substance use type: does not use Gender identity (if verbalized by the patient): Male Spiritual care concerns: No Meds Home Medications and Allergies Home Medications Medication Instructions Recorded Confirmed Type allopurinol 300 mg tablet 300 mg PO DAILY #90 tablet 02/12/20 05/09/20 Rx amlodipine 10 mg tablet 10 mg PO DAILY #90 tablet 02/12/20 05/09/20 Rx enalapril maleate 20 mg tablet 20 mg PO DAILY #90 tablet 02/12/20 05/09/20 Rx hydrochlorothiazide 50 mg tablet 50 mg PO DAILY #90 tablet 02/12/20 05/09/20 Rx pantoprazole 40 mg tablet,delayed 40 mg PO QAM #90 tablet 02/12/20 05/09/20 Rx release benzonatate 100 mg capsule 100 mg PO TID PRN #30 cap 05/06/20 05/09/20 Rx Allergies Allergy/AdvReac Type Severity Reaction Status Date / Time No Known Allergies Allergy Verified 01/09/20 09:10 Vital Signs Vital Signs - 24 hr 05/29/20 15:01 05/29/20 15:04 05/29/20 16:00 Temperature 36.8 C Pulse Rate 109 H 109 H 104 H Respiratory Rate 26 H 25 H Blood Pressure 98/59 L Pulse Oximetry 96 95 05/29/20 16:15 05/29/20 17:05 05/29/20 18:00 Temperature 36.6 C Pulse Rate 101 H 102 H 103 H Respiratory Rate 27 H 24 H Blood Pressure 136/65 Pulse Oximetry 96 96 05/29/20 18:44 05/29/20 19:25 05/29/20 20:00 Temperature 36.9 C Pulse Rate 105 H 105 H 105 H Respiratory Rate 28 H 28 H 27 H Blood Pressure 133/62 Pulse Oximetry 94 05/29/20 21:05 05/29/20 21:15 05/29/20 21:52 Temperature Pulse Rate 102 H 102 H 100 Respiratory Rate 26 H 26 H 25 H Blood Pressure Pulse Oximetry 95 05/29/20 22:00 05/29/20 23:42
--- NOTE | 2020-05-30 14:52 | WPDHPUPDATE1 ---
History and Physical Update Update Date/Time: 05/30/20 14:52 History and Physical has been reviewed, including an updated exam of the patient. There are NO changes in the patient's condition. Risks, benefits, and alternatives have been discussed and questions answered. Patient agrees to proceed with procedure.
--- NOTE | 2020-05-30 15:46 | WPDINTPN ---
Progress Note: A&P Assessment and Plan (1) Acute respiratory failure with hypoxemia: Code(s): J96.01 - Acute respiratory failure with hypoxia Status: Acute Assessment and Plan: Acute respiratory failure hypoxemia secondary to COVID-19 pneumonia - patient has been alternating with BiPAP and high-flow therapy since 05/08/2020. - intubated on 05/12/2020 -chest x-ray and ABGs reviewed, currently CMV mode of ventilation, 8 of PEEP and 80% FiO2 Continue propofol for sedation -discussed with and daughter, agrees with tracheostomy, -PEG tube to be placed 05/29/2020 -tracheostomy placed on 05/30/2020 Bilateral upper extremity swelling, venous Dopplers of bilateral upper extremities done on 05/21, showed bilateral upper extremity superficial venous thrombosis (2) Fever: Code(s): R50.9 - Fever, unspecified Status: Acute Assessment and Plan: Fever curve has resolved Venous Dopplers 05/16/2020: No DVT bilateral lower extremity blood cultures from 05/16/2020: Negative x2 from 05/18/2020 negative x1 -sputum cultures from 05/19 bring Pseudomonas and Staph aureus (BREANNA), patient with leukocytosis, fevers and infiltrates on chest x-ray. -repeat blood cultures 05/25 growing gram-positive cocci in clusters -repeat sputum culture 05/26/2020 growing Pseudomonas and Staph aureus -appreciate infectious disease evaluation recommendation, continue Cipro and vancomycin for now (3) Shock: Code(s): R57.9 - Shock, unspecified Status: Acute Assessment and Plan: RESOLVED Patient hypotensive overnight on 05/24, likely related to diuresis, and or infection Off Levophed, -lactic acid normalized (4) Pneumonia due to COVID-19 virus: Code(s): U07.1 - COVID-19; J12.89 - Other viral pneumonia Status: Acute Assessment and Plan: Completed a course of dexamethasone and Remdesivir. - appreciate infectious disease evaluation recommendation. he is not a candidate for convalescent plasma. - continue droplet, airborne, contact isolation /precautions -LDH and ferritin are normal, D-dimer and CRP are trending down (5) Encephalopathy: Code(s): G93.40 - Encephalopathy, unspecified Status: Acute Assessment and Plan: Gradually improving, patient is off sedation since 05/20/2020 -CT scan of the brain on 05/19/2020 did not show any acute intracranial abnormalities -neurology evaluated him on admission -EEG from 05/20/2020 organic or metabolic encephalopathy or postictal state (6) GERD (gastroesophageal reflux disease): Code(s): K21.9 - Gastro-esophageal reflux disease without esophagitis Status: Acute Assessment and Plan: Continue IV pantoprazole once a day. (7) HTN (hypertension), benign: Code(s): I10 - Essential (primary) hypertension Status: Chronic Assessment and Plan: Stable blood pressures (8) Elevated blood sugar: Code(s): R73.9 - Hyperglycemia, unspecified Status: Acute Assessment and Plan: He seems to have a new diagnosis of diabetes mellitus. Hemoglobin A1c was 8.6. continue insulin sliding scale. -continue Levemir (9) Acute renal failure: Code(s): N17.9 - Acute kidney failure, unspecified Status: Acute Assessment and Plan: Acute kidney injury has resolved with creatinine 1.0 this morning -hypokalemia -resolved (10) Seizure: Code(s): R56.9 - Unspecified convulsions Status: Acute Assessment and Plan: patient with seizure activity on 05/12/2020, patient was loaded with Keppra - neurology evaluated the patient - will hold Keppra since patient has not had any seizure activity - currently sedated with propofol and Versed (11) Dietary counseling and surveillance: Code(s): Z71.3 - Dietary counseling and surveillance Status: Acute Assessment and Plan: Feeds currently on hold for PEG tube placement -patient with bowel
--- NOTE | 2020-05-30 15:50 | PM.IMPN ---
Progress Note: A&P Assessment and Plan (1) Shock: Code(s): R57.9 - Shock, unspecified Status: Acute Assessment and Plan: Patient was hypotensive 05/25 requiring norepinephrine but able to come off quickly. Blood pressure better controlled. Hypotension could be related to recent Lasix use. Continue to monitor. (2) Acute respiratory failure: Code(s): J96.00 - Acute respiratory failure, unspecified whether with hypoxia or hypercapnia Status: Acute Assessment and Plan: ABG on admission showing 7.53/25/63 on BiPAP. Wore the BiPAP initially but his condition worsened however and moved to ICU and intubated 05/12. Echo normal EF with grade 1 DD. Fevers resolving felt related to the probable bacterial PNA; continue IV abx Vanc and cipro. Vent management per technology teacher. . (3) Pneumonia due to COVID-19 virus: Code(s): U07.1 - COVID-19; J12.89 - Other viral pneumonia Status: Acute Assessment and Plan: Patient COVID positive on 05/04/20. He was admitted on 05/08/20 and finished 10d of Decadron and finished Remdesivir. AST/ALT up and down felt related to COVID; LFTs better overall. Repeat sputum cultures growing pseudomonas and BREANNA so Zosyn and Vanco started 05/20 through 05/25 and now changed to Cipro. Repeat CXR today still showing diffuse bilateral infiltrates. Continue to follow inflammatory markers and LFTs. Otherwise as above. (4) Pneumonia: Code(s): J18.9 - Pneumonia, unspecified organism Status: Acute Assessment and Plan: Sputum cultures growing pseudomonas and BREANNA and felt patient has superimposed bacterial pneumonia. Treatment as above. BC 05/26 staph epi x1 and repeat sputum 05/25 still Psuedomanas and staph aureus ID recommends cipro and vanc at least through 05/31 (5) Encephalopathy: Code(s): G93.40 - Encephalopathy, unspecified Status: Acute Assessment and Plan: Patient had a a prolonged seizure on 05/13 and was on Keppra but now off. Patient was unresponsive off sedation. CT brain no change 05/19. EEG results abnormal record due to the presence of bihemispheric delta activity and with absence of the normal background rhythm particularly posteriorly. No evidence of any paroxysmal discharge to suggest organic or metabolic encephalopathy or postictal state. He has become more responsive now. Continue to follow off sedation to assess recovery. (6) Seizure: Code(s): R56.9 - Unspecified convulsions Status: Acute Assessment and Plan: Patient had a seizure on 05/13 possibly related to hypoxia. He was on Keppra but stopped after a few days. CT brain showing no acute process 05/19. EEG as mentioned above. Continue to monitor. (7) HTN (hypertension), benign: Code(s): I10 - Essential (primary) hypertension Status: Chronic Assessment and Plan: Patient's blood pressure was reviewed on 05/30. . Will continue to hold his amlodipine, enalapril and hydrochlorothiazide. IV hydralazine prn available. Resume meds if needed (8) Acute renal failure: Code(s): N17.9 - Acute kidney failure, unspecified Status: Acute Assessment and Plan: Patient's creatinine is 1.5 on admission. Yoni inhibitors and diuretics on hold. Creatine now 1.0. Continue to monitor. (9) Diabetes mellitus: Code(s): E11.9 - Type 2 diabetes mellitus without complications Status: Acute Assessment and Plan: A1c 8.6 consistent with new diagnosis of DM. Glucose reviewed on 05/30 Glucose better controlled. Continue AccuCheks covering with sliding scale. Continue Levemir 25 U q12 (10) Gout: Code(s): M10.9 - Gout, unspecified Status: Chronic Assessment and Plan: Stable. Allopurinol remains on hold. (11) Chronic GERD: Code(s): K21.9 - Gastro-esophageal reflux disease without esophagitis St
--- NOTE | 2020-05-30 17:44 | PM.PROC ---
Procedure Note - Detailed Date of procedure: 05/30/20 Pre-op diagnosis: acute respiratory failure, COVID +, pneumonia Post-op diagnosis: same Procedure performed: Tracheostomy Description of procedure: The patient was correctly identified and consent was verified in his ICU room. The patient was then brought to the operating room and a time-out was performed. General anesthesia was deepened and the patient was prepped positioned and marked with a 5 cm incision 2 fingerbreadths above the clavicular notch. 3 cc 1% lidocaine with 1 100,000 parts epinephrine were then injected. A 15 blade was utilized to perform a skin and dermal incision. Subcutaneous lipectomy was then performed with Bovie electrocautery. Combination of Bovie electrocautery as well as blunt dissection was utilized to dissect down to the trachea. Anesthesia was then asked to deflate the balloon. A 15 blade was utilized to perform a tracheotomy between the 2nd and 3rd tracheal rings. Anesthesia removed the endotracheal tube until is no longer visible in the tracheotomy. An 8 cuffed Shiley was then placed. Anesthesia connected their circuit confirming proper placement and end-tidal CO2. Four corner trach stitches were then placed and trach ties were applied. This marked end the procedure. Care of the patient was turned over to Anesthesiology. I performed all dictated portions of the procedure. Anesthesia: GLMA Surgeon: Damion Mora MD Estimated blood loss (mL): 5 Complications: No immediate complications Condition: stable Disposition: ICU
[2020-05-30 18:20] LABS: Glucose Point of Care 101 (65-105)
[2020-05-30] MEDS: ENOXAPARIN 40 MG/0.4 ML SYRINGE SUB-Q (20:10)
[2020-05-30 20:43] LABS: Glucose Point of Care 146 (65-105)
[2020-05-30 23:43] LABS: Glucose Point of Care 180 (65-105)
[2020-05-31] VITALS (45 sets, daily range): BP systolic 88–134; BP diastolic 52–68; PULSE 19–122; RESP 23–39; TEMP 37.2–37.6; O2SAT 88–97
[2020-05-31] MEDS: PROPOFOL IV EMULSION 100 ML 40.41 MG IV CONT ×7 (01:17→21:10)
[2020-05-31] MEDS: ALBUTEROL SULFATE NEB 2.5 MG/0.5 ML INH INHALATION ×3 (01:25→13:25)
[2020-05-31 04:45] LABS: Hematocrit 30.7 % (42.0-52.0); Hemoglobin 9.2 g/dL (14.0-18.0); Mean Corpuscular Hemoglobin 27.5 pg (26-34); Mean Corpuscular Volume 91.6 fl (80-100); Mean Platelet Volume 10.2 fl (7.4-10.4); Platelet Count Result 298 k/mm3 (150-375); Red Blood Count 3.35 M/mm3 (4.6-6.20); Red Cell Distribution Width 17.8 % (11.5-14.5)
[2020-05-31 04:58] LABS: Anion Gap 2 mmol/L (8-16); Blood Urea Nitrogen 26 mg/dL (9-20); Calcium 7.3 mg/dL (8.4-10.2); Carbon Dioxide 37 mmol/L (22-30); Chloride 93 mmol/L (98-107); Estimated CRCL calculation 60 ml/min; Estimated Glomerular Filt Rate 43; Glucose 137 mg/dL (75-110); Lactate Dehydrogenase 597 U/L (313-618); Magnesium 2.4 mg/dL (1.6-2.3); Phosphorus 5.6 mg/dL (2.5-4.5); Potassium 4.8 mmol/L (3.4-5.0); Sodium 132 mmol/L (137-145)
[2020-05-31 05:01] LABS: D Dimer 3.39 ug/mL (<0.48)
[2020-05-31 05:29] LABS: Alveolar/Arterial O2 Gradient 585.8 mmHg; Base Excess ABG 6.5 mEq/l (+/-2.0); Carboxyhemoglobin 0.5 % THb (0-2.0); Fractional Inspired Oxygen 100 %; HCO3 ABG 34.7 mEq/l (22.0-26.0); Methemoglobin ABG 0.4 %THb (0-1.5); Oxygen Content ABG 14.1 %vol (16.0-22.0); Oxyhemoglobin 87.2 % THb (90.0-100.0); PO2 ABG 57.1 mmHg (80.0-100.0); PO2 FiO2 Ratio Arterial Blood 0.57 %; Reduced Hemoglobin 11.9 %THb (0-5.0); Total Hemoglobin 11.5 g/dL (12.0-18.0); pH ABG 7.312 (7.350-7.450)
[2020-05-31 05:31] LABS: PCO2 ABG 70.1 mmHg (35.0-45.0)
[2020-05-31 05:32] LABS: Arterial Blood Gas PEEP 12 cmH2O; Arterial Blood Gas Vent Mode CMV; Arterial Blood Gas Ventilator rate 24 /MIN; Device VENTILATOR; Modified Allen's Test Unable to perform; Site Drawn RIGHT RADIAL
[2020-05-31 05:33] LABS: Arterial Blood Gas Tidal Volume 520 ml
[2020-05-31] MEDS: CIPROFLOXACIN 400 MG/D5W 200ML 200 ML 200 MG IVPB ×2 (06:13→14:02)
[2020-05-31 06:38] LABS: Glucose Point of Care 131 (65-105)
[2020-05-31] MEDS: CENTRAL LINE FLUSH 10 ML IV PUSH ×3 (06:45→20:15)
[2020-05-31] MEDS: ENOXAPARIN 40 MG/0.4 ML SYRINGE SUB-Q ×2 (07:31→20:11)
[2020-05-31] MEDS: INSULIN DETEMIR 100 UNITS/ML 25 UNITS SUB-Q ×2 (07:31→20:18)
[2020-05-31] MEDS: acetaZOLAMIDE TAB 250 MG TABLET PO (07:31)
[2020-05-31] MEDS: PANTOPRAZOLE SODIUM IV 40 MG VIAL IV PUSH (07:32)
[2020-05-31] MEDS: TOLNAFTATE 1% POWDER 45 GM BTL 1 APPLIC TOPICAL ×2 (07:33→20:12)
--- NOTE | 2020-05-31 08:21 | WPDANESPN ---
Anes - Prog Note Post-Op Date/Time: 05/31/20 08:21 Cardiovascular status: normal Respiratory status: other (patient had increase in fio2 to 100% overnight. remains on ventilator ) Airway patency: other (tracheostomy ) Mental status: other (unable to determine) Post-Op hydration status: other (iv fluids) Vital Signs: Last Vital Signs Temp 37.6 C 05/31/20 04:00 Pulse 112 H 05/31/20 06:09 Resp 32 H 05/31/20 06:09 BP 118/68 05/31/20 06:00 Pulse Ox 88 L 05/31/20 06:00 Pain Score (VAS): 0 I/O: Intake & Output 05/30/20 05/31/20 05/31/20 23:59 07:59 15:59 Intake Total 1345 300 Output Total 200 250 Balance 1145 50 Laboratory Tests 05/31/20 04:21 05/31/20 04:20 05/30/20 05/30/20 05/30/20 11:36 17:53 20:29 WBC RBC Hgb Hct MCV MCH MCHC RDW Plt Count MPV D-Dimer Puncture Site ABG pH ABG pCO2 ABG pO2 ABG PO2/FiO2 Ratio ABG HCO3 ABG O2 Saturation ABG O2 Content ABG Base Excess A-a Gradient Oxyhemoglobin Carboxyhemoglobin Methemoglobin Reduced Hemoglobin Total Hemoglobin O2 Delivery Device O2 Liters/Min Minute Volume Vent Rate Vent Mode FiO2 Tidal Volume PEEP Peak Inspir Pressure Pressure Support Sodium Potassium Chloride Carbon Dioxide Anion Gap BUN Creatinine Estim Creat Clear Calc Estimated GFR Glucose POC Capillary Glucose 138 H 101 146 H Calcium Phosphorus Magnesium Ferritin Lactate Dehydrogenase C-Reactive Protein 05/30/20 05/31/20 05/31/20 23:29 04:20 04:20 WBC RBC Hgb Hct MCV MCH MCHC RDW Plt Count MPV D-Dimer Puncture Site ABG pH ABG pCO2 ABG pO2 ABG PO2/FiO2 Ratio ABG HCO3 ABG O2 Saturation ABG O2 Content ABG Base Excess A-a Gradient Oxyhemoglobin Carboxyhemoglobin Methemoglobin Reduced Hemoglobin Total Hemoglobin O2 Delivery Device O2 Liters/Min Minute Volume Vent Rate Vent Mode FiO2 Tidal Volume PEEP Peak Inspir Pressure Pressure Support Sodium 132 L Potassium 4.8 Chloride 93 L Carbon Dioxide 37 H Anion Gap 2 L BUN 26 H Creatinine 1.60 H Estim Creat Clear Calc 60 Estimated GFR 43 L Glucose 137 H POC Capillary Glucose 180 H Calcium 7.3 L Phosphorus 5.6 H Magnesium 2.4 H Ferritin 153.00 Lactate Dehydrogenase 597 C-Reactive Protein 6.0 H 05/31/20 05/31/20 05/31/20 04:21 04:21 05:24 WBC 14.0 H RBC 3.35 L Hgb 9.2 L Hct 30.7 L MCV 91.6 MCH 27.5 MCHC 30.0 L RDW 17.8 H Plt Count 298 MPV 10.2 D-Dimer 3.39 H Puncture Site Right radial ABG pH 7.312 L ABG pCO2 70.1 H* ABG pO2 57.1 L ABG PO2/FiO2 Ratio 0.57 ABG HCO3 34.7 H ABG O2 Saturation 86.0 L* ABG O2 Content 14.1 L ABG Base Excess 6.5 A-a Gradient 585.8 Oxyhemoglobin 87.2 L Carboxyhemoglobin 0.5 Methemoglobin 0.4 Reduced Hemoglobin 11.9 H Total Hemoglobin 11.5 L O2 Delivery Device Ventilator O2 Liters/Min Not Reportable Minute Volume Not Reportable Vent Rate 24 Vent Mode Cmv FiO2 100 Tidal Volume 520 PEEP 12 Peak Inspir Pressure Not Reportable Pressure Support Not Reportable Sodium Potassium Chloride Carbon Dioxide Anion Gap BUN Creatinine Estim Creat Clear Calc Estimated GFR Glucose POC Capillary Glucose Calcium Phosphorus Magnesium Ferritin Lactate Dehydrogenase C-Reactive Protein 05/31/20 06:12 WBC RBC Hgb Hct MCV MCH MCHC RDW Plt Count MPV D-Dimer Puncture Site ABG pH ABG pCO2 ABG pO2 ABG PO2/FiO2 Ratio ABG HCO3 ABG O2 Saturation ABG O2 Content ABG Base Excess A-a Gradient Oxyhemoglobin Carboxyhemoglobin Methemoglobin
[2020-05-31] MEDS: acetaZOLAMIDE TAB 250 MG TABLET 500 MG PO (08:46)
--- NOTE | 2020-05-31 12:14 | WPDINTPN ---
Progress Note: A&P Assessment and Plan (1) Acute respiratory failure with hypoxemia: Code(s): J96.01 - Acute respiratory failure with hypoxia Status: Acute Assessment and Plan: Acute respiratory failure hypoxemia secondary to COVID-19 pneumonia - patient has been alternating with BiPAP and high-flow therapy since 05/08/2020. - intubated on 05/12/2020 -chest x-ray and ABGs reviewed, currently CMV mode of ventilation, 8 of PEEP and 80% FiO2 Continue propofol for sedation -PEG tube to be placed 05/29/2020 -tracheostomy placed on 05/30/2020 -patient with significant cumulative positive fluid balance, chest x-ray shows diffuse infiltrates, will diurese today along with albumin Bilateral upper extremity swelling, venous Dopplers of bilateral upper extremities done on 05/21, showed bilateral upper extremity superficial venous thrombosis (2) Fever: Code(s): R50.9 - Fever, unspecified Status: Acute Assessment and Plan: Fever curve has resolved Venous Dopplers 05/16/2020: No DVT bilateral lower extremity blood cultures from 05/16/2020: Negative x2 from 05/18/2020 negative x1 -sputum cultures from 05/19 bring Pseudomonas and Staph aureus (BREANNA), -repeat blood cultures 05/25 growing coag-negative staph 2/2 bottles -repeat sputum culture 05/26/2020 growing Pseudomonas and Staph aureus -appreciate infectious disease evaluation recommendation, continue Cipro and vancomycin for now (3) Shock: Code(s): R57.9 - Shock, unspecified Status: Acute Assessment and Plan: RESOLVED Patient hypotensive overnight on 05/24, likely related to diuresis, and or infection Off Levophed, -lactic acid normalized (4) Pneumonia due to COVID-19 virus: Code(s): U07.1 - COVID-19; J12.89 - Other viral pneumonia Status: Acute Assessment and Plan: Completed a course of dexamethasone and Remdesivir. - appreciate infectious disease evaluation recommendation. he was not a candidate for convalescent plasma. - continue droplet, airborne, contact isolation /precautions -monitoring inflammatory markers periodically (5) Encephalopathy: Code(s): G93.40 - Encephalopathy, unspecified Status: Acute Assessment and Plan: Gradually improving, patient is off sedation since 05/20/2020 -CT scan of the brain on 05/19/2020 did not show any acute intracranial abnormalities -neurology evaluated him on admission -EEG from 05/20/2020 organic or metabolic encephalopathy or postictal state (6) GERD (gastroesophageal reflux disease): Code(s): K21.9 - Gastro-esophageal reflux disease without esophagitis Status: Acute Assessment and Plan: Continue IV pantoprazole once a day. (7) HTN (hypertension), benign: Code(s): I10 - Essential (primary) hypertension Status: Chronic Assessment and Plan: Stable blood pressures (8) Elevated blood sugar: Code(s): R73.9 - Hyperglycemia, unspecified Status: Acute Assessment and Plan: He seems to have a new diagnosis of diabetes mellitus. Hemoglobin A1c was 8.6. continue insulin sliding scale. -continue Levemir (9) Acute renal failure: Code(s): N17.9 - Acute kidney failure, unspecified Status: Acute Assessment and Plan: Acute kidney injury has resolved with creatinine 1.0 this morning -hypokalemia -resolved (10) Seizure: Code(s): R56.9 - Unspecified convulsions Status: Acute Assessment and Plan: patient with seizure activity on 05/12/2020, patient was loaded with Keppra - neurology evaluated the patient - will hold Keppra since patient has not had any seizure activity - currently sedated with propofol and Versed (11) Dietary counseling and surveillance: Code(s): Z71.3 - Dietary counseling and surveillance Status: Acute Assessment and Plan: Feeds currently on hold for PEG tube placement -patient with bowel movem
[2020-05-31] MEDS: FENTANYL 2,500MCG/NS250ML(*CRX 2,500 MCG/250 ML BAG IV CONT (12:27)
[2020-05-31] MEDS: ROCURONIUM BROMIDE 50 MG/5 ML VIAL IV PUSH ×2 (12:27→14:02)
[2020-05-31 12:39] LABS: Glucose Point of Care 161 (65-105)
[2020-05-31] MEDS: CISATRACURIUM BESYLATE 200 MG in DEXTROSE 5% 80 ML 8.4 ML IV CONT (13:40)
[2020-05-31] MEDS: FUROSEMIDE INJ 100 MG/10 ML VIAL 80 MG IV PUSH (13:40)
[2020-05-31] MEDS: ALBUMIN HUMAN 25% 25 GM/100 ML 200 ML IVPB (13:40)
--- NOTE | 2020-05-31 13:55 | PCDIET ---
Nutrition Follow-Up Complete: Nutrition Diagnosis: Altered laboratory values related to steroid use as evidence by A1c of 8.6%. Nutrition Goal: Patient to meet estimated nutritional needs. Goal in progress. Patient has been tolerating Jevity 1.2 at 30mL/hr. Recommend goal rate of 60mL/hr to closer meet estimated needs. Last recorded weight is 140 kg which is increased from last review. +I/O. Decreased urine output noted. Bowel Motility: Last documented BM on 05/26/20. If medically appropriate, would consider medication to promote BM. Labs Reviewed: Hgb (9.3), Hct (30.7), Glu (113), Ca (7.9) Meds Noted: Albuterol, Cipro, Fentanyl, Levemir, Vancomycin, Hydralazine, Novolog, Protonix, Propofol (rate of 40.41mL/hr provides 1066kcal per day) Additional Notes: Patient with new tracheostomy site, left head scab, right ear and left foot abrasions, left leg venous stasis ulcer, and left lower arm blister. Will continue to monitor with same goal. Nutrition Monitoring and Evaluation: Follow up every Wednesday/Wednesday.
[2020-05-31] MEDS: EPOPROSTENOL SODIUM 0.5 MG VIAL 1 MG INHALATION ×2 (13:58→19:10)
[2020-05-31 16:15] LABS: Alveolar/Arterial O2 Gradient 526.5 mmHg; Base Excess ABG 4.1 mEq/l (+/-2.0); Carboxyhemoglobin 0.5 % THb (0-2.0); Fractional Inspired Oxygen 100 %; HCO3 ABG 33.8 mEq/l (22.0-26.0); Methemoglobin ABG 0.4 %THb (0-1.5); Oxygen Content ABG 14.4 %vol (16.0-22.0); Oxyhemoglobin 95.5 % THb (90.0-100.0); PO2 ABG 101.3 mmHg (80.0-100.0); PO2 FiO2 Ratio Arterial Blood 1.01 %; Reduced Hemoglobin 3.6 %THb (0-5.0); Total Hemoglobin 10.6 g/dL (12.0-18.0)
[2020-05-31 16:17] LABS: Device VENTILATOR; Modified Allen's Test Pass; PCO2 ABG 85.2 mmHg (35.0-45.0); Site Drawn RIGHT RADIAL; pH ABG 7.216 (7.350-7.450)
[2020-05-31 16:18] LABS: Arterial Blood Gas PEEP 16 cmH2O; Arterial Blood Gas Tidal Volume 450 ml; Arterial Blood Gas Vent Mode CMV; Arterial Blood Gas Ventilator rate 30 /MIN
--- NOTE | 2020-05-31 16:30 | PM.IMPN ---
Progress Note: A&P Assessment and Plan (1) Shock: Code(s): R57.9 - Shock, unspecified Status: Acute Assessment and Plan: Patient was hypotensive 05/25 requiring norepinephrine but able to come off quickly. Blood pressure better controlled. Hypotension could be related to recent Lasix use. Continue to monitor. (2) Acute respiratory failure: Code(s): J96.00 - Acute respiratory failure, unspecified whether with hypoxia or hypercapnia Status: Acute Assessment and Plan: ABG on admission showing 7.53/25/63 on BiPAP. Wore the BiPAP initially but his condition worsened however and moved to ICU and intubated 05/12. Echo normal EF with grade 1 DD. Fevers resolving felt related to the probable bacterial PNA; continue IV abx Vanc and cipro. 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 . (3) Pneumonia due to COVID-19 virus: Code(s): U07.1 - COVID-19; J12.89 - Other viral pneumonia Status: Acute Assessment and Plan: Patient COVID positive on 05/04/20. He was admitted on 05/08/20 and finished 10d of Decadron and finished Remdesivir. AST/ALT up and down felt related to COVID; LFTs better overall. Repeat sputum cultures growing pseudomonas and BREANNA so Zosyn and Vanco started 05/20 through 05/25 and now changed to Cipro. Repeat CXR today still showing diffuse bilateral infiltrates. Continue to follow inflammatory markers and LFTs. Otherwise as above. (4) Pneumonia: Code(s): J18.9 - Pneumonia, unspecified organism Status: Acute Assessment and Plan: Sputum cultures growing pseudomonas and BREANNA and felt patient has superimposed bacterial pneumonia. Treatment as above. BC 05/26 staph epi x1 and repeat sputum 05/25 still Psuedomanas and staph aureus ID recommends cipro and vanc at least through 05/31 (5) Encephalopathy: Code(s): G93.40 - Encephalopathy, unspecified Status: Acute Assessment and Plan: Patient had a a prolonged seizure on 05/13 and was on Keppra but now off. Patient was unresponsive off sedation. CT brain no change 05/19. EEG results abnormal record due to the presence of bihemispheric delta activity and with absence of the normal background rhythm particularly posteriorly. No evidence of any paroxysmal discharge to suggest organic or metabolic encephalopathy or postictal state. He has become more responsive now. Continue to follow off sedation to assess recovery. (6) Seizure: Code(s): R56.9 - Unspecified convulsions Status: Acute Assessment and Plan: Patient had a seizure on 05/13 possibly related to hypoxia. He was on Keppra but stopped after a few days. CT brain showing no acute process 05/19. EEG as mentioned above. Continue to monitor. (7) HTN (hypertension), benign: Code(s): I10 - Essential (primary) hypertension Status: Chronic Assessment and Plan: Patient's blood pressure was reviewed on 05/31. . Will continue to hold his amlodipine, enalapril and hydrochlorothiazide. IV hydralazine prn available. Resume meds if needed (8) Acute renal failure: Code(s): N17.9 - Acute kidney failure, unspecified Status: Acute Assessment and Plan: Patient's creatinine is 1.5 on admission. Yoni inhibitors and diuretics on hold. Creatine fell and now back to 1.6. Continue to monitor. Poor prognosis with continued rise in creatine and increasing 02 requirements despite trach (9) Diabetes mellitus: Code(s): E11.9 - Type 2 diabetes mellitus without complications Status: Acute Assessment and Plan: A1c 8.6 consistent with new diagnosis of DM. Glucose reviewed on 05/31 Glucose better controlled. Continue AccuCheks covering with sliding scale. Continue Levemir 25 U q12 (10) Gout: Code(s): M10.9 - Gout, unspecified Status: Chronic Assessment and Plan: Stable. Allopurinol remains on hold.
--- NOTE | 2020-05-31 17:37 | WPDINFPN2 ---
Progress Note: A&P Assessment and Plan (1) Pneumonia due to COVID-19 virus: Code(s): U07.1 - COVID-19; J12.89 - Other viral pneumonia Status: Acute Assessment and Plan: 1. Viral pneumonia due to CoVid 19 2. Respiratory failure, now with trach. 3. CNSS bacteremia, catheter infection source? No current CVC 4. Multifactorial leukocytosis, stable in teens x 1 week REC Off dexamethasone. Stop ciprofloxacin and Vanc. Will sign off Subjective Date/time seen: 05/31/20 17:37 Interval history: paralyzed, no pressors, trach Exam Narrative: Exam Narrative: afebrile Const: General: no acute distress Resp: Effort & Inspection: normal respiratory effort Auscultation: crackles Cardio: Rate: tachycardic Rhythm: regular rhythm Heart sounds: no gallops and no murmurs GI: Percussion: Yes normal to percussion Urinary Catheter: Urinary Catheter: patent and draining and urine clear Objective Data Vital Signs Vital Signs: Vital Signs - 24 hr 05/30/20 17:56 05/30/20 18:00 05/30/20 18:30 Temperature Pulse Rate 113 H 112 H 111 H Respiratory Rate 32 H 34 H 35 H Blood Pressure 127/67 127/67 Pulse Oximetry 89 L 90 05/30/20 18:34 05/30/20 19:42 05/30/20 20:00 Temperature 37.2 C Pulse Rate 113 H 115 H Respiratory Rate 32 H 34 H Blood Pressure 126/70 Pulse Oximetry 89 L 91 05/30/20 21:15 05/30/20 21:16 05/30/20 21:25 Temperature Pulse Rate 113 H 114 H 116 H Respiratory Rate 34 H 32 H Blood Pressure Pulse Oximetry 93 05/30/20 22:00 05/30/20 22:11 05/30/20 22:16 Temperature Pulse Rate 111 H 111 H 111 H Respiratory Rate 32 H 32 H Blood Pressure Pulse Oximetry 05/31/20 00:00 05/31/20 00:20 05/31/20 00:45 Temperature Pulse Rate 110 H 109 H 113 H Respiratory Rate 31 H Blood Pressure Pulse Oximetry 94 93 05/31/20 01:17 05/31/20 01:26 05/31/20 02:00 Temperature Pulse Rate 113 H 114 H 113 H Respiratory Rate 31 H 30 H Blood Pressure Pulse Oximetry 12/04/20 03:16 05/31/20 03:40 05/31/20 04:00 Temperature 37.6 C Pulse Rate 110 H 110 H 112 H Respiratory Rate 33 H 35 H Blood Pressure 134/65 Pulse Oximetry 90 91 05/31/20 05:16 05/31/20 05:45 05/31/20 06:00 Temperature Pulse Rate 112 H 112 H 111 H Respiratory Rate 32 H 34 H Blood Pressure 118/68 Pulse Oximetry 88 L 88 L 05/31/20 06:09 05/31/20 08:00 05/31/20 08:38 Temperature 37.2 C Pulse Rate 112 H 108 H 115 H Respiratory Rate 32 H 39 H 24 H Blood Pressure 123/66 Pulse Oximetry 88 L 05/31/20 08:45 05/31/20 08:58 05/31/20 09:05 Temperature Pulse Rate 115 H 112 H 112 H Respiratory Rate 24 H 38 H Blood Pressure Pulse Oximetry 91 05/31/20 10:00 05/31/20 11:03 05/31/20 11:32 Temperature Pulse Rate 120 H 114 H 120 H Respiratory Rate 30 H 32 H Blood Pressure 126/68 Pulse Oximetry 89 L 90 05/31/20 12:00 05/31/20 12:27 05/31/20 13:25 Temperature Pulse Rate 119 H 118 H 122 H Respiratory Rate 33 H 32 H 23 H Blood Pressure 120/68 Pulse Oximetry 88 L 05/31/20 13:35 05/31/20 13:40 05/31/20 14:00 Temperature Pulse Rate 121 H 122 H 119 H Respiratory Rate 30 H 30 H Blood Pressure 119/64 107/64 Pulse Oximetry 92 93 05/31/20 14:14 05/31/20 14:30 05/31/20 16:00 Temperature 37.2 C Pulse Rate 119 H 118 H 117 H Respiratory Rate 30 H 30 H 30 H Blood Pressure 107/64 108/66 Pulse Oximetry 93 95 05/31/20 16:59 05/31/20 17:02 05/31/20 17:04 Temperature Pulse Rate 121 H 121 H 119 H Respiratory Rate 32 H 32 H Blood Pressure 108/66 Pulse Oximetry 92 92 Intake/Output Intake/Output: Intake & Output 05/28/20 05/29/20 05/30/20 05/31/20 23:59 23:59 23:59 23:59 Intake Total 3340 3474 3250 700 Output Total 6310 8355 700 250 Balance 440 -201 2550 450 Meds/Results Medications: Active Medications Generic Name Dose Route Start Last Admin Trade Name Freq PRN Reason Stop Dose Admin
[2020-05-31 18:21] LABS: Glucose Point of Care 144 (65-105)
[2020-05-31 19:38] LABS: Alveolar/Arterial O2 Gradient 527.1 mmHg; Base Excess ABG 1.8 mEq/l (+/-2.0); Carboxyhemoglobin 0.3 % THb (0-2.0); Fractional Inspired Oxygen 100 %; Methemoglobin ABG 0.6 %THb (0-1.5); Oxygen Content ABG 13.6 %vol (16.0-22.0); Oxygen Saturation ABG 94.7 % (95.0-100.0); Oxyhemoglobin 94.9 % THb (90.0-100.0); PO2 ABG 95.2 mmHg (80.0-100.0); PO2 FiO2 Ratio Arterial Blood 0.95 %; Reduced Hemoglobin 4.2 %THb (0-5.0); Total Hemoglobin 10.1 g/dL (12.0-18.0)
[2020-05-31 19:43] LABS: Device VENTILATOR; Modified Allen's Test Unable to perform; PCO2 ABG 90.7 mmHg (35.0-45.0); Site Drawn RIGHT RADIAL; pH ABG 7.166 (7.350-7.450)
[2020-05-31 19:44] LABS: Arterial Blood Gas PEEP 16 cmH2O; Arterial Blood Gas Tidal Volume 450 ml; Arterial Blood Gas Vent Mode CMV; Arterial Blood Gas Ventilator rate 32 /MIN
[2020-05-31] MEDS: CISATRACURIUM BESYLATE 200 MG in DEXTROSE 5% 80 ML 16.8 ML IV CONT (20:09)
[2020-06-01] VITALS (48 sets, daily range): BP systolic 84–107; BP diastolic 51–62; PULSE 11–115; RESP 28–35; TEMP 36.1–37.3; O2SAT 93–98
[2020-06-01] MEDS: CISATRACURIUM BESYLATE 200 MG in DEXTROSE 5% 80 ML 16.8 ML IV CONT ×4 (00:32→19:46)
[2020-06-01] MEDS: PROPOFOL IV EMULSION 100 ML 40.41 MG IV CONT ×9 (00:39→22:25)
[2020-06-01] MEDS: EPOPROSTENOL SODIUM 0.5 MG VIAL 1 MG INHALATION ×4 (01:04→20:11)
[2020-06-01 02:19] LABS: Glucose Point of Care 128 (65-105)
[2020-06-01] MEDS: CENTRAL LINE FLUSH 10 ML IV PUSH ×3 (05:09→19:51)
[2020-06-01 05:40] LABS: Hematocrit 28.1 % (42.0-52.0); Hemoglobin 8.5 g/dL (14.0-18.0); Mean Corpuscular HGB Conc 30.2 g/dl (32-36); Mean Corpuscular Hemoglobin 27.7 pg (26-34); Mean Corpuscular Volume 91.5 fl (80-100); Mean Platelet Volume 9.8 fl (7.4-10.4); Platelet Count Result 285 k/mm3 (150-375); Red Blood Count 3.07 M/mm3 (4.6-6.20); Red Cell Distribution Width 17.8 % (11.5-14.5)
[2020-06-01 06:10] LABS: Alveolar/Arterial O2 Gradient 490.8 mmHg; Base Excess ABG 1.4 mEq/l (+/-2.0); Carboxyhemoglobin 0.8 % THb (0-2.0); Fractional Inspired Oxygen 90 %; HCO3 ABG 30.2 mEq/l (22.0-26.0); Methemoglobin ABG 0.4 %THb (0-1.5); Oxygen Content ABG 13.6 %vol (16.0-22.0); Oxygen Saturation ABG 91.9 % (95.0-100.0); Oxyhemoglobin 92.5 % THb (90.0-100.0); PO2 ABG 75.5 mmHg (80.0-100.0); PO2 FiO2 Ratio Arterial Blood 0.84 %; Reduced Hemoglobin 6.3 %THb (0-5.0); Total Hemoglobin 10.4 g/dL (12.0-18.0)
[2020-06-01 06:11] LABS: PCO2 ABG 73.6 mmHg (35.0-45.0); pH ABG 7.231 (7.350-7.450)
[2020-06-01 06:12] LABS: Arterial Blood Gas PEEP 16 cmH2O; Arterial Blood Gas Vent Mode CMV; Arterial Blood Gas Ventilator rate 32 /MIN; Device VENTILATOR; Modified Allen's Test Unable to perform; Site Drawn RIGHT RADIAL
[2020-06-01 06:13] LABS: Arterial Blood Gas Tidal Volume 500 ml
[2020-06-01 06:28] LABS: Anion Gap 6 mmol/L (8-16); Blood Urea Nitrogen 38 mg/dL (9-20); Calcium 7.2 mg/dL (8.4-10.2); Carbon Dioxide 33 mmol/L (22-30); Chloride 90 mmol/L (98-107); Estimated CRCL calculation 46 ml/min; Estimated Glomerular Filt Rate 31; Glucose 116 mg/dL (75-110); Magnesium 2.5 mg/dL (1.6-2.3); Phosphorus 8.6 mg/dL (2.5-4.5); Potassium 4.9 mmol/L (3.4-5.0); Sodium 129 mmol/L (137-145)
[2020-06-01] MEDS: ENOXAPARIN 40 MG/0.4 ML SYRINGE SUB-Q ×2 (08:27→19:49)
[2020-06-01] MEDS: INSULIN DETEMIR 100 UNITS/ML 25 UNITS SUB-Q ×2 (08:28→20:45)
[2020-06-01] MEDS: PANTOPRAZOLE SODIUM IV 40 MG VIAL IV PUSH (08:30)
[2020-06-01] MEDS: TOLNAFTATE 1% POWDER 45 GM BTL 1 APPLIC TOPICAL ×2 (08:32→19:50)
--- NOTE | 2020-06-01 13:13 | WPDINTPN ---
Progress Note: A&P Assessment and Plan (1) Acute respiratory failure with hypoxemia: Code(s): J96.01 - Acute respiratory failure with hypoxia Status: Acute Assessment and Plan: Acute respiratory failure hypoxemia secondary to COVID-19 pneumonia - patient has been alternating with BiPAP and high-flow therapy since 05/08/2020. - intubated on 05/12/2020 -chest x-ray and ABGs reviewed, currently CMV mode of ventilation, 8 of PEEP and 80% FiO2 Continue propofol for sedation -PEG tube to be placed 05/29/2020 -tracheostomy placed on 05/30/2020 -patient with significant cumulative positive fluid balance, chest x-ray shows diffuse infiltrates, will diurese today along with albumin Bilateral upper extremity swelling, venous Dopplers of bilateral upper extremities done on 05/21, showed bilateral upper extremity superficial venous thrombosis 06/01/20 Will try aggressive diuresis today as he is severe edematous and 20 liters positive balance since admission. Lasix 80 mg IV Q6h will be started. RR increased to 35, TV at < 6 ml/kg at 500 cc currently, FiO2 at 90%. PEEP at 16. (2) Fever: Code(s): R50.9 - Fever, unspecified Status: Acute Assessment and Plan: Fever curve has resolved Venous Dopplers 05/16/2020: No DVT bilateral lower extremity blood cultures from 05/16/2020: Negative x2 from 05/18/2020 negative x1 -sputum cultures from 05/19 bring Pseudomonas and Staph aureus (BREANNA), -repeat blood cultures 05/25 growing coag-negative staph 2/2 bottles -repeat sputum culture 05/26/2020 growing Pseudomonas and Staph aureus -appreciate infectious disease evaluation recommendation, continue Cipro and vancomycin for now (3) Shock: Code(s): R57.9 - Shock, unspecified Status: Acute Assessment and Plan: RESOLVED Patient hypotensive overnight on 05/24, likely related to diuresis, and or infection Off Levophed, -lactic acid normalized (4) Pneumonia due to COVID-19 virus: Code(s): U07.1 - COVID-19; J12.89 - Other viral pneumonia Status: Acute Assessment and Plan: Completed a course of dexamethasone and Remdesivir. - appreciate infectious disease evaluation recommendation. he was not a candidate for convalescent plasma. - continue droplet, airborne, contact isolation /precautions -monitoring inflammatory markers periodically (5) Encephalopathy: Code(s): G93.40 - Encephalopathy, unspecified Status: Acute Assessment and Plan: Gradually improving, patient is off sedation since 05/20/2020 -CT scan of the brain on 05/19/2020 did not show any acute intracranial abnormalities -neurology evaluated him on admission -EEG from 05/20/2020 organic or metabolic encephalopathy or postictal state (6) GERD (gastroesophageal reflux disease): Code(s): K21.9 - Gastro-esophageal reflux disease without esophagitis Status: Acute Assessment and Plan: Continue IV pantoprazole once a day. (7) HTN (hypertension), benign: Code(s): I10 - Essential (primary) hypertension Status: Chronic Assessment and Plan: Stable blood pressures (8) Elevated blood sugar: Code(s): R73.9 - Hyperglycemia, unspecified Status: Acute Assessment and Plan: He seems to have a new diagnosis of diabetes mellitus. Hemoglobin A1c was 8.6. continue insulin sliding scale. -continue Levemir (9) Acute renal failure: Code(s): N17.9 - Acute kidney failure, unspecified Status: Acute Assessment and Plan: Acute kidney injury has resolved with creatinine 1.0 this morning -hypokalemia -resolved (10) Seizure: Code(s): R56.9 - Unspecified convulsions Status: Acute Assessment and Plan: patient with seizure activity on 05/12/2020, patient was loaded with Keppra - neurology evaluated the patient - will hold Keppra since patient has not had any seizure activity - currently sedated with propofol a
[2020-06-01 13:19] LABS: Glucose Point of Care 132 (65-105)
[2020-06-01 13:51] LABS: Alveolar/Arterial O2 Gradient 515.3 mmHg; Base Excess ABG 0.8 mEq/l (+/-2.0); Carboxyhemoglobin 0.1 % THb (0-2.0); Fractional Inspired Oxygen 100 %; HCO3 ABG 28.7 mEq/l (22.0-26.0); Methemoglobin ABG 0.5 %THb (0-1.5); Oxygen Saturation ABG 98.1 % (95.0-100.0); Oxyhemoglobin 97.3 % THb (90.0-100.0); PO2 ABG 131.7 mmHg (80.0-100.0); PO2 FiO2 Ratio Arterial Blood 1.32 %; Reduced Hemoglobin 2.1 %THb (0-5.0); Total Hemoglobin 9.3 g/dL (12.0-18.0)
[2020-06-01 13:53] LABS: Arterial Blood Gas Vent Mode CMV; Arterial Blood Gas Ventilator rate 35 /MIN; Device VENTILATOR; Site Drawn RIGHT RADIAL; pH ABG 7.256 (7.350-7.450)
[2020-06-01 13:54] LABS: Arterial Blood Gas PEEP 16 cmH2O; Arterial Blood Gas Tidal Volume 500 ml
[2020-06-01] MEDS: FUROSEMIDE INJ 100 MG/10 ML VIAL 80 MG IV PUSH (14:12)
--- NOTE | 2020-06-01 15:47 | PM.IMPN ---
Progress Note: A&P Assessment and Plan (1) Shock: Code(s): R57.9 - Shock, unspecified Status: Acute Assessment and Plan: Patient was hypotensive 05/25 requiring norepinephrine but able to come off quickly. Blood pressure better controlled. Hypotension could be related to recent Lasix use. Continue to monitor. (2) Acute respiratory failure: Code(s): J96.00 - Acute respiratory failure, unspecified whether with hypoxia or hypercapnia Status: Acute Assessment and Plan: ABG on admission showing 7.53/25/63 on BiPAP. Wore the BiPAP initially but his condition worsened however and moved to ICU and intubated 05/12. Echo normal EF with grade 1 DD. Fevers resolving felt related to bacterial PNA; stopped abx Vanc and cipro. 05/31 pm per ID Iv lasix for volume overlaod. . (3) Pneumonia due to COVID-19 virus: Code(s): U07.1 - COVID-19; J12.89 - Other viral pneumonia Status: Acute Assessment and Plan: Patient COVID positive on 05/04/20. He was admitted on 05/08/20 and finished 10d of Decadron and finished Remdesivir. AST/ALT up and down felt related to COVID; LFTs better overall. Repeat sputum cultures growing pseudomonas and BREANNA so Zosyn and Vanco started 05/20 through 05/25 and now changed to Cipro. Repeat CXR today still showing diffuse bilateral infiltrates, likely partially fluid overload now. Antibiotics stopped and IV lasix ordered Continue to follow inflammatory markers and LFTs. Otherwise as above. (4) Pneumonia: Code(s): J18.9 - Pneumonia, unspecified organism Status: Acute Assessment and Plan: Sputum cultures growing pseudomonas and BREANNA and felt patient has superimposed bacterial pneumonia. Treatment as above. BC 05/26 staph epi x1 and repeat sputum 05/25 still Psuedomanas and staph aureus ID recommends cipro and vanc which was stopped pm 05/31 (5) Encephalopathy: Code(s): G93.40 - Encephalopathy, unspecified Status: Acute Assessment and Plan: Patient had a a prolonged seizure on 05/13 and was on Keppra but now off. Patient was unresponsive off sedation. CT brain no change 05/19. EEG results abnormal record due to the presence of bihemispheric delta activity and with absence of the normal background rhythm particularly posteriorly. No evidence of any paroxysmal discharge to suggest organic or metabolic encephalopathy or postictal state. He has become more responsive now. Continue to follow off sedation to assess recovery. (6) Seizure: Code(s): R56.9 - Unspecified convulsions Status: Acute Assessment and Plan: Patient had a seizure on 05/13 possibly related to hypoxia. He was on Keppra but stopped after a few days. CT brain showing no acute process 05/19. EEG as mentioned above. Continue to monitor. (7) HTN (hypertension), benign: Code(s): I10 - Essential (primary) hypertension Status: Chronic Assessment and Plan: Patient's blood pressure was reviewed on 05/31 . Will continue to hold his amlodipine, enalapril and hydrochlorothiazide. IV hydralazine prn available. Resume meds if needed (8) Acute renal failure: Code(s): N17.9 - Acute kidney failure, unspecified Status: Acute Assessment and Plan: Patient's creatinine is 1.5 on admission. Yoni inhibitors and diuretics on hold. Creatine fell and now back to 2.1. Continue to monitor. Poor prognosis with continued rise in creatine and increasing 02 requirements despite trach Attempting more diuresis today (9) Diabetes mellitus: Code(s): E11.9 - Type 2 diabetes mellitus without complications Status: Acute Assessment and Plan: A1c 8.6 consistent with new diagnosis of DM. Glucose reviewed on 05/31 Glucose better controlled. Continue AccuCheks covering with sliding scale. Continue Levemir 25 U q12 (10) Gout: Code(s): M10.9 - Gout, unspecified Status: Chr
[2020-06-01 17:29] LABS: Glucose Point of Care 124 (65-105)
[2020-06-01 19:54] LABS: Alveolar/Arterial O2 Gradient 76.3 mmHg; Base Excess ABG 1.9 mEq/l (+/-2.0); Fractional Inspired Oxygen 40 %; HCO3 ABG 30.4 mEq/l (22.0-26.0); Oxygen Content ABG 13.4 %vol (16.0-22.0); Oxygen Saturation ABG 97.8 % (95.0-100.0); Oxyhemoglobin 96.8 % THb (90.0-100.0); PO2 ABG 125.9 mmHg (80.0-100.0); PO2 FiO2 Ratio Arterial Blood 3.15 %; Total Hemoglobin 9.7 g/dL (12.0-18.0)
[2020-06-01 19:56] LABS: Device VENTILATOR; Modified Allen's Test Pass; PCO2 ABG 72.2 mmHg (35.0-45.0); Site Drawn RIGHT RADIAL; pH ABG 7.242 (7.350-7.450)
[2020-06-01 19:57] LABS: Arterial Blood Gas PEEP 5 cmH2O; Arterial Blood Gas Tidal Volume 500 ml; Arterial Blood Gas Vent Mode CMV; Arterial Blood Gas Ventilator rate 24 /MIN
[2020-06-01 22:33] LABS: Alveolar/Arterial O2 Gradient 567.3 mmHg; Base Excess ABG 0.9 mEq/l (+/-2.0); Carboxyhemoglobin 0.3 % THb (0-2.0); Fractional Inspired Oxygen 100 %; HCO3 ABG 28.4 mEq/l (22.0-26.0); Methemoglobin ABG 0.4 %THb (0-1.5); Oxygen Content ABG 12.8 %vol (16.0-22.0); Oxygen Saturation ABG 94.8 % (95.0-100.0); Oxyhemoglobin 94.3 % THb (90.0-100.0); PO2 ABG 84.1 mmHg (80.0-100.0); PO2 FiO2 Ratio Arterial Blood 0.84 %; Total Hemoglobin 9.6 g/dL (12.0-18.0)
[2020-06-01 22:34] LABS: Device VENTILATOR; Modified Allen's Test Pass; PCO2 ABG 61.6 mmHg (35.0-45.0); Site Drawn RIGHT RADIAL; pH ABG 7.281 (7.350-7.450)
[2020-06-01 22:35] LABS: Arterial Blood Gas PEEP 16 cmH2O; Arterial Blood Gas Tidal Volume 550 ml; Arterial Blood Gas Vent Mode CMV; Arterial Blood Gas Ventilator rate 35 /MIN
[2020-06-02] VITALS (39 sets, daily range): BP systolic 85–113; BP diastolic 47–64; PULSE 105–133; RESP 31–62; TEMP 36.1–36.8; O2SAT 90–97
[2020-06-02 00:29] LABS: Glucose Point of Care 112 (65-105)
[2020-06-02] MEDS: PROPOFOL IV EMULSION 100 ML 40.41 MG IV CONT ×4 (00:37→23:28)
[2020-06-02] MEDS: CISATRACURIUM BESYLATE 200 MG in DEXTROSE 5% 80 ML 16.8 ML IV CONT ×3 (00:38→11:24)
[2020-06-02] MEDS: NOREPINEPHRINE 8 MG/D5W 250 ML 8 MG/250 ML BAG 9.38 MG IV CONT ×2 (03:13→20:08)
[2020-06-02] MEDS: FUROSEMIDE INJ 100 MG/10 ML VIAL 80 MG IV PUSH ×4 (03:18→19:59)
[2020-06-02] MEDS: CENTRAL LINE FLUSH 10 ML IV PUSH ×2 (05:03→20:00)
[2020-06-02 05:16] LABS: Alveolar/Arterial O2 Gradient 578.3 mmHg; Base Excess ABG 2.5 mEq/l (+/-2.0); Carboxyhemoglobin 0.1 % THb (0-2.0); Fractional Inspired Oxygen 100 %; HCO3 ABG 29.5 mEq/l (22.0-26.0); Methemoglobin ABG 0.3 %THb (0-1.5); Oxygen Content ABG 13.6 %vol (16.0-22.0); Oxygen Saturation ABG 93.9 % (95.0-100.0); Oxyhemoglobin 93.5 % THb (90.0-100.0); PCO2 ABG 58.5 mmHg (35.0-45.0); PO2 ABG 76.2 mmHg (80.0-100.0); PO2 FiO2 Ratio Arterial Blood 0.76 %; Reduced Hemoglobin 6.1 %THb (0-5.0); Total Hemoglobin 10.3 g/dL (12.0-18.0); pH ABG 7.321 (7.350-7.450)
[2020-06-02 05:17] LABS: Arterial Blood Gas Vent Mode CMV; Arterial Blood Gas Ventilator rate 35 /MIN; Device VENTILATOR; Modified Allen's Test Unable to perform; Site Drawn RIGHT RADIAL
[2020-06-02 05:18] LABS: Arterial Blood Gas PEEP 16 cmH2O; Arterial Blood Gas Tidal Volume 550 ml
[2020-06-02 06:07] LABS: Hematocrit 26.5 % (42.0-52.0); Hemoglobin 8.4 g/dL (14.0-18.0); Mean Corpuscular HGB Conc 31.7 g/dl (32-36); Mean Corpuscular Hemoglobin 28.4 pg (26-34); Mean Corpuscular Volume 89.5 fl (80-100); Mean Platelet Volume 9.8 fl (7.4-10.4); Platelet Count Result 241 k/mm3 (150-375); Red Blood Count 2.96 M/mm3 (4.6-6.20); Red Cell Distribution Width 18.1 % (11.5-14.5); White Blood Count 13.1 K/mm3 (4.5-10.0)
[2020-06-02 06:22] LABS: D Dimer 2.92 ug/mL (<0.48)
[2020-06-02 06:34] LABS: Anion Gap 6 mmol/L (8-16); Blood Urea Nitrogen 46 mg/dL (9-20); CRP 7.6 mg/dL (<1.0); Calcium 7.2 mg/dL (8.4-10.2); Carbon Dioxide 32 mmol/L (22-30); Chloride 90 mmol/L (98-107); Glucose 143 mg/dL (75-110); Lactate Dehydrogenase 570 U/L (313-618); Magnesium 2.5 mg/dL (1.6-2.3); Phosphorus 7.2 mg/dL (2.5-4.5); Potassium 4.1 mmol/L (3.4-5.0); Sodium 128 mmol/L (137-145)
[2020-06-02 06:51] LABS: Estimated CRCL calculation 54 ml/min; Estimated Glomerular Filt Rate 38
[2020-06-02] MEDS: ALBUTEROL SULFATE NEB 2.5 MG/0.5 ML INH INHALATION ×4 (07:28→20:14)
[2020-06-02] MEDS: IPRATROPIUM BR 0.02% INH SOLN 0.5 MG/2.5 ML VIAL INHALATION ×4 (07:28→20:14)
[2020-06-02] MEDS: INSULIN DETEMIR 100 UNITS/ML 25 UNITS SUB-Q ×2 (07:54→19:58)
[2020-06-02] MEDS: PANTOPRAZOLE SODIUM IV 40 MG VIAL IV PUSH (07:55)
[2020-06-02] MEDS: ENOXAPARIN 40 MG/0.4 ML SYRINGE SUB-Q ×2 (07:55→19:59)
[2020-06-02] MEDS: TOLNAFTATE 1% POWDER 45 GM BTL 1 APPLIC TOPICAL ×2 (07:55→20:00)
--- NOTE | 2020-06-02 08:44 | WPDINTPN ---
Progress Note: A&P Assessment and Plan (1) Acute respiratory failure with hypoxemia: Code(s): J96.01 - Acute respiratory failure with hypoxia Status: Acute Assessment and Plan: Acute respiratory failure hypoxemia secondary to COVID-19 pneumonia - patient has been alternating with BiPAP and high-flow therapy since 05/08/2020. - intubated on 05/12/2020 -chest x-ray and ABGs reviewed, currently CMV mode of ventilation, 8 of PEEP and 80% FiO2 Continue propofol for sedation -PEG tube to be placed 05/29/2020 -tracheostomy placed on 05/30/2020 -patient with significant cumulative positive fluid balance, chest x-ray shows diffuse infiltrates, will diurese today along with albumin Bilateral upper extremity swelling, venous Dopplers of bilateral upper extremities done on 05/21, showed bilateral upper extremity superficial venous thrombosis Continued high vent requirements on FiO2 100% and PEEP 16. CXR shows fluid overload and he is markedly positive since admission. Continue Lasix. Prognosis is poor. (2) Fever: Code(s): R50.9 - Fever, unspecified Status: Acute Assessment and Plan: Fever curve has resolved Venous Dopplers 05/16/2020: No DVT bilateral lower extremity blood cultures from 05/16/2020: Negative x2 from 05/18/2020 negative x1 -sputum cultures from 05/19 bring Pseudomonas and Staph aureus (BREANNA), -repeat blood cultures 05/25 growing coag-negative staph 2/2 bottles -repeat sputum culture 05/26/2020 growing Pseudomonas and Staph aureus -appreciate infectious disease evaluation recommendation, now off abx (3) Shock: Code(s): R57.9 - Shock, unspecified Status: Acute Assessment and Plan: RESOLVED Patient hypotensive overnight on 05/24, likely related to diuresis, and or infection Off Levophed, -lactic acid normalized (4) Pneumonia due to COVID-19 virus: Code(s): U07.1 - COVID-19; J12.89 - Other viral pneumonia Status: Acute Assessment and Plan: Completed a course of dexamethasone and Remdesivir. - appreciate infectious disease evaluation recommendation. he was not a candidate for convalescent plasma. - continue droplet, airborne, contact isolation /precautions -monitoring inflammatory markers periodically (5) Encephalopathy: Code(s): G93.40 - Encephalopathy, unspecified Status: Acute Assessment and Plan: Gradually improving, patient is off sedation since 05/20/2020 -CT scan of the brain on 05/19/2020 did not show any acute intracranial abnormalities -neurology evaluated him on admission -EEG from 05/20/2020 organic or metabolic encephalopathy or postictal state (6) GERD (gastroesophageal reflux disease): Code(s): K21.9 - Gastro-esophageal reflux disease without esophagitis Status: Acute Assessment and Plan: Continue IV pantoprazole once a day. (7) HTN (hypertension), benign: Code(s): I10 - Essential (primary) hypertension Status: Chronic Assessment and Plan: Stable blood pressures (8) Elevated blood sugar: Code(s): R73.9 - Hyperglycemia, unspecified Status: Acute Assessment and Plan: He seems to have a new diagnosis of diabetes mellitus. Hemoglobin A1c was 8.6. continue insulin sliding scale. -continue Levemir (9) Acute renal failure: Code(s): N17.9 - Acute kidney failure, unspecified Status: Acute Assessment and Plan: Acute kidney injury has resolved -hypokalemia -resolved (10) Seizure: Code(s): R56.9 - Unspecified convulsions Status: Acute Assessment and Plan: patient with seizure activity on 05/12/2020, patient was loaded with Keppra - neurology evaluated the patient - will hold Keppra since patient has not had any seizure activity - currently sedated with propofol and fentanyl (11) Dietary counseling and surveillance: Code(s): Z71.3 - Dietary counseling and surveillance Status: Acute
[2020-06-02] MEDS: FENTANYL 2,500MCG/NS250ML(*CRX 2,500 MCG/250 ML BAG IV CONT (11:23)
[2020-06-02 11:36] LABS: Glucose Point of Care 160 (65-105)
[2020-06-02] MEDS: PROPOFOL IV EMULSION 100 ML 36.37 MG IV CONT ×2 (12:57→15:42)
--- NOTE | 2020-06-02 17:03 | PM.IMPN ---
Progress Note: A&P Assessment and Plan (1) Shock: Code(s): R57.9 - Shock, unspecified Status: Acute Assessment and Plan: Patient was hypotensive 05/25 requiring norepinephrine but able to come off quickly. Blood pressure better controlled but soft. . Hypotension could be related to recent Lasix use. Continue to monitor. (2) Acute respiratory failure: Code(s): J96.00 - Acute respiratory failure, unspecified whether with hypoxia or hypercapnia Status: Acute Assessment and Plan: ABG on admission showing 7.53/25/63 on BiPAP. Wore the BiPAP initially but his condition worsened however and moved to ICU and intubated 05/12. Echo normal EF with grade 1 DD. Fevers resolving felt related to bacterial PNA; stopped abx Vanc and cipro. 05/31 pm per ID Iv lasix for volume overlaod. . (3) Pneumonia due to COVID-19 virus: Code(s): U07.1 - COVID-19; J12.89 - Other viral pneumonia Status: Acute Assessment and Plan: Patient COVID positive on 05/04/20. He was admitted on 05/08/20 and finished 10d of Decadron and finished Remdesivir. AST/ALT up and down felt related to COVID; LFTs better overall. Repeat sputum cultures growing pseudomonas and BREANNA so Zosyn and Vanco started 05/20 through 05/25 and now changed to Cipro. Repeat CXR today still showing diffuse bilateral infiltrates, likely partially fluid overload now. Antibiotics stopped and IV lasix ordered Continue to follow inflammatory markers and LFTs. Otherwise as above. (4) Pneumonia: Code(s): J18.9 - Pneumonia, unspecified organism Status: Acute Assessment and Plan: Sputum cultures growing pseudomonas and BREANNA and felt patient has superimposed bacterial pneumonia. Treatment as above. BC 05/26 staph epi x1 and repeat sputum 05/25 still Psuedomanas and staph aureus ID recommends cipro and vanc which was stopped pm 05/31 (5) Encephalopathy: Code(s): G93.40 - Encephalopathy, unspecified Status: Acute Assessment and Plan: Patient had a a prolonged seizure on 05/13 and was on Keppra but now off. Patient was unresponsive off sedation. CT brain no change 05/19. EEG results abnormal record due to the presence of bihemispheric delta activity and with absence of the normal background rhythm particularly posteriorly. No evidence of any paroxysmal discharge , suggest organic or metabolic encephalopathy or postictal state. . Continue to follow off sedation to assess recovery. (6) Seizure: Code(s): R56.9 - Unspecified convulsions Status: Acute Assessment and Plan: Patient had a seizure on 05/13 possibly related to hypoxia. He was on Keppra but stopped after a few days. CT brain showing no acute process 05/19. EEG as mentioned above. Continue to monitor. (7) HTN (hypertension), benign: Code(s): I10 - Essential (primary) hypertension Status: Chronic Assessment and Plan: Patient's blood pressure was reviewed on 06/02 . Will continue to hold his amlodipine, enalapril and hydrochlorothiazide. IV hydralazine prn available. Resume meds if needed (8) Acute renal failure: Code(s): N17.9 - Acute kidney failure, unspecified Status: Acute Assessment and Plan: Patient's creatinine is 1.5 on admission. Yoni inhibitors and diuretics on hold. Creatine fell and now back to 1.8 Continue to monitor. Poor prognosis with creatine and increasing 02 requirements despite trach Attempting more diuresis but minimal with high dose IV lasix (9) Diabetes mellitus: Code(s): E11.9 - Type 2 diabetes mellitus without complications Status: Acute Assessment and Plan: A1c 8.6 consistent with new diagnosis of DM. Glucose reviewed on 05/31 Glucose better controlled. Continue AccuCheks covering with sliding scale. Continue Levemir 25 U q12 (10) Gout: Code(s): M10.9 - Gout, unspecified Status: Chronic
[2020-06-02 17:50] LABS: Glucose Point of Care 155 (65-105)
[2020-06-02] MEDS: CISATRACURIUM BESYLATE 200 MG in DEXTROSE 5% 80 ML 14.7 ML IV CONT (17:58)
[2020-06-02] MEDS: CISATRACURIUM BESYLATE 200 MG in DEXTROSE 5% 80 ML 21 ML IV CONT (23:35)
[2020-06-02 23:53] LABS: Glucose Point of Care 142 (65-105)
[2020-06-03] VITALS (44 sets, daily range): BP systolic 82–120; BP diastolic 1–66; PULSE 106–125; RESP 25–60; TEMP 37–37.6; O2SAT 91–98
[2020-06-03] MEDS: ALBUTEROL SULFATE NEB 2.5 MG/0.5 ML INH INHALATION ×6 (00:58→12:45)
[2020-06-03] MEDS: IPRATROPIUM BR 0.02% INH SOLN 0.5 MG/2.5 ML VIAL INHALATION ×6 (00:58→12:45)
[2020-06-03] MEDS: CISATRACURIUM BESYLATE 200 MG in DEXTROSE 5% 80 ML 33.6 ML IV CONT (03:45)
[2020-06-03] MEDS: PROPOFOL IV EMULSION 100 ML 40.41 MG IV CONT ×5 (03:46→13:43)
[2020-06-03 04:09] LABS: Hematocrit 25.5 % (42.0-52.0); Hemoglobin 7.8 g/dL (14.0-18.0); Mean Corpuscular HGB Conc 30.6 g/dl (32-36); Mean Corpuscular Hemoglobin 27.4 pg (26-34); Mean Corpuscular Volume 89.5 fl (80-100); Platelet Count Result 224 k/mm3 (150-375); Red Blood Count 2.85 M/mm3 (4.6-6.20); Red Cell Distribution Width 18.3 % (11.5-14.5); White Blood Count 10.6 K/mm3 (4.5-10.0)
[2020-06-03 04:21] LABS: Anion Gap 5 mmol/L (8-16); Blood Urea Nitrogen 50 mg/dL (9-20); Calcium 7.4 mg/dL (8.4-10.2); Carbon Dioxide 36 mmol/L (22-30); Chloride 90 mmol/L (98-107); Estimated CRCL calculation 49 ml/min; Estimated Glomerular Filt Rate 33; Glucose 125 mg/dL (75-110); Magnesium 2.6 mg/dL (1.6-2.3); Phosphorus 6.2 mg/dL (2.5-4.5); Potassium 3.8 mmol/L (3.4-5.0); Sodium 131 mmol/L (137-145)
[2020-06-03] MEDS: CENTRAL LINE FLUSH 10 ML IV PUSH ×2 (04:48→13:45)
[2020-06-03] MEDS: FUROSEMIDE INJ 100 MG/10 ML VIAL 80 MG IV PUSH ×2 (04:48→08:18)
[2020-06-03 05:12] LABS: Alveolar/Arterial O2 Gradient 568.9 mmHg; Base Excess ABG 3.7 mEq/l (+/-2.0); Carboxyhemoglobin 0.3 % THb (0-2.0); Fractional Inspired Oxygen 100 %; HCO3 ABG 31.4 mEq/l (22.0-26.0); Methemoglobin ABG 0.5 %THb (0-1.5); Oxygen Content ABG 12.5 %vol (16.0-22.0); Oxygen Saturation ABG 93.7 % (95.0-100.0); Oxyhemoglobin 92.5 % THb (90.0-100.0); PO2 ABG 77.7 mmHg (80.0-100.0); PO2 FiO2 Ratio Arterial Blood 0.78 %; Reduced Hemoglobin 6.7 %THb (0-5.0); Total Hemoglobin 9.5 g/dL (12.0-18.0); pH ABG 7.292 (7.350-7.450)
[2020-06-03 05:14] LABS: Device VENTILATOR; Modified Allen's Test Pass; PCO2 ABG 66.4 mmHg (35.0-45.0); Site Drawn RIGHT RADIAL
[2020-06-03 05:15] LABS: Arterial Blood Gas PEEP 16 cmH2O; Arterial Blood Gas Tidal Volume 550 ml; Arterial Blood Gas Vent Mode CMV; Arterial Blood Gas Ventilator rate 35 /MIN
[2020-06-03] MEDS: CISATRACURIUM BESYLATE 200 MG in DEXTROSE 5% 80 ML 25.2 ML IV CONT (06:34)
[2020-06-03] MEDS: ENOXAPARIN 40 MG/0.4 ML SYRINGE SUB-Q (08:17)
[2020-06-03] MEDS: TOLNAFTATE 1% POWDER 45 GM BTL 1 APPLIC TOPICAL (08:17)
[2020-06-03] MEDS: INSULIN DETEMIR 100 UNITS/ML 25 UNITS SUB-Q (08:17)
[2020-06-03] MEDS: PANTOPRAZOLE SODIUM IV 40 MG VIAL IV PUSH (08:17)
[2020-06-03] MEDS: CISATRACURIUM BESYLATE 200 MG in DEXTROSE 5% 80 ML 21 ML IV CONT (08:45)
--- NOTE | 2020-06-03 10:40 | WPDINTPN ---
Progress Note: A&P Assessment and Plan (1) Acute respiratory failure with hypoxemia: Code(s): J96.01 - Acute respiratory failure with hypoxia Status: Acute Assessment and Plan: Acute respiratory failure hypoxemia secondary to COVID-19 pneumonia, ARDS - patient has been alternating with BiPAP and high-flow therapy since 05/08/2020. intubated on 05/12/2020, tracheostomy placed on 05/30/2020 -post tracheostomy he has deteriorated and his oxygen requirement has increased. Currently on CMV with 16 of PEEP and 100% FiO2. I wean down FiO2 to 80% today -he was on Flolan which was discontinued few days ago -chest x-ray reviewed and shows persistent bilateral infiltrate -ABG was reviewed and shows respiratory acidosis and severe hypoxia - Bilateral upper extremity swelling, venous Dopplers of bilateral upper extremities done on 05/21, showed bilateral upper extremity superficial venous thrombosis -repeat lower extremity Dopplers -hold Lasix due to worsening of creatinine. (2) Fever: Code(s): R50.9 - Fever, unspecified Status: Acute Assessment and Plan: Fever curve has resolved Venous Dopplers 05/16/2020: No DVT bilateral lower extremity blood cultures from 05/16/2020: Negative x2 from 05/18/2020 negative x1 -sputum cultures from 05/19 bring Pseudomonas and Staph aureus (BREANNA), -repeat blood cultures 05/25 growing coag-negative staph 2/ bottles -repeat sputum culture 05/26/2020 growing Pseudomonas and Staph aureus -appreciate infectious disease evaluation recommendation, now off abx (3) Shock: Code(s): R57.9 - Shock, unspecified Status: Acute Assessment and Plan: Continue Levophed lactic acid normalized (4) Pneumonia due to COVID-19 virus: Code(s): U07.1 - COVID-19; J12.89 - Other viral pneumonia Status: Acute Assessment and Plan: Completed a course of dexamethasone and Remdesivir. - appreciate infectious disease evaluation recommendation. he was not a candidate for convalescent plasma. - continue droplet, airborne, contact isolation /precautions - inflammatory markers had normalized (5) Encephalopathy: Code(s): G93.40 - Encephalopathy, unspecified Status: Acute Assessment and Plan: Currently sedated and paralyzed -CT scan of the brain on 05/19/2020 did not show any acute intracranial abnormalities -neurology evaluated him on admission -EEG from 05/20/2020 organic or metabolic encephalopathy or postictal state (6) GERD (gastroesophageal reflux disease): Code(s): K21.9 - Gastro-esophageal reflux disease without esophagitis Status: Acute Assessment and Plan: Continue IV pantoprazole once a day. (7) Elevated blood sugar: Code(s): R73.9 - Hyperglycemia, unspecified Status: Acute Assessment and Plan: He seems to have a new diagnosis of diabetes mellitus. Hemoglobin A1c was 8.6. continue insulin sliding scale. -continue Levemir (8) Acute renal failure: Code(s): N17.9 - Acute kidney failure, unspecified Status: Acute Assessment and Plan: Acute kidney injury. Creatinine at 2 Hold further diuresis (9) Seizure: Code(s): R56.9 - Unspecified convulsions Status: Acute Assessment and Plan: patient with seizure activity on 05/12/2020, patient was loaded with Keppra which was later discontinued after neurology evaluated the patient - currently sedated with propofol and fentanyl (10) Dietary counseling and surveillance: Code(s): Z71.3 - Dietary counseling and surveillance Status: Acute Assessment and Plan: On TF. stress ulcer prophylaxis: Protonix IV (11) DVT prophylaxis: Code(s): Z29.9 - Encounter for prophylactic measures, unspecified Status: Acute Assessment and Plan: Lovenox 40 mg subcu q.12 hours Additional Plan Condition: Critical Code status: DNR Critical care time spent: 35 minutes
--- NOTE | 2020-06-03 11:39 | PCDIET ---
ICU Rounding Note: Patient tolerating Glucerna 1.2 at 65mL/hr goal rate with 30mL water flush every 4 hours. Consider decreasing rate to 50mL/hr while on Propofol to reduce fluid volume and prevent overfeeding. Last recorded weight is 139kg which is decreased from last review, but still up from admission. I/O noted. Bowel Motility: BM on 06/02/20 per nursing. Labs Reviewed: Hgb (7.8), Hct (25.5), Glu (125), BUN (50), Cr (2.0), Na (131), PO4 (6.2), Ca (7.4) Meds Noted: Propofol (rate of 40.41mL/hr provides 1066kcal per day), Nimbex, Fentanyl, Lasix, Hydralazine, Novolog, Levemir, Atrovent, Levophed, Protonix Additional Notes: Recommend checking albumin level for calcium correction. Right cheek with venous stasis ulcer. Anterior neck with incision site from tracheostomy. 3+ generalized edema, per nursing. Following daily in ICU rounds. Assessing/reassessing every Wednesday/Wednesday.
[2020-06-03 12:08] LABS: Glucose Point of Care 179 (65-105)
--- NOTE | 2020-06-03 15:11 | P.PNCROSS_ITS ---
Event Note Event Note Event Note: Family Meeting I spoke to patient's daughter Alejandra early this morning by phone and updated her with patient's condition. Patient was DNR and family was entertaining comfort care measures in light of his critical illness and no improvement for over last 4 weeks. They also spoke to educational fundraising director gym by phone and later in person. I met with patient's , daughter and grandson in presence of educational fundraising director [place] updated them with patient's current condition, treatment plan, expected prognosis and different potential outcomes. The family has decided, in accordance with pt's wishes, to discontinue all medical therapy and institute comfort measures only. I have discontinued paralytic infusion and once the effect wears off I will use opioids, anxiolytics and other agents on as needed basis to promote comfort and discontinue all medical therapy, lab testing and invasive monitoring. Total time spent 20 minutes
[2020-06-03] MEDS: LORazepam INJ (*CRX) 2 MG/ML VIAL IV PUSH (15:36)
--- NOTE | 2020-06-05 12:26 | PM.DDS ---
Discharge Sum: Prov Provider Primary care physician: Gaudencio Stephenson MD Admitting provider: Mika Salas MD Consults: 05/12/20 Consult to Physician Routine Comment: Consulting Provider: Malena Juarez Reason for consultation: respiratory failure Has provider been notified: Yes 05/13/20 05:48 Consult to Physician Routine Comment: Consulting Provider: Florentino Hardwick teacher physically impaired/MD group to consult: Neurology Reason for consultation: Seizure Has provider been notified: Yes 05/18/20 Consult to Physician Routine Comment: Consulting Provider: Narinder Kilpatrick teacher physically impaired/MD group to consult: Dr Martinez Reason for consultation: respiratory failure Has provider been notified: Yes 05/28/20 Consult to Physician Routine Comment: Consulting Provider: Deny Mueller Reason for consultation: PEG TUBE PLACEMENT Has provider been notified: No Consult to Physician Routine Comment: OFFICE NOTIFIED Consulting Provider: Damion Mora teacher physically impaired/MD group to consult: Reason for consultation: TRACHEOSTOMY Has provider been notified: Yes Discharge Sum: Diag Contributing Factors (1) Shock: (2) Acute respiratory failure: (3) Pneumonia due to COVID-19 virus: (4) Pneumonia: (5) Encephalopathy: (6) Seizure: (7) HTN (hypertension), benign: (8) Acute renal failure: (9) Diabetes mellitus: Discharge Sum: Summary Date and Time Date of admission: 05/08/20 22:48 Summary Details: Date of service and date of 06/03. 70-year-old hypertensive male admitted with COVID pneumonia and respiratory failure. He progressed to mechanical ventilation requiring high FiO2 to maintain O2 saturation. He eventually progressed to tracheostomy and PEG tube for nutrition. Encephalopathy persisted and eat EEG showed no definite seizure activity although he had had a documented seizure. No definite knock seek changes were seen on CT but this was suspected. He also had ventilator associated pneumonia with Pseudomonas and oxacillin sensitive Staph aureus for which she was treated with appropriate antibiotics. Fever subsided but chest x-ray did not clear and 02 saturations remained poor. Despite diuresis he was requiring FiO2 of 80 to 90% at the time of his . Family was consulted and they decided to withdrawal care and within a matter minutes he had . cause of thought to be COVID pneumonia with respiratory failure Additional Data Attending physician: Nir Sage MD
== END 2020-06-03 15:50 | disposition expired | DRG 4 ==
LOC: ANHED 23:12 → ANHIMU 05-09 02:06 → ANHICU 05-28 13:23 → ANHIMU 06-04 13:15
PROVIDERS: Internal Medicine; Internal Medicine Critical Care Medicine; Internal Medicine Gastroenterology; Nurse Practitioner; Otolaryngology; Admitting Provider Family Medicine; Emergency Provider Emergency Medicine; PCP Family Medicine; Visit Provider Internal Medicine
PROC: 0DH63UZ Insertion of Feeding Device into Stomach, Percutaneous Approach (ICD-10-PCS; CPT 43246; principal; 2020-05-29 13:00)
PROC: 0B110F4 Bypass Trachea to Cutaneous with Tracheostomy Device, Open Approach (ICD-10-PCS; principal; 2020-05-30 16:00)
DX: U07.1 COVID-19 (principal); J12.89 Other viral pneumonia; J96.01 Acute respiratory failure with hypoxia; J95.851 Ventilator associated pneumonia; N17.9 Acute kidney failure, unspecified; E87.1 Hypo-osmolality and hyponatremia; E87.0 Hyperosmolality and hypernatremia; G93.40 Encephalopathy, unspecified; R57.9 Shock, unspecified; R78.81 Bacteremia; Z99.11 Dependence on respirator [ventilator] status; Q39.6 Congenital diverticulum of esophagus; B96.5 Pseudomonas (aeruginosa) (mallei) (pseudomallei) as the cause of diseases classified elsewhere; B95.61 Methicillin susceptible Staphylococcus aureus infection as the cause of diseases classified elsewhere; R56.9 Unspecified convulsions; Z66 Do not resuscitate; E87.6 Hypokalemia; R21 Rash and other nonspecific skin eruption; K31.7 Polyp of stomach and duodenum; E11.9 Type 2 diabetes mellitus without complications; I10 Essential (primary) hypertension; K21.9 Gastro-esophageal reflux disease without esophagitis; K57.90 Diverticulosis of intestine, part unspecified, without perforation or abscess without bleeding; M10.9 Gout, unspecified; Z96.653 Presence of artificial knee joint, bilateral; Z28.21 Immunization not carried out because of patient refusal; Z79.899 Other long term (current) drug therapy; Z87.19 Personal history of other diseases of the digestive system; Z90.49 Acquired absence of other specified parts of digestive tract
CPT/HCPCS: 36415; 36569; 36600; 43246; 70450; 71045; 80048; 80053; 80069; 80202; 82375; 82728; 82805; 83036; 83050; 83605; 83615; 83735; 83880; 84100; 84132; 84145; 84443; 84460; 85025; 85027; 85380; 85610; 85730; 86140; 87040; 87070; 87077; 87186; 87205; 93005; 93306; 93970; 94002; 94003; 94640; 94660; 95816; 96374; 99291; A9270; C1751; C9113; J0131; J0360; J0696; J0744; J1100; J1650; J1815; J1940; J1953; J2060; J2250; J2270; J2543; J2704; J2997; J3010; J3370; J3480; J7030; P9047